=== PATIENT | male | born 1975 | race Caucasian/White ===

== ENCOUNTER 2020-05-08 15:05 | Outpatient (REF) | payer BC, SELFPAY ==
[2020-05-13 15:27] LABS: SARS-CoV-2 RNA Undetected (Undetected); SARS-CoV-2 Specimen Source Nasal
== END 2020-05-08 15:25 ==
LOC: NCHCN 15:05
PROVIDERS: PCP Nurse Practitioner Family; Visit Provider Nurse Practitioner Family
DX: Z20.828 Contact with and (suspected) exposure to other viral communicable diseases (principal)
CPT/HCPCS: U0003

== ENCOUNTER 2020-09-09 16:08 | Outpatient (REF) | payer BC, SELFPAY ==
[2020-09-10 19:39] LABS: COVID-19 RT-PCR UVMMC Result Negative (Negative)
== END 2020-09-09 16:09 | disposition home or self-care (01) ==
LOC: NCHCN 16:08
PROVIDERS: PCP Nurse Practitioner Family; Visit Provider Nurse Practitioner Family
DX: Z20.822 Contact with and (suspected) exposure to COVID-19 (principal)
CPT/HCPCS: U0003

== ENCOUNTER 2021-03-14 10:23 | Outpatient (REF) | payer BC, SELFPAY ==
[2021-03-15 12:46] LABS: COVID-19 RT-PCR UVMMC Result Negative (Negative)
== END 2021-03-14 10:24 | disposition home or self-care (01) ==
LOC: NCHCN 10:23
PROVIDERS: PCP Nurse Practitioner Family; Visit Provider Nurse Practitioner Family
DX: Z20.822 Contact with and (suspected) exposure to COVID-19 (principal)
CPT/HCPCS: U0003

== ENCOUNTER 2021-04-11 09:05 | Emergency (ER) | payer BC, SELFPAY ==
[2021-04-11] VITALS (19 sets, daily range): BP systolic 133–152; BP diastolic 73–103; PULSE 65–79; RESP 11–23; TEMP 36.6; O2SAT 94–99
--- NOTE | 2021-04-11 09:00 | RT.EKG_ITS ---
APPROVED REPORT Exam: Resting ECG Reason for Exam: chest pain Patient Location: E HR:71 bpm ECG Measurements Heart Rate 71 AXIS NH 161 P 53 QRSd 103 QRS 24 QT 388 T 13 QTc 422 Conclusion Sinus rhythm...normal P axis, V-rate 60- 99
--- NOTE | 2021-04-11 09:15 | DI.CT_ITS ---
Exam(s) CT CHEST PE CTA EXAM: CT CHEST PE CTA CLINICAL HISTORY: left upper back and chest pain, hx of PE. TECHNIQUE: Imaging Protocol: Axial CT angiography was performed with multi-slice acquisition and mu lti-planar and/or 3D reconstructions. CONTRAST MATERIAL: Intravenous: Omnipaque 350 Contrast volume:100 mL COMPARISON: No exams were available for comparison FINDINGS: Tracheobronchial tree: Patent where visualized. Pulmonary parenchyma: No consolidation or dominant measurable mass. No architectural distortion. Ther e are areas of air trapping. Pulmonary Arteries: Filling defects are seen in branches of the pulmonary artery to the left upper lo be and to the right lower lobe. There is no evidence of a saddle embolus. Mediastinum and Chasity: No dominant adenopathy or fluid collection. Visualized thyroid gland: Unremarkable. Pleura: No effusion or pneumothorax. Heart: The heart is not dilated. No evidence of right heart strain. No coronary artery calcificatio ns are seen. No pericardial effusion. Aorta: Thoracic aorta non-dilated. No evidence of dissection. Upper abdomen: Unremarkable. Soft tissues: Unremarkable. Bones: Within normal limits for the patient's age. IMPRESSION: 1. Findings of pulmonary emboli to the left upper and right lower lobes. 2. No evidence of right heart strain. 3. Results of this exam have been verbally communicated with provider. RADIATION DOSE DELIVERED: 671.53mGy.cm Total DLP DATA REPOSITORY: All CT scans at this facility are submitted to the National Radiology Data Registry (NRDR) Dose Index Registry (DIR) with the [employer] ([employer]). RADIATION OPTIMIZATION: All CT scans at this facility use at least one of these dose optimization te chniques: automated exposure control; mA and/or kV adjustment per patient size (includes targeted exa ms where dose is matched to clinical indication); or iterative reconstruction.
--- NOTE | 2021-04-11 09:15 | DI.US_ITS ---
Exam(s) US LOWER EXTREMITY VENOUS LT EXAM: US LOWER EXTREMITY VENOUS LT CLINICAL HISTORY: hx of dvt, pain in left calf TECHNIQUE: Left lower extremity venous ultrasound performed using grayscale, color-flow, and spectra l Doppler analysis. COMPARISON: No exams were available for comparison FINDINGS: The left common femoral, proximal femoral and mid femoral veins demonstrate normal compressibility, a ugmentation, and color Doppler. Hypoechoic thrombus is seen from the distal femoral veins extending inferiorly into the popliteal and the peroneal veins. It measures 18.8 cm in length. Thrombus is al so seen in a small saphenous vein measuring 8.4 cm in length. The posterior tibial veins are patent. The saphenofemoral junction is unremarkable. There is no evidence of a Smith cyst. The soft tissu es are unremarkable. IMPRESSION: 1. DVT in the left lower extremity from the distal femoral vein extending inferiorly to involve the p opliteal and the peroneal veins. 2. Left lower extremity superficial thrombophlebitis. 3. Results of this exam have been verbally communicated with provider. DATA REPOSITORY:
--- NOTE | 2021-04-11 09:19 | ED.GENADUL_ITS ---
Discharge Plan Disposition Patient Disposition: HOME Condition: Stable Discharge Details Clinical Impression: Pulmonary embolism, Left leg DVT Primary Care Provider: Lizy Perales ED Provider: Jon Espinoza Home Meds and New Rx's Prescriptions: New Eliquis DVT-PE Treat 30D Start 5 mg (74 tabs) tablets,dose pack See Rx Instructions .ROUTE .COMPLEX Qty: 74 RF: 0 Continued losartan 50 mg Tablet 50 mg PO BID RF: 0 metoprolol succinate 100 mg Tablet Extended Release 24 Hr 100 mg PO DAILY RF: 0 Discharge Instructions Additional Instructions: Your cat scan showed you have a pulmonary embolism and you had an ultrasound showing you have a DVT Follow up with your primary care provider this week take the eliquis as prescribed if you feel more ill, have worsening shortness of breath or pain return to the emergency department Medical Decision Making 45 yo male who has a hx of htn, and prior hx of dvt/pe in setting of travelling years ago no longer on anticoagulation comes in with chief complaint of left chest pain radiating to the back and worsens with deep breathing for 3 days. HE has also had discomfort in his left calf. Denies any recent travel or immobilization. Denies vomit, abdominal pain, or diaphoresis. He denies smoking, rarely drinks alcohol and denies drug use. HE is in no distress on exam. He has clear lungs, no rashes of the chest wall or back, does have tenderness to the upper left back. No abodminal tenderness. On the left calf there is no swelling but does have tenderness to the posterior calf and about 4cm of linear hard feeling structure under the skin that is not warm or erythematous, though it is tender. Could be superficial thrombophlebitis but given history will obtain u/s to evaluate for dvt. Will also obtain chest ct to evaluate for PE given his history and he is wells score moderate. He has a heart score of 2, symptoms seem atypical for acs but will obtain troponin, no acute findings on ekg. No tearing back pain and normal vascular exam so doubt dissection left leg u/s positive for dvt and also has PE on CT without evidence of heart strain. HE remains stable, not hypoxic and normal bp. PESI score is 53 points using mdcalc and is call I very low risk. Discussed with patient and offered admission for observation and starting eliquis. At this time given his stability he prefers outpatient treatment which I feel is reasonable given his low pesi score. Will start him on eliquis and have him f/u with his pcp this week. Return precautions given Differential Diagnosis Differential Diagnosis: dvt, pe, pneumothorax Imaging Data Radiologic Study: Attestation: I personally reviewed and interpreted this imaging study as follows: Imaging: CT Scan Radiologist's impression: IMPRESSION: 1. Findings of pulmonary emboli to the left upper and right lower lobes. 2. No evidence of right heart strain. 3. Results of this exam have been verbally communicated with provider Radiologic Study #2: Attestation: I personally reviewed and interpreted this imaging study as follows: Imaging: Ultrasound Radiologist's impression: IMPRESSION: 1. DVT in the left lower extremity from the distal femoral vein extending inferiorly to involve the popliteal and the peroneal veins. 2. Left lower extremity superficial thrombophlebitis. 3. Results of this exam have been verbally communicated with provider. Lab Data Lab results reviewed: Yes I reviewed the patient's lab results. ECG Data Attestation: I personally reviewed and interpreted this ECG (s) as follows: Prior ECG tracings: not available for review Interpretation: sinus rhythm, rate of 71, no acute st t wave ischemic findings HPI General Mode of arrival: ambulatory . Date/Time Provider Initiated Documentation: 04/11/21 09:07 . Limitations to Documentation: no limitations . Information obtained by: patient . History of Present Illness 45 year old M presents to the emergency department with the chief complaint of left chest and back pain, described as moderate, with intensity rated at 5. Quality is described as stabbing, and is localized to the chest. Patient reports radiation to back. Patient started experiencing this day(s) (2) and it has been constant. No relieving factors improve symptom(s), Other factors that worsen symptoms (deep breathing) . Patient notes other (left calf pain). Patient did receive the following treatments prior to arrival, none Related Data Home Medications Medication Instructions Recorded Confirmed apixaban [Eliquis DVT-PE Treat 30D See Rx Instructions .ROUTE 04/11/21 Start] .COMPLEX #74 dose pk losartan 50 mg PO BID 04/11/21 04/11/21 metoprolol succinate 100 mg PO DAILY 04/11/21 04/11/21 Previous Rx's Medication Instructions Recorded apixaban [Eliquis DVT-PE Treat 30D See Rx Instructions .ROUTE 04/11/21 Start] .COMPLEX #74 dose pk Allergies Allergy/AdvReac Type Severity Reaction Status Date / Time lisinopril Allergy Unverified 04/11/21 09:21 General Stated Complaint: Chest Pain QUEENIE: 2 Review of Systems All systems reviewed & are unremarkable except as noted in HPI and below Constitutional Constitutional: Denies chills, Denies fever(s) and Denies weakness Cardiovascular Cardiovascular: Denies dyspnea Respiratory Respiratory: Denies cough and Denies dyspnea Gastrointestinal Gastrointestinal: Denies abdominal pain, Denies nausea and Denies vomiting Musculoskeletal Musculoskeletal: Denies joint swelling Neurologic Neurologic: Denies weakness PFSH Social History Smoking/Tobacco Use Status: Never Smoking risk assessment performed?: Yes Alcohol Intake: current Alcohol Intake frequency: holidays/special occasions only Drug use: Never Substance use type: does not use Exam Const General: no acute distress Orientation: alert HENMT Head: normal to inspection Ears: external ears normal General nose exam: external nose normal Mouth: moist mucous membranes Eyes General: appearance normal, both eyes and all related structures Neck Neck: normal visual inspection Resp Effort & Inspection: normal respiratory effort and able to speak in complete sentences Cardio Rate: regular rate GI Palpation: soft and nontender Skin General skin exam: no rashes or lesions noted Neuro General: patient alert and patient oriented x3 Extrem General: normal to inspection Psych Mental Status: mental status grossly normal Course Vital Signs Vital signs: Vital Signs Temperature 36.6 C 04/11/21 09:12 Pulse 74 04/11/21 09:12 Respiratory Rate 20 04/11/21 09:12 Blood Pressure 152/103 H 04/11/21 09:12 Pulse Oximetry 95 04/11/21 09:12 Temperature 36.6 C 04/11/21 09:12 Temperature Source Skin 04/11/21 09:12 Pulse 74 04/11/21 09:12 Respiratory Rate 20 04/11/21 09:12 Respiratory Effort 04/11/21 09:16 Blood Pressure 152/103 H 04/11/21 09:12 Blood Pressure Position Supine 04/11/21 09:12 Pulse Oximetry 95 04/11/21 09:12 Oxygen Delivery Method Room Air 04/11/21 09:12 Oxygen Flow Rate 0 04/11/21 09:12 Pain Level 5 04/11/21 09:12 Comment 04/11/21 09:12
[2021-04-11 09:25] LABS: Abs Immature Grans 0.04 10^3/uL (0.0-0.06); Absolute Basophil Count 0.04 10^3/uL (0.0-0.2); Absolute Eosinophil Count 0.16 10^3/uL (0.0-0.7); Absolute Lymphocyte Count 2.13 10^3/uL (1.2-3.4); Absolute Monocyte Count 0.89 10^3/uL (0.1-0.8); Absolute Neutrophil Count 5.22 10^3/uL (1.2-6.7); Basophils % 0.5; Eosinophils % 1.9; HCT 50.7 % (40.0-50.0); HGB 17.2 g/dL (13.5-17.5); Immature Grans % 0.5; Lymphocytes % 25.1; MCH 31.3 pg (27.0-33.0); MCHC 33.9 % (32.0-36.0); MCV 92.2 fL (80-95); MPV 10.3 fL (8.0-11.0); Monocytes % 10.5; Neutrophils % 61.5; Nucleated RBC 0 %; Platelet Count 187 10^3/uL (130-400); RDW 12.3 % (11.8-14.1); RDW-SD 41.8 fL; WBC 8.48 10^3/uL (4.4-10.8)
[2021-04-11 09:41] LABS: Magnesium 2.4 mg/dL (1.8-2.4)
[2021-04-11 09:56] LABS: ALT 83 U/L (16-63); AST 43 U/L (15-37); Alkaline Phosphatase 82 U/L (46-116); Anion Gap 7.7 mmol/L (3-11); BUN 13 mg/dL (7-18); Bilirubin, Total 1.9 mg/dL (0.2-1.0); CO2 26.3 mmol/L (21.0-32.0); Calcium 8.7 mg/dL (8.5-10.1); Chloride 106 mmol/L (98-107); Glucose 113 mg/dL (74-106); Lipase 158 U/L (73-393); Potassium 4.3 mmol/L (3.5-5.1); Sodium 140 mmol/L (136-145); Total Protein 7.4 g/dL (6.4-8.2)
[2021-04-11 09:57] LABS: Troponin I < 0.05 ng/mL (<0.06)
[2021-04-11] MEDS: Omnipaque 350 MG/ML 100 ML BTL IJ (10:06)
--- NOTE | 2021-04-11 11:33 | NUR.NOTE ---
Nursing Note: Referral faxed to PCP, [facility], for next week, new PE. Ana Maria Coleman
[2021-04-11] MEDS: Apixaban 5 MG TAB 10 MG PO (11:56)
== END 2021-04-11 12:05 | disposition home or self-care (01) ==
PROVIDERS: Emergency Provider Emergency Medicine; PCP Nurse Practitioner Family
DX: I26.99 Other pulmonary embolism without acute cor pulmonale (principal); I82.492 Acute embolism and thrombosis of other specified deep vein of left lower extremity; Z86.718 Personal history of other venous thrombosis and embolism
CPT/HCPCS: 36415; 71275; 80053; 83690; 93005; 99285; 83735; 84484; 85025; 93010; 93971; J3490

== ENCOUNTER 2021-05-19 18:58 | Outpatient (REF) | payer BC, SELFPAY ==
[2021-05-19 22:07] LABS: Abs Immature Grans 0.04 10^3/uL (0.0-0.06); Absolute Basophil Count 0.05 10^3/uL (0.0-0.2); Absolute Eosinophil Count 0.12 10^3/uL (0.0-0.7); Absolute Lymphocyte Count 2.14 10^3/uL (1.2-3.4); Absolute Monocyte Count 0.71 10^3/uL (0.1-0.8); Absolute Neutrophil Count 4.58 10^3/uL (1.2-6.7); Basophils % 0.7; Eosinophils % 1.6; HCT 48.6 % (40.0-50.0); HGB 16.5 g/dL (13.5-17.5); Immature Grans % 0.5; MCH 31.1 pg (27.0-33.0); MCV 91.7 fL (80-95); MPV 10.8 fL (8.0-11.0); Monocytes % 9.3; Neutrophils % 59.9; Nucleated RBC 0 %; Platelet Count 235 10^3/uL (130-400); RDW 12.3 % (11.8-14.1); RDW-SD 41.4 fL; WBC 7.64 10^3/uL (4.4-10.8)
[2021-05-19 22:34] LABS: ALT 53 U/L (16-63); AST 26 U/L (15-37); Alkaline Phosphatase 87 U/L (46-116); BUN 12 mg/dL (7-18); Bilirubin, Total 0.9 mg/dL (0.2-1.0); CREATININE 0.9 mg/dL (0.70-1.30); Calcium 9.2 mg/dL (8.5-10.1); Chloride 108 mmol/L (98-107); Glucose 100 mg/dL (74-106); NT-proBNP 54 pg/mL (<300); Potassium 4.6 mmol/L (3.5-5.1); Sodium 145 mmol/L (136-145); Total Protein 6.9 g/dL (6.4-8.2)
== END 2021-05-19 18:59 | disposition home or self-care (01) ==
LOC: NCHCN 18:58
PROVIDERS: PCP Nurse Practitioner Family; Visit Provider Family Medicine
DX: R06.00 Dyspnea, unspecified (principal); R10.9 Unspecified abdominal pain; I26.99 Other pulmonary embolism without acute cor pulmonale
CPT/HCPCS: 80053; 83880; 85025

== ENCOUNTER 2021-05-28 11:18 | Outpatient (CLI) | payer BC, SELFPAY ==
--- NOTE | 2021-05-28 13:55 | DI.RAD_ITS ---
Exam(s) XR CHEST 2V PA LATERAL EXAM: XR CHEST 2V PA LATERAL CLINICAL HISTORY: 1 MONTH S/P COVID, DYSPNEA, R06.00. TECHNIQUE: 2D digital imaging was performed. COMPARISON: No exams were available for comparison FINDINGS: Heart size is normal. The mediastinum is not widened. Lungs are clear. No infiltrates nor pleural effusions. IMPRESSION: No acute pulmonary findings. DATA REPOSITORY: RADIATION DOSE DELIVERED:
== END 2021-05-28 11:38 ==
PROVIDERS: PCP Nurse Practitioner Family; Visit Provider Family Medicine
DX: R06.00 Dyspnea, unspecified (principal)
CPT/HCPCS: 71046

== ENCOUNTER 2021-08-01 16:36 | Outpatient (REF) | payer BC, SELFPAY ==
[2021-08-01 21:39] LABS: C-Reactive Protein 0.19 mg/dL (0.0-0.3); Creatine Kinase 791 U/L (39-308); LDH 260 U/L (85-227)
[2021-08-01 21:44] LABS: ESR 2 mm/hr (0-15)
[2021-08-05 10:09] LABS: Aldolase 15.4 U/L (<7.7)
== END 2021-08-01 16:37 | disposition home or self-care (01) ==
LOC: NCHCN 16:36
PROVIDERS: PCP Nurse Practitioner Family; Visit Provider Nurse Practitioner Family
DX: G72.9 Myopathy, unspecified (principal)
CPT/HCPCS: 82550; 85652; 82085; 83615; 86140

== ENCOUNTER 2022-04-08 20:24 | Emergency (ER) | payer BC, SELFPAY ==
[2022-04-08 20:42] VITALS: BP 145/95; PULSE 85; RESP 18; TEMP 37.6; O2SAT 98
--- NOTE | 2022-04-08 21:00 | DI.RAD_ITS ---
Exam(s) XR TIB/FIB RT EXAM: XR TIB/FIB RT CLINICAL HISTORY: anterior pain, swelling. TECHNIQUE: 2D digital imaging was performed of the right tibia and fibula. Three images were obtaine d. AP and lateral views were obtained. COMPARISON: No exams were available for comparison FINDINGS: BONES: No acute fracture is present. No bony destructive lesion is seen. Visualized portion of knee a nd ankle joints are unremarkable. SOFT TISSUE: Normal. IMPRESSION: Unremarkable radiographs of the right tibia and fibula. DATA REPOSITORY: RADIATION DOSE DELIVERED:
--- NOTE | 2022-04-08 21:03 | ED.GENADUL_ITS ---
Discharge Plan Disposition Patient Disposition: HOME Condition: Improving Discharge Details Clinical Impression: Hematoma of right lower leg Primary Care Provider: Lizy Perales ED Provider: Felix Finch Home Meds and New Rx's Prescriptions: New cephalexin 500 mg capsule 500 mg PO TID 7 Days Qty: 21 0RF Continued losartan 50 mg Tablet 50 mg PO BID metoprolol succinate 100 mg Tablet Extended Release 24 Hr 100 mg PO DAILY Eliquis DVT-PE Treat 30D Start 5 mg (74 tabs) tablets,dose pack See Rx Instructions .ROUTE .COMPLEX Qty: 74 0RF Rx Instructions: orally per package directions Discharge Instructions Instructions: Hematoma (ED) Additional Instructions: Please return tomorrow morning for decreased ultrasound to make sure you do not have a deep vein thrombosis. Your hematoma will slowly resolve over weeks time. He may have ongoing discoloration in a dependent pattern such as at the ankle. Moist/warm heat to area to help speed healing. Elevate the leg above the level of the heart to reduce discomfort. Please take Keflex as prescribed until finished. Medical Decision Making 46-year-old male with a history of DVT and PE for which he takes Eliquis daily. He was struck with a baseball in his right garrison on Wednesday. He says he developed pain, swelling, mild erythema and warmth and bruising of the ankle. Has not had chest pain or shortness of breath. On exam the patient has evidence of ecchymosis and swelling. No posterior cords or tenderness. Most consistent with anterior tibia hematoma. Patient was referred for x-ray to rule out underlying bony injury.. No evidence of underlying bony injury. Given the patient's history we will have her return for a lower extremity ultrasound to rule out DVT. Additionally, he may have a early developing cellulitis from the breakdown of skin at the point of impact and I will place him on a course of cephalosporin for early cellulitis. HPI General Mode of arrival: ambulatory . Date/Time Provider Initiated Documentation: 04/08/22 20:33 . Limitations to Documentation: no limitations . Information obtained by: patient and family . History of Present Illness 46 year old M presents to the emergency department with the chief complaint of Right garrison swelling and pain after injury, described as moderate, Quality is described as dull and constant, and is localized to the right and lower extremity. Patient reports no radiation. Patient started experiencing this hour(s) and it has been constant. No relieving factors improve symptom(s), No exacerbating factors reported . Patient notes denies chest pain, shortness of breath and syncope. Patient did receive the following treatments prior to arrival, none Related Data Home Medications Medication Instructions Recorded Confirmed apixaban 5 mg (74 tabs) tablets in See Rx Instructions PO .COMPLEX 04/11/21 a dose pack (Eliquis DVT-PE Treat #74 dose pk 30D Start) losartan 50 mg tablet 50 mg PO BID 04/11/21 04/11/21 metoprolol succinate 100 mg 100 mg PO DAILY 04/11/21 04/11/21 tablet,extended release 24 hr cephalexin 500 mg capsule 500 mg PO TID 7 days #21 caps 04/08/22 Previous Rx's Medication Instructions Recorded apixaban 5 mg (74 tabs) tablets in See Rx Instructions PO .COMPLEX 04/11/21 a dose pack (Eliquis DVT-PE Treat #74 dose pk 30D Start) cephalexin 500 mg capsule 500 mg PO TID 7 days #21 caps 04/08/22 Allergies Allergy/AdvReac Type Severity Reaction Status Date / Time lisinopril Allergy Unverified 04/11/21 09:21 General Stated Complaint: Orthopedic QUEENIE: 4 Review of Systems Narrative: 6 systems reviewed and otherwise negative PFSH All Active Problems (Updated 04/08/22 @ 21:46 by Felix Finch MD) Pulmonary embolism (Chronic) Left leg DVT (Acute) Hematoma of right lower leg (Acute) Social History Smoking/Tobacco Use Status: Never Smoking risk assessment performed?: Yes Alcohol Intake: current Alcohol Intake frequency: holidays/special occasions only Drug use: Never Substance use type: does not use Do you feel safe at home: Yes Do you feel safe in your relationship?: Yes Exam Narrative Exam Narrative: GEN: awake, alert, oriented 3. Pleasant, well groomed, interactive. HEAD: Normocephalic, atraumatic EYES: PERRL, EOMI NECK: Full ROM, no KJ, no menigismus CHEST/RESP: No respiratory distress ABDOMEN: Soft, nontender, no mass. +Bowel sounds EXT: Full ROM, right anterior garrison is edematous with an area of abrasion with mild surrounding erythema and warmth. There is ecchymosis at the medial ankle. No posterior tenderness or cords appreciated. Neuro: Grossly normal neurologic exam, conversant, interactive. Psych: Speech fluent, thoughts congruent, affect normal Course Vital Signs Vital signs: Vital Signs Temperature 37.6 C H 04/08/22 20:42 Pulse 85 04/08/22 20:42 Respiratory Rate 18 04/08/22 20:42 Blood Pressure 145/95 H 04/08/22 20:42 Pulse Oximetry 98 04/08/22 20:42 Temperature 37.6 C H 04/08/22 20:42 Temperature Source Tympanic 04/08/22 20:42 Pulse 85 04/08/22 20:42 Respiratory Rate 18 04/08/22 20:42 Respiratory Effort 04/08/22 20:46 Blood Pressure 145/95 H 04/08/22 20:42 Blood Pressure Position Sitting 04/08/22 20:42 Pulse Oximetry 98 04/08/22 20:42 Oxygen Delivery Method Room Air 04/08/22 20:42 Oxygen Flow Rate 0 04/08/22 20:42 Pain Level 5 04/08/22 20:46 Comment 04/08/22 20:42
--- NOTE | 2022-04-08 21:49 | NUR.NOTE ---
DI requisition faxed to have lower extremity ultra sound 04/08/22.Nursing Note:
--- NOTE | 2022-04-08 21:57 | DI.VRAD_ITS ---
PROCEDURE INFORMATION: Exam: XR Right Tibia and Fibula Exam date and time: 04/08/2022 9:41 PM Age: 46 years old Clinical indication: Other: Anterior pain, swelling TECHNIQUE: Imaging protocol: Radiologic exam of the Right tibia and fibula. Views: 2 views. COMPARISON: No relevant prior studies available. FINDINGS: Bones/joints: Normal. Soft tissues: Normal. IMPRESSION: No acute findings. Dictated and Authenticated by: Fabio Giordano MD. Ordering:MILAGROS [place] MD
[2022-04-08] MEDS: Cephalexin 500 MG CAP, 2 CAPS/BTL PO (22:00)
== END 2022-04-08 22:10 | disposition home or self-care (01) ==
PROVIDERS: Emergency Provider Emergency Medicine; PCP Nurse Practitioner Family
DX: S90.01XA Contusion of right ankle, initial encounter (principal); Z86.711 Personal history of pulmonary embolism; Z86.718 Personal history of other venous thrombosis and embolism; S80.811A Abrasion, right lower leg, initial encounter; W21.03XA Struck by baseball, initial encounter; Z79.01 Long term (current) use of anticoagulants
CPT/HCPCS: 99283; 73590; 99284

== ENCOUNTER 2022-04-09 15:12 | Emergency (ER) | payer BC, SELFPAY ==
[2022-04-09 15:17] VITALS: BP 156/92; PULSE 77; RESP 16; TEMP 36.8; O2SAT 95
[2022-04-09 15:23] VITALS: RESP 18
--- NOTE | 2022-04-09 15:45 | DI.RAD_ITS ---
Exam(s) XR ANKLE RT COMPLETE EXAM: XR ANKLE RT COMPLETE CLINICAL HISTORY: twisted R ankle, r/o fx. TECHNIQUE: 2D digital imaging was performed of the right ankle. Three images were obtained. AP, la teral and oblique views were obtained. COMPARISON: No exams were available for comparison FINDINGS: BONES: No acute fracture is present. No bony destructive lesion is seen. There is a plantar calcanea l spur. There is an enthesophyte at the Achilles insertion site. JOINTS: The ankle mortise is normally aligned. SOFT TISSUE: Vascular calcifications are seen. IMPRESSION: No acute fracture or dislocation. DATA REPOSITORY: RADIATION DOSE DELIVERED:
--- NOTE | 2022-04-09 15:45 | DI.RAD_ITS ---
Exam(s) XR FOOT RT COMPLETE EXAM: XR FOOT RT COMPLETE CLINICAL HISTORY: twisted R foot, r/o fx. TECHNIQUE: 2D digital imaging was performed of the right foot. Three images were obtained. AP, obl ique and lateral views were obtained. COMPARISON: No exams were available for comparison FINDINGS: BONES: No acute fracture is present. No bony destructive lesion is seen. JOINTS: No dislocation present. SOFT TISSUE: Normal. IMPRESSION: No acute fracture or dislocation. DATA REPOSITORY: RADIATION DOSE DELIVERED:
--- NOTE | 2022-04-09 15:51 | ED.GENADUL_ITS ---
Discharge Plan Disposition Patient Disposition: HOME Condition: Stable Discharge Details Clinical Impression: Abrasion of right leg, Contusion of right leg Primary Care Provider: Lizy Perales ED Provider: Puja Don Home Meds and New Rx's Prescriptions: Continued losartan 50 mg Tablet 50 mg PO BID metoprolol succinate 100 mg Tablet Extended Release 24 Hr 100 mg PO DAILY Eliquis DVT-PE Treat 30D Start 5 mg (74 tabs) tablets,dose pack See Rx Instructions .ROUTE .COMPLEX Qty: 74 0RF Rx Instructions: orally per package directions cephalexin 500 mg capsule 500 mg PO TID 7 Days Qty: 21 0RF Discharge Instructions Instructions: Contusion in Adults (ED), Abrasion (ED) Additional Instructions: Your ultrasound today showed no evidence of a blood clot. Your x-rays today showed no evidence of a fracture or dislocation. It is suspected that your right leg swelling is secondary to localized trauma. It is best to rest, ice and elevate your right leg is much as possible. You can apply Israel wrap to help with localized swelling. Take Tylenol as needed and directed for pain. Follow up with your primary care doctor in 1 week as needed. Return to the emergency department with any worsening or new concerning sy mptoms. 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 Ultrasound negative for DVT. Patient has a healing abrasion to his right anterior mid leg. He was also developed persistent swelling in his right ankle and foot. He is also endorsing pain in his distal right foot. Discussed with patient that his distal lower leg swelling and pain is likely secondary to dependent edema from his injury to his right lower leg. He is advised to rest and elevate this leg is much as possible. Patient expressed concern for possible avulsion fracture if he twisted his ankle with his injury. Will refer for right ankle and foot x-rays. Ultrasound negative for DVT. X-rays negative for fracture. Will place an Israel wrap to help with localized swelling. Patient advised on importance of rest, ice and elevation. Advised to follow up with the primary care doctor for re- evaluation. Usual and customary return precautions given prior to discharge. Medical Records Medical records reviewed: Yes I reviewed the patient's medical records. Imaging Data Radiologic Study: Radiologist's impression: ?XR ANKLE RT COMPLETE CLINICAL HISTORY: ? twisted R ankle, r/o fx. ? TECHNIQUE:? 2D digital imaging was performed of the right ankle.? Three images were obtained.? AP, lateral and oblique views were obtained. COMPARISON:? No exams were available for comparison FINDINGS: BONES: No acute fracture is present.? No bony destructive lesion is seen. There is a plantar calcaneal spur.? There is an enthesophyte at the Achilles insertion site. JOINTS: The ankle mortise is normally aligned. SOFT TISSUE: Vascular calcifications are seen.? IMPRESSION: No acute fracture or dislocation.? XR FOOT RT COMPLETE CLINICAL HISTORY: ? twisted R foot, r/o fx.? TECHNIQUE:? 2D digital imaging was performed of the right foot.? Three images were obtained.? AP, oblique and lateral views were obtained. COMPARISON:? No exams were available for comparison FINDINGS: BONES: No acute fracture is present. No bony destructive lesion is seen. JOINTS: No dislocation present. SOFT TISSUE: Normal. IMPRESSION: No acute fracture or dislocation.? US LOWER EXTREMITY VENOUS RT CLINICAL HISTORY:? RT LEG SWELLING, ? DVT,. H/O DVT? TECHNIQUE:? Right lower extremity venous ultrasound performed using grayscale, color-flow, and spectral Doppler analysis. COMPARISON:? No exams were available for comparison FINDINGS: The right common femoral, femoral and popliteal veins demonstrate normal comp ressibility, augmentation, and color Doppler. The posterior tibial veins are patent.? The saphenofemoral junction is unremarkable.? There is no evidence of a Smith cyst.? The soft tissues are unremarkable. IMPRESSION: 1. No evidence of a right lower extremity DVT. 2. Results of this exam have been verbally communicated with provider. HPI General Mode of arrival: ambulatory . Date/Time Provider Initiated Documentation: 04/09/22 15:32 . Limitations to Documentation: no limitations . Information obtained by: patient . HPI Narrative: Patient is a 46-year-old male with a history of DVT and pulmonary embolism on lifelong Eliquis who presents for results of an ultrasound of his right leg after seen here yesterday for hematoma in his right leg status post injury. Tod schmidt states over the weekend his son accidentally threw a baseball while playing which hit his right anterior leg. Patient states he instantly fell to the ground and had pain in his right anterior lower leg. He states he is unsure if he twisted his ankle but has had increasing swelling in his right ankle and foot. Patient did have an x-ray of his right tib-fib yesterday which was unremarkable. He was referred here as an outpatient today for an ultrasound of his right leg to rule out DVT. He denies any chest pain or difficulty breathing. Related Data Home Medications Medication Instructions Recorded Confirmed apixaban 5 mg (74 tabs) tablets in See Rx Instructions PO .COMPLEX 04/11/21 04/09/22 a dose pack (Eliquis DVT-PE Treat #74 dose pk 30D Start) losartan 50 mg tablet 50 mg PO BID 04/11/21 04/09/22 metoprolol succinate 100 mg 100 mg PO DAILY 04/11/21 04/09/22 tablet,extended release 24 hr cephalexin 500 mg capsule 500 mg PO TID 7 days #21 caps 04/08/22 04/09/22 Previous Rx's Medication Instructions Recorded apixaban 5 mg (74 tabs) tablets in See Rx Instructions PO .COMPLEX 04/11/21 a dose pack (Eliquis DVT-PE Treat #74 dose pk 30D Start) cephalexin 500 mg capsule 500 mg PO TID 7 days #21 caps 04/08/22 Allergies Allergy/AdvReac Type Severity Reaction Status Date / Time lisinopril Allergy Unverified 04/09/22 15:23 General Stated Complaint: Vascular QUEENIE: 3 Review of Systems All systems reviewed & are unremarkable except as noted in HPI and below Constitutional Constitutional: Reports as per HPI, Denies chills and Denies fever(s) Eyes Eyes: Denies blurry vision ENT Ears, Nose, Mouth, and Throat: Denies dizziness, Denies sore throat and Denies throat swelling Cardiovascular Cardiovascular: Denies chest pain and Denies dyspnea Respiratory Respiratory: Denies cough and Denies dyspnea Gastrointestinal Gastrointestinal: Denies abdominal pain, Denies diarrhea and Denies vomiting Genitourinary Genitourinary: Denies hematuria and Denies dysuria Musculoskeletal Musculoskeletal: Denies back pain and Denies numbness Comments: R leg/ankle/foot pain and swelling Integumentary/Breasts Skin/Breast: Denies lesions and Denies rash Neurologic Neurologic: Denies dizziness, Denies localized weakness and Denies numbness Allergic/Immunologic Allergic/Immunologic: Denies throat swelling PFSH All Active Problems (Updated 04/09/22 @ 16:42 by Puja Don DO) Abrasion of right leg (Acute) Contusion of right leg (Acute) Hematoma of right lower leg (Acute) Medical History (Updated 04/09/22 @ 16:42 by Puja Don DO) Left leg DVT Pulmonary embolism Surgical History (Updated 04/09/22 @ 15:49 by Puja Don DO) [place] Social History Smoking/Tobacco Use Status: Never Smoking risk assessment performed?: Yes Alcohol Intake: current Alcohol Intake frequency: holidays/special occasions only Drug use: Never Substance use type: does not use Do you feel safe at home: Yes Do you feel safe in your relationship?: Yes Exam Const General: cooperative, healthy appearing and no acute distress Orientation: alert, awake and oriented x3 HENMT Head: normal to inspection Mouth: oral mucosae normal Eyes General: appearance normal, both eyes and all related structures Neck Neck: normal visual inspection Resp Effort & Inspection: normal respiratory effort and able to speak in complete sentences Cardio Rate: regular rate Skin General skin exam: no rashes or lesions noted Neuro General: patient alert, patient awake and patient oriented x3 Motor: muscle tone normal throughout Extrem Ankle/foot/toe images: 1. 2x2cm erosion right anterior mid leg. There is edema of the entire right leg extending proximally down to the foot. There is ecchymosis noted of the fir st MTP joint. Other: R DP/PT pulses intact. R knee normal to inspection. Psych Appearance: grossly normal Affect: normal affect Course Vital Signs Vital signs: Vital Signs Temperature 98.2 F 04/09/22 15:17 Pulse 77 04/09/22 15:17 Respiratory Rate 16 04/09/22 15:17 Blood Pressure 156/92 H 04/09/22 15:17 Pulse Oximetry 95 04/09/22 15:17 Temperature 98.2 F 04/09/22 15:17 Temperature Source Temporal Artery Scan 04/09/22 15:17 Pulse 77 04/09/22 15:17 Respiratory Rate 18 04/09/22 15:23 Respiratory Effort Non-Labored 04/09/22 15:23 Respiratory Depth Normal 04/09/22 15:23 Respiratory Pattern Normal 04/09/22 15:23 Blood Pressure 156/92 H 04/09/22 15:17 Blood Pressure Position Sitting 04/09/22 15:17 Pulse Oximetry 95 04/09/22 15:17 Oxygen Delivery Method Room Air 04/09/22 15:17 Oxygen Flow Rate 0 04/09/22 15:17 Pain Level 8 04/09/22 15:17
== END 2022-04-09 17:06 | disposition home or self-care (01) ==
PROVIDERS: Emergency Provider Physician Assistant; PCP Nurse Practitioner Family
DX: S80.11XA Contusion of right lower leg, initial encounter (principal); S90.111A Contusion of right great toe without damage to nail, initial encounter; Z86.711 Personal history of pulmonary embolism; Z86.718 Personal history of other venous thrombosis and embolism; Z79.01 Long term (current) use of anticoagulants; W21.03XA Struck by baseball, initial encounter; W18.30XA Fall on same level, unspecified, initial encounter
CPT/HCPCS: 90471; 99284; 73610; 73630; 99282

== ENCOUNTER 2022-09-16 12:03 | Outpatient (REF) | payer BC, SELFPAY ==
[2022-09-16 16:11] LABS: ALT 57 U/L (16-63); AST 28 U/L (15-37); Alkaline Phosphatase 101 U/L (46-116); Anion Gap 10.9 mmol/L (3-11); BUN 9 mg/dL (7-18); Bilirubin, Total 0.7 mg/dL (0.2-1.0); CO2 23.1 mmol/L (21.0-32.0); CREATININE 0.8 mg/dL (0.70-1.30); Calcium 9.4 mg/dL (8.5-10.1); Chloride 107 mmol/L (98-107); Cholesterol 210 mg/dL (<200); Estimated GFR 111.22 (mL/min/1.73m2); Glucose 124 mg/dL (74-106); HDL Cholesterol 37 mg/dL (40-60); Potassium 4.6 mmol/L (3.5-5.1); Sodium 141 mmol/L (136-145); Triglyceride 402 mg/dL (<150)
[2022-09-16 16:26] LABS: C-Reactive Protein 0.13 mg/dL (0.0-0.3); Creatine Kinase 535 U/L (39-308); LDH 242 U/L (85-227)
== END 2022-09-16 12:04 | disposition home or self-care (01) ==
LOC: NCHCN 12:03
PROVIDERS: PCP Nurse Practitioner Family; Visit Provider Nurse Practitioner Family
DX: G72.89 Other specified myopathies (principal); I10 Essential (primary) hypertension; Z82.49 Family history of ischemic heart disease and other diseases of the circulatory system
CPT/HCPCS: 80053; 80061; 82550; 85027; 85652; 82085; 83615; 86140

== ENCOUNTER 2022-09-23 16:21 | Outpatient (REF) | payer BC, SELFPAY ==
[2022-09-23 14:42] LABS: HGB 17.4 g/dL (13.5-17.5); MCH 32.3 pg (27.0-33.0); MCHC 35.5 % (32.0-36.0); MCV 91 fL (80-95); MPV 10.9 fL (8.0-11.0); Platelet Count 219 10^3/uL (130-400); RBC 5.39 10^6/uL (4.36-5.78); RDW-SD 42.6 fL; WBC 8.15 10^3/uL (4.4-10.8)
[2022-09-23 15:00] LABS: ESR < 1 mm/hr (0-15)
== END 2022-09-23 16:22 | disposition home or self-care (01) ==
LOC: NCHCN 16:21
PROVIDERS: PCP Nurse Practitioner Family; Visit Provider Nurse Practitioner Family
DX: G72.89 Other specified myopathies (principal); I10 Essential (primary) hypertension; Z00.00 Encounter for general adult medical examination without abnormal findings
CPT/HCPCS: 85027; 85652

== ENCOUNTER 2023-04-15 19:13 | Outpatient (REF) | payer BC, SELFPAY ==
[2023-04-15 14:45] LABS: Bilirubin Negative (Negative); Blood Negative (Negative); Clarity Clear (Clear); Glucose Negative (Negative); Ketones Negative (Negative); Leukocyte Esterase Negative (Negative); Nitrite Negative (Negative); Urobilinogen 0.2 mg/dL (Up to 0.2); pH 6.5 (5-8)
== END 2023-04-15 19:14 | disposition home or self-care (01) ==
LOC: NCHCN 19:13
PROVIDERS: PCP Nurse Practitioner Family; Visit Provider Nurse Practitioner Family
DX: N40.0 Benign prostatic hyperplasia without lower urinary tract symptoms (principal)
CPT/HCPCS: 81003

== ENCOUNTER 2023-09-10 02:45 | Outpatient (CLI) | payer BC, SELFPAY ==
[2023-09-10 10:03] LABS: HCT 49.2 % (40.0-50.0); HGB 17.4 g/dL (13.5-17.5); MCH 31.7 pg (27.0-33.0); MCHC 35.4 % (32.0-36.0); MCV 90 fL (80-95); MPV 10.1 fL (8.0-11.0); Platelet Count 211 10^3/uL (130-400); RBC 5.49 10^6/uL (4.36-5.78); RDW 12.6 % (11.8-14.1); RDW-SD 41.1 fL; WBC 7.46 10^3/uL (4.4-10.8)
[2023-09-10 10:17] LABS: Bilirubin Negative (Negative); Blood Negative (Negative); Clarity Clear (Clear); Glucose Negative (Negative); Ketones Negative (Negative); Leukocyte Esterase Negative (Negative); Nitrite Negative (Negative); Urobilinogen 0.2 mg/dL (Up to 0.2)
[2023-09-10 10:33] LABS: ALT 61 U/L (16-63); AST 41 U/L (15-37); Albumin 4.3 g/dL (3.4-5.0); Alkaline Phosphatase 89 U/L (46-116); Anion Gap 9.5 mmol/L (3-11); BUN 8 mg/dL (7-18); Bilirubin, Total 1.3 mg/dL (0.2-1.0); CO2 28.5 mmol/L (21.0-32.0); CREATININE 0.9 mg/dL (0.70-1.30); Calcium 9.4 mg/dL (8.5-10.1); Calculated LDL 45 mg/dL (<100); Chloride 105 mmol/L (98-107); Cholesterol 114 mg/dL (<200); Estimated GFR 107.33 (mL/min/1.73m2); Glucose 119 mg/dL (74-106); HDL Cholesterol 41 mg/dL (40-60); Potassium 4.3 mmol/L (3.5-5.1); Sodium 143 mmol/L (136-145); TSH (W/Ref FT4) 3.67 uIU/mL (0.36-3.74); Total Protein 7.9 g/dL (6.4-8.2); Triglyceride 143 mg/dL (<150)
[2023-09-10 11:01] LABS: Hemoglobin A1C 5.6 % (<5.7)
== END 2023-09-10 02:46 | disposition home or self-care (01) ==
LOC: LBO 02:45
PROVIDERS: PCP Nurse Practitioner Family; Visit Provider Nurse Practitioner Family
DX: R53.83 Other fatigue (principal); Z00.00 Encounter for general adult medical examination without abnormal findings
CPT/HCPCS: 36415; 80053; 80061; 85027; 81003; 83036; 84443

== ENCOUNTER 2023-10-01 09:58 | Emergency (ER) | payer BC, SELFPAY ==
[2023-10-01 10:04] VITALS: BP 150/91; PULSE 79; RESP 18; TEMP 36.6; O2SAT 98
--- NOTE | 2023-10-01 10:30 | DI.RAD_ITS ---
Exam(s) XR FOOT RT COMPLETE EXAM: XR FOOT RT COMPLETE CLINICAL HISTORY: trauma right big toe. TECHNIQUE: 2D digital imaging was performed of the right foot. Three images were obtained. AP, obl ique and lateral views were obtained. COMPARISON: CR XR FOOT RT COMPLETE from 04/09/2022 FINDINGS: BONES: No acute fracture is present. There is a plantar calcaneal spur and an enthesophyte at the pos terior calcaneus. JOINTS: No dislocation present. SOFT TISSUE: Normal. IMPRESSION: No acute fracture or dislocation. DATA REPOSITORY: RADIATION DOSE DELIVERED:
--- NOTE | 2023-10-01 11:51 | W.ED.GENAD ---
Discharge Plan Disposition Patient Disposition: Home Condition: Good Discharge Details Clinical Impression: Gout, Great toe pain Primary Care Provider: Lizy Perales ED Provider: Jeannette Beard Home Meds and New Rx's Prescriptions: New prednisone 10 mg tablet 10 mg PO DIRECTED Qty: 40 0RF Rx Instructions: 40mg x 7 days 30mg x 2 days 20mg x 2 days 10mg x 2 days Continued Eliquis 5 mg tablet 5 mg PO BID metoprolol succinate 200 mg tablet extended release 24 hr 200 mg PO DAILY metoprolol succinate 50 mg tablet extended release 24 hr 50 mg PO DAILY losartan 50 mg tablet 50 mg PO DAILY rosuvastatin 20 mg tablet 20 mg PO DAILY losartan 50 mg Tablet 50 mg PO BID metoprolol succinate 100 mg Tablet Extended Release 24 Hr 100 mg PO DAILY Eliquis DVT-PE Treat 30D Start 5 mg (74 tabs) tablets,dose pack See Rx Instructions .ROUTE .COMPLEX Qty: 74 0RF Rx Instructions: orally per package directions Discharge Instructions Instructions: Gout (ED) Additional Instructions: X-rays reassuring here today. No evidence of fracture or dislocation. The onset of your symptoms is more consistent with gout then with redness from injury. Less likely to be an infection. As we discussed, please begin the steroid taper. Please take as directed on the packaging. This will be 40 mg of prednisone daily for the next 7 days and then taper as directed on the bottle. However, if the redness spreads, you develop increased pain, fever/chills or other new/worsening symptoms please seek care urgently once again. Follow-up with your primary care provider next week for reevaluation. Referrals: Lizy Perales [Primary Care Provider] - Discharge Data Discharge Date/Time-TO BE ENTERED AT DEPARTURE: 10/01/23 12:25 HPI General Date/Time Provider Initiated Documentation: 10/01/23 10:32. Limitations to Documentation: no limitations. Information obtained by: patient and RN notes reviewed. History of Present Illness 48 year old M presents to the emergency department with the chief complaint of right great toe pain, described as severe, Quality is described as burning and aching, and is localized to the right and lower extremity. Patient reports no radiation. Patient started experiencing this day(s) (3) and it has been constant. No relieving factors improve symptom(s), Movement worsens symptoms . Patient notes no other symptoms.. Patient did receive the following treatments prior to arrival, none Related Data Home Medications Medication Instructions Recorded Confirmed apixaban 5 mg (74 tabs) tablets in See Rx Instructions PO .COMPLEX 04/11/21 10/01/23 a dose pack (Eliquis DVT-PE Treat #74 dose pk 30D Start) losartan 50 mg tablet 50 mg PO BID 04/11/21 04/09/22 metoprolol succinate 100 mg 100 mg PO DAILY 04/11/21 10/01/23 tablet,extended release 24 hr apixaban 5 mg tablet (Eliquis) 5 mg PO BID 03/17/23 10/01/23 losartan 50 mg tablet 50 mg PO DAILY 03/17/23 10/01/23 metoprolol succinate 200 mg 200 mg PO DAILY 03/17/23 tablet,extended release 24 hr metoprolol succinate 50 mg 50 mg PO DAILY 03/17/23 tablet,extended release 24 hr rosuvastatin 20 mg tablet 20 mg PO DAILY 03/17/23 10/01/23 prednisone 10 mg tablet 10 mg PO DIRECTED #40 tabs 10/01/23 Previous Rx's Medication Instructions Recorded apixaban 5 mg (74 tabs) tablets in See Rx Instructions PO .COMPLEX 04/11/21 a dose pack (Eliquis DVT-PE Treat #74 dose pk 30D Start) prednisone 10 mg tablet 10 mg PO DIRECTED #40 tabs 10/01/23 Allergies Allergy/AdvReac Type Severity Reaction Status Date / Time amlodipine [From [facility]] Allergy unknown Verified 10/01/23 10:52 hydrochlorothiazide Allergy Other (See Verified 10/01/23 10:52 Comment) lisinopril Allergy Other (See Unverified 10/01/23 10:52 Comment) General Stated Complaint: Orthopedic QUEENIE: 3 Review of Systems Constitutional Constitutional: Reports as per HPI, Denies chills and Denies fever(s) Cardiovascular Cardiovascular: Reports as per HPI Respiratory Respiratory: Reports as per HPI Musculoskeletal Musculoskeletal: Reports as per HPI and Denies tingling Integumentary/Breasts Skin/Breast: Reports as per HPI and Denies wounds Neurologic Neurologic: Reports as per HPI, Denies tingling and Denies paresthesias Exam Const General: cooperative, healthy appearing, comfortable, no acute distress, well developed and well groomed Nutritional Appearance: well nourished and overweight Orientation: alert and awake Resp Effort & Inspection: normal respiratory effort, able to speak in complete sentences and no respiratory distress Cardio Rate: regular rate Rhythm: regular rhythm Skin General skin exam: erythema Trauma: no lacerations or abrasions Neuro General: patient alert and patient awake Cognition: normal cognition Speech: speech normal Gait: normal gait Motor: muscle tone normal throughout Sensory Exam: no sensory deficits noted Extrem Ankle/foot/toe images: 1. area of erythgema and pain. No break in the skin. Not hot. 2+ distal pulses. Intact capillary refill. Sensation is intact. Does not appear to extend onto the plantar surface of the toe. No break in the skin. Course Vital Signs Vital signs: Vital Signs Temperature 36.6 C 10/01/23 10:04 Pulse 79 10/01/23 10:04 Respiratory Rate 18 10/01/23 10:04 Blood Pressure 150/91 H 10/01/23 10:04 Pulse Oximetry 98 10/01/23 10:04 Temperature 36.6 C 10/01/23 10:04 Temperature Source Temporal Artery Scan 10/01/23 10:04 Pulse 79 10/01/23 10:04 Respiratory Rate 18 10/01/23 10:04 Respiratory Effort Normal, Non-Labored 10/01/23 11:19 Blood Pressure 150/91 H 10/01/23 10:04 Blood Pressure Position Sitting 10/01/23 10:04 Pulse Oximetry 98 10/01/23 10:04 Oxygen Delivery Method Room Air 10/01/23 10:04 Oxygen Flow Rate 0 10/01/23 10:04 Medical Decision Making Patient is a pleasant 48-year-old male presenting today with chief complaint of pain to the right great toe. He reports that about 8 days ago he accidentally kicked a bed when he was on vacation. Pain initially had subsided but 3 days ago came back and he noted the toe to be swollen and erythematous. This prompted him to be concern for potential fracture. Denies other injury since then. Did not break the skin at the time of the initial incident. He denies any sensory deficits. Has not had episode like this in the past but states that he has had people with concerns for gout in the past, unclear where this has been previously. Denies any fevers or chills. On exam, patient appears nontoxic. Hemodynamically stable. Afebrile. 2+ distal pulses. Intact capillary refill. The right great toe is erythematous along the dorsal side. This does not extend to the plantar surface. No break in the skin, no appreciable fluctuance although the toe is generally swollen. This does seem to be maximal over the joint space. No rash is noted. Patient discussed differential diagnoses. X-ray was obtained with no evidence of fracture or dislocation. I am primarily concerned for gout. Patient does have history of DVT, has been taking his apixaban as prescribed and has not had any missed doses. He reports that typically affects the contralateral side. Alternatively, we discussed this potentially being infection. However, as it came on after being on vacation when he was likely drinking less water, and having more alcohol intake, more. Rich food, more consistent with gout. We did discuss laboratory evaluation which he will prefer to hold off on. Instead, would prefer empiric treatment. As the patient is anticoagulated, will use steroids for treatment and avoid any NSAIDs. Encourage close follow-up with primary care. Strict return precautions were discussed. All of his questions and concerns were addressed and he is in agreement with this plan. Quality:SDOH Health Related Social Needs: No Data to Display PFSH All Active Problems (Updated 10/01/23 @ 12:11 by MOOK Gonzales) Great toe pain (Acute) Gout (Chronic) Obesity (Chronic) Dyshidrotic eczema (Acute) Edema (Acute) Fatigue (Acute) Hypertension (Chronic) ROSA MARIA (obstructive sleep apnea) (Chronic) Paresthesia of both hands (Acute) Shoulder pain, right (Acute) Protein C deficiency (Acute) Skin lesion of face (Acute) Actinic keratitis (Acute) Myopathy (Acute) Elevated TSH (Acute) Abrasion of right leg (Acute) Medical History (Updated 10/01/23 @ 12:11 by MOOK Gonzales) Left leg DVT Pulmonary embolism Surgical History (Updated 04/09/22 @ 15:49 by Puja Don DO) [place] Social History Smoking/Tobacco Use Status: Never Smoking risk assessment performed?: Yes Alcohol Intake: current Alcohol Intake frequency: holidays/special occasions only Drug use: Never Substance use type: does not use Do you feel safe at home: Yes Do you feel safe in your relationship?: Yes
== END 2023-10-01 12:25 | disposition home or self-care (01) ==
PROVIDERS: Emergency Provider Physician Assistant; PCP Nurse Practitioner Family
DX: M79.674 Pain in right toe(s) (principal); M10.9 Gout, unspecified; M77.31 Calcaneal spur, right foot; Z86.711 Personal history of pulmonary embolism; Z86.718 Personal history of other venous thrombosis and embolism; Z79.01 Long term (current) use of anticoagulants
CPT/HCPCS: 99283; 73630

== ENCOUNTER 2024-03-14 15:45 | Outpatient (CLI) | payer BC, SELFPAY ==
--- OUTSIDE RECORDS SUMMARY | 2024-03-14 15:49 | XMS_ITS | Encounter Summary ---
Author Organization [facility] Address [address] [place] [address] Care Team Providers Care Palm And Back Forger Name Role Phone Unavailable Primary Care Provider Unavailabl e Encounter Details Date Type Department Care Team (Late st Contact Info) Description 09/09/2020 Lab Requisition [facility] Pathology & Laboratory Medicine - [facility] [address] [place] [address] Outr Resulting Lab, Provider Social History Tobacco Use Types Packs/Day Years Used Date Smoking Tobacco: Never Assessed Interpersonal Safety Answer Date Record ed Physically Hurt Never 09/10/2020 Verbally Threaten Not on file 09/10/2020 Sex and Gender Information Value Date Recorded Sex Assigned at Not on file Gender Identity Not on file Sexual Orientation Not on file documented as of this encounter Plan of Treatment Upcoming Encounters Date Type Department Care Team (Late st Contact Info) Description 04/18/2024 12:30 EDT Procedure visit [facility] Neurology [facility] [address] [place], [place] [id number] Adonis Cool MD [address] [place] [id number] documented as of this encounter Procedures Procedure Name Priority Date/Time Associated Diagnosis Comments ZZCOVID-19 TEST [facility] PCR Today 09/09/2020 11:00 EST COVID-19 TESTING Routine 09/09/2020 11:0 0 EST documented in this encounter Results * COVID-19 TEST [facility] PCR (09/09/2020 11:00 EST) Swab ENTIRE NASOPHARYNX / Unknown 09/09/2020 11:00 EST 09/09/2020 20:51 EST Provider Outr Resulting Lab MICROBIOLOGY - GENERAL ORDERABLES Performing Organization Address City/[facility]/ZIP Co de Phone Number [facility] [address] [place] [address] * COVID-19 TESTING (09/09/2020 11:00 EST) COVID-19 rt-PCR Result Negative Negative 09/10/2020 19:32 EST [facility] Comment: This test was developed and its performance characteristics determined by [facility]. It has not been cleared or approved by the US Food and Drug Administration. FDA does not require this test to go through premarket FDA review. This test is used for clinical purposes. It should not be regarded as investigational or for research. This laboratory is certified under the Clinical Laboratory Improvement Amendments (CLIA) as qualified to perform high complexity clinical laboratory testing. This test is based on the [facility] COVID-19 Emergency Use Authorization (EUA) assay, with minor modification as defined by the FDA Performed on the [employer] RT-PCR System. This test has not been FDA cleared or approved. This test has been authorized by FDA under an EUA for use by authorized laboratories. This test has been authorized only for detection of nucleic acid from 2019-nCoV, not for any other viruses or pathogens. This test is only authorized for the duration of the declaration that circumstances exist justifying the authorization of emergency use of in vitro diagnostic tests for detection and/or diagnosis of 2019-nCoV under section 564(b)(1) of Act, 21 U.S.C ?? 360bbb-3(b) (1), unless the authorization is terminated or revoked sooner. Negative results do not preclude 2019-nCoV infection and should not be used as the sole basis for treatment or other patient management decisions. Negative results must be combined with clinical observations, patient history, and epidemiological information. Performing Lab [facility] Lab 09/10/2020 19:32 EST [facility] Swab 09/09/2020 11:0 0 EST 09/09/2020 20:51 EST Provider Outr Resulting Lab MICROBIOLOGY - GENERAL ORDERABLES [facility] [address] [place] [address] documented in this encounter Visit Diagnoses Not on filedocumented in this encounter
--- OUTSIDE RECORDS SUMMARY | 2024-03-14 15:49 | XMS_ITS | Referral Summary ---
Author Organization [facility] Address [address] [place] [address] Care Team Providers Care Corporate Development Analyst Name Role Phone Unavailable Primary Care Provider Unavailabl e Social History Tobacco Use Types Packs/Day Years Used Date Smoking Tobacco: Never Assessed Interpersonal Safety Answer Date Record ed Physically Hurt Never 09/10/2020 Verbally Threaten Not on file 09/10/2020 Sex and Gender Information Value Date Recorded Sex Assigned at Not on file Gender Identity Not on file Sexual Orientation Not on file Plan of Treatment Upcoming Encounters Date Type Department Care Team (Late st Contact Info) Description 04/18/2024 12:30 EDT Procedure visit [facility] Neurology [facility] [address] [place] [address] Adonis Cool MD [address] [place] [phone]
--- OUTSIDE RECORDS SUMMARY | 2024-03-14 15:49 | XMS_ITS | Data Portability ---
Author Organization [facility] Address [address] [place] [address] Assessment No assessment recorded. Plan of Treatment Reminders Order Date Submit Date Provider Last Modified By Organization Details Last Modified Time Details Appointments Follow Up 30 2023 03:30P M Not available Not available Not available Lab urinalysi s, microscop ic 2023 024 [email or web address] [facility] ([facility]), [address] [place] [address] [place], [address], 09/17/2023 08:40:24 TSH, serum, reflex free T4 2023 024 [email or web address] [facility] ([facility]), [address] [place] [address] [place], [address], 09/16/2023 08:12:07 CBC 2023 024 MANUEL [facility] ([facility]), [address] [place] [address] [place], [address], 09/10/2023 10:08:18 renin activity + aldostero ne, plasma 2023 024 [email or web address] [facility] ([facility]), [address] [place] [address] [place], [address], 03/10/2024 12:01:31 cortisol, am, serum 2023 024 [email or web address] [facility] ([facility]), [address] [place] [address] [place], [address], 03/10/2024 12:01:[address] referral 2023 [facility] (Neurology), [address] [place], [address], 03/10/2024 12:30:01 Procedures None recorded. Surgeries None recorded. Imaging None recorded. Medication Orders metoprolo l succinate ER 100 mg tablet,ex tended release 24 hr 2023 MANUEL [facility], [address] [place] [address], [id number], 09/09/2023 16:04:33 chlorthal idone 25 mg tablet 2023 024 MANUEL [facility], [address] [place] [address], [id number], 09/09/2023 16:04:34 losartan 50 mg tablet 2023 024 MANUEL [facility], [address] [place] [address], [id number], 09/09/2023 16:04:33 rosuvasta tin 20 mg tablet 2023 024 MANUEL [facility], [address] [place] [address], [id number], 09/09/2023 16:04:33 modafinil 100 mg tablet 2023 024 MANUEL [facility], [address] [place] [address], [id number], 10/21/2023 15:39:07 modafinil 100 mg tablet 2023 024 MANUELDUNCAN [facility], [address] [place] [address], [id number], 12/08/2023 15:25:30 Patient TargetsNo targets recorded. Patient InstructionsNo instructions recorded. Reason for Referral Neurologist Referral for Dis order of muscle Referring Physician: Gail Perales, Family Medicine, Encounter Date: 12/08/2023 Results Created Date Observation Date Name Description Value Unit Range Abnormal Flag LastModifiedBy Organization Detail LastModifiedTime 09/10/19 24 09/10/2023 COMPL ETE BLOOD COUNT NO DIFF WBC 7.46 10_3/ uL 4.4-10 .8 normal Not Available [address] [place], [address] 09/10/2023 10:08:17 09/10/19 24 09/10/2023 COMPL ETE BLOOD COUNT NO DIFF RBC 5.49 10_6/ uL 4.36-5 .78 normal Not Available [address] [place], [address] 09/10/2023 10:08:17 09/10/19 24 09/10/2023 COMPL ETE BLOOD COUNT NO DIFF HGB 17.4 g/dL 13.5-1 7.5 normal Not Available [address] [place], [address] 09/10/2023 10:08:17 09/10/19 24 09/10/2023 COMPL ETE BLOOD COUNT NO DIFF HCT 49.2 % 40.0-5 0.0 normal Not Available [address] [place], [address] 09/10/2023 10:08:17 09/10/19 24 09/10/2023 COMPL ETE BLOOD COUNT NO DIFF MCV 90 fL 80-95 normal Not Available [address] [place], [address] 09/10/2023 10:08:17 09/10/19 24 09/10/2023 COMPL ETE BLOOD COUNT NO DIFF MCH 31.7 pg 27.0-3 3.0 normal Not Available [address] [place], [address] 09/10/2023 10:08:17 09/10/19 24 09/10/2023 COMPL ETE BLOOD COUNT NO DIFF MCHC 35.4 % 32.0-3 6.0 normal Not Available [address] [place], [address] 09/10/2023 10:08:17 09/10/19 24 09/10/2023 COMPL ETE BLOOD COUNT NO DIFF RDW 12.6 % 11.8-1 4.1 normal Not Available [address] [place], [address] 09/10/2023 10:08:17 09/10/19 24 09/10/2023 COMPL ETE BLOOD COUNT NO DIFF platelet count 211 10_3/ uL 130-40 0 normal Not Available [address] [place], [address] 09/10/2023 10:08:17 09/10/19 24 09/10/2023 COMPL ETE BLOOD COUNT NO DIFF MPV 10.1 fL 8.0-11 .0 normal Not Available [address] [place], [address] 09/10/2023 10:08:17 09/10/19 24 09/10/2023 URINA LYSIS color Yellow yellow Not Available [address] [place], [address] 09/10/2023 10:22:19 09/10/19 24 09/10/2023 URINA LYSIS clarity Clear clear Not Available [address] [place] [place], [address] 09/10/2023 10:22:19 09/10/19 24 09/10/2023 URINA LYSIS specific gravity 1.010 1.005- 1.025 normal Not Available [address] [place], [address] 09/10/2023 10:22:19 09/10/19 24 09/10/2023 URINA LYSIS pH 7.0 5-8 normal Not Available [address] [place], [address] 09/10/2023 10:22:19 09/10/19 24 09/10/2023 URINA LYSIS leukocyte esterase Negati ve negati ve Not Available [address] [place], [address] 09/10/2023 10:22:19 09/10/19 24 09/10/2023 URINA LYSIS nitrite Negati ve negati ve Not Available [address], [address] 09/10/2023 10:22:19 09/10/19 24 09/10/2023 URINA LYSIS protein Negati ve mg/dL neg-tr win Not Available [address], [address] 09/10/2023 10:22:19 09/10/19 24 09/10/2023 URINA LYSIS glucose Negati ve mg/dL negati ve Not Available [address] [place], [address] 09/10/2023 10:22:19 09/10/19 24 09/10/2023 URINA LYSIS ketones Negati ve mg/dL negati ve Not Available [address] [place], [address] 09/10/2023 10:22:19 09/10/19 24 09/10/2023 URINA LYSIS urobilinogen 0.2 mg/dL up to 0.2 Not Available [address] [place], [address] 09/10/2023 10:22:19 09/10/19 24 09/10/2023 URINA LYSIS bilirubin Negati ve negati ve Not Available [address] [place], [address] 09/10/2023 10:22:19 09/10/19 24 09/10/2023 URINA LYSIS blood Negati ve negati ve Not Available [address] [place], [address] 09/10/2023 10:22:19 09/10/19 24 09/10/2023 COMPR EHENS BLAS METAB OLIC PANEL calcium 9.4 mg/dL 8.5-10 .1 normal Not Available [address] [place], [address] 09/10/2023 10:38:24 09/10/19 24 09/10/2023 COMPR EHENS BLAS METAB OLIC PANEL glucose 119 mg/dL 74-106 high Not Available [address], [address] 09/10/2023 10:38:24 09/10/19 24 09/10/2023 COMPR EHENS BLAS METAB OLIC PANEL BUN 8 mg/dL 7-18 normal Not Available [address] [place] [place], [address] 09/10/2023 10:38:24 09/10/19 24 09/10/2023 COMPR EHENS BLAS METAB OLIC PANEL creatinine 0.9 mg/dL 0.70-1 .30 normal Not Available [address] [place], [address] 09/10/2023 10:38:24 09/10/19 24 09/10/2023 COMPR EHENS BLAS METAB OLIC PANEL estimated GFR 107.33 mL/min /1.73m 2 Not Available [address] [place], [address] 09/10/2023 10:38:24 09/10/19 24 09/10/2023 COMPR EHENS BLAS METAB OLIC PANEL total protein 7.9 g/dL 6.4-8. 2 normal Not Available [address] [place], [address] 09/10/2023 10:38:24 09/10/19 24 09/10/2023 COMPR EHENS BLAS METAB OLIC PANEL albumin 4.3 g/dL 3.4-5. 0 normal Not Available [address] [place], [address] 09/10/2023 10:38:24 09/10/19 24 09/10/2023 COMPR EHENS BLAS METAB OLIC PANEL bilirubin, total 1.3 mg/dL 0.2-1. 0 high Not Available [address] [place], [address] 09/10/2023 10:38:24 09/10/19 24 09/10/2023 COMPR EHENS BLAS METAB OLIC PANEL alk phos 89 U/L 46-116 normal Not Available [address] [place], [address] 09/10/2023 10:38:24 09/10/19 24 09/10/2023 COMPR EHENS BLAS METAB OLIC PANEL sodium 143 mmol/ L 136-14 5 normal Not Available [address] [place], [address] 09/10/2023 10:38:24 09/10/19 24 09/10/2023 COMPR EHENS BLAS METAB OLIC PANEL potassium 4.3 mmol/ L 3.5-5. 1 normal Not Available [address] [place], [address] 09/10/2023 10:38:24 09/10/19 24 09/10/2023 COMPR EHENS BLAS METAB OLIC PANEL chloride 105 mmol/ L 98-107 normal Not Available [address] [place], [address] 09/10/2023 10:38:24 09/10/19 24 09/10/2023 COMPR EHENS BLAS METAB OLIC PANEL CO2 28.5 mmol/ L 21.0-3 2.0 normal Not Available [address] [place], [address] 09/10/2023 10:38:24 09/10/19 24 09/10/2023 COMPR EHENS BLAS METAB OLIC PANEL anion gap 9.5 mmol/ L 3-11 normal Not Available [address] [place], [address] 09/10/2023 10:38:24 09/10/19 24 09/10/2023 COMPR EHENS BLAS METAB OLIC PANEL AST 41 U/L 15-37 high Not Available [address] [place], [address] 09/10/2023 10:38:24 09/10/19 24 09/10/2023 COMPR EHENS BLAS METAB OLIC PANEL ALT 61 U/L 16-63 normal Not Available [address] [place], [address] 09/10/2023 10:38:24 09/10/19 24 09/10/2023 LIPID 2 cholesterol 114 mg/dL <200 Not Available [address] [facility] [place], [address] 09/10/2023 10:38:25 09/10/19 24 09/10/2023 LIPID 2 triglyceride 143 mg/dL <150 Not Available [address] [facility] [place], [address] 09/10/2023 10:38:25 09/10/19 24 09/10/2023 LIPID 2 HDL cholesterol 41 mg/dL 40-60 Not Available Donna vicente [address] [facility] [place], [address] 09/10/2023 10:38:25 09/10/19 24 09/10/2023 LIPID 2 calculated LDL 45 mg/dL <100 Not Available [address] [place], [address] 09/10/2023 10:38:25 09/10/19 24 09/10/2023 TSH (W/RE F FT4) TSH (w/ref FT4) 3.67 uIU/m L 0.36-3 .74 normal Not Available [address] [facility] [place], [address] 09/10/2023 10:38:26 09/10/19 24 09/10/2023 HEMOG LOBIN A1C hemoglobin A1C 5.6 % <5.7 Not Available [address] [place], [address] 09/10/2023 11:04:26 10/01/19 24 10/01/2023 x-ray imagi ng repor t Moses t Name: Kayla Grant Unit #: [id number] Loc: ER Orderi ng Provid er: Jeannette Beard Accoun t #: [id number] Status : REG ER Primar y Care Provid er: Gail Perales Date of Exam: Sex: M Admiss ion Date: : 1975 Age: 48 Exam(s ) XR FOOT RT COMPLE TE EXAM: XR FOOT RT COMPLE TE CLINIC AL HISTOR Y: trauma right big toe. TECHNI QUE: 2D digita l imagin g was perfor med of the right foot. Three images were obtain ed. AP, obliqu e and latera l views were obtain ed. COMPAR JOE: CR XR FOOT RT COMPLE TE from 2021 FINDIN GS: BONES: No acute fractu re is presen t. There is a planta r calcan eal spur and an enthes ophyte at the exterior door installer ior calcan eus. JOINTS : No disloc ation presen t. SOFT TISSUE : Normal . IMPRES DAMIAN: No acute fractu re or disloc ation. DATA REPOSI TORY: RADIAT ION DOSE DELIVE RED: Ordere d By: Jeannette Beard CC: ------ ------ ------ ------ ------ ------ ------ ------ ------ ------ ------ ------ - Dictat ed By: Taqueria Byrd M.D. 1149 1149 Transc ribed By: Taqueria Byrd 1149 This is privil eged, confid ential inform ation intend ed only for the provid er named. Any use or distri bution by any person other than this [facility] er is strict ly prohib ited. If you receiv e this report in error, please notify us immedi ately at and return the origin al report to us at the addres s above. Thank- you. [email or web address] [facility] [address] [place], [address] 10/01/2023 11:59:02 12/09/19 24 04/17/2019 MRI proce dure (PROC ) No observ ation record ed. Not Available 12/09/2023 12:46:19 Result Notes None recorded. Problems Name Status Onset Date Resolution Date Notes Provider Name and Address Organization Details Recorded Time Thromboemboli sm of vein Active 2019 TORRI Schwartz - [facility] 4 20:50:29 Vesicular eczema Active 2019 Solitario melgar [place] - [facility] 4 20:50:14 [facility] 4 20:47:14 Fatigue Active 2019 [facility] 4 20:48:15 Essential hypertension Active 2019 [facility] 4 20:47:25 Obesity Active 2019 [facility] 4 20:48:51 Obstructive sleep apnea syndrome Active 2019 [facility] 4 20:49:01 Paresthesia Active 2019 [facility] 4 20:49:10 Family history of Cardiovascula r disease Active 2019 Parental grandfather of [place] in 40's. Father had cardiovascula r procedures prior to age 50. [facility] 4 20:48:04 Pain of right shoulder joint Active 2019 [facility] 4 20:49:54 History of pulmonary embolus Active 2020 [facility] 4 20:50:36 Disorder of skin and/or subcutaneous tissue Active 2020 [facility] 4 20:50:45 Thrombophilia Active 2020 [place] [facility] 4 20:50:23 Photokeratiti s Active 2020 [facility] 4 20:49:35 Disorder of muscle Active 2021 [facility] 4 20:50:54 Adult health examination Active 2022 [facility] 4 20:46:49 Thyroid function tests abnormal Active 2022 [facility] 4 20:50:19 Screening for malignant neoplasm of colon Active 2022 [facility] 4 20:50:33 Benign prostatic hyperplasia Active 2022 [facility] 4 20:47:00 Hyperlipidemi a Active 2022 [facility] 4 20:48:45 Acute pharyngitis Completed 201907/09/2020 Problem Code: J02.9; Problem Code Type: ICD-10; Not Available [facility] 3 04:04:59 Exposure to communicable disease Completed 201904/16/2021 Problem Code: Z20.9; Problem Code Type: ICD-10; Not Available [facility] 3 04:05:00 Chest pain Completed 201907/10/2020 Problem Code: R07.9; Problem Code Type: ICD-10; Not Available [facility] 3 04:05:02 Abdominal pain Completed 202008/01/2021 Problem Code: R10.9; Problem Code Type: ICD-10; Not Available [facility] 3 04:05:02 Muscle pain Completed 201907/09/2020 Problem Code: M79.10; Problem Code Type: ICD-10; Not Available [facility] 3 04:05:03 Dyspnea Completed 202008/01/2021 Problem Code: R06.00; Problem Code Type: ICD-10; Not Available [facility] 3 04:05:05 Pulmonary embolism Completed 202004/21/2023 Problem Code: I26.99; Problem Code Type: ICD-10; Not Available [facility] 3 04:05:05 Counseling Completed 201904/16/2021 Problem Code: Z71.89; Problem Code Type: ICD-10; Not Available [facility] 3 04:05:05 Blood in urine Active 2023 DESIREE FISH [address] [place], [place], [address] , [facility] 4 16:03:37 Problem Notes None recorded. Procedures Surgical History None recorded. Imaging Results Imaging Date Name Status LastModified by Organiz ation Details LastModified Time 10/01/2023 x-ray imaging report completed [email or web address] [facility] [address] , [facility] [place], [address] 10/01/2023 11:59:02 04/17/2019 MRI procedure (PROC) completed Information not available 12/09/2023 12:46:19 Procedure Notes None recorded. Medical Equipment None Reported. Allergies Allergen ID Allergen Name Allergen Category Reaction Reaction Severity Criticality Documentation Date Start Date Code Code System Note Provider Name and Address Organization Details Recorded Time 90178 hydrochlo rothiazid e medicatio n arthralgi a (joint pain) moderate Not available 06/04/20232019 5487 RxNorm joint pain Aller gyRea ction : 'join t pain' ; Not Available [facility] 3 16:14:34 49570 Norvasc medicatio n swelling moderate Not available 06/04/20232019 74496 RxNorm leg swell ing Aller gyRea ction : 'leg swell ing'; Not Available [facility] 3 16:14:34 01444 lisinopri l medicatio n dizziness hallucina tions severe severe Not available 11/08/20232019 58746 RxNorm Solitario melgar, [facility] 4 20:51:34 Medications Name Sig Start Date Stop Date Status Note LastModified by Organization Details LastModified Time losartan 50 mg tablet TAKE ONE TABLET BY MOUTH EVERY DAY active Not Available Not Available No t Available prednisone 10 mg tablet TAKE 4 TABLETS FOR 7 DAYS 3 TABLETS FOR 2 DAYS 2 TABLETS FOR 2 DAYS THEN 1 TABLET FOR 2 DAYS 10/20 completed Not Available Not Available Not Available metoprolol succinate ER 50 mg tablet,exte nded release 24 hr TAKE ONE TABLET BY MOUTH EVERY DAY 10/20 completed Not Available Not Available Not Available metoprolol succinate ER 100 mg tablet,exte nded release 24 hr TAKE ONE TABLET BY MOUTH EVERY DAY active Not Available Not Available No t Available fluocinonid e 0.05 % topical ointment apply sparingly to affected area twice daily 07/09 completed Not Available Not Available Not Available chlorthalid one 25 mg tablet TAKE ONE TABLET BY MOUTH EVERY DAY active Not Available Not Available No t Available metoprolol succinate ER 25 mg tablet,exte nded release 24 hr Take 1 tablet by mouth once a day 09/16 completed Not Available Not Available Not Available modafinil 100 mg tablet TAKE ONE TABLET BY MOUTH EVERY DAY active Not Available Not Available No t Available rosuvastati n 20 mg tablet TAKE ONE TABLET BY MOUTH AT BEDTIME active Not Available Not Available No t Available Eliquis 5 mg tablet TAKE ONE TABLET BY MOUTH TWICE A DAY active Not Available Not Available No t Available Vitals Date Recorded Body height Body temperature Oxygen saturation Oxygen saturation in Arterial blood by Pulse oximetry Heart rate Body mass index (BMI) Body weight Systolic blood pressure Diastolic blood pressure Provider Name and Address Organization Details Last Updated DateTime 4 191.135 cm 97.2 [degF] 96 % 96 % 86 /min 38.6 kg/m2 508425. 79 g 134 mm[Hg] 86 mm[Hg] Josette John RN [facility] 4 13:02:17 Date Recorded Body height Body temperature Oxygen saturation Oxygen saturation in Arterial blood by Pulse oximetry Heart rate Body mass index (BMI) Body weight Systolic blood pressure Diastolic blood pressure Provider Name and Address Organization Details Last Updated DateTime 4 191.135 cm 97.2 [degF] 97 % 97 % 86 /min 38 kg/m2 217881. 7 g 132 mm[Hg] 100 mm[Hg] Josette John RN [facility] 4 14:01:31 Date Recorded Body height Body mass index (BMI) Body weight Body temperature Oxygen saturation Oxygen saturation in Arterial blood by Pulse oximetry Heart rate Systolic blood pressure Diastolic blood pressure Provider Name and Address Organization Details Last Updated DateTime 4 191.135 cm 38.6 kg/m2 224679. 23 g 96.7 [degF] 96 % 96 % 87 /min 144 mm[Hg] 90 mm[Hg] Josette John RN [facility] 4 08:47:36 Date Recorded Body height Body temperature Heart rate Oxygen saturation Oxygen saturation in Arterial blood by Pulse oximetry Systolic blood pressure Diastolic blood pressure Provider Name and Address Organization Details Last Updated DateTime 4 191.135 cm 97.1 [degF] 80 /min 98 % 98 % 144 mm[Hg] 100 mm[Hg] CHITRA HELMS CMA [facility] 4 15:21:39 Social History Question Answer Notes LastModified by Organizat ion Details LastModified Time Tobacco Smoking Status Never Smoker Josette John RN [facility], [facility] 09/09/2023 13:00:13 What Was The Date Of Your Most Recent Tobacco Screening? 03/14/2024 [email or web address] Information not available 03/14/2024 Has Tobacco Cessation Counseling Been Provided? Yes Information not available 09/09/2023 On What Date Was Tobacco Cessation Counseling Provided? 09/09/2023 Information not available 09/09/2023 Sex: Male Functional Status None recorded. Mental Status None recorded. Family History Relationship Description Onset Age of this Age Resolved Age Notes Father Family history of Hypercholesterolemia Had 2 DVT Father Family history of Hypertension Had 2 DVT Father Disorder of cellular component of blood Had 2 DVT Father Family history of he art failure Had 2 DVT Paternal Grandfather Family history of Hypertension of [place] in 40's Notes:*Problem: father- bloo d clots, heart problems, skin cancer, hyperlipidenia, hypertension pgf- heart attack Medical History No medical history recorded. Immunizations Vaccine Type Date Status Provider Name and Address Organization Details Recorded Time Tdap 02/03/2022 completed Not Available [facility] 06:08:57 Tdap 04/25/2012 completed Not Available [facility] 06:08:57 Influenza, split virus, quadrivalent, PF 06/17/2021 completed Not Available [facility] 06/04/2023 06:08:57 Influenza, split virus, quadrivalent, PF 06/23/2022 completed Not Available [facility] 06/04/2023 06:08:57 COVID-19, mRNA, LNP-S, PF, 100 mcg/0.5mL dose or 50 mcg/0.25mL dose 06/17/2021 completed Not Available [facility] 06/04/2023 06:08:57 COVID-19 vaccine, vector-nr, rS-Ad26, PF, 0.5 mL 10/24/2020 completed Not Available [facility] 06/04/2023 06:08:57 Influenza, split virus, quadrivalent, PF 06/29/2023 completed CELESTE GAN RN [facility] [place], [facility] 06/29/2023 16:52:52 Past Encounters Encounter ID Performer Location Encounter Start Date Encounter Closed Date Diagnosis/Indication Diagnosis SNOMED-CT Code [id number] GAIL PERALES [address] [address] 09/09/2023 12:51:31 09/09/2023 13:40:26 Fatigue 02053339 Essential hypertension 36896939 Hyperlipidemia 94472621 Blood in urine 59698666 [id number] GAIL PERALES [address] [address] 10/21/2023 13:49:02 10/21/2023 14:50:32 Fatigue 54584326 [id number] GAIL PERALES [address] [address] 12/08/2023 08:40:49 12/08/2023 09:19:53 Fatigue 53292363 Disorder of muscle 77458 5002 Health Concerns Section Related Observation LastModified by Organization Detai ls LastModified Time None Recorded Concern Status LastModified by Organization Details LastModified Time None Recorded Advance Directives Directive None Recorded Payers Encounter Date Sequence Insurance Name Policy Number Policy Rubio Covered Member ID Rubio Member ID Guarantor Name 09/09/2023 1 [place] [facility] [id number] Victorino Grant [id number] Victorino Grant 10/21/2023 1 [place] [facility] [id number] Victorino Grant [id number] Victorino Grant 12/08/2023 1 [place] [facility] [id number] Victorino Grant [id number] Victorino Grant Notes Date Note Type Note Provider Name and Address Organization Details Recorded Time 09/09/2023 text/html HPI Notes: Has made significant changes to his diet, eating mostly vegetables. Has not been able to get in for colonoscopy or into see urology. Urine is red tinged occasionally. Feeling fatigue, attributes it to work hours and stress. [address], [place], [address], [facility] 09/10/2023 09:37:35 10/21/2023 text/html HPI Notes: Victorino underwood s here today because he recently completed a steroid taper for gout and reports that he had such a drastic improvement in fatigue and mental health that he is here today to discuss whether there are alternative medications that may have this same effect. He reports that the changes improved his overall life at home and at work. [address], [place], [address], [facility]. 10/24/2023 13:02:39 12/08/2023 text/html HPI Notes: Victorino w as able to start modafinil at 100 mg daily. At this dose he states that his anxiety worsened, he had palpitations and he had a significant amount of energy, but not in a good way. He then tried taking 50 mg daily and has noticed mild improvement in energy but no positive improvements in his mood. He continues to be concerned and frustrated with neurologic symptoms. He states in recent years his coordination has worsened. His gait feels uncoordinated. He no longer can throw a baseball, has difficulty playing catch and can no longer shoot the basketball. He does not have new neurological symptoms such as vision change or headache. [address], [place], [address], [facility]. 12/08/2023 15:38:13
--- OUTSIDE RECORDS SUMMARY | 2024-03-14 15:49 | XMS_ITS | Encounter Summary ---
[place] [address] Care Team Providers Care Child Care Giver Name Role Phone Lizy Perales APRN Primary Care Provider [phone] Reason for Referral * Consultation (Routine) - Authorized Specialty Diagnoses / Procedures Referred By Adonay escalante Referred To Contact Gastroenterology Diagnoses Screening for colon cancer Lizy Perales APRN [address] [place] [address] [facility] [place] [address] Referral ID Status Reason Start Date Expiration Date Visits Requested Visits Authorized [id number] Authorized Surgical PCP Updated and/or Approved 04/20/2023 04/19/2024 1 1 Encounter Details Date Type Department Care Team (Latest Contact Info) Description 04/20/2023 Transcribe Orders eDH Incoming Referrals [phone] Lizy Perales APRN [address] [place] [address] Screening for colon cancer Social History Tobacco Use Types Packs/Day Years Used Date Smoking Tobacco: Never Smokeless Tobacco: Never Alcohol Use Standard Drinks/Week Comments Yes 4 (1 standard drink = 0.6 oz pur e alcohol) occasional wine Overall Financial Resource Strain (CARDIA) Answe r Date Recorded How hard is it for you to pa y for the very basics like food, housing, medical care, and heating? Not hard at all 05/20/2021 Hunger Vital Sign Answer Date Recorded Within the past 12 months, y ou worried that your food would run out before you got the money to buy more. Never true 05/20/20 21 Within the past 12 months, t he food you bought just didn't last and you didn't have money to get more. Never true 05/20/2021 PRAPARE - Transportation Answer Date Re corded In the past 12 months, has l ack of transportation kept you from medical appointments or from getting medications? No 04/26 In the past 12 months, has l ack of transportation kept you from meetings, work, or from getting things needed for daily living? No 05/20/2021 Housing Stability Vital Sign Answer Dez e Recorded In the last 12 months, was t here a time when you were not able to pay the mortgage or rent on time? No 05/20/2021 In the last 12 months, how many places have you lived? 1 05/20/2021 In the last 12 months, was t here a time when you did not have a steady place to sleep or slept in a mcc (including now)? No 05/20/2021 Sex and Gender Information Value Date Recorded Sex Assigned at Not on file Gender Identity Not on file Sexual Orientation Not on file documented as of this encounter Plan of Treatment Scheduled Referrals Name Type Priority Associated Diagnoses Order Schedule REFERRAL TO COLONOSCOPY PROCEDURE Outpatient Referral Routine Screening for colon cancer Ordered: 04/20/2023 documented as of this encounter Visit Diagnoses Diagnosis Screening for colon cancer Special screening for malignant neoplasms, colon documented in this encounter Care Teams Child Care Giver Relationship Specialty Start Date End Date Lizy Perales APRN [address] [place] [address] PCP - General Family Medicine 04/23/21 documented as of this encounter
--- OUTSIDE RECORDS SUMMARY | 2024-03-14 15:49 | XMS_ITS | Clinical Summary ---
Author Organization [facility] Address [facility] [place] [address] Care Team Providers Care Retention Manager Name Role Phone Diaz Lizy HAQUE Primary Care Provider [phone] Allergies Active Allergy Reactions Criticality Noted Date Comments Tree Nut Other (See Comments) 11/25/2012 Humbertoews- turns bright red Medications Medication Sig Dispensed Refills Start Date End Date Status losartan (Cozaar) 50 mg Tablet Take 50 mg by mouth 2 times daily. Active metoprolol succinate XL (Toprol-XL) 50 mg Tablet Sustained Release 24 hr Take 50 mg by mouth daily. Active metoprolol tartrate (Lopressor) 25 mg Tablet Take 25 mg by mouth daily. In the evening Active apixaban (Eliquis) 5 mg Tablet Take 5 mg by mouth 2 times daily. Active Active Problems Patient Care Coordination No te Formatting of this note migh t be different from the original. Problem Noted Date Diagnosed Date Hypertension 11/27/2012 Left leg DVT 10/20/2012 Resolved Problems Problem Noted Date Diagnosed Date Resolved Date Pulmonary embolism 04/14/2012 3 Other pulmonary embolism 04/13/201204/2012 Family History Medical History Relation Comments Early Paternal Grandfather Relation Status Comments Paternal Grandfather Social History Tobacco Use Types Packs/Day Years [...] place to sleep or slept in a penitentiary (including now)? No 05/20/2021 Sex and Gender Information Value Date Recorded Sex Assigned at Not on file Gender Identity Not on file Sexual Orientation Not on file Last Filed Vital Signs Vital Sign Reading Time Taken Comments Blood Pressure 181/104 05/20/2021 10:19 AM EDT didn't take bp med Pulse 76 05/20/2021 10:19 AM EDT Temperature 36.4 ??C (97.5 ??F) 05/20/2021 1 0:19 AM EDT Respiratory Rate 19 05/20/2021 10:1 9 AM EDT Oxygen Saturation 95% 05/20/2021 10: 19 AM EDT Inhaled Oxygen Concentration - - Weight 137.9 kg (304 lb) 05/20/2021 10: 19 AM EDT Height 193.6 cm (6' 4.22) 05/20/2021 1 0:19 AM EDT Body Mass Index 36.79 05/20/2021 10:19 AM EDT Plan of Treatment Health Maintenance Due Date Last Done Comments CT Colonography 1977 Colonoscopy 1977 Colorectal Cancer Screening 1977 FIT DNA 1977 FIT 1977 Sigmoidoscopy (10 year) with FIT yearly 1977 Sigmoidoscopy 1977 HIV screen 1995 Hepatitis C Screening 1995 Hepatitis B vaccine (0-59 yrs) (1) 1996 Tdap adult 1996 Tetanus vaccine 1996 Lipid Screening 10/20/2017 10/20/2012 Covid-19 Vaccine (1 - 2022-2 4 season) 2023 Influenza (Flu) vaccine (1 o f 1 - Influenza standard series) 03/26/2024 Diabetes Screening (HgbA1C o r Glucose) 09/16/2024 09/16/2021, 10/20/2012, 10/20/2012, Additional history exists Procedures Procedure Name Priority Date/Time Associated Diagnosis Comments COMPREHENSIVE METABOLIC PANEL Routine 09/16/2021 11:04 AM EST Myopathy LIPID PANEL (REFLEX DIRECT LDL) Routine 10/20/2012 1:43 PM EDT Healthcare maintenance from Last 3 Months or Most Recently Relevant to Health Maintenance Results * (ABNORMAL) Comprehensive metabolic panel (non-fasting) (09/16/2021 11:04 AM EST) Glucose 102 65 - 199 mg/dL [facility] Comment:Diabetes: >=200 mg/d L plus symptoms Blood Urea Nitrogen 9(L) 10 - 20 mg/dL [facility] Creatinine 0.93 0.80 - 1.50 mg/dL [facility] Sodium 140 135 - 145 mmol/L [facility] Potassium 4.6 3.5 - 5.0 mmol/L [facility] Comment: Please note: ??Patients with WBC >100,000 may have falsely elevated Potassium levels. ??For accurate Potassium quantification in these patients send serum separator tube (gold top) for subsequent determinations. ??Contact the Clinical Chemistry Laboratory if there are any questions. Chloride 106 98 - 107 mmol/L [facility] Carbon Dioxide 17(L) 22 - 31 mmol/L [facility] Anion Gap 17(H) 5 - 15 mmol/L [facility] Calcium 9.2 8.5 - 10.5 mg/dL [facility] Protein, Total 6.8 6.1 - 8.0 g/dL [facility] Albumin 4.5 3.2 - 5.2 g/dL [facility] Aspartate Aminotransferase 33 0 - 39 unit/L [facility] Alanine Aminotransferase 46 0 - 55 unit/L [facility] Alkaline Phosphatase 95 40 - 130 unit/L [facility] Bilirubin, Total 0.8 0.2 - 1.3 mg/dL [facility] Est Glomerular Filtration Rate 99 >=60 mL/min/1. 73 m?? [facility] Comment: This patient? s estimated glomerular filtration rate (eGFR) is between 99 mL/min/1.73 m2 (patients with less muscle mass per kg body weight) and 115 mL/min/1.73 m2 (patients with more muscle mass per kg body weight) as determined by the CKD-EPI equation. Assessment of eGFR is not appropriate when creatinine concentrations are rapidly changing. For clinical decisions where creatinine clearance will affect therapy, a 24-hour urine creatinine clearance may be advised. Assignment of CKD stage 1 - 5 for patients with an eGFR near the transition point between stages may be based on clinical assessment of muscle mass and symptoms in addition to eGFR. Blood 09/16/2021 11:0 4 AM EST 09/16/2021 11:44 AM EST Narrative Resulting Agency Comment Spec In Lab Joey Coleman MD CHEMISTRY ORDERABLES [facility] [place] [address] * (ABNORMAL) Lipid panel (fasting) (10/20/2012 1:43 PM EDT) Pathologist [facility] Cholesterol, Total 227(H) <=199 mg/dL [facility] Comment: Recommendations of the NCEP Adult Treatment Panel for the following risk cutoff thresholds for the [place] Citizen [place] population: Desirable: <200 mg/dL Borderline High: 200-239 mg/dL High: > or = 240 mg/dL Triglyceride 443(H) <=149 mg/dL [facility] Comment: Reference Range: Normal triglycerides: ??<150 mg/dL Borderline high: ??150-199 mg/dL High: ??200-499 mg/dL Very high: ??>yl=609 mg/dL MOIRA 2001; 285(19):1664-2870 HDL Cholesterol 35(L) >=40 mg/dL [facility] Comment: Reference range: ??Low HDL: ?? < 40 mg/dL ??Normal: ?40-60 mg/dL ??Desirable: > 60 mg/dL MOIRA 2001; 285(19):2701-9722 LDL Cholesterol Not Perf <=99 mg/dL [facility] Comment: Since a calculated LDL value is not valid for triglycerides greater than 400 mg/dl, a direct LDL determination is performed instead. Reference range: ?? Optimal: ?<100 mg/dL ?? Near Optimal/Above Optimal: ?? 100-129 mg/dL ?? Borderline high: ?130-159 mg/dL ?? High: ? 160-189 mg/dL ?? Very high: ?>bh=898 mg/dL MOIRA 2001: 285(19):1961-6805 Cholesterol/HDL Ratio 6.5 ratio [facility] Comment: A Cholesterol to HDL ratio below 4:1 is desirable. ??Studies suggest that increased CAD risk occurs at ratios above 5 for females and above 6 for men. ? Citizen Of [place] Heart Association ??(http://www.americanheart.org) ? Glory Int Med, 1994; 121:641 ? AM J Med, 1998; 105(1A):48S Blood specimen (specimen) 10/20/2012 1:43 PM EDT 10/20/2012 1:51 PM EDT Narrative Resulting Agency Comment Spec In Lab Tali Ballard MD CHEMISTRY ORDERABLES [facility] from Last 3 Months or Most Recently Relevant to Health Maintenance Advance Directives Documents on File Type Date Recorded Patient Barrel Dedenting Machine Operator Expl anation Personal Barrel Dedenting Machine Operator 05/21/2021 1:35 PM Gina Carlsonod - Spouse * Full Code (Latest Code Status on File) Date Activated Date Inactivated Comments 04/14/2012 12:03 AM 04/14/2012 7:36 PM Question Answer Comments Order Status: Initial Order Does patient have decision m aking capacity? Yes, Order is based on Patients wishes. Care Teams Retention Manager Relationship Specialty Start Date End Date Lizy Perales APRN [address] [place] [address] PCP - General Family Medicine 04/23/21
--- OUTSIDE RECORDS SUMMARY | 2024-03-14 15:49 | XMS_ITS | Encounter Summary ---
Author Organization [facility] Address [facility] [place] [address] Care Team Providers Care Short Range [employer] Name Role Phone Lizy Perales APRN Primary Care Provider [phone] Encounter Details Date Type Department Care Team (Late st Contact Info) Description 09/25/2021 12:30 PM EST Office Visit Neurology at [facility] [phone] Joey Coleman MD [facility] [place] [address] Myopathy Social History Tobacco Use Types Packs/Day Years [...] place to sleep or slept in a detention (including now)? No 05/20/2021 Sex and Gender Information Value Date Recorded Sex Assigned at Not on file Gender Identity Not on file Sexual Orientation Not on file documented as of this encounter Progress Notes * Joey Coleman MD - 09/25/2021 12:30 PM EST Appointment made in error. Patient was supposed to follow up in 2 months. Joey Coleman MD Department of Neurology Pager # [phone] documented in this encounter Plan of Treatment Not on file documented as of this encounter Visit Diagnoses Diagnosis Myopathy Myopathy, unspecified documented in this encounter Care Teams [employer] Relationship Specialty Start Date End Date Lizy Perales APRN [address] [place] [address] PCP - General Family Medicine 04/23/21 documented as of this encounter
--- OUTSIDE RECORDS SUMMARY | 2024-03-14 15:49 | XMS_ITS | Clinical Summary ---
Author Organization [facility] Address [address] [place] [address] Care Team Providers Care Planning Manager Name Role Phone Unavailable Primary Care Provider [...] Info) Description 04/18/2024 12:30 EDT Procedure visit [facility] Neurology [facility] [address] [place] [address] Adonis Cool MD [address] [place] [id number] Health Maintenance Due Date Last Done Comments Hepatitis C Screen 1977 Hepatitis B Vaccine (1 of 3 - 19+ 3-dose series) 09/15 COVID-19 Vaccine ( season) 2023
--- OUTSIDE RECORDS SUMMARY | 2024-03-14 15:49 | XMS_ITS | Encounter Summary ---
Author Organization [facility] Address [address] [place] [address] Care Team Providers Care Sales And Service Advisor Name Role Phone Unavailable Primary Care Provider Unavailabl e Encounter Details Date Type Department Care Team (Late st Contact Info) Description 03/14/2021 Lab Requisition [facility] Pathology & Laboratory Medicine - [facility] [address] [place] [address] Outr Resulting Lab, Provider Social History Tobacco [...] Info) Description 04/18/2024 12:30 EDT Procedure visit [facility] Neurology [facility] [address] [place], [place] [id number] Adonis Cool MD [address] [place] [address] documented as of this encounter Procedures Procedure Name Priority Date/Time Associated Diagnosis Comments ZZCOVID-19 TEST [facility] PCR Today 03/14/2021 9:55 EDT COVID-19 TESTING Routine 03/14/2021 9:55 EDT documented in this encounter Results * COVID-19 TEST [facility] PCR (03/14/2021 9:55 EDT) Swab ENTIRE NASOPHARYNX / Unknown 03/14/2021 9:55 EDT 03/14/2021 20:51 EDT Provider Outr Resulting Lab MICROBIOLOGY - GENERAL ORDERABLES [facility] [address] [place] [address] * COVID-19 TESTING (03/14/2021 9:55 EDT) COVID-19 rt-PCR Result Negative Negative 03/15/2021 12:39 EDT [facility] Comment: This test has not been FDA cleared [...] clinical observations, patient history, and epidemiological information. Testing was performed using the kota SARS-CoV-2 assay ([employer] on the Kota 6800 System Performing Lab Kota 6800 [facility] 03/15/2021 12:39 EDT [facility] Swab 03/14/2021 9:55 EDT 03/14/2021 20:51 EDT Provider Outr Resulting Lab MICROBIOLOGY - GENERAL ORDERABLES [facility] [address] [place] [address] documented in this encounter Visit Diagnoses Not on filedocumented in this encounter
--- OUTSIDE RECORDS SUMMARY | 2024-03-14 15:50 | XMS_ITS | Encounter Summary ---
Author Organization [facility] Address [facility] [place] [address] Care Team Providers Care Tower Erector Helper Name Role Phone Alex Mosqueda MD Primary Care Provider [phone] Reason for Visit * Reason Onset Date Comments Medication Refill 08/24/2012 Encounter Details Date Type Department Care Team (Late st Contact Info) Description 08/24/2012 Refill Internal Medicine at [facility] [address] [place] [address] Inge Byrd RN DVT (deep venous thrombosis) (Primary Dx) Social History Tobacco Use Types Packs/Day Years Used Date Smoking Tobacco: Never Alcohol Use Standard Drinks/Week Comments Yes 4 (1 standard drink = 0.6 oz pur e alcohol) occasional wine Sex and Gender Information Value Date Recorded Sex Assigned at Not on file Gender Identity Not on file Sexual Orientation Not on file documented as of this encounter Plan of Treatment Not on file documented as of this encounter Visit Diagnoses Diagnosis DVT (deep venous thrombosis)- Primary Acute venous embolism and thrombosis of unspecified deep vessels of lower extremity documented in this encounter Care Teams Tower Erector Helper Relationship Specialty Start Date End Date Alex Mosqueda MD [facility] [place] [address] PCP - General 04/14/12 01/30/14 documented as of this encounter
--- OUTSIDE RECORDS SUMMARY | 2024-03-14 15:50 | XMS_ITS | Encounter Summary ---
Author Organization [facility] Address [facility] [address] [facility] [place] [address] Care Team Providers Care Grey Goods Tester Name Role Phone Alex Mosqueda MD Primary Care Provider [phone] Reason for Visit * Reason Onset Date Comments Anticoagulation 07/28/2012 Encounter Details Date Type Department Care Team (Late st Contact Info) Description 07/28/2012 Telephone [place] [phone] Alex Mosqueda MD [facility] [place] [address] Anticoagulation Social History Tobacco Use Types Packs/Day Years Used Date Smoking Tobacco: Never Alcohol Use Standard Drinks/Week Comments Yes 4 (1 standard drink = 0.6 oz pur e alcohol) occasional wine Sex and Gender Information Value Date Recorded Sex Assigned at Not on file Gender Identity Not on file Sexual Orientation Not on file documented as of this encounter Miscellaneous Notes * Telephone Encounter - Jacque Ackerman - 07/28/2012 4:39 PM EST No INR today. Message left reminding him that he was due for an INR check. I will add him to 07/29/12phone log. Thanks-Jacque documented in this encounter Plan of Treatment Not on file documented as of this encounter Visit Diagnoses Not on filedocumented in this encounter Care Teams Grey Goods Tester Relationship Specialty Start Date End Date Alex Mosqueda MD [facility] [place] [address] PCP - General 04/14/12 01/30/14 documented as of this encounter
--- OUTSIDE RECORDS SUMMARY | 2024-03-14 15:50 | XMS_ITS | Encounter Summary ---
Author Organization [facility] Address [facility] [place] [address] Care Team Providers Care Occ Ther Name Role Phone Alex Mosqueda MD Primary Care Provider [phone] Reason for Visit * Reason Comments Follow-up Encounter Details Date Type Department Care Team (Late st Contact Info) Description 12/16/2012 1:00 PM EDT Follow-Up Hematology [place] [id number] Bebe Rosenberg MD [facility] [address] [place] [address] VTE (venous thromboembolism) (Primary Dx) Discharge Disposition: Home Social History Tobacco Use Types Packs/Day Years Used Date Smoking Tobacco: Never Smokeless Tobacco: Never Alcohol Use Standard Drinks/Week Comments Yes 4 (1 standard drink = 0.6 oz pur e alcohol) occasional wine Sex and Gender Information Value Date Recorded Sex Assigned at Not on file Gender Identity Not on file Sexual Orientation Not on file documented as of this encounter Last Filed Vital Signs Vital Sign Reading Time Taken Comments Blood Pressure 130/90 12/16/2012 12:54 PM EDT Pulse 86 12/16/2012 12:54 PM EDT Temperature 37.3 ??C (99.1 ??F) 12/16/2012 1 2:54 PM EDT Respiratory Rate 20 12/16/2012 12:5 4 PM EDT Oxygen Saturation 99% 12/16/2012 12: 54 PM EDT Inhaled Oxygen Concentration - - Weight 125.5 kg (276 lb 10.8 oz) 2012 12:54 PM EDT Height 194 cm (6' 4.38) 12/16/2012 12: 54 PM EDT Body Mass Index 33.35 12/16/2012 12:54 PM EDT documented in this encounter Progress Notes * Bebe Castillo MD - 12/16/2012 1:11 PM EDT [facility] [address] Department of Medicine [place] [address] [facility] THROMBOSIS FOLLOW-UP DATE OF VISIT 12/16/2012 Patient Yury Grant 1975 REFERRING PHYSICIAN Santiago Lord MD PRIMARY CARE PHYSICIAN ALEX MOSQUEDA MD THROMBOSIS PROBLEM LIST: Travel-associated DVT of the left leg -> lovenox -> warfarin for 8-9 months now INTERVAL HISTORY: Yury Grant is a 37 year-old man with travel associated DVT who is seen in follow-up to discussthrombophilia testing. Yury has been doing better since last visit. His leg swelling has significantly improved with compression stockings. However, he continues to have pain in his thigh downwards, especially when he spends the whole day on his feet. He has not had a chance to get new pairs of compression stockings. The current one is a bit too long that he has to fold it. He denies any bleeding complication while on warfarin. He has no chest pain or shortness of breath. He is planning to move back to [place] given that his current job is too stressful for him. They plan to move in 2 weeks. His will be the one who drives. They wonder if it would be safe for him to travel by car. PAST MEDICAL HISTORY Hypertension DVT/PE MEDICATIONS Current Outpatient Prescriptions on File Prior to Visit Medication Sig Dispense Refill ??? warfarin (COUMADIN) 5 mg tablet Take 5 mg by mouth daily. 7.5 mg Fr, 5 mg Gresham ??? traZODone (DESYREL) 50 mg tablet Take 1 tablet by mouth nightly. 90 tablet 3 ??? chlorthalidone (HYGROTEN) 25 mg tablet Take 1 tablet by mouth daily. 30 tablet 12 ADVERSE DRUG REACTIONS Allergies as of 12/16/2012 - Review Complete 12/16/2012 Allergen Reaction Noted ??? Tree nut Other (See Comments) 11/25/2012 FAMILY HISTORY Father -postop DVT, PE and travel-associated DVT, thrombophilia work up negative. 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 No tobacco Alcohol 3 x 6 pack/week REVIEW OF SYSTEMS Fevers/chills/sweats No Recent infections No Unexplained weight loss No Headache/lightheadedness/syncope No Sinus pain/pressure No Oral sores/lesions/bleeding No Sore throat/dysphagia No Nosebleeds No Cough/SOB/chest pain/heart racing No Nausea/vomiting/dyspepsia No Abdominal pain No Diarrhea/constipation No Urinary pain, burning, incontinence No Hematuria No Penile discharge/bleeding No Skin rashes/ulcers No Back/joint pain/swelling No Leg swelling/pain/redness Leg pain and swelling Bruising/petechiae/bleeding/melena No Sensory/motor No Polydipsia/polyuria/heat/cold intol No Lumps/bumps/swollen glands No Other Negative except as above PHYSICAL EXAMINATION BP 130/90 Pulse 86 Temp 37.3 ??C (99.1 ??F) Resp 20 Ht 194 cm (6' 4.38) Wt 125.5 kg (276lb 10.8 oz) BMI 33.35 kg/m2 SpO2 99% GENERAL: Well-appearing, articulate white male. HEENT: Oropharynx clear; no mucosal lesions, petechiae, bleeding, thrush or ulcers. NECK: Supple; no cervical, supraclavicular or submental adenopathy. CHEST: Clear to auscultation/percussion. No rales, rhonchi, wheezes. HEART: Regular rate and rhythm; no murmur, rub, gallop ABDOMEN: Soft, non-tender, no hepatosplenomegaly. GENITOURINARY: Exam deferred. EXTREMITIES: No clubbing, cyanosis. Mild pitting edema of the leg (significantly improved from lastvisit) No erythema, tenderness or palpable cords. No venous varicosities. No skin discoloration or hemosiderin deposits. Peripheral pulses palpable. MUSCULOSKELETAL: Spine nontender. Full ROM all joints. No acutely inflamed joints. SKIN: No ecchymoses, petechiae, ulcers or rashes. LYMPH: No palpable lymph nodes. NEUROLOGIC: Alert, oriented. Speech clear, coherent. No focal deficits noted. PSYCHIATRIC: Appropriate affect, no apparent distress. LABORATORY STUDIES Results for YURY GRANT ( ) as of 12/18/2012 08:28 Ref. Range 10/20/2012 13:43 11/25/2012 14:11 11/25/2012 14:11 WBC Latest Range: 4.0-10.0 x10(3)/mcL 9.5 8.1 RBC Latest Range: 4.63-6.08 x10(6)/mcL 5.58 5.46 Hemoglobin Latest Range: 13.7-17.5 gm/dL 18.0 (H) 17.3 Hematocrit Latest Range: 40.0-51.0 % 49.9 49.0 MCV Latest Range: 79.0-92.0 fL 89.4 89.7 MCH Latest Range: 25.6-32.2 pg 32.3 (H) 31.7 MCHC Latest Range: 32.0-36.5 gm/dL 36.1 35.3 RDWSD Latest Range: 35.0-46.0 fL 41.8 41.7 RDWCV Latest Range: 10.9-14.4 % 12.9 13.0 Platelets Latest Range: 145-370 x10(3)/mcL 217 185 185 Results for YURY GRANT ( ) as of 12/17/2012 23:52 Ref. Range 11/25/2012 14:11 PT Latest Range: 12.0-15.0 sec 20.4 (H) INR Latest Range: 0.9-1.1 1.7 (H) PTT Latest Range: 25-35 sec 34 Fibrinogen Latest Range: 175-450 mg/dL 288 Thrombin Time Latest Range: 15-20 sec 18 Lupus Anticoag Latest Range: Neg Neg APC Resistance Latest Range: >=2.00 2.87 Antithrombin Latest Range: 80-120 % 104 Homocyst Tot Latest Range: 5-12 mcmol/L 12 B2GPI IgG Latest Range: <=20 unit(s) <21 B2GPI IgM Latest Range: <=20 unit(s) <21 Cardiolipin IgG Latest Range: <=22 GPL unit(s) <23 Cardiolipin IgM Latest Range: <=10 MPL unit(s) <11 Prothrombin Mutation No range found Negative Results: Negative test results for thrombotic risk factors commonly associated with thromboembolic disease. ---Comment--- 1) Because the patient is on warfarin, tests for protein C and protein S could not be performed. 2) The screening test for resistance to activated protein C (APC) is normal, DNA assay for Factor VLeiden mutation is not indicated. RADIOGRAPHIC STUDIES None IMPRESSION Yury Grant is a 37 y.o. 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 His thrombophilia testing did not show any evidence of inherited or acquired thrombophilia.His previous hemoglobin was elevated. Polycythemia vera is associated with increased risk of thrombosis. Therepeat testing showed normal hemoglobin. I explained to him that protein C and S level were not drawn because he is still currently on warfarin which can affect the levels. He can consider to have them tested in the future after discontinuation of warfarin for 4-6 weeks. Regardless of his protein Cand protein S levels, my recommendation of duration of anticoagulation (short course of anticoagulation) would not alter. Again we reviewed that his VTE was travel-associated. He Has been treated adequately with anticoagulation for more than 3 months ( almost 9 months ). Therefore, I would recommend to discontinue his anticoagulation and use pharmacologic thromboprophylaxis during high risk period especially during tra victor hugo, surgery, period of immobility. Given that he is going to have a long car ride in 2 weeks, I recommend him to stay on warfarin until after his trip. Should he travel far again in the future ( long car ride longer than 4 hours or long haul flight), I would recommend to use the new generation of oral anticoagulation rivaroxoban 10 mg PO on the day of travel and the day after for secondary prevention. If the car trip is longer than a day, he should continue rivaroxaban throughout the trip. He should wear compression stockings during his travel. He should stop every 2 hours for a 10-15 minutes walk. He should stay well hydrated throughout the trip. Victorino has been wearing his compression stockings regularly, but he has not had a chance to get a new pair which has been measured. I encourage him to get the new pair before his trip back to [place]. Last visit I recommended him to not have repeat serial ultrasounds for his leg swelling but rather use the last ultrasound as a new baseline. Given that he is going to move to [place], it might be a good idea to repeat another one there in [place] at the time of discontinuation of warfarin to havea new baseline in his medical record there. I explained to him that 1/3 of the veins fail to recanalize after a diagnosis of DVT and the presence of residual vein occlusion is not an indication for ongoing anticoagulation given that it is generally not at risk of progression after an adequate treatment of anticoagulation. We then discussed about his other clinical risk factor of VTE which is obesity. I recommend him to loose weight and I hope that he will be able to start doing exercises and physical activities once he wears his compression stockings and his post thrombotic syndrome improves. We then discussed other preventative strategies for VTE. I reminded her to maintain a good activityand avoid dehydration. We then discussed the role of aspirin in secondary prevention of VTE. I explained to him that aspirin has shown to reduce the risk of recurrence in individuals with idiopathic VTE when compared to placebo. The role of aspirin in secondary prevention of VTE in patients with provoked VTE like him remain unclear. However, the benefit of primary and secondary prevention of cardiovascular event has been established. I would leave the decision to start aspirin to him and his primary care physician. PLAN/RECOMMENDATIONS 1. Continue warfarin with therapeutic goal of INR between 2-3 until after his long car ride to [place]. 2. No ongoing anticoagulation thereafter 3. During next long car ride or long haul flight, I would recommend to use rivaroxaban 10 mg PO once on the day of the long car ride/long haul flight (longer than 4 hours) and the day after the trip.He should wear the compression stocking during entire trip. He should stop every 2 hours for every 10 minutes walk. 4. Consider repeating another ultrasound doppler there in [place] to establish a new baseline at the time of discontinuation of warfarin. 5. Can consider performing protein C and protein S level to rule out deficiencies after discontinuation of warfarin for at least 4-6 weeks 6. Encourage weight loss All of his questions were answered at his satisfaction. While I won't schedule him for a routine follow-up, he knows that he can call my office anytime, should he or his new primary care physician have any questions. Bebe Castillo MD Instructor of Medicine, [facility] documented in this encounter Plan of Treatment Not on file documented as of this encounter Visit Diagnoses Diagnosis VTE (venous thromboembolism)- Primary Embolism and thrombosis of unspecified site documented in this encounter Care Teams Occ Ther Relationship Specialty Start Date End Date Alex Mosqueda MD [facility] [place] [address] PCP - General 04/14/12 01/30/14 documented as of this encounter
--- OUTSIDE RECORDS SUMMARY | 2024-03-14 15:50 | XMS_ITS | Encounter Summary ---
Author Organization [place] [address] Care Team Providers Care Instrument Lens Inspector Name Role Phone Alex Mosqueda MD Primary Care Provider [phone] Encounter Details Date Type Department Care Team (Latest Contact Info) Description 05/31/2012 Anti-Coag Telephone [place] [phone] Inge Byrd RN Pulmonary embolism Social History Tobacco Use Types Packs/Day Years Used Date Smoking Tobacco: Never Alcohol Use Standard Drinks/Week Comments Yes 4 (1 standard drink = 0.6 oz pur e alcohol) occasional wine Sex and Gender Information Value Date Recorded Sex Assigned at Not on file Gender Identity Not on file Sexual Orientation Not on file documented as of this encounter Patient Instructions * Patient Instructions* Inge Byrd, RN - 05/31/2012 2:39 PM EST Your INR result today is: 2.8 Range: 2.0-3.0 Please take your Warfarin, (Coumadin ??), dose each evening as instructed. If you should miss a dose, it is OK to take it as soon as you remember provided it is within the same day, do not double up on the following day but call your anticoag provider for instructions. Please call to report any unusual signs or symptoms of abnormal bleeding or bruising noted or seek medical attention if necessary. It is also important to call and report any changes in your routine or medication regime including those over the counter drugs or supplements as this could have an effect on your warfarin dosing needs. Please follow the dosing instructions outlined below until your next scheduled INR visit. Pill size 5 mg DAY Sun Wed Fri Sat Mg total per day 5 mg 5 mg 5 mg 5 mg 5 mg 5 mg 5 mg Number of Pills 1 1 1 1 1 1 1 Your next INR is scheduled for: 06/14/12 If you are unable to keep this appointment, please call documented in this encounter Progress Notes * Inge Byrd RN - 05/31/2012 2:30 PM EST Anticoagulation Therapy Office Visit Indication: Provoked LLE DVT/PE in the setting of a long care ride, diagnosed 04/12/12 Duration of treatment: Undetermined, repeat doppler after 3 mos to establish a new baseline per Vianney Pavon APRN Range: 2.0-3.0 INR : 2.8 Drawn by: [facility] Monitored by: LEANDER Next INR Due: 2 wks; 06/14/12 Standing order @ [facility] expires 07/28/12 Patient Contact Preference: Message left on answering machine E-Mail/fax x Spoke with patient / family member: Comment: Warfarin dose : Increased Decreased x Maintained Comment Falls Risk Assessment: Have you had any falls in the last month? No How many times have you fallen? Conditions at time of fall? Refer to Charlene Pavon APRN for evaluation: Yes___ No___ Patient presents with no signs of bleeding or bruising or sx of thromboembolic events related to primary diagnosis above. Follow-up for re-evaluation and safety of continuing anticoagulation. Bleeding: Epistaxis Black tarry stools Gingival bleeding Increased bruising Hematuria Other: Hemoptysis x No bleeding / bruising noted Comment: Symptoms of recurring primary event: Chest Pain Dyspnea Palpitations Headache Dizziness Edema Confusion Slurred Speech Weakness Visual changes Tender / Red / Swollen Extremities x No symptoms reported Other: Comment: Recent medication changes: ( Include prescription /OTC/ herbal) Yes x No Comment: Have you missed any dose of Coumadin this past week? Yes x No Comment Any Illness/ Cold SX/ Diarrhea/Constipation > 48 hours: Yes x No Comment Dietary Changes: Yes x No Comment: Have you increased or decreased alcohol consumption recently? Yes x No Comment: Have you significantly altered your level of activity over the past few weeks? Yes x No Comment Upcoming Invasive Procedures Planned? Yes x No Comment: Travel Plan: Yes, travel precautions reviewed. x No Comment: Patient understands and agrees with plan of care documented in this encounter Plan of Treatment Not on file documented as of this encounter Procedures Procedure Name Priority Date/Time Associated Diagnosis Comments EXTERNAL LAB RESULTS Routine 05/31/2012 documented in this encounter Results * (ABNORMAL) External Lab Results (05/31/2012) International Normalization Ratio 2.8(Exter nal Lab) 0.9 - 1.1 Comment:[facility] Historical Provider CHEMISTRY ORDERAB LES documented in this encounter Visit Diagnoses Diagnosis Pulmonary embolism Other pulmonary embolism and infarction documented in this encounter Care Teams Instrument Lens Inspector Relationship Specialty Start Date End Date Alex Mosqueda MD [facility] [place] [address] PCP - General 04/14/12 01/30/14 documented as of this encounter
--- OUTSIDE RECORDS SUMMARY | 2024-03-14 15:50 | XMS_ITS | Encounter Summary ---
Author Organization [facility] Address [facility] [place] [address] Care Team Providers Care Trust Accounts Supervisor Name Role Phone Lizy Perales APRN Primary Care Provider [phone] Encounter Details Date Type Department Care Team (Late st Contact Info) Description 09/16/2021 Telephone Neurology at [facility] [place] [phone] Joey Coleman MD [facility] [place] [address] Social History Tobacco Use Types Packs/Day Years [...] place to sleep or slept in a care home (including now)? No 05/20/2021 Sex and Gender Information Value Date Recorded Sex Assigned at Not on file Gender Identity Not on file Sexual Orientation Not on file documented as of this encounter Plan of Treatment Not on file documented as of this encounter Visit Diagnoses Not on filedocumented in this encounter Care Teams Trust Accounts Supervisor Relationship Specialty Start Date End Date Lizy Perales APRN [address] [place] [address] PCP - General Family Medicine 04/23/21 documented as of this encounter
--- OUTSIDE RECORDS SUMMARY | 2024-03-14 15:50 | XMS_ITS | Encounter Summary ---
Author Organization [facility] Address [facility] [place] [address] Care Team Providers Care Supervisor Shuttle Fitting Name Role Phone Alex Mosqueda MD Primary Care Provider [phone] Reason for Visit * Reason Comments Follow-up Encounter Details Date Type Department Care Team (Late st Contact Info) Description 10/12/2012 9:15 AM EDT Follow-[place] [id number] Alex Mosqueda MD [facility] [place] [address] Healthcare maintenance (Primary Dx); Hypertension; Insomnia Discharge Disposition: Home Social History Tobacco Use [...] Sign Reading Time Taken Comments Blood Pressure 157/94 10/12/2012 9:25 AM EDT Pulse 85 10/12/2012 9:25 AM EDT Temperature 36.5 ??C (97.7 ??F) 10/12/2012 9:25 AM ED T Respiratory Rate 18 10/12/2012 9:25 AM EDT Oxygen Saturation 97% 10/12/2012 9:25 AM EDT Inhaled Oxygen Concentration - - Weight 125.3 kg (276 lb 3.2 oz) 10/12/2012 9:25 AM EDT Height 194.3 cm (6' 4.5) 10/12/2012 9:25 AM EDT Body Mass Index 33.18 10/12/2012 9:25 AM EDT documented in this encounter Progress Notes * Tali Ballard MD - 10/12/2012 9:56 AM EDT The case was discussed at the time of the visit or immediately after the visit. The assessment and plan were formulated in discussion with me and I agree with them as documented. I have reviewed the history, physical exam, assessment and plan with the resident. Major issues discussed today: 37 y m pmh sig for bilat PE/DVT sept last y htn Lifestyle for weight F/u for anticoagulation (dad h/o of provoked DVTs-travel and surgery-neg work up--son has gotten insetting of long travel) INR check at [place] Doing well- No issues with SOB No tarry stool No bleeding No falls occ swelling end of day of legs--using stockings) Starting indoor biking Stressed about job - not sleeping well 2-3 night a week Does not feel depressed Appetite and concentration is fine No silver No cp Nonsmoker No etoh since started warfarin 1 son Was to check lipids and sugar however did not get done Flu shot Tetanus up to date PE BP 157/94 Pulse 85 Temp(Src) 36.5 ??C (97.7 ??F) (Oral) Resp 18 Ht 194.3 cm (6' 4.5) Wt 125.283 kg (276 lb 3.2 oz) BMI 33.18 kg/m2 SpO2 97% Per resident note--recheck bp about the same Plan: Follow up H/o of PE/DVT-past provoked-FH (h/o of provoked clot-neg work up) Stop warfarin due to 6m since his episode Sx to monitor for-if has another will require lifelong bp-chlorthalidone--recheck bp--watch k-(with fasting lipids and sugar)- 2 weeks bp check and labs Situational anxiety stress related to his work-d/w pt-trazadone in meantime Monitor sx Follow up with pt in 6 months * Alex Mosqueda MD - 10/12/2012 9:26 AM EDT Reason for visit/CC: follow up regarding anticoagulation HPI: 36 yo male, with pmhx significant for HTN (controlled by lifestyle changes), recently diagnosed bilateral PE, who presents for follow up. In March 2012, patient was diagnosed with bilateral PEs and left lower extremity DVT in setting of a 4 hour car ride. Patient has been on anticoagulation with coumadin since his diagnosis with INR checks at [facility]. Patient states that he has not had any issues with significant worsening of lower extremity swelling. Initially, he was using compression stockings but hasn't felt the need to use them the last couple months. Occasionally, if he is on his feet for a prolonged period of time, he does note worsening of the edema. Denies any bleeding issues. He has recently started biking again and biked 10 miles the other day. Overall, he seems to be quite stressed out regarding his current job. Not sleeping well. States his concentration is ok. His eating habits have not been good over the last few months. He has gained almost 45-50 lbs in the last year. Although initially, he had told me that he has not drank since starting his coumadin, when I further questioned him, he mentioned that he has been drinking quite heavily almost every day due to stressors at work. He has not checked his BP at work/home but states that he has been told in the past in his 20s thathe has hypertension. He has never been on any pharmacologic tx for his hypertension. Denies any chest pain/pressure, dyspnea at rest or with exertion, n/v/d/abdominal pain, hematochezia, melena, worsening bruising. Denies any lower extremity pain and is not taking any pain medications at this time. PMHx/Problem List: HTN Left leg DVT Bilateral pulmonary emboli Medications: Current Outpatient Prescriptions Medication Sig Dispense Refill ??? warfarin (COUMADIN) 5 mg tablet May take up to 2 tablets daily by mouth as directed. 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 Living Situation - , lives in [place], has a 2yr old son Hobbies/Activities/Exercise - enjoys hiking and playing basketball Tobacco - nonsmoker; tried in college EtOH - Drinks/week; red wine 3 times a week; none since starting coumadin Drugs/Injection/Inhalant - denies Sex/HIV/risks - monogamous with Family History: Grandfather: [place] at 48 Father: DVTs (one in setting of travel 2007 and another post op 2004); ?heart surgery, strokes x2 Mother: good health 4 siblings, 1 brother 3 sisters - in good health ROS: Constitutional - no fevers, chills, night sweats, change in appetite, change in weight, or extreme weakness + fatigue Eyes - no eye disease or vision impairment ENT - no nose, sinus, mouth or throat problems. No ear disease or difficulty hearing. Skin - no skin diseases or rashes Respiratory - see HPI Cardiovascular - see HPI Gastrointestinal - no nausea, vomiting, diarrhea, constipation, melena or abdominal pain Genitourinary - no dysuria, increased frequency of urination or urinary incontinence Musculoskeletal - +left leg pain Endocrine - no intolerance to hot or cold Psychiatric - no depression, insomnia or difficulty tolerating stress. Neurological - no seizure disorder, headaches, syncope, +LH/dizziness Heme/Lymph - no easy bruising or bleeding or enlarged lymph nodes Sexually active? no difficulties with sexual activity Health Maintenance: Seat belt: 100% Colonoscopy (age 50-75) : n/a Prostate (PSA) (age 50-74): n/a Fasting Cholesterol (age >35) : checked 5 months ago in [place] Fasting Glucose, HbA1c (age >45, obese or high BP) : not checked DM screening - (Hgb, A1C or FBS): TSH: checked 4 months ago Immunizations: Tetanus (Td): up to date Flu: yearly Physical Exam: Vitals: Filed Vitals: 10/12/12 0925 BP: 157/94 Pulse: 85 Temp: 36.5 ??C (97.7 ??F) Resp: 18 General: AAOX3 HEENT: PERRL, EOMI, sclerae anicteric. MMM. Neck: Supple, no cervical lymphadenopathy, no thyromegaly. CV: Normal rate, regular rhythm without murmurs, rubs, or gallops. No JVD. Vascular: 2+ radial, DP, and PT pulses bilaterally. No carotid or abdominal bruits. Pulm: Lungs clear to auscultation and percussion bilaterally Abd: Soft, nontender, nondistended, no masses. Normo-active bowel sounds. No hepatosplenomegaly. MS: No joint edema, warmth, or erythema. Left lower extremity with pretibial nonpitting edema with mild overlying erythema; nontender. ROM normal x 4 extremities. Skin: Warm and dry without rashes. Neuro: Awake, alert, and oriented. LE DTRs 2+ bilaterally. Strength 5/5 on the R and 5/5 on the left for dorsiflexion and plantar flexion of the foot and for hand learning coach. Otherwise nonfocal. CT Chest with contrast: 04/13 Findings Multiple filling defects in the distal left and right pulmonary arteries in addition to the bilateral interlobar and segmental branches are consistent with extensive bilateral pulmonary emboli. There is no evidence of cor pulmonale. Also seen is small focal area of left basilar atelectasis. The lung parenchyma and mediastinum are normal in appearance. Liver and gallbladder are unremarkable. The spleen and pancreas are within normal limits. The visualized small intestine is not dilated. The kidneys and adrenal glands are not seen in this examination. Impression 1. Extensive bilateral pulmonary emboli. U/S Left lower extremity: 04/13 Thrombosed common femoral vein below the saphenofemoral junction, thrombosed femoral vein throughout the thigh, popliteal vein, gastrocnemius veins, short saphenous vein and posterior tibial veins. Nearly occlusive thrombus in both peroneal veins. Patent CFV above the SFJ. Patent GSV. Interpretation: LEFT: Extensive deep vein thrombosis of the lower extremity. TTE: 04/13 1. Right ventricular chamber size, wall thickness, and systolic function are within normal limits. 2. Pulmonary artery hypertension could not be assessed due to inadequate tricuspid regurgitation jet. 3. Left ventricular chamber size, wall thickness, global and segmental systolic function are within normal limits. Ejection fraction is estimated to be 65%. 4. The cardiac valves appear structurally and functionally normal. Assessment/Plan: 36 yo male, with pmhx significant for HTN (controlled by lifestyle changes), recently diagnosed bilateral PE, who presents for follow up of his provoked PE and left lower extremity DVT. He is now had6 months of anticoagulation with coumadin. In the setting of his provoked PE, we will d/c his coumadin at this time. Advised patient to closely monitor his sx such has worsening lower extremity edemawith pain, worsening dyspnea or respirophasic chest pain.He likely does not have a malignancy or IBD. Seems possible that he could have a hereditary predisposition to this as his father had two DVTs.Will defer further work up for coagulopathy until he is 4-6 weeks out from anticoagulation. #B/L PE with DVT - discontinue coumadin - elastic support stockings to help with left lower ext edema - may consider hematology referral at some point #HCM: - lipid panel, fasting glucose, HbA1c #Hypertension: - start chlorthalidone 25mg daily - nurse BP check in 2 weeks - BMP check in 2 weeks with remaining healthcare maintenance labs. - encouraged patient to improve his exercise and lose weight #Insomnia: - trazodone prn Follow up: in about 4 months documented in this encounter Plan of Treatment Scheduled Orders Name Type Priority Associated Diagnoses Orde r Schedule Lipid panel (fasting) Lab Routine Healthcare maintenance Expected: 10/12/2012 (Approximate), Expires: 10/12/2013 documented as of this encounter Results * Hemoglobin A1c (10/20/2012 1:43 PM EDT) [facility] Hemoglobin A1c 5.1 4.3 - 6.1 % [facility] Comment: The [place] Diabetes Association (ADA) has stated that HbA1c values >or= 6.5% are consistent with the diagnosis of diabetes mellitus. In the absence of hyperglycemia (i.e. plasma glucose > 200 mg/dL) or classic symptoms of hyperglycemia a repeat measurement of HbA1c should be performed on a separate sample to confirm the diagnosis. The ADA also considers an HbA1c value between 5.7% and 6.4% to be consistent with an increased risk of diabetes (prediabetes). Patients with an HbA1c value in this range should be counseled about their increased risk of progressing to diabetes. Reference: Position Statement: Standards of Medical Care in Diabetes 2013. Diabetes Care 2013:36;suppl 1:S11-S66. Estimated Average Glucose 100 mg/dL [facility] Comment: eAG equivalents for HbA1c percentages: HbA1c(%) ?eAG(mg/dL) 6.0 ?126 6.5 ?140 7.0 ?154 7.5 ?169 8.0 ?183 8.5 ?197 9.0 ?212 9.5 ?226 10.0 ? 240 Limitations: The eAG calculation has not been validated on women, individuals below 18 years old and above 70 years old, and individuals with hemoglobinopathies. Additional resources are available on the ADA website: ??http://professional.diabetes.org/glucosecalculator.aspx Delio CARLOS, Shabana J, Kathleen R, et al. ??Translating the A1C assay into estimated average glucose values. ??Diabetes Care 2008:31(8):1004-8013. Blood specimen (specimen) 10/20/2012 1:43 PM EDT 10/20/2012 1:51 PM EDT Narrative Resulting Agency Comment Spec In Lab Tali Ballard MD CHEMISTRY ORDERABLES Performing Organization Address City/State/[facility] Co hi Phone Number [facility] documented in this encounter Visit Diagnoses Diagnosis Healthcare maintenance- Primary Routine general medical examination at a health care facility Hypertension Unspecified essential hypertension Insomnia Insomnia, unspecified documented in this encounter Care Teams Supervisor Shuttle Fitting Relationship Specialty Start Date End Date Alex Mosqueda MD [facility] [place] [address] PCP - General 04/14/12 01/30/14 documented as of this encounter
--- OUTSIDE RECORDS SUMMARY | 2024-03-14 15:50 | XMS_ITS | Encounter Summary ---
Author Organization [facility] Address [facility] [address] [facility] [place] [address] Care Team Providers Care Boom Tender Name Role Phone Alex Mosqueda MD Primary Care Provider [phone] Reason for Visit * Reason Comments Follow-up Encounter Details Date Type Department Care Team (Late st Contact Info) Description 06/07/2012 11:00 AM EST Follow-[place] [phone] Alex Mosqueda MD [facility] [place] [address] Pulmonary embolism (Primary Dx); Healthcare maintenance Discharge Disposition: Home Social History Tobacco Use [...] Sign Reading Time Taken Comments Blood Pressure 144/94 06/07/2012 11:08 AM EST Pulse 92 06/07/2012 11:08 AM EST Temperature - - Respiratory Rate - - Oxygen Saturation - - Inhaled Oxygen Concentration - - Weight 122.5 kg (270 lb) 06/07/2012 11:08 AM EST Height - - Body Mass Index 34.67 04/14/2012 3:59 AM EDT documented in this encounter Progress Notes * Gricelda Stock MD - 06/07/2012 11:47 AM EST The case was discussed at the time of the visit or immediately after the visit. The assessment and plan were formulated in discussion with me and I agree with them as documented. I have reviewed the history, physical exam, assessment and plan with the resident. Major issues discussed today: Here for follow up, s/p multiple PE's (provoked). recent left LE DVT.On coumadin. Leg swelling has improved with compression stockings, mild RICK with stairs. No cp. No bloody stools. Also has HTN, trying lifestyle changes. Awaiting records from [place] (fasting lipids). BP 144/94 Pulse 92 Wt 122.471 kg (270 lb) Lungs clear, CV normal, improved leg swelling Repeat 138/88 Plan: Doing well. Continue anti-coag with anticipated follow up in [facility] to address buttermaker risks. Check lipids (ext lab order), monitor BP at home. Continue TLC's. To follow up in [place]. * Alex Mosqueda MD - 06/07/2012 8:26 AM EST Reason for visit/CC: follow up HPI: 36 yo male, with pmhx significant for HTN (controlled by lifestyle changes), recently diagnosed bilateral PE, who presents for follow up. In March 2012, patient was diagnosed with bilateral PEs and left lower extremity DVT in setting of a 4 hour car ride. Patient has been on anticoagulation since his diagnosis. He gets his INRs checked at [facility] with his last INR 2.8. Since his last visit with me, patient was seen in clinic as a sda about 2 weeks ago with worsening lower extremity edema. A lower extremity duplex was repeated and showed persistent clot with slightly reduced clot burden. Patient was recommended to continue using stockings, and elevate his legs. Overall, patient states that he has been doing quite well. He states that his lower extremity edemahas decreased significantly and was likely increased in the setting of being on his feet longer than usual two days prior to the worsening of his swelling. He does state that he continues to experience dyspnea on exertion with walking up a flight of stairs. Denies any chest pain/pressure, n/v/d/abdominal pain, hematochezia, melena, worsening bruising Denies any lower extremity pain and is not taking any pain medications at this time. PMHx/Problem List: HTN Left leg DVT Bilateral pulmonary emboli Medications: Current outpatient prescriptions Medication Sig Dispense Refill ??? warfarin (COUMADIN) 5 mg tablet Take 1 tablet by mouth daily. 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 Living Situation - , lives in [place], has a 2yr old son Hobbies/Activities/Exercise - enjoys hiking and playing basketball Tobacco - nonsmoker; tried in college EtOH - Drinks/week; red wine 3 times a week; none since starting coumadin Drugs/Injection/Inhalant - denies Sex/HIV/risks - monogamous with Family History: Grandfather: [place] at 48 Father: DVTs (one in setting [...] >35) : checked 5 months ago in [place] Fasting Glucose, HbA1c (age >45, obese or high BP) : not checked DM screening - (Hgb, A1C or FBS): TSH: checked 4 months ago Immunizations: Tetanus (Td): up to date Flu: yearly Physical Exam: Vitals: Filed Vitals: 06/07/12 1108 BP: 144/94 Pulse: 92 General: AAOX3 HEENT: PERRL, EOMI, sclerae anicteric. [...] flexion of the foot and for hand net architect. Otherwise nonfocal. CT Chest with contrast: 04/13 [...] PE, who presents for follow up of her provoked PE and left lower extremity DVT. In light of his recent PE, patient will require anticoagulation for at least 6 months. He is being followed by the anticoagulation clinic. In terms of the the cause for his PE, it was likely provoked in the setting of long car ride from [place]. He likely does not have a malignancy or IBD. Seems possible that he could have a hereditary predisposition to this as his father had two DVTs. Will defer further workup for coagulopathy until he is 4-6 weeks out from anticoagulation. #B/L PE with DVT - continue anticoagulatin withcoumadin - monitor INRs goal 2-3 - elastic support stockings to help with left lower ext edema - may consider hematology referral at some point #HCM: - lipid panel, fasting glucose - to be drawn at [facility] on jun 14 with his next INR check Follow up: in 5months or earlier as needed documented in this encounter Plan of Treatment Not on file documented as of this encounter Visit Diagnoses Diagnosis Pulmonary embolism- Primary Other pulmonary embolism and infarction Healthcare maintenance Routine general medical examination at a health care facility documented in this encounter Care Teams Boom Tender Relationship Specialty Start Date End Date Alex Mosqueda MD [facility] [place] [address] PCP - General 04/14/12 01/30/14 documented as of this encounter
--- OUTSIDE RECORDS SUMMARY | 2024-03-14 15:50 | XMS_ITS | Encounter Summary ---
Author Organization [facility] Address [facility] [place] [address] Care Team Providers Care Beater Out Leveling Machine Name Role Phone Alex Mosqueda MD Primary Care Provider [phone] Reason for Visit * Reason Onset Date Comments Anticoagulation 11/11/2012 INR Encounter Details Date Type Department Care Team (Late st Contact Info) Description 11/11/2012 Telephone [place] [phone] Alex Mosqueda MD [facility] [place] [address] Anticoagulation (INR) Social History Tobacco Use Types Packs/Day Years [...] * Telephone Encounter - Jacque Ackerman - 11/11/2012 8:58 AM EDT INR 2.7 [facility] (POC)~11/10 documented in this encounter Plan of Treatment Not on file documented as of this encounter Visit Diagnoses Not on filedocumented in this encounter Care Teams Beater Out Leveling Machine Relationship Specialty Start Date End Date Alex Mosqueda MD [facility] [place] [address] PCP - General 04/14/12 01/30/14 documented as of this encounter
--- OUTSIDE RECORDS SUMMARY | 2024-03-14 15:50 | XMS_ITS | Encounter Summary ---
Author Organization [facility] Address [facility] [facility] [place] [address] Care Team Providers Care As400 Programmer Analyst Name Role Phone Alex Mosqueda MD Primary Care Provider [phone] Reason for Visit * Reason Onset Date Comments Anticoagulation 06/30/2012 overdue INR Encounter Details Date Type Department Care Team (Late st Contact Info) Description 06/30/2012 Telephone [place] [phone] Alex Mosqueda MD [facility] [place] [address] Anticoagulation (overdue INR) Social History Tobacco Use Types Packs/Day Years [...] encounter Miscellaneous Notes * Telephone Encounter - Jayne Bailey - 06/30/2012 2:53 PM EST I called and left a message for patient that INR is due today. documented in this encounter Plan of Treatment Not on file documented as of this encounter Visit Diagnoses Not on filedocumented in this encounter Care Teams As400 Programmer Analyst Relationship Specialty Start Date End Date Alex Mosqueda MD [facility] [place] [address] PCP - General 04/14/12 01/30/14 documented as of this encounter
--- OUTSIDE RECORDS SUMMARY | 2024-03-14 15:50 | XMS_ITS | Encounter Summary ---
Author Organization [facility] [address] Care Team Providers Care Park Interpretive Ranger Name Role Phone Alex Mosqueda MD Primary Care Provider [phone] Encounter Details Date Type Department Care Team (Latest Contact Info) Description 06/15/2012 Anti-Coag Telephone [place] [address] Inge Byrd, RN Pulmonary embolism Social History Tobacco Use [...] * Patient Instructions* Inge Byrd, RN - 06/15/2012 3:39 PM EST Your INR result today is: 2.4 Range: 2.0-3.0 Please take your Warfarin, (Coumadin [...] 1 Your next INR is scheduled for: 06/30/12 If you are unable to keep this appointment, please call documented in this encounter Progress Notes * Inge Byrd RN - 06/15/2012 3:36 PM EST Anticoagulation Therapy Office Visit Indication: Provoked LLE DVT/PE in the setting of a long care ride, diagnosed 04/12/12 Duration of treatment: Undetermined, repeat doppler after 3 mos to establish a new baseline per Vianney Pavon APRN Range: 2.0-3.0 INR : 2.8 Drawn by: [facility] Monitored by: LEANDER Next INR Due: 4 wks; 06/30/12 Standing order @ [facility] expires 07/28/12 Patient Contact Preference: x Message left on answering machine E-Mail/fax Spoke with patient / family member: Comment: Warfarin dose : Increased Decreased x Maintained Comment Falls Risk Assessment: Have you had any falls in the last month? How many times have you fallen? Conditions at time of fall? Refer to Charlene Pavon APRN for evaluation: Yes___ No___ Patient presents with no signs of bleeding or bruising or sx of thromboembolic events related to primary diagnosis above. Follow-up for re-evaluation and safety of continuing anticoagulation. Bleeding: Epistaxis Black tarry stools Gingival bleeding Increased bruising Hematuria Other: Hemoptysis No bleeding / bruising noted Comment: Symptoms of recurring primary event: Chest Pain Dyspnea Palpitations Headache Dizziness Edema Confusion Slurred Speech Weakness Visual changes Tender / Red / Swollen Extremities No symptoms reported Other: Comment: Recent medication changes: ( Include prescription /OTC/ herbal) Yes No Comment: Have you missed any dose of Coumadin this past week? Yes No Comment Any Illness/ Cold SX/ Diarrhea/Constipation > 48 hours: Yes No Comment Dietary Changes: Yes No Comment: Have you increased or decreased alcohol consumption recently? Yes No Comment: Have you significantly altered your level of activity over the past few weeks? Yes No Comment Upcoming Invasive Procedures Planned? Yes No Comment: Travel Plan: Yes, travel precautions reviewed. No Comment: Patient understands and agrees with plan of care documented in this encounter Plan of Treatment Not on file documented as of this encounter Procedures Procedure Name Priority Date/Time Associated Diagnosis Comments EXTERNAL LAB RESULTS Routine 06/15/2012 documented in this encounter Results * (ABNORMAL) External Lab Results (06/15/2012) International Normalization Ratio 2.4(Exter nal Lab) 0.9 - 1.1 Comment:[facility] Historical Provider CHEMISTRY ORDERAB LES documented in this encounter Visit Diagnoses Diagnosis Pulmonary embolism Other pulmonary embolism and infarction documented in this encounter Care Teams Park Interpretive Ranger Relationship Specialty Start Date End Date Alex Mosqueda MD [facility] [address] INTERNAL MEDICINE [place], [place] [id number] PCP - General 04/14/12 01/30/14 documented as of this encounter
--- OUTSIDE RECORDS SUMMARY | 2024-03-14 15:50 | XMS_ITS | Encounter Summary ---
[place] [address] Care Team Providers Care Meat Grinder Name Role Phone Alex Mosqueda MD Primary Care Provider [phone] Encounter Details Date Type Department Care Team (Late st Contact Info) Description 10/20/2012 1:00 PM EDT Office [place] [address] Candace Edward [place] Leg swelling Social History Tobacco Use Types Packs/Day Years [...] Procedure Name Priority Date/Time Associated Diagnosis Comments DUPLEX FOR DVT, LEG, UNILAT Routine 10/20/2012 1:02 PM EDT Leg swelling documented in this encounter Results * Duplex for DVT, Leg, Unilat (10/20/2012 1:02 PM EDT) VB Text Report Department: Vascular Surgery Lab Patient: [id number] (HEIKE GRANT) CPT Code: 45140 ICD-9: 451.19 Referring Physician: TALI BALLARD Indication: ?? History of extensive left lower extremity DVT ICD9 Diagnosis Code: 451.19 LEFT: One of the paired femoral veins through the thigh is thrombosed. Non occlusive thrombus in the popliteal vein. Patent common femoral vein and popliteal vein with spontaneous, respirophasic Doppler waveforms that respond normally to augmentation maneuvers. The common femoral vein, saphenofemoral junction, one of the paired femoral veins through the thigh are fully compressible. Patent posterior tibial veins with no evidence of thrombus. Unable to visualize the peroneal veins in the calf, cannot exclude thrombus. Interpretation: Deep vein thrombus in the LEFT lower extremity. Unable to visualize the peroneal veins in the calf, cannot exclude thrombus. Improvement compared to previous exam 05/24/12. Signed by LEIGHTON CLEMONS on 2012-10-20 04:42:33 PM VASCUBASE 10/20/2012 1:02 PM EDT Tali Ballard MD VASCULAR ORDERABLES [facility] documented in this encounter Visit Diagnoses Diagnosis Leg swelling Swelling of limb documented in this encounter Care Teams Meat Grinder Relationship Specialty Start Date End Date Alex Mosqueda MD [facility] [place] [address] PCP - General 04/14/12 01/30/14 documented as of this encounter
--- OUTSIDE RECORDS SUMMARY | 2024-03-14 15:50 | XMS_ITS | Encounter Summary ---
Author Organization [facility] Address [facility] [place] [address] Care Team Providers Care Rotary Adjuster Name Role Phone Alex Mosqueda MD Primary Care Provider [phone] Encounter Details Date Type Department Care Team (Late st Contact Info) Description 11/25/2012 2:15 PM EDT Office Visit [place] [phone] Alex Mosqueda MD [facility] GENERAL [place] [address] Bebe Rosenberg MD [facility] HEMATOLOGY [place] [address] Jayla Katz, PT [facility] PHYSICAL MEDICINE & [place] [address] Leg swelling (Primary Dx); DVT (deep venous thrombosis) Discharge Disposition: Home Social History Tobacco Use [...] as of this encounter Progress Notes * Jayla Katz, PT - 11/25/2012 5:14 PM EDT PHYSICAL THERAPY INITIAL EXAMINATION Date of Exam/First Treatment: 11/25/2012 Date of onset: Mar 2012 Referring Provider: Bebe Castillo MD Diagnosis: 1. Leg swelling 2. DVT (deep venous thrombosis) History of current problem: Angel Grant is a 37 y.o. male referred to physical therapy for education about compression garments and prevention of additonal DVT/PE Medical/Surgical History, medications: refer to electronic medical record Prior Level of Function: No risks for DVT or PE Functional Limitations: now at risk for DVT/PE Painful to walk or exercise in wt bearing position, legs swell, has gained 35 lbs due to inactivity Pain: at best: 0/10; at worst: 8/10 OBJECTIVE: Large man of 67' With swollen L ankle and lower leg. Both legs clean with no open wounds. L 27.0 WC 46 R A 26 WC 46.0 Pt to fit into size Large Tall [employer] for [employer] casual/ or Active Wear. Pt given education about need to wear compression garments daily. Pt given exercise for LE with legs rasised through out the day. Pt instructed in need to begin general ex program daily for wt loss to help prevent additonal DVT Pt given information on how to order garemtns if he chooses or to order from [facility] near his home. ASSESSMENT: These findings are consistent with pt needing compression for prevention of DVT. Physical therapy is indicated to: fit for garments, give home ex program and educate pt Goals: Short term goals (1 week) 1. Patient to be indep with home exercise program. 2. Pt to wear compression garments daily 3. Pt able to get new garments as needed Goals: termite helper goals (2 weeks) 1. Pt able good undersstanding of need for garments. Interventions completed today: initial evaluation Physical therapy plan: x per week x weeks, tapering to as indicated. Treatment Plan: Pt to wear garments call if any questions or concerns. The plan has been discussed with the patient and they have agreed with the planned treatment. Total Treatment time: 30 minutes Total Timed Code Treatment: 30 minutes 1 betty KATZ PT documented in this encounter Plan of Treatment Not on file documented as of this encounter Visit Diagnoses Diagnosis Leg swelling- Primary Swelling of limb DVT (deep venous thrombosis) Acute venous embolism and thrombosis of unspecified deep vessels of lower extremity documented in this encounter Care Teams Rotary Adjuster Relationship Specialty Start Date End Date Alex Mosqueda MD [facility] GENER[facility] [place] [address] PCP - General 04/14/12 01/30/14 documented as of this encounter
--- OUTSIDE RECORDS SUMMARY | 2024-03-14 15:50 | XMS_ITS | Encounter Summary ---
Author Organization [facility] [place] [address] Care Team Providers Care Government Affairs Fellow Name Role Phone Alex Mosqueda MD Primary Care Provider [phone] Encounter Details Date Type Department Care Team (Latest Contact Info) Description 09/13/2012 Anti-Coag Telephone Visit Internal Medicine at [address] [address] Inge Byrd, RN Pulmonary embolism Social History [...] * Patient Instructions* Inge Byrd, RN - 09/13/2012 11:35 AM EST Your INR result today is: 2.4 [...] day 5 mg 5 mg 5 mg 7.5 mg 5 mg 5 mg 5 mg Number of Pills 1 1 1 1 1/2 1 1 Your next INR is scheduled for: 4 weeks If you are unable to keep this appointment, please call documented in this encounter Progress Notes * Inge Byrd RN - 09/13/2012 11:28 AM EST Anticoagulation Therapy Indication: Provoked LLE DVT/PE in the setting of a long care ride, diagnosed 04/12/12 Duration of treatment: Undetermined, repeat doppler after 3 mos to establish a new baseline per Vianney Pavon APRN Range: 2.0-3.0 INR : 2.4 Drawn by: [facility] (09/12/12) Monitored by: LEANDER Next INR Due: 4 weeks Standing order @ [facility] 08/12/12 Patient Contact Preference: Message left on answering machine E-Mail/fax x Spoke with patient / family member: Comment: - instructed pt to call for appt in September - needs to renew standing order Warfarin dose : Increased Decreased x Maintained Comment Falls Risk Assessment: Have you had any falls in the last month? no How many times have you fallen? Conditions [...] Associated Diagnosis Comments EXTERNAL LAB RESULTS Routine 09/13/2012 documented in this encounter Results * (ABNORMAL) External Lab Results (09/13/2012) International Normalization Ratio 2.4(Exter nal Lab) 0.9 - 1.1 Comment:[facility] Historical Provider CHEMISTRY ORDERAB LES documented in this encounter Visit Diagnoses Diagnosis Pulmonary embolism Other pulmonary embolism and infarction documented in this encounter Care Teams Government Affairs Fellow Relationship Specialty Start Date End Date Alex Mosqueda MD [facility] GENER[place] [address] PCP - General 04/14/12 01/30/14 documented as of this encounter
--- OUTSIDE RECORDS SUMMARY | 2024-03-14 15:50 | XMS_ITS | Encounter Summary ---
Author Organization [facility] [place] [address] Care Team Providers Care Boat Washer Name Role Phone Alex Mosqueda MD Primary Care Provider [phone] Reason for Visit * Reason Onset Date Comments Anticoagulation 06/30/2012 Encounter Details Date Type Department Care Team (Late st Contact Info) Description 06/30/2012 Telephone Internal Medicine at [facility] [address] [place] [address] Gloria Amezcua, RN Anticoagulation Social History Tobacco Use Types Packs/Day [...] encounter Miscellaneous Notes * Telephone Encounter - Gloria Amezcua RN - 06/30/2012 3:38 PM EST RADHA LUDWIG 06/30/2012 2:53 PM Signed I called and left a message for patient that INR is due today Per nurse: last INR was 06/15/12 2.8 with re check 2 weeks Pt was called as above If no INR tomorrow generate NOS letter #1 documented in this encounter Plan of Treatment Not on file documented as of this encounter Visit Diagnoses Not on filedocumented in this encounter Care Teams Boat Washer Relationship Specialty Start Date End Date Alex Mosqueda MD [facility] GENERAL [place] [address] PCP - General 04/14/12 01/30/14 documented as of this encounter
--- OUTSIDE RECORDS SUMMARY | 2024-03-14 15:50 | XMS_ITS | Encounter Summary ---
Author Organization [facility] [place] [address] Care Team Providers Care Contract Manager Name Role Phone Alex Mosqueda MD Primary Care Provider [phone] Encounter Details Date Type Department Care Team (Latest Contact Info) Description 10/20/2012 Anti-Coag Telephone Visit Internal Medicine at [address] [address] Inge Byrd RN Pulmonary embolism (Primary Dx) Social History Tobacco Use Types [...] encounter Patient Instructions * Patient Instructions* Inge Byrd RN - 10/20/2012 4:18 PM EDT Your INR result today is: 1.4 Range: 2.0-3.0 Please take your Warfarin, (Coumadin [...] Wed Fri Sat Mg total per day 7.5 mg 5 mg 5 mg 5 mg 7.5 mg 7.5 mg 7.5 mg Number of Pills 1 07/27 1 07/27 1 07/27 1 07/27 Your next INR is scheduled for: 4 days; 10/24/12 If you are unable to keep this appointment, please call documented in this encounter Progress Notes * Inge Byrd RN - 10/20/2012 4:14 PM EDT Anticoagulation Therapy Indication: Provoked LLE DVT/PE in the setting of a long care ride, diagnosed 04/12/12 Duration of treatment: Undetermined, repeat doppler after 3 mos to establish a new baseline per Vianney Pavon APRN Range: 2.0-3.0 INR : 1.4 Drawn by: [facility] Monitored by: LEANDER Next INR Due: 4 days; 10/24/12 @ [facility] Rec'd call from MOOK Rosales who is seeing pt in office. Reports INR 1.4. Pt states he was toldto stop warfarin last wk, but did not stop it. I cannot find any note instructing pt to dc Coumadin. Standing order @ [facility] expires 11/10/12 Patient Contact Preference: Message left on answering [...] embolism- Primary Other pulmonary embolism and infarction documented in this encounter Care Teams Contract Manager Relationship Specialty Start Date End Date Alex Mosqueda MD [facility] [address] [address] PCP - General 04/14/12 01/30/14 documented as of this encounter
--- OUTSIDE RECORDS SUMMARY | 2024-03-14 15:50 | XMS_ITS | Encounter Summary ---
Author Organization [facility] Address [facility] [place] [address] Care Team Providers Care First Grade Teacher Name Role Phone Alex Mosqueda MD Primary Care Provider [phone] Reason for Visit * Reason Onset Date Comments Anticoagulation 10/25/2012 INR Encounter Details Date Type Department Care Team (Late st Contact Info) Description 10/25/2012 Telephone [place] [id number] Alex Mosqueda MD [facility] GENERAL [place] [address] Anticoagulation (INR) Social History Tobacco Use Types [...] * Telephone Encounter - Jacque Ackerman - 10/25/2012 11:23 AM EDT INR 2.2 [facility] lab (POC test) *Pt's cell #[phone]* documented in this encounter Plan of Treatment Not on file documented as of this encounter Visit Diagnoses Not on filedocumented in this encounter Care Teams First Grade Teacher Relationship Specialty Start Date End Date Alex Mosqueda MD [facility] GENER[place] [address] PCP - General 04/14/12 01/30/14 documented as of this encounter
--- OUTSIDE RECORDS SUMMARY | 2024-03-14 15:50 | XMS_ITS | Encounter Summary ---
Author Organization [facility] Address [facility] [place] [address] Care Team Providers Care Segmental Paving Supervisor Name Role Phone Lizy Perales APRN Primary Care Provider [phone] Reason for Visit * Reason Comments Skin Lesion * Consultation (Routine) - Closed Specialty Diagnoses / Procedures Referred By Adonay escalante Referred To Contact Dermatology Diagnoses Disorder of the skin and subcutaneous tissue, unspecified SKIN LESION OF FACE Lizy Perales APRN [address] [place] [address] [facility] Dermatology [address] [place] [address] Referral ID Status Reason Start Date Expiration Date V isits Requested Visits Authorized [id number] Closed Consult, Test & [facility] PCP Updated and/or Approved 04/16/2021 07/09/2021 12 12 Encounter Details Date Type Department Care Team (Late st Contact Info) Description 06/03/2021 1:20 PM EST Office Visit Dermatology at [facility] [address] [place] [address] Roni Bell MD [facility] [address] [address] [place] (actinic keratosis) Social History Tobacco Use Types Packs/Day Years [...] place to sleep or slept in a senior care (including now)? No 05/20/2021 Sex and Gender Information Value Date Recorded Sex Assigned at Not on file Gender Identity Not on file Sexual Orientation Not on file documented as of this encounter Progress Notes * Roni Bell MD - 06/03/2021 1:20 PM EST Images from the original note were not included. DEPARTMENT OF DERMATOLOGY Medical Dermatology Clinic Note Provider: Roni Bell MD Patient's preferred name Victorino Preferred contact method for results [x]Phone []myD-H []Letter Detailed phone message OK? yes Are there any other people with whom we may discuss your care? Past Medical History Date, location, treatment Melanoma no Dysplastic nevi no SCC no BCC no AKs no UV Exposure & Protection + history of blistering sunburn Other relevant past medical history blod clots pulmonary embolisms eczema Family History Details Melanoma unsure NMSC Father had skin ca removed. 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 Patient is referred to the clinic at the request of Lizy Perales for a lesions on nose that are sore, and darker in color. Review of Systems: General: Feeling well. Skin: No other skin concerns. Medications: Reviewed in eD-H Allergies: Reviewed in eD-H Skin Examination: Focused skin examination of the face was normal with the exception of the findings below. Assessment/Plan # Actinic Keratosis - 0.2-0.3cm scaly irregular pink papule on the nose x 2 - Discussed the natural history and etiology of actinic keratoses including the premalignant potential of these lesions. -Discussed treatment options. Procedure Note: Procedure: Destruction of lesion(s) with cryotherapy. Number: 2 Location: as above Discussed procedure and expectations including risks (including risk of hypopigmentation) and benefits. Verbal consent obtained. Frozen with LN2, 15-30 second thaw time, TWICE. There were no complications; the patient tolerated the procedure well. Post-procedure expectations and wound care were reviewed. Other: ??? N/A RTC: PRN Scribe attestation: ABDULLAHI HERNANDEZ LPN has performed the documentation for this encounter in the presence of and acting as a scribe for Roni Bell MD. I performed the above scribed service and agree with the accuracy of the documentation in this encounter. Reviewed and signed by: Roni Bell MD Dermatology [facility] Patient seen and evaluated with staff elementary school social worker: Alexandra Oconnor MD Department of Dermatology [facility] * Alexandra Oconnor MD - 06/03/2021 1:20 PM EST I directly supervised Dr. Bell during this office visit. Dr. Bell presented the history and physical exam to me. I, then, saw and examined this patient with Dr. Bell . We reviewed the history and pertinent details and I confirmed the physical findings. I agree with the details of the history andphysical exam as documented in Dr. Bell's note. ALEXANDRA OCONNOR MD Staff Physician documented in this encounter Plan of Treatment Not on file documented as of this encounter Visit Diagnoses Diagnosis AK (actinic keratosis) Actinic keratosis documented in this encounter Care Teams Segmental Paving Supervisor Relationship Specialty Start Date End Date Lizy Perales APRN [address] [place] [address] PCP - General Family Medicine 04/23/21 documented as of this encounter
--- OUTSIDE RECORDS SUMMARY | 2024-03-14 15:50 | XMS_ITS | Encounter Summary ---
Author Organization [facility] [place] [address] Care Team Providers Care Foil Spinner Name Role Phone Alex Mosqueda MD Primary Care Provider [phone] Reason for Visit * Reason Comments Anticoagulation Encounter Details Date Type Department Care Team (Latest Contact Info) Description 11/25/2012 11:40 AM EDT Clinical Support Internal Medicine at [place] [address] [place] [address] Amber Mckinney RN Encounter for long-term (current) use of anticoagulants (Primary Dx); Pulmonary embolism Discharge Disposition: Home Social History Tobacco Use [...] this encounter Patient Instructions * Patient Instructions* Amber Mckinney RN - 11/25/2012 11:40 AM EDT Your INR result today is: 2.1 Range: 2.0-3.0 Please take your Warfarin, (Coumadin [...] Pill size 5 mg DAY Sun Wed Sat Mg total per day 5 mg 7.5 mg 5 mg 7.5 mg 5 mg 7.5 mg 5 mg Number of Pills 1 07/27 1 07/27 1 07/27 1 Your next INR is scheduled for: 4 weeks; 12/22 If you are unable to keep this appointment, please call documented in this encounter Progress Notes * Amber Mckinney RN - 11/25/2012 11:46 AM EDT Anticoagulation Therapy Indication: Provoked LLE DVT/PE in the setting of a long care ride, diagnosed 04/12/12 Duration of treatment: Undetermined, repeat doppler after 3 mos to establish a new baseline per Vianney Pavon APRN Range: 2.0-3.0 INR : 2.1 Drawn by: [facility] Monitored by: LEANDER Next INR Due: 4 wks; 12/22/12 Standing order @ [facility] expires 11/25/13 Pt in for visit and renewal of SO Patient Contact Preference: Message left on answering machine E-Mail/fax Spoke [...] understands and agrees with plan of care * Amber Mckinney RN - 11/25/2012 11:43 AM EDT Error documented in this encounter Plan of Treatment Not on file documented as of this encounter Procedures Procedure Name Priority Date/Time Associated Diagnosis Comments POCT INR Routine 11/25/2012 documented in this encounter Results * (ABNORMAL) POCT INR (11/25/2012) INR, POC 2.1(A) 0.9 - 1.1 Historical Provider POINT OF CARE NATALYA T ORDERABLES documented in this encounter Visit Diagnoses Diagnosis extermination inspector (current) use of anticoagulants- Primary Long-term (current) use of anticoagulants Pulmonary embolism Other pulmonary embolism and infarction documented in this encounter Care Teams Foil Spinner Relationship Specialty Start Date End Date Alex Mosqueda MD [facility] [place] [address] PCP - General 04/14/12 01/30/14 documented as of this encounter
--- OUTSIDE RECORDS SUMMARY | 2024-03-14 15:50 | XMS_ITS | Encounter Summary ---
Author Organization Formerly [facility] Address [facility] [place] [address] Care Team Providers Care Group Manager Name Role Phone Lizy Perales APRN Primary Care Provider [phone] Reason for Visit * Consultation (Urgent) - Closed Specialty Diagnoses / Procedures Referred By Adonay escalante Referred To Contact Neurology Diagnoses Myopathy, unspecified MYOPATHY - weakness hands and arms Lizy Perales APRN [address] [place] [address] [facility] [address] [place] [address] Referral ID Status Reason Start Date Expiration Date V isits Requested Visits Authorized [id number] Closed Consult, [facility] PCP Updated and/or Approved 08/01/2021 10/24/2021 12 12 Encounter Details Date Type Department Care Team (Late st Contact Info) Description 09/16/2021 9:00 AM EST [place] [address] Joey Coleman MD [facility] [place] [address] Myopathy Social History Tobacco Use Types Packs/Day [...] place to sleep or slept in a intermediate (including now)? No 05/20/2021 Sex and Gender Information Value Date Recorded Sex Assigned at Not on file Gender Identity Not on file Sexual Orientation Not on file documented as of this encounter Progress Notes * Joey Coleman MD - 09/16/2021 9:00 AM EST NEUROLOGY CLINIC Formerly [facility] [place] [address] 09/16/2021 Patient name: Angel Grant Date of : 1975 Referring provider: Lizy Perales APRN [address] [place] [id number] HISTORY REASON FOR REFERRAL/CHIEF COMPLAINT: Mypoathy HISTORY OF PRESENTING COMPLAINTS: Referred for evaluation of ? Myopathy. 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 He saw a Neurologist at [facility] at that time. Some blood tests were ordered at the time followed by a MRI and muscle biopsy. He says muscle biopsy was inconclusive as was the MRI. He was never tried on any steroids. His symptoms improved spontaneously until recently he had some worsening with weakness of his hand. He had difficulty grasping, he had forearm tingling and crawling sensation. He had shoulder pains and twitching in his muscles. Saw his PCP who ordered CK levels, aldolase, LDH etc which were all elevated. Symptoms have since improved spontaneously. He has history of HTN, DVT and is on eliquis and antihypertensive. No history of muscle disease in his family. His father has history of blood clots. 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 Lives in [place] with and 2 children. Non smoker. Occasional alcohol use. PMHx: Past Medical History: Diagnosis Date ??? DVT (deep venous thrombosis) ??? Pulmonary emboli No past surgical history on file. Family History: Family History Problem Relation Age of Onset ??? Early Paternal Grandfather Social History: reports that he has never smoked. He has never used smokeless tobacco. He reports current alcohol use of about 4.0 standard drinks of alcohol per week. He reports that he does not use drugs. No flowsheet data found. Review of systems: [x] Review of systems otherwise negative Medications: Current Outpatient Medications on File Prior to Visit Medication Sig Dispense Refill ??? losartan (Cozaar) 50 mg Tablet Take 50 mg by mouth 2 times daily. ??? metoprolol succinate XL (Toprol-XL) 50 mg Tablet Sustained Release 24 hr Take 50 mg by mouth daily. ??? metoprolol tartrate (Lopressor) 25 mg Tablet Take 25 mg by mouth daily. In the evening ??? apixaban (Eliquis) 5 mg Tablet Take 5 mg by mouth 2 times daily. No current facility-administered medications on file prior to visit. Allergies: Allergies Allergen Reactions ??? Tree Nut Other (See Comments) Cashews- turns bright red EXAMINATION Vitals: There were no vitals taken for this visit. General Examination: Appearance: alert, no distress. High BMI muscular build. Facial puffiness + Cardiovascular: Rate regular, S1S2 normal, no murmur Respiratory: Symmetric expansion, lungs clear to auscultation Extremity: Flat foot, left > right leg edema +. Scarring of R shoulder at prior biopsy site. Skin: No rashes noted Neurological Examination o Higher functions: - Speech: fluent, no aphasia/dysarthria or dysphonia - Alert and oriented. o Cranial Nerves - II-XII: Pupils bilaterally equal and symmetric conjugate gaze, reacting to light. No ptosis/nystagmus. Vision normal. No field deficits. EOMI. No facial droop. - Hearing reduced R o Reflexes - +1 Bilaterally biceps, BR , knee and ankles. o Motor and Coordination - Normal tone, bulk strength and coordination of right and left sided muscles o Sensory - Normal sensations bilaterally. o Skull and Spine/ Gait - Normal - Ale LABS AND IMAGING Labs GENERAL THYROID: Lab Results Component Value Date TSH 4.52 (H) 05/04/2012 FolateNo results found for: SFOLATE ESRNo results found for: SEDRATE CRPNo results found for: CRP B12No results found for: [id number] CKNo results found for: CK Angiotensin ConvertaseNo results found for: JUNG INFECTIONS HIVNo results found for: HIV12 HEPATITIS PANELNo results found for: HAV, HEPBSAB, HBEAG, HEPBSAG, HEPCAB AUTOIMMUNE PANEL ANANo results found for: GERA DSDNANo results found for: DNAABDS Kvng results found for: DUNCAN C3,C4, COMPLEMENTSNo results found for: C3, C4 CARDIOLIPIN, LUPUSNo components found for: CARDIOLIPINANTIBODY, LUPUS, ANTICOAGULANT CELIAC: TTG, GLIADIN, ENDOMYSIALNo components found for: TTRANSGLUTAMINASEANTIBODY ANTIGLIADINANTIBODY VASCULITIS: C,P,ANCA, MPONo results found for: PANCA, CANCA, MYELOP, PR3AB NMONo components found for: NEUROMYELITISOPTICAANTIBODY MG: ACHRAB, Anit MuSK, LEMSNo components found for: ACETYLCHOLINERECEPTORABBINDING, LEMSANTIBODY, ANTISKELETALMUSCLEANTIBODY CRYOGLOBULINSNo components found for: CRYOGLOBULINS METABOLIC CERULOPLASMINNo components found for: CERULOPLASMIN BETA 2 MICROGLOBULINNo results found for: B2MG No results found for: TPROTEINPEP, ALBELECT, ALPHA1, ALPHA2, GAMMAGLOB, APB1 CORTISOLNo results found for: CORTISOL LDH No results found for: LDH NUTRITIONAL VITAMIN DNo results found for: 25OHVITD PRE ALBUMINNo results found for: PREALBUMIN FERRITINNo results found for: IRON COPPERNo results found for: COPPER PERIPHERAL NEUROPATHY HEMOGLOBIN A1C Lab Results Component Value Date HA1C 5.1 10/20/2012 LIPID PROFILE Lab Results Component Value Date CHLPL 227 (H) 10/20/2012 HDL 35 (L) 10/20/2012 CHOLHDL 6.5 10/20/2012 TRIG 443 (H) 10/20/2012 LDLCHOL Not Perf 10/20/2012 LDLDIRECT 155 (H) 10/20/2012 KATTY 65No results found for: HII71SD ANTI GM1,ANTI SGPG, MAG@RESUFAST (MAGAUTOAB,SGPG,MAGWB,GM1AB)@ HEAVY METAL SCREENNo results found for: LEAD, ARSENIC METHYLMLONIC ACIDNo results found for: METHYLMAL IgA, IGG No results found for: IGA, IGG CSF PANEL No results found for: NUCCELMANCSF, RBCCSFCT, SEGSCSF, LYMPHSCSF, NUMCELLCTCSF, CSFGLUC, CSFPROTEIN, XANTHOCHROM, MCSBFTYPE, MCS, CSFIGGINDEX, LYMEAB, VDRLSCRNCSF, OLIGOCSF, HSVDNA, ARBOWNILECSF, ENTVPCR, VZVPCR PARANEOPLASTIC PANEL No results found for: PARANEOINTRP, ANNA1, ANNA2, ANNA3, AGNA1, PCA1, PCA2, PCATYPETR, AMPHIPHYSIN,LLME9TWD, STRIATMSCLAB, CACHABPQTYPE, CACHABNTYPE, ACHRBINDAB, NEUROKCHAB, NMDARECEPTOR, [id number] THROMBOSIS HOMEOCYSTEINE Lab Results Component Value Date HOMOCYSTEINE 12 11/25/2012 THROMBOSIS PANEL Lab Results Component Value Date ACAIGM <11 11/25/2012 [id number] 11/25/2012 See Thrombosis Screen Report in eDH under Coagulation Reports FACTOR V LEIDEN No components found for: FACTORVLEIDEN PROTEIN C,SNo components found for: PROTEINC, PROTEINS ANTITHROMBIN IIINo components found for: ANTITHROMBINIII Miscellaneous Send outsNo results found for: MISCSENDOUT, MISCMAYO ASSESSMENT, PLAN & RECOMMENDATIONS ASSESSMENT: 46 Y M with h/o Hypertension, DVT, unspecified Myopathy referred for evaluation of recent worsening of weakness, forearm and hand pains. On evaluation, he has a muscular build. No significant weakness or sensory deficits at this time. Slightly reduced reflexes. EMG/NCS shows evidence ofmild CTS bilaterally with no obvious myopathic features. Lab workup so far suggestive of a myopathic process. IMPRESSION: Unspecified Myopathy. Mild CTS bilaterally. PLAN/RECOMMENDATIONS: ??? There is possibility of a myopathic process with intermittent flare ups. Hand symptoms could berelated to mild CTS. ??? Will obtain prior neurology records. ??? Lab tests for myopathy. Genetic panel. ??? Wrist splints if hand symptoms worsens. Overall symptoms are improved at this time. Will not start any additional medications till workup completed . ??? Will arrange follow up in 2 months. Joey Coleman MD Department of Neurology [facility] documented in this encounter Miscellaneous Notes * Addendum Note - Fabienne Coleman - 09/16/2021 9:00 AM ESTAddended by: FABIENNE COLEMAN on: 09/16/2021 10:48 AM Modules accepted: Orders documented in this encounter Plan of Treatment Not on file documented as of this encounter Procedures Procedure Name Priority Date/Time Associated Diagnosis Comments RED TUBE HOLD Routine 09/16/2021 1:06 PM EST HC THYROID STIMULATING HORMONE, SERUM Routine 09/16/2021 11:04 AM EST Myopathy HC C-REACTIVE PROTEIN Routine 09/16/2021 11:04 AM EST Myopathy RED TUBE HOLD Routine 09/16/2021 11:04 AM EST HC PCH MYOSITIS ANTIBODY PANEL PLUS Routine 09/16/2021 11:04 AM EST Myopathy HEMOGRAM Routine 09/16/2021 11:04 AM EST Myopathy DIFFERENTIAL, AUTOMATED Routine 09/16/2021 11:04 AM EST Myopathy HC PCH ALDOLASE Routine 09/16/2021 11:04 AM EST Myopathy HC ESR-SEDIMENTATION RATE, BLOOD Routine 09/16/2021 11:04 AM EST Myopathy HC CBC,PLT & AUTO DIFF Routine 11:04 AM EST Myopathy T4, FREE Routine 09/16/2021 11:04 AM EST HC CREATINE PHOSPHOKINASE, SERUM Routine 09/16/2021 11:04 AM EST Myopathy COMPREHENSIVE METABOLIC PANEL Routine 09/16/2021 11:04 AM EST Myopathy EMG WITH F-WAVE Routine 09/16/2021 EMG WITH F-WAVE Routine 09/16/2021 documented in this encounter Results * Red Tube Hold (09/16/2021 1:06 PM EST) Red Hold Sample in lab. [facility] Blood No Charge / Unknown 09/16/2021 1:06 PM EST 09/16/2021 1:06 PM EST Joey Coleman MD CHEMISTRY ORDERABLES Performing Organization Address City/State/[facility] Co de Phone Number [facility] [place] [address] * T4, free (09/16/2021 11:04 AM EST) Free T4 1.26 0.93 - 1.70 ng/dL [facility] Comment: Reference Interval (ng/dL): Females: ??First Trimester: 0.97-1.68 ??Second Trimester: 0.77-1.51 ??Third Trimester: 0.77-1.49 Blood 09/16/2021 11:0 4 AM EST 09/16/2021 12:42 PM EST Narrative Resulting Agency Comment Spec In Lab Joey Coleman MD CHEMISTRY ORDERABLES Performing Organization Address City/[facility] Co de Phone Number [facility] [place] [address] * Red Tube Hold (09/16/2021 11:04 AM EST) Pathologist [facility] Red Hold Sample in lab. [facility] Blood Venous Draw / Unknown 09/16/2021 11:04 AM EST 09/16/2021 11:45 AM EST Joey Coleman MD CHEMISTRY ORDERABLES Performing Organization Address [facility] Co de Phone Number [facility] [place] [address] * Differential, Automated (09/16/2021 11:04 AM EST) [facility] Neutrophil % 58.0 % [facility] Neutrophil Absolute 4.22 1.70 - 6.10 x10(3)/[facility] Lymph % 28.7 % [facility] Lymphocytes Abs 2.1 0.9 - 3.2 x10(3)/[facility] Monocyte % 9.9 % [facility] Monocyte Abs 0.7 0.3 - 0.9 x10(3)/[facility] Eos % 2.1 % [facility] Eosinophils Abs 0.2 0.0 - 0.4 x10(3)/[facility] Basophil % 0.7 % [facility] Baso Absolute 0.0 0.0 - 0.1 x10(3)/[facility] Immature Gran % 0.60 % [facility] Comment: Immature granulocytes(IG's)percentage and absolute count will include metamyelocytes, myelocytes, and promyelocytes. Blood smears from CBCs yielding IG's will be scanned manually for concordance. If this scan disagrees with the automated IG or if promyelocytes are noted, a manual differential will be performed. Immature Gran Absolute 0.04 0.00 - 0.04 x10(3)/mcL [facility] Blood 09/16/2021 11:0 4 AM EST 09/16/2021 11:45 AM EST Narrative Resulting Agency Comment Spec In Lab Joey Coleman MD HEMATOLOGY ORDERABLE S [facility] [place] [address] * (ABNORMAL) Hemogram (09/16/2021 11:04 AM EST) White Blood Cell 7.3 4.0 - 9.5 x10(3)/mc L [facility] Red Blood Cell 5.54 4.58 - 5.54 x10(6)/[facility] Hemoglobin 17.7(H) 13.7 - 16.5 g/dL [facility] Hematocrit 50.6(H) 40.5 - 48.5 % [facility] Mean Cell Volume 91.3 82.9 - 93.1 fL [facility] Mean Cell Hemoglobin 31.9 27.5 - 32.1 pg [facility] Mean Cell Hemoglobin Concentration 35.0 32.0 - 35.7 g/dL [facility] Platelet 175 145 - 357 x10(3)/[facility]ORATORY RDW Standard Deviation 42.6 36.0 - 45.0 [facility] RDW coefficient of variation 12.7 11.4 - 13.8 % [facility] Mean Platelet Volume 10.5 7.6 - 12.9 fL [facility] NRBC% auto 0.0 % [facility] NRBC Absolute 0.000 0.000 - 0.000 x10(3)/ L [facility] Blood 09/16/2021 11:0 4 AM EST 09/16/2021 11:45 AM EST Narrative Resulting Agency Comment Spec In Lab Joey Coleman MD HEMATOLOGY ORDERABLE S Performing Organization Address [facility] de Phone Number [facility] [place] [address] * (ABNORMAL) TSH [place] (09/16/2021 11:04 AM EST) Thyroid Stimulating Hormone 4.22(H) 0.27 - 4.20 mcIU/mL [facility] Comment: Reference Interval (mcIU/mL): Females: ??First Trimester: 0.23-3.88 ??Second Trimester: 0.22-3.90 ??Third Trimester: 0.44-4.66 Blood 09/16/2021 11:0 4 AM EST 09/16/2021 11:44 AM EST Narrative Resulting Agency Comment Spec In Lab Joey Coleman MD CHEMISTRY ORDERABLES Performing Organization Address [facility] de Phone Number [facility] [place] [address] * Myositis Antibody Panel Plus (09/16/2021 11:04 AM EST) Myositis Ab Panel Test ? Result ? Flag ??Unit ?? RefValue ------- MyoMarker 3 Plus Profile ??Anti-Kymberly-1 Ab ? <20 ?Units ??<20 ??Anti-PL-7 Ab ? Negative ?Negative ?This test was developed and its performance characteristics ?determined by [facility]. It has not been cleared or ?approved by the Food and Drug Administration. ??Anti-PL-12 Ab ?Negative ?Negative ?This test was developed and its performance characteristics ?determined by [facility]. It has not been cleared or ?approved by the Food and Drug Administration. ??Anti-EJ Ab ? Negative ?Negative ?This test was developed and its performance characteristics ?determined by [facility]. It has not been cleared or ?approved by the Food and Drug Administration. ??Anti-OJ Ab ? Negative ?Negative ?This test was developed and its performance characteristics ?determined by [facility]. It has not been cleared or ?approved by the Food and Drug Administration. ??Anti-SRP Ab ?Negative ?Negative ?This test was developed and its performance characteristics ?determined by [facility]. It has not been cleared or ?approved by the Food and Drug Administration. ??Rpjs-Ks-8-Ab ? Negative ?Negative ?This test was developed and its performance characteristics ?determined by [facility]. It has not been cleared or ?approved by the Food and Drug Administration. ??Binl-QIA-1pqlpx Ab ? <20 ?Units ??<20 ?This test was developed and its performance characteristics ?determined by [facility]. It has not been cleared or ?approved by the Food and Drug Administration. ??Anti-MDA-5 Ab (CADM-140) ? <20 ?Units ??<20 ?This test was developed and its performance characteristics ?determined by [facility]. It has not been cleared or ?approved by the Food and Drug Administration. ??Anti-NXP-2 (P140) Ab ? <20 ?Units ??<20 ?This test was developed and its performance characteristics ?determined by [facility]. It has not been cleared or ?approved by the Food and Drug Administration. ??Anti-SAE1 Ab, IgG ?<20 ?Units ??<20 ?This test was developed and its performance characteristics ?determined by [facility]. It has not been cleared or ?approved by the Food and Drug Administration. ??Anti-PM/Scl-100 Ab ? <20 ?Units ??<20 ?This test was developed and its performance characteristics ?determined by [facility]. It has not been cleared or ?approved by the Food and Drug Administration. ??Anti-Ku Ab ? Negative ?Negative ?This test was developed and its performance characteristics ?determined by [facility]. It has not been cleared or ?approved by the Food and Drug Administration. ??Anti-SS-A 52kD Ab, IgG ? <20 ?Units ??<20 ?This test was developed and its performance characteristics ?determined by [facility]. It has not been cleared or ?approved by the Food and Drug Administration. ??Anti-U1 ROAD TRAIN DRIVER Ab ? <20 ?Units ??<20 ??Anti-U2 ROAD TRAIN DRIVER Ab ? Negative ?Negative ?This test was developed and its performance characteristics ?determined by [facility]. It has not been cleared or ?approved by the Food and Drug Administration. ??Anti-U3 ROAD TRAIN DRIVER (Fibrillarin) ?Negative ?Negative ?This test was developed and its performance characteristics ?determined by [facility]. It has not been cleared or ?approved by the Food and Drug Administration. ?Interpretation for Anti-Kymberly-1, [id number], ?Anti-MDA-5, Anti-NXP-2, Anti-SAE1, Anti-PM/Scl-100, ?Anti-SS-A 52 kD, Anti-U1 RO[address] TRAIN DRIVER: ?Negative: ?<20 ?Weak Positive: ? 20 - 39 ?Moderate Positive: ? 40 - 80 ?Strong Positive: ? >80 ?. ?Test Performed by: ?[facility] ?[address] [facility] ?[place] [address] [facility] Blood 09/16/2021 11:0 4 AM EST 09/16/2021 2:41 PM EST Narrative Resulting Agency Comment Spec In Lab Joey Coleman MD LAB SEND OUT ORDERAB LES [facility] [place] [address] * (ABNORMAL) Aldolase (09/16/2021 11:04 AM EST) Aldolase (MAY) 11.6(H) <7.7 unit/L [facility] Comment: Test Performed by: [facility] [place] - [address] [address] [facility] Teacher: Mynor Burk M.D. Ph.D.; CLIA# [id number] Blood 09/16/2021 11:0 4 AM EST 09/16/2021 2:41 PM EST Narrative Resulting Agency Comment Spec In Lab Joey Coleman MD LAB SEND OUT ORDERAB LES Performing Organization Address City/[facility] Co de Phone Number [facility] [place] [address] * Sedimentation rate (09/16/2021 11:04 AM EST) [facility] Sedimentation Rate Automated <3 2 - 28 mm/hr [facility] Comment: Effective July 05, 2019 new capillary photometric technology has resulted in a change in reference ranges. It is recommended that each ESR result be reviewed with its own age appropriate reference range. Blood 09/16/2021 11:0 4 AM EST 09/16/2021 11:45 AM EST Narrative Resulting Agency Comment Spec In Lab Joey Coleman MD HEMATOLOGY ORDERABLE S Performing Organization Address [facility] Co de Phone Number [facility] [place] [address] * CRP, acute inflammation (09/16/2021 11:04 AM EST) Pathologist [facility] C-Reactive Protein <3.0 <=4.9 mg/L [facility] Blood 09/16/2021 11:0 4 AM EST 09/16/2021 11:44 AM EST Narrative Resulting Agency Comment Spec In Lab Joey Coleman MD CHEMISTRY ORDERABLES Performing Organization Address [facility]/ZIP Co de Phone Number [facility] [place] [address] * (ABNORMAL) Comprehensive metabolic panel (non-fasting) (09/16/2021 11:04 AM EST) Glucose 102 65 - 199 mg/dL [facility] Comment:Diabetes: >=200 mg/d L plus symptoms Blood Urea Nitrogen 9(L) 10 - 20 mg/dL [facility] Creatinine 0.93 0.80 - 1.50 mg/dL [facility] Sodium 140 135 - 145 mmol/L [facility] Potassium 4.6 3.5 - 5.0 mmol/L [facility] Comment: Please note: ??Patients with WBC >100,000 may have falsely elevated Potassium levels. ??For accurate Potassium quantification in these patients send serum separator tube (gold top) for subsequent determinations. ??Contact the Clinical Chemistry Laboratory if there are any questions. Chloride 106 98 - 107 mmol/L [facility] Carbon Dioxide 17(L) 22 - 31 mmol/L [facility] Anion Gap 17(H) 5 - 15 mmol/L [facility] Calcium 9.2 8.5 - 10.5 mg/dL [facility] Protein, Total 6.8 6.1 - 8.0 g/dL [facility] Albumin 4.5 3.2 - 5.2 g/dL [facility] Aspartate Aminotransferase 33 0 - 39 unit/L [facility] Alanine Aminotransferase 46 0 - 55 unit/L [facility] Alkaline Phosphatase 95 40 - 130 unit/L [facility] Bilirubin, Total 0.8 0.2 - 1.3 mg/dL [facility] Est Glomerular Filtration Rate 99 >=60 mL/min/1. 73 m?? [facility] Comment: This patient? s [...] In Lab Joey Coleman MD CHEMISTRY ORDERABLES Performing Organization Address City/[facility]/ZIP Co de Phone Number [facility] [place] [address] * (ABNORMAL) CK (09/16/2021 11:04 AM EST) Creatine Kinase 494(H) 0 - 200 unit/L [facility] Blood 09/16/2021 11:0 4 AM EST 09/16/2021 11:44 AM EST Narrative Resulting Agency Comment Spec In Lab Joey Coleman MD CHEMISTRY ORDERABLES Performing Organization Address City/[facility] Co de Phone Number [facility] [place] [address] * EMG WITH F-WAVE (09/16/2021) Historical Provider NEUROLOGY ORDERAB LES * EMG WITH F-WAVE (09/16/2021) Historical Provider NEUROLOGY ORDERAB LES documented in this encounter Visit Diagnoses Diagnosis Myopathy Myopathy, unspecified documented in this encounter Care Teams Group Manager Relationship Specialty Start Date End Date Lizy Perales APRN [address] [place] [address] PCP - General Family Medicine 04/23/21 documented as of this encounter
--- OUTSIDE RECORDS SUMMARY | 2024-03-14 15:50 | XMS_ITS | Encounter Summary ---
Author Organization [facility] Address [facility] [place] [address] Care Team Providers Care Financial Compliance Manager Name Role Phone Lizy Perales APRN Primary Care Provider [phone] Reason for Visit * Reason Comments Advice Only * Consultation (Routine) - Closed Specialty Diagnoses / Procedures Referred By Contac t Referred To Contact Hematology and Oncology Diagnoses Other pulmonary embolism without acute cor pulmonale Lizy Perales APRN [address] [place] [address] [facility] [address] [place] [address] Referral ID Status Reason Start Date Expiration Date V isits Requested Visits Authorized [id number] Closed Consult, Test & Treat Connection Center PCP Updated and/or Approved 04/16/2021 04/16/2022 1 1 Encounter Details Date Type Department Care Team (Late st Contact Info) Description 05/20/2021 10:30 AM EDT Office Visit H[place]ology [place] [address] Bebe Rosebnerg MD [facility] [address] HEMATOLOGY [place] [address] Recurrent pulmonary embolism (Primary Dx); Right upper quadrant abdominal pain; Protein C deficiency; Recurrent deep vein thrombosis (DVT) Social History Tobacco Use Types Packs/Day Years [...] Mass Index 36.79 05/20/2021 10:19 AM EDT documented in this encounter Progress Notes * Bebe Rosenberg MD - 05/20/2021 10:30 AM EDT [facility] [address] Department of Medicine [place] [address] [facility]romb[facility] THROMBOSIS CONSULTATION DATE OF VISIT 05/20/2021 Patient Yury Grant 1975 REFERRING PHYSICIAN Lizy Perales APRN PRIMARY CARE PHYSICIAN Lizy Perales APRN REASON FOR CONSULTATION Evaluation of recurrent pulmonary embolism & duration of anticoagulation THROMBOSIS PROBLEM LIST: 1. January 2012 Travel-associated DVT of the left leg & PE (Long car ride from [place] to [place] over 3 days - with minimal stop) Doppler :Extensive DVT involving femoral vein, popliteal, gastrocnemius veins, short saphenous vein, posterior tibial veins, peroneal veins. CTA: Multiple filling defects in the distal left and right pulmonary arteries in addition to the bilateral interlobar and segmental branches are consistent with extensive bilateral pulmonary emboli. Tx: lovenox -> warfarin for 8-9 months Thrombophilia testing; possible protein C deficiency - will need to repeat testing in the future 2. 04/11/21 acute unprovoked pulmonary embolism in the left upper lobe and right lower lobe and acute left leg DVT involving distal femoral vein, popliteal vein, peroneal vein + superficial thrombophlebitis involving small saphenous vein. Tx apixaban to current date Clinical risk factors: obesity Body mass index is 36.79 kg/m??. HISTORY OF PRESENT ILLNESS Yury Grant is a 37 year-old man with remote history of travel associated DVT/PE who was referred back to our Thrombosis after a recurrent pulmonary embolism. He is here to discuss cause of his PE and duration of anticoagulation. I saw Victorino last time in 2012 after his first VTE event and decided to stop his anticoagulation because his event was clearly provoked. I have recommended him to complete protein C and S testing after he completed his anticoagulation course, but this has not been done. 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 In Mar 2021 he presented with acute onset of a palpable lump behind his knee. Shortly after he developed acute left sided chest pain and difficulty breathing. CT on 04/11/21 showed acute bilateral pulmonary embolism. No evidence of saddle pulmonary embolism. He was started on apixaban and has remained on it to current date. He stated that he feels overall better, but his symptom has not resolved. He still has dyspnea with little exertion and chest discomfort. His PCP has done a repeat EKG and blood work yesterday. He has not heard back about his work up. Previously he has had a stress test done a few years ago which was normal. He has history of hypertension, and admitted that he did not take his morning antihypertensive med. He will pick his med today and will resume his med. He denies any COVID-19 infection and received J & J vaccine in October 2020. He stated that sincethen he feels that he experiences more vertigo/dizziness. He denies any trauma, injury to the leg, surgery, hospitalization or long haul travel. He [place] 10[place]20 [place] Overall he has gained about 50-60 lbs since I last met him in 2012. He also reports right upper quadrant pain that has been bothering him for a few months. No prior history of gallbladder stone or liver disease that he is aware of. PAST MEDICAL HISTORY Hypertension DVT/PE MEDICATIONS Outpatient Medications Marked as Taking for the 05/20/21 encounter (Office Visit) with Bebe Rosenberg MD Medication Sig Dispense Refill ??? losartan (Cozaar) [...] 5 mg by mouth 2 times daily. ??? [DISCONTINUED] warfarin (COUMADIN) 5 mg tablet Take 5 mg by mouth daily. 7.5 mg , 5 mg ??? [DISCONTINUED] traZODone (DESYREL) 50 mg tablet Take 1 tablet by mouth nightly. 90 tablet 3 ??? [DISCONTINUED] chlorthalidone (HYGROTEN) 25 mg tablet Take 1 tablet by mouth daily. 30 tablet 12 ADVERSE DRUG REACTIONS Allergies as of 05/20/2021 - Review Complete 12/17/2012 Allergen Reaction Noted ??? Tree nut Other (See Comments) 11/25/2012 FAMILY HISTORY Father -postop DVT, PE and travel-associated DVT, thrombophilia work up negative. 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 [place] 2 children, 1 daughter and 1 son No tobacco Alcohol occasionally REVIEW OF SYSTEMS Fevers/chills/sweats No Recent infections No Unexplained weight loss No Headache/lightheadedness/syncope No Sinus pain/pressure No Oral sores/lesions/bleeding No Sore throat/dysphagia No Nosebleeds No Cough/SOB/chest pain/heart racing Chest pain, shortness of breath on exertion Nausea/vomiting/dyspepsia No Abdominal pain RUQ pain Diarrhea/constipation Constipation Urinary pain, burning, incontinence No Hematuria No Penile discharge/bleeding No Skin rashes/ulcers No Back/joint pain/swelling No Leg swelling/pain/redness Left leg pain improved Bruising/petechiae/bleeding/melena No Sensory/motor No Polydipsia/polyuria/heat/cold intol No Lumps/bumps/swollen glands No Other Negative except as above PHYSICAL EXAMINATION BP (S) (!) 181/104 (Patient Position: Sitting) Comment: didn't take bp med Pulse 76 Temp 36.4 ??C (97.5 ??F) (Temporal) Resp 19 Ht 193.6 cm (6' 4.22) Wt (!) 137.9 kg (304 lb) SpO2 95% BMI 36.79 kg/m?? GENERAL: Well-appearing, articulate white male. HEENT: Wearing mask NECK: Supple; no cervical, supraclavicular or submental adenopathy. CHEST: Clear to auscultation/percussion. No rales, rhonchi, wheezes. HEART: Regular rate and rhythm; no murmur, rub, gallop ABDOMEN: Soft, RUQ tenderness on palpation, no rebound GENITOURINARY: Exam deferred. EXTREMITIES: No edema, erythema. Palpable cord behind the left knee area. MUSCULOSKELETAL: Spine nontender. Full ROM all joints. No acutely inflamed joints. SKIN: No ecchymoses, petechiae, ulcers or rashes. LYMPH: No palpable lymph nodes. NEUROLOGIC: Alert, oriented. Speech clear, coherent. No focal deficits noted. PSYCHIATRIC: Appropriate affect, no apparent distress. LABORATORY STUDIES Previous thrombophilia testing Ref. Range 11/25/2012 14:11 PT Latest Range: [...] for Factor VLeiden mutation is not indicated. Outside lab 05/19/21 WBC 7.64, Hg 16.5, platelet 235 Trop neg, pro BNP normal 54 pg/mL LFTs normal, BUN/creat normal Lipase normal RADIOGRAPHIC STUDIES None IMPRESSION Yury Grant is a 45 y.o. man with travel-associated pulmonary emboli and DVT who was referred back to our Thrombosis Clinic for evaluation of recurrent pulmonary embolism & duration of anticoagulation. In brief, Victorino developed his initial acute pulmonary embolism and DVT in 2011 after long car ride over 3 day course. He was treated with a finite course of anticoagulation. There is a family history of VTE (father with postoperative VTE). Thrombophilia testing in the past did not show any evidence of inherited or acquired thrombophilia. However, protein C and S activity cannot be done at that timebecause he was on warfarin. He has never completed those testing after discontinuation of warfarin because he moved away. Now he developed another recurrent pulmonary embolism & DVT/phlebitis which appeared to be unprovoked. His other clinical risk factor for his VTE is his obesity (he has gained 50-60 lbs over the 10 year course). We checked his protein C and S activity today and his protein C activity was low at 61%. This was done on apixaban. Apixaban can usually slightly increase the level of protein C activity. The fact that the level is low despite being on apixaban made me think that he likely has an underlying congenital protein C deficiency. We will plan to repeat to repeat his protein C activity in 3-6 months. Now that he has had a recurrent pulmonary embolism and the last event was unprovoked, he is a candidate for long-term anticoagulation. The estimate risk for VTE recurrence is as high as 10-15%/year after an idiopathic PE and long- term anticoagulation can reduce this risk down to ~1%/year and the life- threatening bleeding risk on apixaban is <1%/year. I think that the risk/benefit favors to keep him on long-term anticoagulation. He has complained of persistent RUQ pain which is new. He thinks that the pain gets worse when he eats. I reviewed his outside lab that was done yesterday. His liver function, lipase level was normal. Will order RUQ ultrasound to rule out any liver/gallbladder pathology. His recent CBC is normal which makes underlying myeloproliferative disorder less likely. In regarding persistent chest discomfort and also dyspnea on exertion, I told him that this is likely due to his pulmonary embolism and it makes take a few more weeks until his symptom resolve. His troponin from yesterday is negative. If his symptom does not resolve in a few months, then we can consider a referral to pulmonary for consideration of pulmonary rehab. PLAN/RECOMMENDATIONS 1. Recommend long-term anticoagulation - continue apixaban 5 mg PO twice daily for now 2. Will need to repeat protein C activity in the future once he is further out from his acute eventand I will plan to repeat doppler of the leg at that time. I prefer to do this when he is closer to6 months out and when his symptom totally resolves. We can hold his apixaban 3 days prior to lab testing. 3. Will order RUQ ultrasound for RUQ pain 4. Encourage to increase physical activity and loose weight 5 Resume antihypertensive med as soon as possible. He is picking up his med after this visit All of his questions were answered at his satisfaction. We will call him with result of RUQ ultrasound and we will schedule him to see us back in our Thrombosis Clinic in a few months. Bebe Rosenberg MD [facility] Addendum I called Mr. Grant and reviewed negative RUQ ultrasound which revealed fatty liver disease which does not explain his RUQ pain. No gallbladder stone.. If his RUQ pain persists, he should follow-up with PCP and maybe consider GI referral. I suggest that he can try PPI such as prilosec OTC for 1-2 weeks and see if his symptom improves. His lab is notable for protein C deficiency. We will need to repeat his lab in future. Will see himback in 3 months with repeat lab. Need to be off apixaban for 3 days. Bebe Rosenberg MD documented in this encounter Plan of Treatment Not on file documented as of this encounter Results * US Abdomen Limited (06/03/2021 11:48 AM EST) Anatomical Region Laterality Modality Abdomen Ultrasound 06/03/2021 11:4 6 AM EST Impressions 06/03/2021 11:59 AM EST ?? There are no prior studies available for comparison. 1. ??The liver is normal in size but demonstrates diffuse increased echogenicity and minimal heterogeneity consistent with steatosis. No discrete liver lesion is seen. No ascites. 2. ??The gallbladder appears normal. Thank you for letting us participate in the care of this patient. If you are a health care provider and have any questions regarding this report, please contact the number above. For patients who have questions, please contact the health field care advocate that requested your imaging first. ?Cynthia Goode, Staff Physician Electronically Signed Final Report ?? 06/03/2021 11:58 am Narrative 06/03/2021 11:59 AM EST Abdominal ? (Signed Final 06/03/2021 11:58 am) PATIENT INFO: ID #: ? [id number] ?: ??[birth year] (45 yrs)(M) Name: ? YURY GRANT ?Visit Date: 06/03/2021 11:46 am PERFORMED BY: Performed By: ? Neha Jain RDMS Attending: ?Alvaro MOON, Cynthia Quinonez Referred By: ?BEBE ROSENBERG Location: ? [place] SERVICE(S) PROVIDED: UABDLIM - Abdominal Limited Survey Single ? [id number] Organ or Quadrant - [id number] INDICATIONS: persistent RUQ pain - recent normal LFTs, lipase ------ LIVER: ------ Right Lobe Length: ?? 16.9 ?? cm Echogenicity/Echotexture: ?? Increased echogenicity GALLBLADDER: Cholelithiasis: ?No stones visualized Wall Thickness: ?2. mm Focal Tenderness: ?Negative sonographic Pennington's sign BILIARY TRACT: Intrahepatic Ducts: ?? Normal Extrahepatic Ducts: ?? Normal Common Duct Size: ? 3.0 ? mm --------- PANCREAS: --------- Head: ?Normal ?Size: Tail: ?Poorly visualized due to ?Size: ?overlying bowel Body: ?Normal ?Size: RIGHT KIDNEY: Size (cm) ?L: ??12.1 Cortical Thickness: ?Normal Cortical Echogenicity: ?? Normal Hydronephrosis: ?No sonographic evidence ------ AORTA: ------ Measurements (cm): Proximal ? AP: ?? 2.8 ---- IVC: ---- Normal in caliber where visualized. Procedure Note Cynthia Meek MD - 06/03/2021 Abdominal (Signed Final 06/03/2021 11:58 am) PATIENT INFO: ID #: [id number] : [birth year] (45 yrs)(M) Name: YURY GRANT Visit Date: 06/03/2021 11:46 am PERFORMED BY: Performed By: Neha Jain RDMS Attending: Cynthia John MD Referred By: BEBE ROSENBERG Location: [place] SERVICE(S) PROVIDED: UABDLIM - Abdominal Limited Survey Single [id number] Organ or Quadrant - [id number] INDICATIONS: persistent RUQ pain - recent normal LFTs, lipase ------ LIVER: ------ Right Lobe Length: 16.9 cm Echogenicity/Echotexture: Increased echogenicity GALLBLADDER: Cholelithiasis: No stones visualized Wall Thickness: 2. mm Focal Tenderness: Negative sonographic Pennington's sign BILIARY TRACT: Intrahepatic Ducts: Normal Extrahepatic Ducts: Normal Common Duct Size: 3.0 mm --------- PANCREAS: --------- Head: Normal Size: Tail: Poorly visualized due to Size: overlying bowel Body: Normal Size: RIGHT KIDNEY: Size (cm) L: 12.1 Cortical Thickness: Normal Cortical Echogenicity: Normal Hydronephrosis: No sonographic evidence ------ AORTA: ------ Measurements (cm): Proximal AP: 2.8 ---- IVC: ---- Normal in caliber where visualized. IMPRESSION There are no prior studies available for comparison. 1. The liver is normal in size but demonstrates diffuse increased echogenicity and minimal heterogeneity consistent with steatosis. No discrete liver lesion is seen. No ascites. 2. The gallbladder appears normal. Thank you for letting us participate in the care of this patient. If you are a health care provider and have any questions regarding this report, please contact the number above. For patients who have questions, please contact the health field care advocate that requested your imaging first. Cynthia MoultonChirag, Staff Physician Electronically Signed Final Report 06/03/2021 11:58 am [facility] Rosen[facility] ORDERABLE S * (ABNORMAL) Protein S Activity (05/20/2021 11:47 AM EDT) Protein S Act >150(H) 64 - 149 % activity [facility] Blood 05/20/2021 11:4 7 AM EDT 05/20/2021 11:52 AM EDT Narrative Resulting Agency Comment Spec In Lab Bebe Rosenberg MD HEMATOLOGY ORDERABLE S [facility] [place] [address] * (ABNORMAL) Protein C activity (05/20/2021 11:47 AM EDT) Protein C Activity 61(L) 70 - 140 % [facility] Comment: Vitamin K deficiency and oral anticoagulant therapy (Warfarin, Coumadin) decrease Protein C activity compromising the ability to differentiate hereditary from acquired deficiency of Protein C. Blood 05/20/2021 11:4 7 AM EDT 05/20/2021 11:52 AM EDT Narrative Resulting Agency Comment Spec In Lab Bebe Rosenberg MD HEMATOLOGY ORDERABLE S [facility] [place] [address] documented in this encounter Visit Diagnoses Diagnosis Recurrent pulmonary embolism- Primary Other pulmonary embolism and infarction Right upper quadrant abdominal pain Abdominal pain, right upper quadrant Protein C deficiency Primary hypercoagulable state Recurrent deep vein thrombosis (DVT) Recurrent pulmonary embolism Other pulmonary embolism and infarction Right upper quadrant abdominal pain Abdominal pain, right upper quadrant documented in this encounter Care Teams Financial Compliance Manager Relationship Specialty Start Date End Date Lizy Perales APRN [address] [place] [address] PCP - General Family Medicine 04/23/21 documented as of this encounter
--- OUTSIDE RECORDS SUMMARY | 2024-03-14 15:50 | XMS_ITS | Encounter Summary ---
Author Organization [facility] [place] [address] Care Team Providers Care Terrazzo Helper Name Role Phone Alex Mosqueda MD Primary Care Provider Reason for Referral * Physical Therapy (Routine) - Closed Specialty Diagnoses / Procedures Referred By Adonay escalante Referred To Contact Physical Therapy Diagnoses Post-thrombotic syndrome Bebe Rosenberg MD [facility] [address] [place] [address] [facility] [place] [address] Referral ID Status Reason Start Date Expiration Date V isits Requested Visits Authorized [id number] Closed Evaluate and Treat 11/25/2012 05/24/2013 1 1 Reason for Visit * Reason Comments Advice Only Encounter Details Date Type Department Care Team (Late st Contact Info) Description 11/25/2012 1:00 PM EDT Office Visit Hematology [place] [id number] Bebe Rosenberg MD [facility] [address] [place] [address] (work) Post-thrombotic syndrome (Primary Dx); Pulmonary embolism Discharge Disposition: Home [...] Sign Reading Time Taken Comments Blood Pressure 151/89 11/25/2012 12:46 PM EDT Pulse 90 11/25/2012 12:46 PM EDT Temperature 37.1 ??C (98.8 ??F) 11/25/2012 12:46 PM E DT Respiratory Rate 18 11/25/2012 12:46 PM EDT Oxygen Saturation 99% 11/25/2012 12:46 PM EDT Inhaled Oxygen Concentration - - Weight 124 kg (273 lb 5.9 oz) 11/25/2012 12:46 P M EDT Height 193 cm (6' 3.98) 11/25/2012 12:46 PM EDT Body Mass Index 33.29 11/25/2012 12:46 PM EDT documented in this encounter Progress Notes * Bebe Castillo MD - 11/25/2012 1:08 PM EDT [facility] Department of Medicine [place] [address] [facility] THROMBOSIS CONSULTATION DATE OF VISIT 11/25/2012 Patient Yury Grant 1975 REFERRING PHYSICIAN Santiago Lord MD PRIMARY CARE PHYSICIAN ALEX MOSQUEDA MD REASON FOR CONSULTATION Recommendation of duration of anticoagulation HISTORY OF THE PRESENT ILLNESS Yury Grant is a 37 y.o. man with history of pulmonary emboli and deep venous thrombosis, who is seen in consultation at the request of Dr. Lord for recommendation of duration of anticoagulation.. The history is obtained from the patient, and I have reviewed extensive medical records provided by the referring physician and located in the electronic medical record to fill in gaps in thepatient's recollection of events, treatments and outcomes. In January 2012 he drove from [place] to [place] over 3 days. 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 He stated that he stopped only once or twice per dayto go the bathroom. He did not walk around much during each stop. About a week after the trip he developed swelling in his left calf. He initially thought that he overextended his knee. The symptom resolved on its own initially and came back again with pain. He also noticed increased shortness of breath with minimal exertion. He is an avid hiker and felt out of breath during the hiking trip. His leg swelling and pain got significantly worse to the point that he can barely walk. He presented to the [facility] on 04/09/12. He was diagnosed with a deep venous thrombosis in the left leg and pulmonary emboli. He was hospitalized for 3 days. He was treated with lovenox and transitioned towarfarin. He was discharged against medical advice and came to [facility] for reevaluation. A repeat ultrasound doppler at [facility] on 04/14/2012 showed LEFT: Thrombosed common femoral vein below the saphenofemoral junction, thrombosed femoral vein throughout the thigh, popliteal vein, gastrocnemius veins, short saphenous vein and posterior tibial veins. Nearly occlusive thrombus in both peroneal veins. Patent CFV above the SFJ. Patent GSV. Interpretation: LEFT: Extensive deep vein thrombosis of the lower extremity. CTA from [facility] showed following: Multiple filling defects in the distal left and right pulmonary arteries in addition to the bilateral interlobar and segmental branches are consistent with extensive bilateral pulmonary emboli. He had a repeat ultrasound doppler about a month after the diagnosis to follow up the DVT. (in April 2012). The ultrasound showed minimal improvement. After 6 month course of anticoagulation, his PCP recommended him to discontinue anticoagulation. He admitted that he did not stop the warfarin dueto anxiety. About a week later he developed acute on chronic swelling of the left leg within hours after spending time on his feet for a while. Another repeat ultrasound doppler was performed on 10/20/12 which showed deep venous thrombosis in the left lower extremity. Overall improvement compared tothe previous exam in April 2012. He was then recommended to continue anticoagulation. Victorino is frustrated about his chronic leg swelling and pain. He could not do physical activities likebefore he had the diagnosis of DVT. The pain limited his activity. He has gained about 40 lbs. He does not wear compression stockings because he does not like them. THROMBOSIS RISK FACTORS Risk Factor Comment Obesity (BMI >30 kg/m2) V/A Y Body mass index is 33.29 kg/(m^2). Diabetes V/A Current smoker V/A Estrogen or estrogen/progestin V/A V/A Inflammatory disease V/A Recent surgery (<3 months) V Recent hospitalization (<3 mo) V Recent travel (<3 mo) V Y Prior the diagnosis of DVT Period of immobility V Documented thrombophilia V Accident/Trauma V/A Cancer or treatment for cancer V/A Blood transfusion V/A Central venous catheter V Family history (1st degree) V/A Y Father with provoked PE, DVT Varicose veins/venous insuff. V Hypertension A Y Hyperlipidemia A Vascular disease A V: Risk factor for venous thrombosis; A: Risk factor for arterial thrombosis PAST MEDICAL HISTORY Hypertension MEDICATIONS Current Outpatient Prescriptions on File Prior to Visit Medication Sig Dispense Refill ??? traZODone (DESYREL) 50 mg tablet Take 1 tablet by mouth nightly. 90 tablet 3 ??? chlorthalidone (HYGROTEN) 25 mg tablet Take 1 tablet by mouth daily. 30 tablet 12 ADVERSE DRUG REACTIONS Allergies as of 11/25/2012 - Review Complete 11/25/2012 Allergen Reaction Noted ??? Tree nut Other (See Comments) 11/25/2012 FAMILY HISTORY Father -postop DVT, PE and travel-associated DVT, thrombophilia work up negative. 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 HEENT: Oropharynx clear; no mucosal lesions, petechiae, bleeding, thrush or ulcers. NECK: Supple; no cervical, supraclavicular or submental adenopathy. CHEST/LUNGS: Clear to auscultation/percussion. No rales, rhonchi, wheezes. HEART: Regular rate and rhythm; no murmur, rub, gallop GASTROINTESTINAL: Abdomen soft, non-tender, no hepatosplenomegaly. GENITOURINARY: Exam deferred. EXTREMITIES: No clubbing, cyanosis. 1+ pitting edema of the left calf/ankle. No erythema, tenderness or palpable cords. No venous varicosities. No skin discoloration or hemosiderin deposits. Peripheral pulses palpable. MUSCULOSKELETAL: Spine nontender. Full ROM all joints. No acutely inflamed joints. SKIN: No ecchymoses, petechiae, ulcers or rashes. LYMPH: No palpable lymph nodes. NEUROLOGIC: Alert, oriented. Speech clear, coherent. No focal deficits noted. PSYCHIATRIC: Appropriate affect, no apparent distress. LABORATORY STUDIES Pending RADIOGRAPHIC STUDIES See above IMPRESSION Yury Grant is a 37 y.o. man with history of pulmonary emboli and deep venous thrombosis in theleft leg who is here for recommendation of duration of anticoagulation. First we reviewed the difference between an idiopathic VTE event and one that may have been precipitated by temporary risk factors (e.g., surgery, trauma, travel, hospitalization, immobilization) anddiscussed the additive nature of factors such as hereditary or acquired thrombophilia (e.g., factorV Leiden, PT [id number]), ABO blood type (non-O > O), dehydration, obesity, smoking, varicose veins, diabetes, cancer, hormone use. I explained that the risk for developing a recurrent VTE is higher when the original event was idiopathic than when it was associated with identifiable risk factors that have subsequently been eliminated. I explained that current ACCP recommendations (59765) for indiv iduals with a provoked VTE such as his are for 3 months of anticoagulation, as long as the triggering factor has been removed or has abated. Indefinite anticoagulation would only be considered in theevent of a recurrent VTE episode, and then, generally only for an idiopathic one. In his case, his pulmonary emboli and DVT was precipitated by the temporary risk factor which was the long car ride. He was treated adequately with anticoagulation for more than 3 months ( total of 7-8 months ). I explained to him that 1/3 of the veins fail to recanalize after a diagnosis of DVT and the presence of residual vein occlusion is not an indication for ongoing anticoagulation given that it is generally not at risk of progression after an adequate treatment of anticoagulation. His last ultrasound should serve as a new baseline and I would not recommend serial ultrasound to follow upthe residual clot except in the case of worsening of his chronic swelling. His leg swelling and pain are clinical signs of post thrombotic syndrome. I encourage him to wear compression stockings on daily basis (below the knee, 20-30 mmHg) to prevent worsening of post thrombotic syndrome. Victorino does not have comfortable pair of stocking. I refer him to see our physical therapist for fitting. Readingmaterial about post thrombotic syndrome was given to the patient. Victorino is anxious about being off warfarin. I will plan to discontinue warfarin next visit after I review the thrombophilia testing withhim. We also discussed the clinical implication of thrombophilia testing. I explained to her that thrombophilia is one of the multiple risk factors of VTE and the result of the thrombophilia testing wouldnot alter my recommendation of duration of anticoagulation. However, I would recommend to perform the thrombophilia testing today due to his young age and family history. We then discussed about his other clinical [...] to maintain a good activityand avoid dehydration. While he has no indication for long-term anticoagulation, he should receive pharmacologic prophylaxis during high risk period such as long car ride/long haul flight, surgery, ho spitalization, period of immobility. Given that this is a travel associated VTE, I would recommend to use rivaroxaban, a new oral anticoagulant, 10 mg PO on the day of travel and the day after for secondary prevention. He should wear compression stockings during his travel. He should stop every 2 hours for a 10- 15 minutes walk. We then discussed the role of aspirin [...] and his primary care physician. PLAN/RECOMMENDATIONS 1. Thrombophlilia work up 2. Continue warfarin for now. I will plan to discontinue his warfarin next visit 3. Recommend wearing below the knee compression stockings during waking hours on daily basis to prevent worsening of post thrombotic syndrome. 4. Referral to physical therapist for compression stocking fitting 5. After discontinuation of warfarin, I would recommend to use rivaroxaban 10 mg PO once on the dayof the long car ride/long haul flight (longer than 4 hours) and the day after the trip. He should wear the compression stocking during entire trip. He should stop every 2 hours for every 10 minutes walk. Yury Montano Rudy had the opportunity to ask questions and indicated that all his questions were answered to his satisfaction. He will follow up with me in approximately three weeks to discuss the results of the thrombosis testing, and I will finalize my recommendations at that time. Bebe Castillo MD Instructor of Medicine, [facility] documented in this encounter Plan of Treatment Scheduled Referrals Name Type Priority Associated Diagnoses Orde r Schedule Referral to Physical Therapy Outpatient Referral Routine Post-thrombotic syndrome Ordered: 11/25/2012 documented as of this encounter Procedures Procedure Name Priority Date/Time Associated Diagnosis Comments THROMBOSIS SCREEN REPORT Routine 11/25/2012 2:31 PM EDT PROTHROMBIN MUT Routine 11/25/2012 2:11 PM EDT TT Routine 11/25/2012 2:11 PM EDT Pulmonary embolism PTT Routine 11/25/2012 2:11 PM EDT Pulmonary embolism PT Routine 11/25/2012 2:11 PM EDT Pulmonary embolism PLAT Routine 11/25/2012 2:11 PM EDT Pulmonary embolism LANT Routine 11/25/2012 2:11 PM EDT Pulmonary embolism FIBR Routine 11/25/2012 2:11 PM EDT Pulmonary embolism THROMBOSIS SCREEN Routine 11/25/2012 2:1 1 PM EDT Pulmonary embolism THS REPORT Routine 11/25/2012 2:11 PM EDT Pulmonary embolism DIFFERENTIAL, AUTOMATED Routine 11/25/2012 2:11 PM EDT APC RESISTANCE Routine 11/25/2012 2:11 PM EDT BETA-2 GLYCOPROTEIN ANTIBODIES Routine 11/25/2012 2:11 PM EDT Pulmonary embolism CARDIOLIPIN ANTIBODY SCREEN Routine 11/25/2012 2:11 PM EDT Pulmonary embolism ANTITHROMBIN Routine 11/25/2012 2:11 PM EDT CBC (WITH DIFF) Routine 11/25/2012 2:11 PM EDT Pulmonary embolism HOMOCYSTEINE TOTAL, PLASMA Routine 11/25/2012 2:11 PM EDT Pulmonary embolism documented in this encounter Results * Thrombosis Screen Report (11/25/2012 2:31 PM EDT) [facility] Thrombosis Screen Report ? [facility] ? Provider: ?? ROENGVORAPHOJ, ?Pt. Name: ?? YURY GRANT ?BEBE ? Acc #: ?[id number] ? Pt. ? Col Date: ?? 11/25/2012 ?/Sex: ?1975,(37 years),Male ? Rec Date: ?? 11/25/2012 ?LOC: ?3K ? THROMBOSIS SCREEN REPORT ? ---Clinical Information--- ? Pulmonary Embolism ? On Warafin ? ---Result--- ? TEST ?(REFERENCE RANGE) ?RESULT ? Platelet count ?(145,000-370,000/u L) ?185,000/cumm ? PT ?(12-15) ? 20.4sec ? PTT ? (25-35) ? 34 sec ? Fibrinogen ?(220-480) ? 288 mg/dl ? Thrombin time ? (15-21) ? 18 sec ? APC resistance, ratio ? (>2.00) ? 2.87 ? Antithrombin ?(80-120%) ? 104% ? Protein C* ?(67-156%) ? not done ? Protein S* ?(M:66-139%)(F:65-1 23%) ??not done ? Lupus anticoagulant ? (negative) ?negative ? Anticardiolipin antibodies ?(IgG <23 GPL) ? <23 GPL ? Anticardiolipin antibodies ?(IgM <11 MPL) ? <11 MPL ? Qblo-2-geqynlcujjum- 1 antibodies ??(IgG <21 units) ? IgG <21 units ? Lgxe-4-dznpumjodahf- 1 antibodies ??(IgM <21 units) ? IgM <21 units ? Homocysteine, random, plasma ?(<12 umol/L) ?12 umol/L ? Factor V Leiden Mutation ?(normal) ?not done ? Prothrombin (90472 G->A) mutation (normal) ?negative ? * Functional assay for free Protein S and Protein C ? ---Interpretation--- ? 1) Negative test results for thrombotic risk factors commonly associated ? with thromboembolic disease. (See COMMENT) ? 12/07/12 ? DFF ? 12/09/12 Verified by: ? Jose Luis Mosqueda MD ? Hematopathologist ? (Electronic Signature) ? The attending pathologist whose signature appears on this report has ? reviewed all diagnostic slides and has edited the gross and/or ? microscopic portion of the report in rendering the final pathologic ? diagnosis. ? [facility] ? Provider: ?? ZHENKEILA, ?Pt. Name: ?? YURY GRANT ?BEBE ? Acc #: ?[id number] ? Pt. ? Col Date: ?? 11/25/2012 ?/Sex: ?1975,(37 years),Male ? Rec Date: ?? 11/25/2012 ?LOC: ?3K ? THROMBOSIS SCREEN REPORT ? ---Comment--- ? 1) Because the patient is on warfarin, tests for protein C and protein S ? could not be performed. ? 2) The screening test for resistance to activated protein C (APC) is ? normal, DNA assay for Factor V Leiden mutation is not indicated. [facility] 11/25/2012 2:31 PM EDT Bebe Rosenberg MD PATHOLOGY/CYTOLOGY O RDERABLES Performing Organization Address [facility] [address] [facility] Co de Phone Number JEIMY JIANG * PT Mut (11/25/2012 2:11 PM EDT) Prothrombin Mutation Negative [facility] Prothrombin Mutation Interp RESULT: NEGATIVE FOR THE 03244K>A [place] IN THE 3' UNTRANSLATED REGION OF THE PROTHROMBIN GENE (([id number]) [id number] 3G>A). METHODS: The region of interest in the Prothrombin gene (61777H->A) is interrogated using a TaqMan allelic discrimination assay. Genomic DNA was isolated from the submitted peripheral blood specimen. Real-time PCR was performed to amplify a short region spanning the mutation site, and genotyping was performed by allelic discrimination using a mixture of fluorescently labeled probes, one of which is specific for the wild type gene, the other specific for the mutant gene. This assay was performed using analyte specific reagents which are regulated by the U.S. Food and Drug Administration. This test was developed and its performance characteristics determined by the Molecular Pathology Laboratory at [facility]. This test is used for clinical purposes and should not be considered as investigational or for research purposes. It has not been cleared or approved by the U.S. Food and Drug Administration. However, as a [place] licensed laboratory, our facility is approved for such high complexity clinical testing. [facility] Comment: [VERIFIED DATE]12.01.12 Verified By:Yokasta Hatfield MD Pathologist (Electronic Signature) Blood specimen (specimen) 11/25/2012 2:11 PM EDT 11/28/2012 2:33 PM EDT Narrative Resulting Agency Comment Spec In Lab Bebe Rosenberg MD HEMATOLOGY ORDERABLE S Performing Organization Address [facility] [address]/[facility] Co de Phone Number JEIMY JIANG * Antithrombin (11/25/2012 2:11 PM EDT) [facility] Antithrombin III Assay 104 80 - 120 % CERNER MILLENNIUM Blood specimen (specimen) 11/25/2012 2:11 PM EDT 11/25/2012 2:17 PM EDT Narrative Resulting Agency Comment Spec In Lab Bebe Rosenberg MD HEMATOLOGY ORDERABLE S Performing Organization Address [facility] [address]/[facility] Co de Phone Number CERNER SHEYLAENNIUM * APC resistance (11/25/2012 2:11 PM EDT) [facility] Activated Protein C Resistance 2.87 >=2.00 CERNER MILLENNIUM Blood specimen (specimen) 11/25/2012 2:11 PM EDT 11/25/2012 2:17 PM EDT Narrative Resulting Agency Comment Spec In Lab Bebe Rosenberg MD HEMATOLOGY ORDERABLE S Performing Organization Address [facility] [address]/[facility] de Phone Number CERNER SHEYLAENNIUM * Differential, Automated (11/25/2012 2:11 PM EDT) [facility] Neutrophil % 59.1 34.0 - 71.0 % CERNER MILLENNIUM Neutrophil Absolute 4.80 1.50 - 6.30 x10(3)/mcL CERNER MILLENNIUM Lymph % 30.5 19.0 - 53.0 % CERNER MILLENNIUM Lymphocytes Abs 2.5 1.0 - 3.6 x10(3)/mcL CERNER MILLENNIUM Monocyte % 8.4 4.0 - 13.0 % CERNER MILLENNIUM Monocyte Abs 0.7 0.2 - 1.0 x10(3)/mcL CERNER MILLENNIUM Eos % 1.2 0.0 - 7.0 % CERNER MILLENNIUM Eosinophils Abs 0.1 0.0 - 0.5 x10(3)/mcL CERNER MILLENNIUM Basophil % 0.4 0.0 - 2.0 % CERNER MILLENNIUM Baso Absolute 0.0 0.0 - 0.2 x10(3)/mcL CERNER MILLENNIUM Immature Gran % 0.40 0.00 - 0.66 % CERNER MILLENNIUM Comment: Immature granulocytes(IG's)percentage and absolute count will include metamyelocytes, myelocytes, and promyelocytes. Blood smears from CBCs yielding IG's will be scanned manually for concordance. If this scan disagrees with the automated IG or if promyelocytes are noted, a manual differential will be performed. Immature Gran Absolute 0.03 0.00 - 0.05 x10(3)/mcL [facility] Blood specimen (specimen) 11/25/2012 2:11 PM EDT 11/25/2012 2:17 PM EDT Bebe Rosenberg MD HEMATOLOGY ORDERABLE S [facility] * Beta-2 glycoprotein antibodies (11/25/2012 2:11 PM EDT) Beta 2 Glycoprotein, IgG <21 <=20 unit(s) [facility] Comment: Ranges ?Units ----- ? ----- Normal ? <21 Low Positive (+) ?21-50 Moderate Positive (+) ? 51-100 High Positive (+) ?>100 Beta 2 Glycoprotein, IgM <21 <=20 unit(s) [facility] Comment: Ranges ? Units ----- ?----- Normal ?<21 Low Positive (+) ? 21-50 Moderate Positive (+) ?51-100 High Positive (+) ? >100 B2GPI Interp See Thrombosis Screen Report in eDH under Coagulation Reports [facility] Blood specimen (specimen) 11/25/2012 2:11 PM EDT 11/28/2012 8:12 AM EDT Narrative Resulting Agency Comment Spec In Lab Bebe Rosenberg MD IMMUNOLOGY ORDERABLE S Performing Organization Address [facility] [address] [facility] de Phone Number [facility] * Homocysteine Total, Plasma (11/25/2012 2:11 PM EDT) Homocystine 12 5 - 12 mcmol/L [facility] Comment:Reference Range appl ies to fasting specimens only. Blood specimen (specimen) 11/25/2012 2:11 PM EDT 11/28/2012 8:09 AM EDT Narrative Resulting Agency Comment Spec In Lab Bebe Rosenberg MD CHEMISTRY ORDERABLES Performing Organization Address [facility] [address] [facility] de Phone Number [facility] * Cardiolipin Antibody Screen (11/25/2012 2:11 PM EDT) Cardiolipin Antibody IgG <23 <=22 GPL unit(s) [facility] Comment: Ranges ? GPL ------- ? ------ Normal ?<23 Low Positive ? 23-35 Moderate Positive ?36-50 High Positive ? >50 Cardiolipin Antibody IgM <11 <=10 MPL unit(s) [facility] Comment: Ranges ?MPL ----- ?----- Normal ?<11 Low Positive ? 11-20 Moderate Positive ?21-30 High Positive ? >30 Blood specimen (specimen) 11/25/2012 2:11 PM EDT 11/28/2012 8:12 AM EDT Narrative Resulting Agency Comment Spec In Lab Bebe Rosenberg MD IMMUNOLOGY ORDERABLE S Performing Organization Address [facility] [address] [facility] de Phone Number [facility] * THS Report (11/25/2012 2:11 PM EDT) THS Report See Comment [facility] Comment:See Thrombosis Scree n Report [id number] under Hematopathology Reports. Blood specimen (specimen) 11/25/2012 2:11 PM EDT 11/25/2012 2:11 PM EDT Narrative Resulting Agency Comment Spec In Lab Bebe Rosenberg MD HEMATOLOGY ORDERABLE S Performing Organization Address [facility] [address]/[facility] de Phone Number [facility] * Plat (11/25/2012 2:11 PM EDT) Platelet 185 145 - 370 x10(3)/mcL [facility] Blood specimen (specimen) 11/25/2012 2:11 PM EDT 11/25/2012 2:17 PM EDT Narrative Resulting Agency Comment Spec In Lab Bebe Rosenberg MD HEMATOLOGY ORDERABLE S Performing Organization Address City/[facility] [address]/ZIP Co de Phone Number [facility] * Lant (11/25/2012 2:11 PM EDT) Lupus Anticoagulant Neg Neg [facility] Blood specimen (specimen) 11/25/2012 2:11 PM EDT 11/25/2012 2:17 PM EDT Narrative Resulting Agency Comment Spec In Lab Bebe Rosenberg MD HEMATOLOGY ORDERABLE S Performing Organization Address City/[facility] [address]/ZIP Co de Phone Number [facility] * TT (11/25/2012 2:11 PM EDT) Thrombin Time 18 15 - 20 sec [facility] Blood specimen (specimen) 11/25/2012 2:11 PM EDT 11/25/2012 2:11 PM EDT Narrative Resulting Agency Comment Spec In Lab Bebe Rosenberg MD HEMATOLOGY ORDERABLE S Performing Organization Address [facility] [address]/ZIP Co de Phone Number [facility] * FIBR (11/25/2012 2:11 PM EDT) Fibrinogen 288 175 - 450 mg/dL [facility] Blood specimen (specimen) 11/25/2012 2:11 PM EDT 11/25/2012 2:11 PM EDT Narrative Resulting Agency Comment Spec In Lab Bebe Rosenberg MD HEMATOLOGY ORDERABLE S Performing Organization Address City/[facility] [address]/ZIP Co de Phone Number [facility] * PTT (11/25/2012 2:11 PM EDT) Partial Thromboplastin Time 34 25 - 35 sec [facility] Comment: Recommended therapeutic PTT range for full dose unfractionated heparin is 80-114 seconds. Blood specimen (specimen) 11/25/2012 2:11 PM EDT 11/25/2012 2:11 PM EDT Narrative Resulting Agency Comment Spec In Lab Bebe Rosenberg MD HEMATOLOGY ORDERABLE S JEIMY CRUZIUM * (ABNORMAL) PT (11/25/2012 2:11 PM EDT) Prothrombin Time 20.4(H) 12.0 - 15.0 sec CERNER MILLENNIUM Comment: [facility] Transfusion Committee Guidelines: INR less than 2.0, PTT less than OR equal to 43.5 seconds, or Fibrinogen greater than or equal to 100 mg/dl indicate adequate procoagulant activity for hemostasis in patients without underlying bleeding disorders. International Normalization Ratio 1.7(H) 0.9 - 1.1 CERNER MILLENNIUM Blood specimen (specimen) 11/25/2012 2:11 PM EDT 11/25/2012 2:11 PM EDT Narrative Resulting Agency Comment Spec In Lab Bebe Rosenberg MD HEMATOLOGY ORDERABLE S Performing Organization Address [facility] [address]/ZIP Co de Phone Number JEIMY CRUZIUM * CBC (with Diff) (11/25/2012 2:11 PM EDT) White Blood Cell 8.1 4.0 - 10.0 x10(3)/mcL CERNER MILLENNIUM Red Blood Cell 5.46 4.63 - 6.08 x10(6)/mcL CERNER MILLENNIUM Hemoglobin 17.3 13.7 - 17.5 gm/dL CERNER MILLENNIUM Hematocrit 49.0 40.0 - 51.0 % CERNER MILLENNIUM Mean Cell Volume 89.7 79.0 - 92.0 fL CERNER MILLENNIUM Mean Cell Hemoglobin 31.7 25.6 - 32.2 pg CERNER MILLENNIUM Mean Cell Hemoglobin Concentration 35.3 32.0 - 36.5 gm/dL CERNER MILLENNIUM Platelet 185 145 - 370 x10(3)/mcL CERNER MILLENNIUM RDW Standard Deviation 41.7 35.0 - 46.0 fL CERNER MILLENNIUM RDW coefficient of variation 13.0 10.9 - 14.4 % CERNER MILLENNIUM Mean Platelet Volume 10.8 9.0 - 12.0 fL CERNER MILLENNIUM Blood specimen (specimen) 11/25/2012 2:11 PM EDT 11/25/2012 2:17 PM EDT Narrative Resulting Agency Comment Spec In Lab Bebe Rosenberg MD HEMATOLOGY ORDERABLE S Performing Organization Address City/State/[facility] Co de Phone Number 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
--- OUTSIDE RECORDS SUMMARY | 2024-03-14 15:50 | XMS_ITS | Encounter Summary ---
Author Organization [facility] [place] [address] Care Team Providers Care Strategic Sourcing Manager Name Role Phone Lizy Perales APRN Primary Care Provider [phone] Encounter Details Date Type Department Care Team (Latest Contact Info) Description 05/20/2021 11:32 AM EDT - 05/20/2021 11:59 PM EDT Hospital Encounter [place] [phone] Recurrent pulmonary embolism Discharge Disposition: Home Social History Tobacco [...] place to sleep or slept in a nursing home (including now)? No 05/20/2021 Sex and Gender Information Value Date Recorded Sex Assigned at Not on file Gender Identity Not on file Sexual Orientation Not on file documented as of this encounter Medications at Time of Discharge Medication Sig Dispensed Refills Start Date End Date losartan (Cozaar) 50 mg Tablet Take 50 mg by mouth 2 times daily. metoprolol succinate XL (Toprol-XL) 50 mg Tablet Sustained Release 24 hr Take 50 mg by mouth daily. metoprolol tartrate (Lopressor) 25 mg Tablet Take 25 mg by mouth daily. In the evening apixaban (Eliquis) 5 mg Tablet Take 5 mg by mouth 2 times daily. documented as of this encounter Plan of Treatment Not on file documented as of this encounter Procedures Procedure Name Priority Date/Time Associated Diagnosis Comments HC VENIPUNCTURE Routine 05/20/2021 11:47 AM EDT Recurrent pulmonary embolism HC PROTEIN C,FUNCTIONAL Routine 05/20/2021 11:47 AM EDT Recurrent pulmonary embolism documented in this encounter Results * (ABNORMAL) Protein C activity (05/20/2021 11:47 AM EDT) Protein C Activity 61(L) 70 - 140 % [facility] Comment: Vitamin K deficiency and oral anticoagulant therapy (Warfarin, Coumadin) decrease Protein C activity compromising the ability to differentiate hereditary from acquired deficiency of Protein C. Blood 05/20/2021 11:4 7 AM EDT 05/20/2021 11:52 AM EDT Narrative Resulting Agency Comment Spec In Lab Bebe Rosenberg MD HEMATOLOGY ORDERABLE S Performing Organization Address City/[facility]/ZIP Co de Phone Number [facility] [place] [address] * (ABNORMAL) Protein S Activity (05/20/2021 11:47 AM EDT) Protein S Act >150(H) 64 - 149 % activity [facility] Blood 05/20/2021 11:4 7 AM EDT 05/20/2021 11:52 AM EDT Narrative Resulting Agency Comment Spec In Lab Bebe Rosenberg MD HEMATOLOGY ORDERABLE S Performing Organization Address City/[facility] Co de Phone Number [facility] [place] [address] documented in this encounter Visit Diagnoses Diagnosis Recurrent pulmonary embolism Other pulmonary embolism and infarction documented in this encounter Care Teams Strategic Sourcing Manager Relationship Specialty Start Date End Date Lizy Perales APRN [address] [place] [address] PCP - General Family Medicine 04/23/21 documented as of this encounter
--- OUTSIDE RECORDS SUMMARY | 2024-03-14 15:50 | XMS_ITS | Encounter Summary ---
Author Organization [facility] Address [facility] [place] [address] Care Team Providers Care Pig Lead Melter Helper Name Role Phone Alex Mosqueda MD Primary Care Provider [phone] Reason for Visit * Reason Onset Date Comments Anticoagulation 06/14/2012 Encounter Details Date Type Department Care Team (Late st Contact Info) Description 06/14/2012 Telephone [place] [phone] Alex Mosqueda MD [facility] [address] Anticoagulation Social History Tobacco Use Types Packs/Day [...] * Telephone Encounter - Jacque Ackerman - 06/14/2012 4:20 PM EST No INR today. I spoke w/pt and he will try his best to get to the lab tomorrow. Please add pt to 06/15 phone log. Thanks-Jacque documented in this encounter Plan of Treatment Not on file documented as of this encounter Visit Diagnoses Not on filedocumented in this encounter Care Teams Pig Lead Melter Helper Relationship Specialty Start Date End Date Alex Mosqueda MD [facility] [address] PCP - General 04/14/12 01/30/14 documented as of this encounter
--- OUTSIDE RECORDS SUMMARY | 2024-03-14 15:50 | XMS_ITS | Encounter Summary ---
Author Organization [facility] Address [facility] [place] [address] Care Team Providers Care Early Childhood Director Name Role Phone Alex Mosqueda MD Primary Care Provider [phone] Reason for Visit * Reason Onset Date Comments Medication Refill 08/24/2012 Encounter Details Date Type Department Care Team (Late st Contact Info) Description 08/24/2012 Refill Internal Medicine at [facility] [address] [place] [address] Alex Mosqueda MD [facility] [place] [address] PE (pulmonary embolism) (Primary Dx) Social History Tobacco Use Types [...] * Telephone Encounter - Jacque Ackerman - 08/24/2012 1:37 PM EST Pt is requesting a renewal of his warfarin to [facility] in [facility]. Thanks-Jacque documented in this encounter Plan of Treatment Not on file documented as of this encounter Visit Diagnoses Diagnosis PE (pulmonary embolism)- Primary Other pulmonary embolism and infarction documented in this encounter Care Teams Early Childhood Director Relationship Specialty Start Date End Date Alex Mosqueda MD [facility] [address] [place] [address] PCP - General 04/14/12 01/30/14 documented as of this encounter
--- OUTSIDE RECORDS SUMMARY | 2024-03-14 15:50 | XMS_ITS | Encounter Summary ---
Author Organization [facility] [place] [address] Care Team Providers Care Defensive Line Coach Name Role Phone Alex Mosqueda MD Primary Care Provider [phone] Reason for Visit * Reason Comments Anticoagulation - Assisted Encounter Details Date Type Department Care Team (Late st Contact Info) Description 08/24/2012 1:20 PM EST Clinical Support Internal Medicine at [facility] [address] [place] [address] NURSE, ANTICOAGULATION [facility] Pulmonary embolism Discharge Disposition: Home Social History [...] this encounter Patient Instructions * Patient Instructions* Glory Irene LPN - 08/24/2012 1:31 PM EST Your INR result today is: 2.0 Range: 2.0-3.0 Please take your Warfarin, (Coumadin [...] 1 1 1 1 1/2 1 1 1 Your next INR is scheduled for: two weeks If you are unable to keep this appointment, please call documented in this encounter Progress Notes * Glory Irene LPN - 08/24/2012 1:29 PM EST RADHA LUDWIG 06/30/2012 2:53 PM [...] Date/Time Associated Diagnosis Comments POCT INR Routine 08/24/2012 Pulmonary embolism documented in this encounter Results * (ABNORMAL) POCT INR (08/24/2012) INR, POC 2.0(A) 0.9 - 1.1 Mynor Almaguer MD POINT OF CARE TE ST ORDERABLES documented in this encounter Visit Diagnoses Diagnosis Pulmonary embolism Other pulmonary embolism and infarction documented in this encounter Care Teams Defensive Line Coach Relationship Specialty Start Date End Date Alex Mosqueda MD [facility] [place] [address] PCP - General 04/14/12 01/30/14 documented as of this encounter
--- OUTSIDE RECORDS SUMMARY | 2024-03-14 15:50 | XMS_ITS | Encounter Summary ---
Author Organization [facility] Address [facility] Archie [facility] [place] [address] Care Team Providers Care Operational Communication Chief Name Role Phone Alex Mosqueda MD Primary Care Provider [phone] Reason for Visit * Reason Onset Date Comments Anticoagulation 09/13/2012 INR Encounter Details Date Type Department Care Team (Late st Contact Info) Description 09/13/2012 Telephone [place] [phone] Alex Mosqueda MD [facility] [place] [address] Anticoagulation (INR) Social History Tobacco Use Types [...] * Telephone Encounter - Jacque Ackerman - 09/13/2012 10:45 AM EST INR 2.4 [facility]~09/12 documented in this encounter Plan of Treatment Not on file documented as of this encounter Visit Diagnoses Not on filedocumented in this encounter Care Teams Operational Communication Chief Relationship Specialty Start Date End Date Alex Mosqueda MD [facility] [place] [address] PCP - General 04/14/12 01/30/14 documented as of this encounter
--- OUTSIDE RECORDS SUMMARY | 2024-03-14 15:50 | XMS_ITS | Encounter Summary ---
Author Organization [facility] [place] [address] Care Team Providers Care Insurance Analyst Name Role Phone Alex Mosqueda MD Primary Care Provider [phone] Reason for Visit * Reason Onset Date Comments Anticoagulation 07/28/2012 Encounter Details Date Type Department Care Team (Late st Contact Info) Description 07/28/2012 Telephone [address] Medicine [facility] [address] [place] [address] Gloria Amezcua, RN Anticoagulation Social [...] Miscellaneous Notes * Telephone Encounter - Gloria Amezcua, RONNY - 07/28/2012 4:44 PM EST JACQUE MURDOCK 07/28/2012 4:42 PM Signed No INR today. Message left reminding him that he was due for an INR check. I will add him to 07/29/12phone log. Thanks-Jacque Per nurse: last INR 2.9 on 07/07 with recheck local lab scheduled for today Plan: as above documented in this encounter Plan of Treatment Not on file documented as of this encounter Visit Diagnoses Not on filedocumented in this encounter Care Teams Insurance Analyst Relationship Specialty Start Date End Date Alex Mosqueda MD [facility] [place] [address] PCP - General 04/14/12 01/30/14 documented as of this encounter
--- OUTSIDE RECORDS SUMMARY | 2024-03-14 15:50 | XMS_ITS | Encounter Summary ---
Author Organization [facility] [place] [address] Care Team Providers Care Grease Refining Supervisor Name Role Phone Alex Mosqueda MD Primary Care Provider [phone] Encounter Details Date Type Department Care Team (Latest Contact Info) Description 07/07/2012 Anti-Coag Telephone [place] [address] Inge Byrd, RN Pulmonary embolism [...] * Patient Instructions* Inge Byrd, RN - 07/07/2012 3:06 PM EST Your INR result today is: 2.9 Range: 2.0-3.0 Please take your Warfarin, (Coumadin [...] 1 Your next INR is scheduled for: 07/28/12 If you are unable to keep this appointment, please call documented in this encounter Progress Notes * Inge Byrd RN - 07/07/2012 3:01 PM EST Anticoagulation Therapy Office Visit Indication: Provoked LLE DVT/PE in the setting of a long care ride, diagnosed 04/12/12 Duration of treatment: Undetermined, repeat doppler after 3 mos to establish a new baseline per Vianney Pavon APRN Range: 2.0-3.0 INR : 2.9 Drawn by: [facility] Monitored by: LEANDER Next INR Due: 07/28/12 Standing order @ [facility] expires 07/28/12 Patient Contact Preference: Message [...] Associated Diagnosis Comments EXTERNAL LAB RESULTS Routine 07/07/2012 documented in this encounter Results * (ABNORMAL) External Lab Results (07/07/2012) International Normalization Ratio 2.9(Exter nal Lab) 0.9 - 1.1 Comment:[facility] Historical Provider CHEMISTRY ORDERAB LES documented in this encounter Visit Diagnoses Diagnosis Pulmonary embolism Other pulmonary embolism and infarction documented in this encounter Care Teams Grease Refining Supervisor Relationship Specialty Start Date End Date Alex Mosqueda MD [facility] [address] INTERNAL MEDICINE [place], [place] [id number] PCP - General 04/14/12 01/30/14 documented as of this encounter
--- OUTSIDE RECORDS SUMMARY | 2024-03-14 15:50 | XMS_ITS | Encounter Summary ---
Author Organization [facility] [place] [address] Care Team Providers Care Churner Name Role Phone Alex Mosqueda MD Primary Care Provider [phone] Encounter Details Date Type Department Care Team (Latest Contact Info) Description 12/23/2012 Anti-Coag Telephone Visit Internal Medicine at [address] [address] Sasha Lucero RN Pulmonary embolism (Primary Dx) Social History [...] as of this encounter Progress Notes * Sasha Lucero, RN - 12/23/2012 4:46 PM EDT Call from pt who is leaving for move to [place] tomorrow, arriving in approx 1 week. Pt is to continue coumadin until after arrival then off anticoagulation. He will send us the info on new PCP so we may send dosing hx and coag evalution from hematology. documented in this encounter Plan of Treatment Not on file documented as of this encounter Visit Diagnoses Diagnosis Pulmonary embolism- Primary Other pulmonary embolism and infarction documented in this encounter Care Teams Churner Relationship Specialty Start Date End Date Alex Mosqueda MD [facility] [place] [address] PCP - General 04/14/12 01/30/14 documented as of this encounter
--- OUTSIDE RECORDS SUMMARY | 2024-03-14 15:50 | XMS_ITS | Encounter Summary ---
Author Organization [facility] Address [facility] [place] [address] Care Team Providers Care Insurance Specialist Name Role Phone Unavailable Primary Care Provider Unavailabl e Encounter Details Date Type Department Care Team (Late st Contact Info) Description 07/11/2020 Orders Only [place] [address] Gunjan Veronica, TELEVISION [facility] [place] [address] Deep vein thrombosis (DVT) of distal vein of left lower extremity, unspecified chronicity Social History Tobacco Use Types Packs/Day Years [...] as of this encounter Visit Diagnoses Diagnosis Deep vein thrombosis (DVT) of distal vein of left lower extremity, unspecified chronicity documented in this encounter
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
--- OUTSIDE RECORDS SUMMARY | 2024-03-14 15:50 | XMS_ITS | Encounter Summary ---
Author Organization [facility] Address [facility] [place] [address] Care Team Providers Care Technology Integration Specialist Name Role Phone Alex Mosqueda MD Primary Care Provider Encounter Details Date Type Department Care Team (Latest Contact Info) Description 11/25/2012 2:03 PM EDT - 11/25/2012 11:59 PM EDT Hospital [place] [address] Bebe Rosenberg MD [facility] [place] [address] Discharge Disposition: Home Social History Tobacco Use [...] on filedocumented in this encounter Care Teams Technology Integration Specialist Relationship Specialty Start Date End Date Alex Mosqueda MD [facility] [place] [address] PCP - General 04/14/12 01/30/14 documented as of this encounter
--- OUTSIDE RECORDS SUMMARY | 2024-03-14 15:50 | XMS_ITS | Encounter Summary ---
[place] [address] Care Team Providers Care Tabulating Machine Mechanic Name Role Phone Alex Mosqueda MD Primary Care Provider [phone] Encounter Details Date Type Department Care Team (Late st Contact Info) Description 10/19/2012 Telephone [place] [phone] Gloria Amezcua RN Social History Tobacco Use Types Packs/Day Years [...] Telephone Encounter - Gloria Amezcua, RONNY - 10/19/2012 4:54 PM EDT Patient called. He has a history of blood clots. He was taken off coumadin last week and last nighthe had sharp in his thigh and his leg swelled immediately (foot to thigh) and it was painful. Todaythe swelling has mostly gone down. Please call [phone] Thank you, Christelle Called Victorino He said Left leg no longer has any swelling, no precipitating event for swelling prior .Notes document he was Taken off warfarin But he admits it made me nervous so he has continued butdid Not express concerns to his provider. Left leg is same leg he previously had DVT in. He also has Hx bilateral PE's both from April 2012. Pt denies any shortness of breath or chest pain Based on pt thrombosis history I have recommended he seek emergent care [facility] ( he said he is close by when I spoke with him) He was resistant to my recommendation but after speaking with him aboutpotential risk for > 10 minutes he is agreeable. Pt Still taking warfarin will isiah to be addressed based on what transpires at ER documented in this encounter Plan of Treatment Not on file documented as of this encounter Visit Diagnoses Not on filedocumented in this encounter Care Teams Tabulating Machine Mechanic Relationship Specialty Start Date End Date Alex Mosqueda MD [facility] [place] [address] PCP - General 04/14/12 01/30/14 documented as of this encounter
--- OUTSIDE RECORDS SUMMARY | 2024-03-14 15:50 | XMS_ITS | Encounter Summary ---
Author Organization [facility] Address [facility] [place] [address] Care Team Providers Care Wiping Cloth Cutter Name Role Phone Alex Mosqueda MD Primary Care Provider [phone] Reason for Visit * Reason Onset Date Comments Anticoagulation 06/15/2012 INR Encounter Details Date Type Department Care Team (Late st Contact Info) Description 06/15/2012 Telephone Internal Medicine at [facility] [address] [place] [address] Alex Mosqueda MD [facility] [place] [address] Anticoagulation (INR) Social History Tobacco Use Types [...] * Telephone Encounter - Jacque Ackerman - 06/15/2012 2:38 PM EST INR 2.4 [facility] lab documented in this encounter Plan of Treatment Not on file documented as of this encounter Visit Diagnoses Not on filedocumented in this encounter Care Teams Wiping Cloth Cutter Relationship Specialty Start Date End Date Alex Mosqueda MD [facility] [place] [address] PCP - General 04/14/12 01/30/14 documented as of this encounter
--- OUTSIDE RECORDS SUMMARY | 2024-03-14 15:50 | XMS_ITS | Encounter Summary ---
Author Organization [facility] Address [facility] [place] [address] Care Team Providers Care Sewing Machine Attachment Tester Name Role Phone Alex Mosqueda MD Primary Care Provider Reason for Visit * Reason Onset Date Comments Anticoagulation 11/08/2012 Encounter Details Date Type Department Care Team (Late st Contact Info) Description 11/08/2012 Telephone [place] [id number] Alex Mosqueda MD [facility] [place] [address] Anticoagulation Social History Tobacco Use Types Packs/Day [...] * Telephone Encounter - Jacque Ackerman - 11/08/2012 4:35 PM EDT No INR today. Message left on pt's cell voice mail reminding him that he's due for an INR draw at [facility]. I will add him to tomorrow's phone log~11/09/12 Kam documented in this encounter Plan of Treatment Not on file documented as of this encounter Visit Diagnoses Not on filedocumented in this encounter Care Teams Sewing Machine Attachment Tester Relationship Specialty Start Date End Date Alex Mosqueda MD [facility] [place] [address] PCP - General 04/14/12 01/30/14 documented as of this encounter
--- OUTSIDE RECORDS SUMMARY | 2024-03-14 15:50 | XMS_ITS | Encounter Summary ---
Author Organization [facility] Address [facility] [place] [address] Care Team Providers Care Crate Maker Name Role Phone Alex Mosqueda MD Primary Care Provider [phone] Reason for Referral * Consultation (Routine) - Closed Specialty Diagnoses / Procedures Referred By Contac t Referred To Contact Hematology and Oncology Diagnoses DVT (deep venous thrombosis) Leg swelling Santiago Lord PA [facility] [place] [address] Sun Wilburn MD [facility] DR [place] [address] Referral ID Status Reason Start Date Expiration Date V isits Requested Visits Authorized [id number] Closed Consult, Test & Treat 10/20/2012 04/18/2013 1 1 Reason for Visit * Reason Comments Leg Pain Encounter Details Date Type Department Care Team (Late st Contact Info) Description 10/20/2012 2:45 PM EDT Office [place] [address] Santiago Lord PA [facility] [place] [address] Leg swelling (Primary Dx); Encounter for monitoring coumadin therapy; DVT (deep vein thrombosis) in ; DVT (deep venous thrombosis); Healthcare maintenance Discharge Disposition: Home Social History [...] Reading Time Taken Comments Blood Pressure 130/90 10/20/2012 12:41 PM EDT Pulse 94 10/20/2012 12:41 PM EDT Temperature 36.5 ??C (97.7 ??F) 10/20/2012 1 2:41 PM EDT Respiratory Rate 18 10/20/2012 12:4 1 PM EDT Oxygen Saturation 99% 10/20/2012 12: 41 PM EDT room air Inhaled Oxygen Concentration - - Weight 123.7 kg (272 lb 9.6 oz) 10/20/2012 12:41 PM EDT without shoes Height 193 cm (6' 4) 10/20/2012 12:41 PM EDT Body Mass Index 33.18 10/20/2012 12:41 PM EDT documented in this encounter Progress Notes * Santiago Lord PA - 10/20/2012 12:43 PM EDT Subjective: Patient ID: Angel Grant is a 37 y.o. male. HPI Comments: Presents for swelling of he left leg from ankle to upper thigh this occurred on Wednesday evening at 9 pm. He had been taken off coumadin last week but continued to take 5 mg daily. The left leg swelling resolved by Wednesday morning with rest and elevation. He continues with mild discomfort left posterior calf and posterior thigh. 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 Eyes: Negative for visual disturbance. Respiratory: Negative for cough, chest tightness and shortness of breath. Cardiovascular: Positive for leg swelling (left leg on Wednesday has resolved). Negative for chest pain and palpitations. Gastrointestinal: Negative for nausea, abdominal pain and diarrhea. Neurological: Negative for dizziness, weakness, light-headedness and headaches. All other systems reviewed and are negative. Objective: Physical Exam Vitals reviewed. Constitutional: He is oriented to person, place, and time. He appears well- developed and well-nourished. HENT: Head: Normocephalic. Right Ear: External ear normal. Left Ear: External ear normal. Nose: Nose normal. Mouth/Throat: Oropharynx is clear and moist. Eyes: Conjunctivae and EOM are normal. Pupils are equal, round, and reactive to light. Neck: Normal range of motion. Neck supple. Cardiovascular: Normal rate, regular rhythm and normal heart sounds. Exam reveals no gallop and no friction rub. No murmur heard. Pulmonary/Chest: Effort normal and breath sounds normal. He has no wheezes. Abdominal: Soft. Bowel sounds are normal. He exhibits no distension. There is no tenderness. obese Musculoskeletal: Normal range of motion. The left leg is not swollen today. there is mild tenderness over the mid posterior left calf and mid posterior left Thigh. I measured down 7 from the inferior pole of the patella and each calf measures 18 circumference. Negative erythema Negative cords to palpation Lymphadenopathy: He has no cervical adenopathy. Neurological: He is alert and oriented to person, place, and time. Skin: Skin is warm and dry. No erythema. Psychiatric: He has a normal mood and affect. His behavior is normal. Judgment and thought content normal. Vascular studies shows minimal improvement when compared to the April 2012 vascular study of he left leg DVT. I discussed the pt with Dr Ballard who suggested having the pt referred to dr Wilburn in hem/onco to review the pts coumadin requirements and length of treatment. I also called the anticoag dept at [facility] and they will continue to follow the pts INR and develop the coumdin treatment plan with the pt. Assessment and Plan: Angel was seen today for leg pain. Diagnoses and associated orders for this visit h/o left leg DVT and PE. today's INR is 1.4 and he has been taking 5 mg coumadin daily. Per Anticoag the pt will take 7.5 mg daily today thru Wednesday and have a repeat INR drawn on Wednesday10-24-12. Leg swelling - Duplex for DVT, Leg, Unilat; Future - CBC (with Diff); Future - Basic Metabolic Panel (non-fasting); Future - Prothrombin Time; Future - CBC (with Diff) - Basic Metabolic Panel (non-fasting) - Prothrombin Time - Referral to Hematology and Oncology Encounter for monitoring coumadin therapy - Prothrombin Time; Future - Prothrombin Time Dvt (deep vein thrombosis) in Dvt (deep venous thrombosis) - Cancel: Prothrombin Time; Future - Referral to Hematology and Oncology Healthcare maintenance - Lipid panel (fasting) - Lipid panel (fasting) - Hemoglobin A1c Other Orders - Cancel: BMP w/fasting Glucose - Differential, Automated - LDL Cholesterol, Direct documented in this encounter Plan of Treatment Scheduled Referrals Name Type Priority Associated Diagnoses Order Schedule Referral to Hematology and Oncology Outpatient Referral Routine DVT (deep venous thrombosis) Leg swelling Ordered: 10/20/2012 documented as of this encounter Procedures Procedure Name Priority Date/Time Associated Diagnosis Comments DIFFERENTIAL, AUTOMATED STAT 10/20/2012 1:43 PM EDT PROTHROMBIN TIME STAT 10/20/2012 1:43 PM EDT Encounter for monitoring coumadin therapy Leg swelling CBC (WITH DIFF) STAT 10/20/2012 1:43 PM EDT Leg swelling LDL CHOLESTEROL, DIRECT Routine 10/20/2012 1:43 PM EDT HEMOGLOBIN A1C Routine 10/20/2012 1:43 PM EDT Healthcare maintenance LIPID PANEL (REFLEX DIRECT LDL) Routine 10/20/2012 1:43 PM EDT Healthcare maintenance BASIC METABOLIC PANEL STAT 10/20/2012 1:43 PM EDT Leg swelling documented in this encounter Results * (ABNORMAL) LDL Cholesterol, Direct (10/20/2012 1:43 PM EDT) [facility] LDL Cholesterol, Direct 155(H) <=99 mg/dL [facility] Comment: The National Cholesterol Education Program (NCEP) has set the following guidelines for LDL Cholesterol: Reference range: ?? Optimal: ?<100 mg/dL ?? Near Optimal/Above Optimal: ?? 100-129 mg/dL ?? Borderline high: ?130-159 mg/dL ?? High: ? 160-189 mg/dL ?? Very high: ?>fm=407 mg/dL [facility] 2001: 285(94):9647-4457 Blood specimen (specimen) 10/20/2012 1:43 PM EDT 10/20/2012 1:54 PM EDT Narrative Resulting Agency Comment Spec In Lab Rose Ballard MD CHEMISTRY ORDERABLES [facility] * Differential, Automated (10/20/2012 1:43 PM EDT) Neutrophil % 62.5 34.0 - 71.0 % [facility] Neutrophil Absolute 5.91 1.50 - 6.30 x10(3)/mcL [facility] Lymph % 26.2 19.0 - 53.0 % [facility] Lymphocytes Abs 2.5 1.0 - 3.6 x10(3)/mcL [facility] Monocyte % 9.8 4.0 - 13.0 % [facility] Monocyte Abs 0.9 0.2 - 1.0 x10(3)/mcL [facility] Eos % 1.0 0.0 - 7.0 % [facility] Eosinophils Abs 0.1 0.0 - 0.5 x10(3)/mcL [facility] Basophil % 0.3 0.0 - 2.0 % [facility] Baso Absolute 0.0 0.0 - 0.2 x10(3)/mcL [facility] Immature Gran % 0.20 0.00 - 0.66 % [facility] Comment: Immature granulocytes(IG's)percentage and absolute count will include metamyelocytes, myelocytes, and promyelocytes. Blood smears from CBCs yielding IG's will be scanned manually for concordance. If this scan disagrees with the automated IG or if promyelocytes are noted, a manual differential will be performed. Immature Gran Absolute 0.02 0.00 - 0.05 x10(3)/mcL [facility] Blood specimen (specimen) 10/20/2012 1:43 PM EDT 10/20/2012 1:51 PM EDT Rose Ballard MD HEMATOLOGY ORDERABLE S [facility] * Hemoglobin A1c (10/20/2012 1:43 PM EDT) Hemoglobin A1c 5.1 4.3 - 6.1 % [facility] Comment: The [place] Diabetes Association (ADA) has stated that HbA1c [...] 2013:36;suppl 1:S11-S66. Estimated Average Glucose 100 mg/dL [facility] Comment: eAG equivalents for HbA1c [...] into estimated average glucose values. ??Diabetes Care 2008:31(8):9931-1513. Blood specimen (specimen) 10/20/2012 1:43 PM EDT 10/20/2012 1:51 PM EDT Narrative Resulting Agency Comment Spec In Lab Rose Ballard MD CHEMISTRY ORDERABLES [facility] * (ABNORMAL) Lipid panel (fasting) (10/20/2012 1:43 PM EDT) [facility] Signature Cholesterol, Total 227(H) <=199 mg/dL [facility] Comment: Recommendations of the NCEP Adult Treatment Panel for the following risk cutoff thresholds for the [place] population: Desirable: <200 mg/dL Borderline High: 200-239 mg/dL High: > or = 240 mg/dL Triglyceride 443(H) <=149 mg/dL [facility] Comment: Reference Range: Normal triglycerides: ??<150 mg/dL Borderline high: ??150-199 mg/dL High: ??200-499 mg/dL Very high: ??>pc=575 mg/dL [facility] 2001; 285(19):9184-7740 HDL Cholesterol 35(L) >=40 mg/dL [facility] Comment: Reference range: ??Low HDL: ?? < 40 mg/dL ??Normal: ?40-60 mg/dL ??Desirable: > 60 mg/dL [facility] 2001; 285(19):0474-5980 LDL Cholesterol Not Perf <=99 mg/dL [facility] Comment: Since a calculated LDL value is not valid for triglycerides greater than 400 mg/dl, a direct LDL determination is performed instead. Reference range: ?? Optimal: ?<100 mg/dL ?? Near Optimal/Above Optimal: ?? 100-129 mg/dL ?? Borderline high: ?130-159 mg/dL ?? High: ? 160-189 mg/dL ?? Very high: ?>bb=613 mg/dL [facility] 2001: 285(19):4208-7333 Cholesterol/HDL Ratio 6.5 ratio [facility] Comment: A Cholesterol to HDL ratio below 4:1 is desirable. ??Studies suggest that increased CAD risk occurs at ratios above 5 for females and above 6 for men. ? [place] Heart Association ??(http://www.americanheart.org) ? Glory Int Med, 1994; 121:641 ? AM J Med, 1998; 105(1A):48S Blood specimen (specimen) 10/20/2012 1:43 PM EDT 10/20/2012 1:51 PM EDT Narrative Resulting Agency Comment Spec In Lab Rose Ballard MD CHEMISTRY ORDERABLES [facility] * (ABNORMAL) Prothrombin Time (10/20/2012 1:43 PM EDT) Prothrombin Time 18.0(H) 12.0 - 15.0 sec [facility] Comment: [facility] Transfusion Committee Guidelines: INR less than 2.0, PTT less than OR equal to 43.5 seconds, or Fibrinogen greater than or equal to 100 mg/dl indicate adequate procoagulant activity for hemostasis in patients without underlying bleeding disorders. International Normalization Ratio 1.4(H) 0.9 - 1.1 [facility] Blood specimen (specimen) 10/20/2012 1:43 PM EDT 10/20/2012 1:51 PM EDT Narrative Resulting Agency Comment Spec In Lab Rose Ballard MD HEMATOLOGY ORDERABLE S [facility] * Basic Metabolic Panel (non-fasting) (10/20/2012 1:43 PM EDT) Glucose 91 60 - 199 mg/dL [facility] Comment:Diabetes: >=200 mg/d L plus symptoms Blood Urea Nitrogen 12 10 - 20 mg/dL [facility] Creatinine 0.90 0.80 - 1.50 mg/dL [facility] Comment: Please note that the pediatric reference intervals supplied above were not validated at [facility]. Results from pediatric patients should be interpreted in conjunction to the patient's age, height and muscle mass. Sodium 138 135 - 145 mmol/L [facility] Potassium 3.6 3.5 - 5.0 mmol/L [facility] Comment: Please note: ??Patients with WBC >100,000 may have falsely elevated Potassium levels. ??For accurate Potassium quantification in these patients send serum separator tube (gold top) for subsequent determinations. ??Contact the Clinical Chemistry Laboratory if there are any questions. Chloride 99 98 - 107 mmol/L [facility] Carbon Dioxide 28 22 - 31 mmol/L [facility] Anion Gap 11 5 - 15 mmol/L [facility] Calcium 9.3 8.5 - 10.5 mg/dL [facility] Est Glomerular Filtration Rate >60 >=60 [facility] Comment: The National Kidney Disease Education Program (NKDEP) has recommended all laboratories report estimated GFR (eGFR) along with plasma creatinine measurements to assist you with recognition of early kidney disease. Caveats: ??Plasma creatinine should be at steady-state (unchanged within the past week). For patients multiply eGFR by 1.2. The MDRD equation was developed using patients between the ages of 18 and 70 years. ?? The MDRD equation has not been validated for patients < 18 years of age and should not be used to assess renal function in the pediatric population. ??The MDRD eGFR equation will also overestimate the true GFR of patients above the age of 70. ??This overestimation is variable but increases with age. At present, NKDEP does NOT recommend using the MDRD equation for drug dosing purposes and pharmacists should continue to use their current dosing methods. In addition, numerical eGFR values greater than 60 ml/min/1.73 square meters should be treated as > 60, and not an exact number due to greater inaccuracies at these higher values. Per NKDEP, they classify normal renal function as any GFR >60ml/min/1.73 square meters; chronic kidney disease when GFR <60, and renal failure when GFR <15. ??This calculation may not be valid for patients with atypical muscle mass (very lean or obese), acute renal failure, and in patients with diabetic kidney disease. References: http://nkdep.nih.gov/resources/NKDEP_Suggestn4Labs_0606_508.pdf http://www.kidney.org/professionals/kls/pdf/faq_gfr.pdf Humberto K, John NA, Aleyda AK, Rich TS, Chester AD, John JOSE. Relative performance of the MDRD and CKD-EPI equations for estimating glomerular filtration rate among patients with varied clinical presentations. Clin J Am Soc Nephrol;6:1963-72. Blood specimen (specimen) 10/20/2012 1:43 PM EDT 10/20/2012 1:51 PM EDT Narrative Resulting Agency Comment Spec In Lab Rose Ballard MD CHEMISTRY ORDERABLES [facility] * (ABNORMAL) CBC (with Diff) (10/20/2012 1:43 PM EDT) White Blood Cell 9.5 4.0 - 10.0 x10(3)/mc L [facility] Red Blood Cell 5.58 4.63 - 6.08 x10(6)/mc L [facility] Hemoglobin 18.0(H) 13.7 - 17.5 gm/dL [facility] Hematocrit 49.9 40.0 - 51.0 % [facility] Mean Cell Volume 89.4 79.0 - 92.0 fL [facility] Mean Cell Hemoglobin 32.3(H) 25.6 - 32.2 pg [facility] Mean Cell Hemoglobin Concentration 36.1 32.0 - 36.5 gm/dL [facility] Platelet 217 145 - 370 x10(3)/mc L [facility] RDW Standard Deviation 41.8 35.0 - 46.0 fL [facility] RDW coefficient of variation 12.9 10.9 - 14.4 % [facility] Mean Platelet Volume 11.2 9.0 - 12.0 fL [facility] Blood specimen (specimen) 10/20/2012 1:43 PM EDT 10/20/2012 1:51 PM EDT Narrative Resulting Agency Comment Spec In Lab Rose Ballard MD HEMATOLOGY ORDERABLE S [facility] * Duplex for DVT, Leg, Unilat (10/20/2012 1:02 PM EDT) VB Text Report Department: Vascular Surgery Lab Patient: [id number] (HEIKE GRANT) CPT Code: 52276 ICD-9: 451.19 Referring Physician: ROSE BALLARD Indication: ?? History of extensive left [...] 04:42:33 PM [facility] 10/20/2012 1:02 PM EDT Rose Ballard MD VASCULAR ORDERABLES [facility] documented in this encounter Visit Diagnoses Diagnosis Leg swelling- Primary Swelling of limb Encounter for monitoring Coumadin therapy Encounter for therapeutic drug monitoring DVT (deep vein thrombosis) in Deep phlebothrombosis, antepartum, unspecified as to episode of care DVT (deep venous thrombosis) Acute venous embolism and thrombosis of unspecified deep vessels of lower extremity Healthcare maintenance Routine general medical examination at a health care facility documented in this encounter Care Teams Crate Maker Relationship Specialty Start Date End Date Alex Mosqueda MD [facility] [address] [place] [address] PCP - General 04/14/12 01/30/14 documented as of this encounter
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
--- OUTSIDE RECORDS SUMMARY | 2024-03-14 15:50 | XMS_ITS | Encounter Summary ---
Author Organization [facility] Address [facility] [place] [address] Care Team Providers Care Food Safety Director Name Role Phone Lizy Perales APRN Primary Care Provider [phone] Reason for Visit * Reason Onset Date Comments Appointment 09/17/2021 Encounter Details Date Type Department Care Team (Late st Contact Info) Description 09/17/2021 Telephone Neurology at [facility] [place] [address] Joey Coleman [place] [address] Appointment Social History Tobacco Use Types Packs/Day Years [...] place to sleep or slept in a usp (including now)? No 05/20/2021 Sex and Gender Information Value Date Recorded Sex Assigned at Not on file Gender Identity Not on file Sexual Orientation Not on file documented as of this encounter Miscellaneous Notes * Telephone Encounter - Evan Pablo - 09/18/2021 12:05 PM EST Victorino called and scheduled a 09/25/21 appointment in-clinic with Dr Coleman. Victorino also provided the following information during the call. Please contact Victorino with any questions. Referring Provider with most of Victorino's records: Po Irene MD [facility] Neurologist that Victorino saw once: Rolan Olivas MD [facility] [address] [place] [id number] * Telephone Encounter - Amanda Brown - 09/17/2021 2:27 PM EST Scheduling Instructions Provider: Dr Coleman Visit Type (paste AIDEE Instructions or manually enter): Return in about 2 months (around 11/14/2021) for In Clinic or Telehealth If EMG Visit needed list diagnosis for the EMG to be used in Decision Tree: Appt Note: Myopathy Additional Info Needed:Please ask patient where he had prior Neurology records, MRI, EMG, muscle biopsy to obtain reports and arrange follow ups after that documented in this encounter Plan of Treatment Not on file documented as of this encounter Visit Diagnoses Not on filedocumented in this encounter Care Teams Food Safety Director Relationship Specialty Start Date End Date Lizy Perales APRN [address] [place] [address] PCP - General Family Medicine 04/23/21 documented as of this encounter
--- OUTSIDE RECORDS SUMMARY | 2024-03-14 15:50 | XMS_ITS | Encounter Summary ---
Author Organization [facility] Address [facility] [place] [address] Care Team Providers Care [employer] Maintenance Worker Name Role Phone Lizy Perales APRN Primary Care Provider [phone] Encounter Details Date Type Department Care Team (Latest Contact Info) Description 06/03/2021 11:15 AM EST - 06/03/2021 11:59 PM [facility] Hospital En[place] [phone] Bebe Rosenberg MD [facility] [address] HEMATOLOGY [place] [address] Recurrent pulmonary embolism; Right upper quadrant abdominal pain Discharge Disposition: Home Social History Tobacco Use Types Packs/Day Years Used Date Smoking Tobacco: Never Smokeless Tobacco: Never Alcohol Use Standard Drinks/Week Comments Yes 4 (1 standard drink = 0.6 oz pur e alcohol) occasional wine Overall Financial Resource Strain (CARDIA) Jorgee r Date Recorded How hard is it [...] place to sleep or slept in a mcfp (including now)? No 05/20/2021 Sex and Gender [...] Procedure Name Priority Date/Time Associated Diagnosis Comments US ABDOMEN LIMITED Routine 06/03/2021 11 :48 AM EST Recurrent pulmonary embolism Right upper quadrant abdominal pain documented in this encounter Results * US Abdomen Limited [...] No ascites. 2. ??The gallbladder appears normal. Electronically signed by: Cynthia John MD, [facility] ([phone]), at 06/03/2021 11:52 AM Thank you for letting us participate in the care of this patient. If you are a health care provider and have any questions regarding this report, please contact the number above. For patients who have questions, please contact the health hospice patient care secretary that requested your imaging first. ?Cynthia Goode, Staff Physician Electronically Signed Final Report ?? 06/03/2021 11:58 am Narrative 06/03/2021 11:59 AM EST Abdominal ? (Signed Final 06/03/2021 11:58 am) PATIENT INFO: ID #: ? [id number] ?: ??[birth year] (45 yrs)(M) Name: ? YURY GRANT ?Visit Date: 06/03/2021 11:46 am PERFORMED BY: Performed By: ? Neha Jain RDMS Attending: ?Alvaro MOON, Cynthia Quinonez Referred By: ?BEBE ROSENBERG Location: ? [place] SERVICE(S) PROVIDED: UABDLIM - Abdominal Limited Survey Single ? [id number] Organ or Quadrant - [id number] INDICATIONS: persistent RUQ pain - recent normal [...] 06/03/2021 11:58 am) PATIENT INFO: ID #: [id number] : [birth year] (45 yrs)(M) Name: YURY GRANT Visit Date: 06/03/2021 11:46 am PERFORMED BY: Performed By: Neha Jain RDMS Attending: Cynthia John MD Referred By: BEBE ROSENBERG Location: [place] SERVICE(S) PROVIDED: UABDLIM - Abdominal Limited Survey Single 28256 Organ or Quadrant - [id number] INDICATIONS: persistent RUQ pain - recent normal [...] No ascites. 2. The gallbladder appears normal. Electronically signed by: Cynthia John MD, [facility] ([phone]), at 06/03/2021 11:52 AM Thank you for letting us participate in the care of this patient. If you are a health care provider and have any questions regarding this report, please contact the number above. For patients who have questions, please contact the health hospice patient care secretary that requested your imaging first. Cynthia MoultonChirag, Staff Physician Electronically Signed Final Report 06/03/2021 11:58 am Bebe Rosenberg MD IMG US GEN ORDERABLE S documented in this encounter Visit Diagnoses Diagnosis Recurrent pulmonary embolism Other pulmonary embolism and infarction Right upper quadrant abdominal pain Abdominal pain, right upper quadrant documented in this encounter Care Teams [employer] Maintenance Worker Relationship Specialty Start Date End Date Lizy Perales APRN [address] [place] [address] PCP - General Family Medicine 04/23/21 documented as of this encounter
--- OUTSIDE RECORDS SUMMARY | 2024-03-14 15:50 | XMS_ITS | Encounter Summary ---
Author Organization [facility] [place] [address] Care Team Providers Care Women'S Soccer Coach Name Role Phone Alex Mosqueda MD Primary Care Provider [phone] Encounter Details Date Type Department Care Team (Latest Contact Info) Description 11/11/2012 Anti-Coag Telephone Visit Internal Medicine at [address] [phone] Sasha Lucero, RN Pulmonary embolism (Primary Dx) Social History [...] this encounter Patient Instructions * Patient Instructions* Sasha Lucero, RN - 11/11/2012 9:56 AM EDT Your INR result today is: 2.7 Range: 2.0-3.0 Please take your Warfarin, (Coumadin [...] next INR is scheduled for: 2 weeks; 11/25 If you are unable to keep this appointment, please call documented in this encounter Progress Notes * Sasha Lucero RN - 11/11/2012 9:53 AM EDT Anticoagulation Therapy Indication: Provoked LLE DVT/PE in the setting of a long care ride, diagnosed 04/12/12 Duration of treatment: Undetermined, repeat doppler after 3 mos to establish a new baseline per Vianney Pavon APRN Range: 2.0-3.0 INR : 2.7 Drawn by: [facility] Monitored by: LEANDER Next INR Due: 2 wks; 11/25/12 For SO renewal Standing order @ [facility] expires 11/10/12 Patient Contact Preference: Message [...] Associated Diagnosis Comments EXTERNAL LAB RESULTS Routine 11/10/2012 documented in this encounter Results * (ABNORMAL) External Lab Results (11/10/2012) INR, POC 2.7([facility] Drier Tender al Lab) 0.9 - 1.1 Comment:[place] 11/10/2012 Historical Provider CHEMISTRY ORDERAB LES documented in this encounter Visit Diagnoses Diagnosis Pulmonary embolism- Primary Other pulmonary embolism and infarction documented in this encounter Care Teams Women'S Soccer Coach Relationship Specialty Start Date End Date Alex Mosqueda MD [facility] [address] [facility] [place] [address] PCP - General 04/14/12 01/30/14 documented as of this encounter
--- OUTSIDE RECORDS SUMMARY | 2024-03-14 15:50 | XMS_ITS | Encounter Summary ---
Author Organization [facility] Address [facility] [place] [address] Care Team Providers Care Tube Depatcher Name Role Phone Alex Mosqueda MD Primary Care Provider Reason for Visit * Reason Onset Date Comments Anticoagulation 07/07/2012 INR Encounter Details Date Type Department Care Team (Late st Contact Info) Description 07/07/2012 Telephone [place] [phone] Alex Mosqueda MD [facility] [place] [address] Anticoagulation (INR) Social History Tobacco Use Types [...] * Telephone Encounter - Jacque Ackerman - 07/07/2012 2:50 PM EST INR 2.9 [facility] documented in this encounter Plan of Treatment Not on file documented as of this encounter Visit Diagnoses Not on filedocumented in this encounter Care Teams Tube Depatcher Relationship Specialty Start Date End Date Alex Mosqueda MD [facility] [place] [address] PCP - General 04/14/12 01/30/14 documented as of this encounter
--- OUTSIDE RECORDS SUMMARY | 2024-03-14 15:50 | XMS_ITS | Encounter Summary ---
[place] [address] Care Team Providers Care Posting Machine Operator Name Role Phone Lizy Perales APRN Primary Care Provider [phone] Encounter Details Date Type Department Care Team (Late st Contact Info) Description 09/16/2021 External [place] [address] Social History Tobacco Use Types Packs/Day Years [...] Procedure Name Priority Date/Time Associated Diagnosis Comments EMG WITH F-WAVE Routine 09/16/2021 documented in this encounter Results * EMG WITH F-WAVE (09/16/2021) Historical Provider NEUROLOGY ORDERAB LES documented in this encounter Visit Diagnoses Not on filedocumented in this encounter Care Teams Posting Machine Operator Relationship Specialty Start Date End Date Lizy Perales APRN [address] [place] [address] PCP - General Family Medicine 04/23/21 documented as of this encounter
--- OUTSIDE RECORDS SUMMARY | 2024-03-14 15:51 | XMS_ITS | Encounter Summary ---
Author Organization [facility] Address [facility] [place] [address] Care Team Providers Care Adjunct Professor Name Role Phone Alex Mosqueda MD Primary Care Provider [phone] Encounter Details Date Type Department Care Team (Late st Contact Info) Description 04/18/2012 Telephone [place] [phone] Daina Peña MD [facility] GENER[place] [address] Social History Tobacco Use Types Packs/Day Years [...] encounter Miscellaneous Notes * Telephone Encounter - Daina Peña MD - 04/18/2012 7:17 PM EDT Recent admission for pulmonary embolism. Seen by Charlene Pavon today Feeling woozy like a Piece of molasses. Took a nap this afternoon. Started while he was at [facility] today. He has not been eating well. Has not felt this ill since hospitalization. Clerical Coordinator new medications, no bleeding. He has not having any more sob. No fevers. I advised ER to be evaluated. He was not sure he would go - has appt with primary in the AM. He will try drinking a glass of juice and agrees to go to ER if sx do not resolve. documented in this encounter Plan of Treatment Not on file documented as of this encounter Visit Diagnoses Not on filedocumented in this encounter Care Teams Adjunct Professor Relationship Specialty Start Date End Date Alex Mosqueda MD [facility] [place] [address] PCP - General 04/14/12 01/30/14 documented as of this encounter
--- OUTSIDE RECORDS SUMMARY | 2024-03-14 15:51 | XMS_ITS | Encounter Summary ---
Author Organization [facility] Address [facility] [place] [address] Care Team Providers Care Gluing Crew Leader Name Role Phone Alex Mosqueda MD Primary Care Provider [phone] Reason for Visit * Reason Onset Date Comments Anticoagulation 04/28/2012 PT Encounter Details Date Type Department Care Team (Late st Contact Info) Description 04/28/2012 Telephone [place] [phone] Alex Mosqueda MD [facility] [place] [address] Anticoagulation (PT) Social History Tobacco Use Types Packs/Day Years [...] * Telephone Encounter - Jayne Bailey - 04/28/2012 9:32 AM EDT Please call Rowdy (curt team nurse) to discuss patient. He is questioning having physical therapy. documented in this encounter Plan of Treatment Not on file documented as of this encounter Visit Diagnoses Not on filedocumented in this encounter Care Teams Gluing Crew Leader Relationship Specialty Start Date End Date Alex Mosqueda MD [facility] [place] [address] PCP - General 04/14/12 01/30/14 documented as of this encounter
--- OUTSIDE RECORDS SUMMARY | 2024-03-14 15:51 | XMS_ITS | Encounter Summary ---
Author Organization [facility] [place] [address] Care Team Providers Care Shoe Repairman Name Role Phone Alxe Mosqueda MD Primary Care Provider [phone] Encounter Details Date Type Department Care Team (Late st Contact Info) Description 04/21/2012 Anti-Coag Telephone Visit [place] [phone] Gloria Amezcua RN Social History Tobacco Use [...] this encounter Patient Instructions * Patient Instructions* Gloria Amezcua, RONNY - 04/21/2012 2:02 PM EDT Your INR result today is: 2.4 [place] lab Range: 2.0-3.0 Please take your Warfarin, (Coumadin [...] needs. Please follow the dosing instructions outlined bellow until your next scheduled INR visit. Pill size 5 mg DAY Sun Wed Sat mg 5 mg 5 mg 10 mg 5 mg 7.5 mg 5 mg 5 mg Number of Pills 1 1 2 1 1 1/2 1 1 Your next INR is scheduled for: 04/22/12 @ [facility] Continue Lovenox If you are unable to keep this appointment, please call documented in this encounter Progress Notes * Gloria Amezcua RN - 04/21/2012 2:01 PM EDT Anticoagulation Therapy Nurse Visit Indication: Provoked LLE DVT/PE in the setting of a long care ride, diagnosed 04/12/12 Duration of treatment: Undetermined, repeat doppler after 3 mos to establish a new baseline per Vianney Pavon APRN Range: 2.0-3.0 INR : 2.4 Drawn by: [facility] Monitored by: LEANDER Next INR Due: 04/22 04/21 Had episode this am that last 5 minutes, While standing, he started to sweat profusely, some increased sob and felt like he was going to black out. Said EMT at his office checked VS, HR and BPslightly elevated. He currently feels there is more tightness in his chest, no CP Numbness or tingling. I told him I Would discuss with Charlene Pavon. Addendum: discussed with Charlene Pavon APRN, recommended pt go to ER for evaluation. Victorino did not want to go as he felt better. We discussed his symptoms could indicate another thrombotic event and it's danger. We discussed signs and symptoms To observe for Sob, increased hr, dizziness, chest pain or discomfort, numbness , tingling mental status changes. He stated he would go to ER if his currentsx worsened or experienced any of the symptoms we discussed. I will F/u with Phone call to him tomorrow. 04/12- started Lovenox and Coumadin @ [facility] Continue Lovenox 120 mg SQ twice daily for at least five days and until two consecutive INRs > 2.0 Standing order @ [facility] expires 07/28/12 Warfarin dose : x Increased Decreased Maintained Comment Falls Risk Assessment: Have you [...] Symptoms of recurring primary event: Chest Pain x Dyspnea Palpitations Headache x Dizziness Edema Confusion Slurred Speech Weakness Visual [...] Associated Diagnosis Comments EXTERNAL LAB RESULTS Routine 04/21/2012 documented in this encounter Results * (ABNORMAL) External Lab Results (04/21/2012) International Normalization Ratio 2.4(Exter nal Lab) 0.9 - 1.1 Comment:[place] lab 04/21/2012 Historical Provider CHEMISTRY ORDERAB LES documented in this encounter Visit Diagnoses Not on filedocumented in this encounter Care Teams Shoe Repairman Relationship Specialty Start Date End Date Alex Mosqueda MD [facility] GENER[facility] [place] [address] PCP - General 04/14/12 01/30/14 documented as of this encounter
--- OUTSIDE RECORDS SUMMARY | 2024-03-14 15:51 | XMS_ITS | Encounter Summary ---
[place] [address] Care Team Providers Care Unix Engineer Name Role Phone Alex Mosqueda MD Primary Care Provider [phone] Reason for Visit * Reason Comments Anticoagulation Encounter Details Date Type Department Care Team (Latest Contact Info) Description 04/19/2012 9:00 AM EDT Clinical Support [place] [phone] Inge Byrd RN Encounter for long-term (current) use of anticoagulants (Primary Dx); Pulmonary embolism Social History Tobacco Use Types [...] * Patient Instructions* Inge Byrd RN - 04/19/2012 9:13 AM EDT Your INR result today is: 1.9 Range: 2.0-3.0 Please take your Warfarin, (Coumadin [...] mg 5 mg 10 mg 5 mg 5 mg 5 mg 5 mg Number of Pills 1 1 2 1 1 1 1 Your next INR is scheduled for: 04/21/12 @ [facility] If you are unable to keep this appointment, please call documented in this encounter Progress Notes * Inge Byrd RN - 04/19/2012 8:59 AM EDT Anticoagulation Therapy Nurse Visit Indication: Provoked LLE DVT/PE in the setting of a long care ride, diagnosed 04/12/12 Duration of treatment: Undetermined, repeat doppler after 3 mos to establish a new baseline per Vianney Pavon APRN Range: 2.0-3.0 INR : 1.9 Drawn by: LEANDER POC Monitored by: LEANDER Next INR Due: 04/21/1204/12- started Lovenox and Coumadin @ [facility] Continue Lovenox 120 mg SQ twice daily for at least five days and until two consecutive INRs > 2.0 Standing order @ [facility] expires 07/28/12 Warfarin dose : Increased Decreased x Maintained Comment Falls Risk Asseessment: Have you had any falls in the [...] Date/Time Associated Diagnosis Comments POCT INR Routine 04/19/2012 documented in this encounter Results * (ABNORMAL) POCT INR (04/19/2012) INR, POC 1.9(A) 0.9 - 1.1 Historical Provider POINT OF CARE NATALYA T ORDERABLES documented in this encounter Visit Diagnoses Diagnosis 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
--- OUTSIDE RECORDS SUMMARY | 2024-03-14 15:51 | XMS_ITS | Encounter Summary ---
Author Organization [facility] Address [facility] [address] Care Team Providers Care Bandoleer Packer Name Role Phone Alex Mosqueda MD Primary Care Provider [phone] Reason for Visit * Reason Onset Date Comments Anticoagulation 05/31/2012 INR Encounter Details Date Type Department Care Team (Late st Contact Info) Description 05/31/2012 Telephone [place] [phone] Alex Mosqueda MD [facility] [place] [address] Anticoagulation (INR) Social History Tobacco Use Types [...] * Telephone Encounter - Jayne Bailey - 05/31/2012 2:09 PM EST INR 2.8 [place] [facility] documented in this encounter Plan of Treatment Not on file documented as of this encounter Visit Diagnoses Not on filedocumented in this encounter Care Teams Bandoleer Packer Relationship Specialty Start Date End Date Alex Mosqueda MD [facility] [place] [address] PCP - General 04/14/12 01/30/14 documented as of this encounter
--- OUTSIDE RECORDS SUMMARY | 2024-03-14 15:51 | XMS_ITS | Encounter Summary ---
Author Organization [facility] [place] [address] Care Team Providers Care Hydraulic Technician Name Role Phone Alex Mosqueda MD Primary Care Provider Reason for Referral * Consultation (Routine) - Closed Specialty Diagnoses / Procedures Referred By Contac t Referred To Contact Hematology and Oncology Diagnoses Pulmonary embol[place] [address] [facility] [address] [place] [phone] Referral ID Status Reason Start Date Expiration Date V isits Requested Visits Authorized [id number] Closed Consult & Test 04/14/2012 10/11/2012 1 1 * Consultation (Routine) - Closed Specialty Diagnoses / Procedures Referred By Contac t Referred To Contact Internal Medicine Diagnoses Pulmonary embol[place] [address] [facility] [address] [place] [phone] Referral ID Status Reason Start Date Expiration Date V isits Requested Visits Authorized [id number] Closed Assume Subset of Care 04/14/2012 10/11/2012 1 1 Reason for Visit * Reason Comments Deep Vein Thrombosis Encounter Details Date Type Department Care Team (Late st Contact Info) Description 04/13/2012 9:58 PM EDT - 04/14/2012 5:32 PM EDT Hospital Encounter [address] [place] [phone] Taqueria Riggs MD [facility] [place] [address] [place] [address] [place] [address] [place] [address] Pulmonary embolism Discharge Disposition: Home Social History [...] Reading Time Taken Comments Blood Pressure 157/94 04/14/2012 12:00 PM EDT Pulse 77 04/14/2012 12:00 PM EDT Temperature 37.2 ??C (98.9 ??F) 04/14/2012 1 2:00 PM EDT Respiratory Rate 20 04/14/2012 12:0 0 PM EDT Oxygen Saturation 94% 04/14/2012 12: 00 PM EDT Inhaled Oxygen Concentration - - Weight 119.6 kg (263 lb 10.7 oz) 2011 11:40 PM EDT Height 188 cm (6' 2) 04/14/2012 3:59 AM EDT Body Mass Index 33.85 04/13/2012 11:40 PM EDT documented in this encounter Discharge Instructions * Patient Instructions* Huma Gutierrez MD - 04/14/2012 2:23 PM EDT Instruction after leaving the hospital Why you were hospitalized: clot in your left calf and lungs Call your doctor or seek medical attention if you develop the following: worsened shortness of breath, fevers, chest pain Activity level: as you can tolerate Diet: regular Driving: ok to drive Home Oxygen therapy: none needed Specific instructions related to your condition: You have an extensive clot in your left clot. You may have calf pain for weeks. You may also feel slightly short of breath for weeks. If your breathing worsens or you develop chest pain or if you have swelling to your right leg, please come to the emergency department. You have been sent home with lovenox injections and coumadin. You have a follow up scheduled in coumadin clinic on Wednesday and they will tell you when to stop the lovenox or if you should change the coumadin dose Anticoagulation (???Blood Thinner?? ) Management upon Discharge: Reason for anticoagulation therapy: DVT/PE Your NEW Warfarin (Coumadin??) dosing instruction upon discharge is: (Follow this schedule below until your first INR check after discharge (usually in 2- 4 days): Day of discharge (day #1): 5 mg Day #2: 5 mg Day #3: 5 mg Day #4: 5 mg Follow up INR is scheduled on: WednesdayApril 18 INR Goal: 2-3 Expected duration of treatment: 3 months Provider/Team responsible for ongoing outpatient anticoagulation management: Provider/Team/Clinic: [facility] anticoagulation clinic Phone: [phone] If you have not received a call from your provider within 24hrs of having your INR drawn, please call your outpatient provider for further dose instructions. Warfarin (Coumadin??) should be taken at the same time every day, preferably after 5pm. If taking Enoxaparin (Lovenox??) injections, continue taking until instructed to stop. (You will betaking this medication until your INR is in the therapeutic range for 24 hours.) The following table shows your most recent INR results and Warfarin (Coumadin??) Doses Recent Labs Basename 04/14/12 0351 ??? INR 1.1 Hospital Date 04/13 Coumadin Dose (mg) 5 mg ?? Please review your Warfarin (Coumadin??) Pack upon discharge. ?? For your safety, it is very important to be aware of the following details related to taking ???blood thinning?? medications such as Coumadin. o Compliance: Take your medication exactly as directed. Missing a dose or taking more than you are scheduled to take could result in clotting or bleeding issues. o Signs and Symptoms to be reported include: increased pain, swelling or sudden shortness of breath severe headaches dizziness unusual bleeding or bruising changes in urine or bowel movement color coughing or spitting up of blood, or nosebleeds In the event that you should experience any of the above, seek medical attention. Your Inpatient Doctor(s) at [facility]: Huma Gutierrez MD documented in this encounter Medications at Time of Discharge Medication Sig Dispensed Refills Start Date End Date enoxaparin (LOVENOX) 120 mg/0.8 mL injection Inject 0.8 mLs subcutaneously every 12 hours for 6 days. 9.61 mL 0 04/14/2012 04/18/2012 OXYcodone (ROXICODONE) 5 mg immediate release tablet Take 1 tablet by mouth every 4 hours as needed for Pain (mild to moderate pain). 30 tablet 0 04/14/2012 05/04/2012 warfarin (COUMADIN) 5 mg tablet Take 1 tablet by mouth daily. 30 tablet 3 04/14/2012 08/24/2012 acetaminophen-codein e (TYLENOL WITH CODEINE) 120-12 mg/5 mL solution Take 5 mLs by mouth every 8 hours as needed. 05/04/2012 documented as of this encounter Progress Notes * Tejal Almaguer RN - 04/14/2012 5:09 PM EDT Patient discharged home with family. Reviewed AVS and Lovenox teaching kit with the patient who states understanding, reviewed coumadin teaching and packet as well. * Huma Gutierrez MD - 04/14/2012 4:26 PM EDT Hospital Medicine - Attending Day of Discharge Documentation Discharge diagnosis No resolved problems to display. Active Hospital Problems Diagnoses ??? Other pulmonary embolism Resolved Hospital Problems Diagnoses Date Resolved Secondary Issues Active Non-Hospital Problems Diagnoses ??? Pulmonary embolism I have personally seen and examined the patient and they are ready for discharge. I spent 36 minutes (Day of Discharge Code 57033) involved in the final examination of the patient, discussion of the hospital stay, instructions for continuing care to all relevant caregivers, and preparation of discharge records, prescriptions and referral forms. Plans Discharge to home Follow-up scheduled with New PCP appointment with [facility], hematology, coumadin clinic Please see the Discharge Summary for complete details of any medication changes and additional plans. * Karin Barton PT - 04/14/2012 3:39 PM EDT Physical Therapy Pt unavailable for PT today. Evaluation to follow. lj * Karmen Nicolas RN - 04/14/2012 1:59 PM EDT Office of Care Management (OCM) / Clinical Hide Examiner (CRC)/ Initial Assessment S:states that he is feeling all right but is unable to walk at all, hobble to the bathroom. Discussed patient with Provider Team and in multidisciplinary discharge-planning rounds. Reviewed record and interviewed patient and parents Neeta Grant. Introduced/reviewed CRC role and services accepted. Pt was seen at the [place] ED; family made decision to come to [facility]. 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 CURRENT FUNCTIONAL STATUS:resting in bed, parents at side SOCIAL / FAMILY SUPPORTS lives with his in [place], [place]. Pt's parents will be taking pt to their home after discharge. Very supportive parents. 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 REFERRAL:as needed PRIMARY CARE PHYSICIAN: ALEX MOSQUEDA MD [facility] GENERAL INTERNAL MEDICINE / [place] N* [phone] POTENTIAL DISCHARGE NEEDS: Anticoagulation clinic PATIENT/FAMILY EDUCATION NEEDS:Lovenox teaching ANTICIPATED BARRIERS TO DISCHARGE:none anticipated TRANSPORTATION @ D/C: parents Physical address: [address], [place] PLAN: CRC will continue to monitor progress, follow for continuity of care and assist with discharge planning while hospitalized INGRID ASHTON RN, pager [phone] documented in this encounter H&P Notes * Irene Vail, - 04/14/2012 12:10 AM EDT Inpatient - Admission Note Problem List: No resolved problems to display. Active Hospital Problems Diagnoses ??? Other pulmonary embolism Resolved Hospital Problems Diagnoses Date Resolved There are no active non-hospital problems to display for this patient. ID: 36 y.o. Male presents to [facility] with shortness of breath History of Present Illness: HPI 36-year-old male presents to the emergency department for evaluation of shortness of breath. Patient states that he drove from [place] to [place] about 1.5 months ago. He took a 40 [address]car ride driving about 18 hours per day. About a week ago, he developed pain and swelling in his left calf. Symptoms progressed and he developed shortness of breath on wednesday. He presented to an outside emergency department at that time, underwent CTA chest and was diagnosed with pulmonary embolism. He was admitted to [facility], started on Lovenox 115 mg SQ BID and Coumadin. He states that he had a lower extremity ultrasound performed the next day, demonstrating left lowerextremity DVT. He was discharged early this morning with Lovenox injections and coumadin. The patient reports ongoing shortness of breath and left lower extremity pain. He was prescribed Tylenol #3 for pain, which is not controlling his pain. Denies chest pain, diaphoresis, fever or chills. Review of Systems: Review of Systems Constitutional: Negative for fever and chills. HENT: Negative. Eyes: Negative. Respiratory: Positive for shortness of breath. Negative for chest tightness. Cardiovascular: Positive for leg swelling. Negative for chest pain. Gastrointestinal: Negative for nausea, vomiting and abdominal pain. Genitourinary: Negative for dysuria and hematuria. Skin: Negative for rash. Neurological: Negative. Negative for syncope, weakness and headaches. Hematological: Negative. Psychiatric/Behavioral: Negative. Past Medical and Surgical History: Past Medical History Diagnosis Date ??? Pulmonary emboli ??? DVT (deep venous thrombosis) History reviewed. No pertinent past surgical history. Prior To Admission Medications: Prescriptions prior to admission Medication Sig Dispense Refill ??? enoxaparin (LOVENOX) 120 mg/0.8 mL injection Inject subcutaneously every 12 hours. ??? warfarin (COUMADIN) 5 mg tablet Take 5 mg by mouth daily. ??? acetaminophen-codeine (TYLENOL WITH CODEINE) 120-12 mg/5 mL solution Take 5 mLs by mouth every 8 hours as needed. Allergies: No Known Allergies Family History: No family history on file. Social History and Habits: History Social History ??? Marital Status: Spouse Name: N/A Number of Children: N/A ??? Years of Education: N/A Occupational History ??? Not on file. Social History Main Topics ??? Smoking status: Never Smoker ??? Smokeless tobacco: Not on file ??? Alcohol Use: Yes ??? Drug Use: No ??? Sexually Active: Yes -- Female partner(s) Other Topics Concern ??? Do You Live Alone? No Social History Narrative ??? No narrative on file Immunizations: There is no immunization history on file for this patient. Physical Exam: Last Set of Vitals and range of vitals over past 24 hours: Last value Range last 24 hrs Temperature Temp: 37.6 ??C (99.7 ??F) Temp: [37.5 ??C (99.5 ??F)-37.6 ??C (99.7 ??F)] Heart Rate Heart Rate: 98 Heart Rate: [98-118] Blood Pressure BP: 158/92 mmHg BP: (143-164)/(55-104) Respiratory Rate Resp: 20 Resp: [12-25] SpO2 SpO2: 94 % SpO2: [92 %-97 %] Physical Exam Physical Exam Nursing note and vitals reviewed. Constitutional: He is oriented to person, place, and time. He appears well- developed and well-nourished. HENT: Head: Normocephalic and atraumatic. Right Ear: External ear normal. Left Ear: External ear normal. Nose: Nose normal. Mouth/Throat: Oropharynx is clear and moist. Eyes: Conjunctivae and EOM are normal. Pupils are equal, round, and reactive to light. Neck: Normal range of motion. Neck supple. Cardiovascular: Normal rate. Pulmonary/Chest: Effort normal and breath sounds normal. No respiratory distress. Abdominal: Soft. He exhibits no distension and no mass. No tenderness. Musculoskeletal: Normal range of motion. He exhibits edema and tenderness. Neurological: He is alert and oriented to person, place, and time. Skin: Skin is warm and dry. Psychiatric: He has a normal mood and affect. His behavior is normal. Laboratory (Last 24 Hours): Recent Results (from the past 24 hour(s)) CBC (WITH DIFF) Component Value Range ??? WBC 11.8 (*) 4.0 - 10.0 (x10(3)/mcL) ??? RBC 5.42 4.63 - 6.08 (x10(6)/mcL) ??? Hemoglobin 17.1 13.7 - 17.5 (gm/dL) ??? Hematocrit 48.4 40.0 - 51.0 (%) ??? MCV 89.3 79.0 - 92.0 (fL) ??? MCH 31.5 25.6 - 32.2 (pg) ??? MCHC 35.3 32.0 - 36.5 (gm/dL) ??? Platelets 172 145 - 370 (x10(3)/mcL) ??? RDWSD 39.8 35.0 - 46.0 (fL) ??? RDWCV 12.3 10.9 - 14.4 (%) ??? MPV 11.4 9.0 - 12.0 (fL) ELECTROLYTES PANEL Component Value Range ??? Sodium 138 135 - 145 (mmol/L) ??? Potassium 3.6 3.5 - 5.0 (mmol/L) ??? Chloride 101 98 - 107 (mmol/L) ??? CO2 27 22 - 31 (mmol/L) ??? Anion Gap 10 5 - 15 (mmol/L) BUN Component Value Range ??? BUN 9 (*) 10 - 20 (mg/dL) CREATININE, SERUM Component Value Range ??? Creatinine 0.91 0.80 - 1.50 (mg/dL) ? ? Estimated GFR >60 >=60 GLUCOSE, RANDOM Component Value Range ??? Glucose Lvl 93 60 - 199 (mg/dL) TROPONIN T Component Value Range ? ? Troponin-T <0.03 <=0.03 (ng/mL) PRO-BRAIN NATRIURETIC PEPTIDE Component Value Range ? ? ProBNP 20 <=125 (pg/mL) BLUE TUBE HOLD Component Value Range ??? Blue Hold Sample in lab. DIFFERENTIAL, AUTOMATED Component Value Range ??? Neutrophils % 67.3 34.0 - 71.0 (%) ??? Neutr Abs (ANC) 7.94 (*) 1.50 - 6.30 (x10(3)/mcL) ??? Lymphocytes % 19.0 19.0 - 53.0 (%) ??? Lymphocytes Abs 2.2 1.0 - 3.6 (x10(3)/mcL) ??? Monocytes % 12.0 4.0 - 13.0 (%) ??? Monocyte Abs 1.4 (*) 0.2 - 1.0 (x10(3)/mcL) ??? Eosinophils % 1.1 0.0 - 7.0 (%) ??? Eosinophils Abs 0.1 0.0 - 0.5 (x10(3)/mcL) ??? Basophils % 0.3 0.0 - 2.0 (%) ??? Basophils Abs 0.0 0.0 - 0.2 (x10(3)/mcL) ??? Immature Gran % 0.30 0.00 - 0.66 (%) ??? Mable Gran Abs 0.04 0.00 - 0.05 (x10(3)/mcL) URINALYSIS WITH MICROSCOPIC Component Value Range ??? Glucose UA Negative Negative (mg/dL) ??? Protein UA Trace (*) Neg (mg/dL) ??? Bilirubin UA Negative Negative (mg/dL) ??? Urobilinogen UA Normal (mg/dL) ??? pH UA 6.5 5.0 - 8.0 ??? Blood UA Negative (mg/dL) ??? Ketones UA Trace (*) Neg (mg/dL) ??? Nitrite UA Negative ??? Leukocytes UA Negative (mcL) ??? Appearance UA Clear Clear ??? Spec [place] UA 1.012 1.002 - 1.030 ??? Color UA Yellow Yellow ??? RBC UA 1 0 - 3 (/HPF) ??? WBC UA 1 0 - 3 (/HPF) ??? Bacteria UA Rare (*) None (/HPF) Microbiology: Blood Cultures: Urine Cultures: Radiology: CXR - CT - Ultrasound - MRI - Other Studies: EKG - Echocardiogram - Vascular Studies - Pulmonary Report - Endoscopy - Assessment: 36-year-old male with pmhx of borderline htn(not on any meds) presents to the emergency department for evaluation of shortness of breath in the setting of recent b/l PE after long car ride: Plan: Recent PE/LLE DVT - Was d/c'd from [facility] today with lovenox and coumadin. - Will check INR now - I explained to the pt that his INR will need to be therapeutic for 24-48 hrs after which lovenox could be d/c'd. At this time, pt has a lot of LE pain and unable to walk. - Will start on lovenox 120 mg SQ BID with coumdin - Had echo done in ER with no RV strain - Will need a formal 2 D Echo- unclear if he had it at [facility]. Will obtain his records from [facility] in AM, if no echo done, will order here - Admit to telemetry secondary to tachycardia Pain Will start with oxycodone and titrate up prn ?? Physical Therapy referral ?? DVT Prophylaxis- lovenox, coumadin ?? If currently a smoker - advised about smoking cessation and will provide smoking cessation material and support. ?? Pneumovax and Influenza Immunizations given as needed. ?? Discussed Advanced Directives and Code Status. The patient wishesto be Full code. A copy of this document will be sent to the patient's Primary Care Physician and/or Referring Physician. Irene Vail DO 04/14/2012 documented in this encounter ED Notes * Taqueria Riggs MD - 04/13/2012 9:34 PM EDT Chief Complaint Patient presents with ??? Deep Vein Thrombosis HPI Comments: 36-year-old male presents to the emergency department for evaluation of shortness of breath. Patient reports that he drove from [place] to [place] 3 weeks ago. It was a 40 hour car ride. He later developed pain and swelling in his left calf. Symptoms progressed and he develop shortness of breath. He presented to an outside emergency department several days ago, underwent CTA chest and was diagnosed with pulmonary embolism. He was admitted to the hospital, started on Lovenox and Coumadin. He had a lower extremity ultrasound performed the next day, demonstrating left lower extremity DVT. He was discharged early this morning With Lovenox injections and Coumadin. Since discharge, the patient reports ongoing shortness of breath and left lower extremity pain. He states that he is unable to walk due to pain. He was prescribed Tylenol #3 for pain, which he states has been in adequate in relieving his symptoms. Currently denies chest pain, diaphoresis, fever or chills. The history is provided by the patient, the spouse and a parent. No Known Allergies Review of Systems Constitutional: Negative for fever and chills. HENT: Negative. Eyes: Negative. Respiratory: Positive for shortness of breath. Negative for chest tightness. Cardiovascular: Positive for leg swelling. Negative for chest pain. Gastrointestinal: Negative for nausea, vomiting and abdominal pain. Genitourinary: Negative for dysuria and hematuria. Skin: Negative for rash. Neurological: Negative. Negative for syncope, weakness and headaches. Hematological: Negative. Psychiatric/Behavioral: Negative. Physical Exam Nursing note and vitals reviewed. Constitutional: He is oriented to person, place, and time. He appears well- developed and well-nourished. HENT: Head: Normocephalic and atraumatic. Right Ear: External ear normal. Left Ear: External ear normal. Nose: Nose normal. Mouth/Throat: Oropharynx is clear and moist. Eyes: Conjunctivae and EOM are normal. Pupils are equal, round, and reactive to light. Neck: Normal range of motion. Neck supple. Cardiovascular: Normal rate. Pulmonary/Chest: Effort normal and breath sounds normal. No respiratory distress. Abdominal: Soft. He exhibits no distension and no mass. No tenderness. Musculoskeletal: Normal range of motion. He exhibits edema and tenderness. Neurological: He is alert and oriented to person, place, and time. Skin: Skin is warm and dry. Psychiatric: He has a normal mood and affect. His behavior is normal. Procedures MDM ED Course: Twelve-lead electrocardiogram demonstrates sinus tachycardia 110 beats per minute. Normal intervals. Normal axis. No ST or T wave abnormality. No previous available for comparison. Bedside echo performed by myself demonstrates no evidence for pericardial effusion. No clot was visualized within the heart chambers. RV:LV ratio<1. IVC exhibits respiratory variation, less than 1.5 cm. No evidence for right-sided heart strain. Limited bedside compression ultrasonography for DVTwas performed by myself at the level of the left common femoral vein. The left femoral vein and common femoral vein were noncompressible, confirming outside imaging report. Impression: DVT Despite IV fluids and pain medication, the patient remains persistently tachycardic. After morphine, he has no further complaints of leg pain, unless he attempts to stimulate. I did ask the patient to stand up and walk around the exam room. While doing so, he became short of breath and had desaturation to 92% on room air. The imaging from the outside hospital was loaded into our system, results reviewed and interpreted,discussed with manager of radiology. Consistent with bilateral pulmonary emboli. Laboratory evaluation was reviewed and interpreted. Options for management discussed with the patient and his family. Given his tachycardia, dyspnea with exertion and clot burden, recommend inpatient admission for further evaluation and management. Patient is amenable with this plan. Hospital medicine notified and case discussed, reviewed. Taqueria Riggs MD 04/13/12 3715 documented in this encounter Miscellaneous Notes * Discharge Summary - Huma Gutierrez MD - 04/14/2012 2:06 PM EDT Inpatient Hospital Medicine - Discharge Summary Patient Name: Heike Grant Patient Age: 36 y.o. Birthdate: 1975 Admit date: 04/13/2012 Discharge date and time: 04/14/12 Attending Physician: Huma Gutierrez MD Discharge Diagnoses (Hospital Problems) and Secondary Diagnoses (Chronic Problems): Active Hospital Problems Diagnoses ??? Other pulmonary embolism Resolved Hospital Problems Diagnoses Date Resolved Active Non-Hospital Problems Diagnoses ??? Pulmonary embolism History of Presentation: 36-year-old male presents to the emergency department for evaluation of shortness of breath. Patient states that he drove from [place] to [place] about 1.5 months ago. He took a 40 [address] ride driving about 18 hours per day. About a week ago, he developed pain and swelling in his left calf. Symptoms progressed and he developed shortness of breath on wednesday. He presented to an outside emergency department at that time, underwent CTA chest and was diagnosed with pulmonary embolism. He was admitted to [facility], started on Lovenox and Coumadin. He states that he had a lower extremity ultrasound performed the next day, demonstrating left lowerextremity DVT. He was discharged early this morning with Lovenox injections but with a subtherapeutic dose and coumadin. The patient reports ongoing shortness of breath and left lower extremity pain.He was prescribed Tylenol #3 for pain, which is not controlling his pain. Denies chest pain, diaphoresis, fever or chills. Hospital Course: The pt was admitted for observation overnight. His tachycardia improved and was only on ambulation.He desatted in room air during ambulation to only to 92-93% and thus did not require o2. A LLE duplex was obtained and showed a thrombosed common femoral vein, femoral vein, short saphenous, and posterial tibial veins. Repeat read of his prior CT PE showed extensive bilateral pulmonary emboli. A cardiac echo was completed and showed no right heart strain. He continued to have LLE pain and was prescribed low dose oxycodone to help control his pain. I explained to him that he may have been for weeks to months because of the extent of his clot burden. Prior lovenox from the OSH was a subtherapeutic dose and he was d/c home with lovenox 120 mg bid aswell as coumadin. He has a follow arranged in our coumadin clinic on Wednesday and will also establishcare with GI. I will also make a referral to hematology to be seen as an outpt. He did have a provoked DVT/PE in the setting of a long care ride but because of his age and family history, likely should have a genetic workup as an outpt once his anticoagulation has been stopped. Important Studies and Lab Data: Labs: Results for HEIKE GRANT ( ) as of 04/14/2012 14:10 Ref. Range 04/14/2012 03:51 Sodium Latest Range: 135-145 mmol/L 136 Potassium Latest Range: 3.5-5.0 mmol/L 4.0 Chloride Latest Range: 98-107 mmol/L 102 CO2 Latest Range: 22-31 mmol/L 25 Anion Gap Latest Range: 5-15 mmol/L 9 BUN Latest Range: 10-20 mg/dL 10 Creatinine Latest Range: 0.80-1.50 mg/dL 0.87 Estimated GFR Latest Range: >=60 >60 Glucose Lvl Latest Range: 60-199 mg/dL 97 Calcium Latest Range: 8.5-10.5 mg/dL 8.7 Total Protein Latest Range: 6.4-8.3 gm/dL 6.9 Albumin Latest Range: 3.2-5.2 gm/dL 3.6 Total Bilirubin Latest Range: 0.2-1.3 mg/dL 1.2 Bili, Direct Latest Range: 0.0-0.3 mg/dL 0.3 Alk Phos Latest Range: 40-120 unit/L 62 AST Latest Range: 0-39 unit/L 27 ALT Latest Range: 0-55 unit/L 36 Results for HEIKE GRANT ( ) as of 04/14/2012 14:10 Ref. Range 04/14/2012 03:51 WBC Latest Range: 4.0-10.0 x10(3)/mcL 10.8 (H) RBC Latest Range: 4.63-6.08 x10(6)/mcL 5.15 Hemoglobin Latest Range: 13.7-17.5 gm/dL 16.7 Hematocrit Latest Range: 40.0-51.0 % 46.7 MCV Latest Range: 79.0-92.0 fL 90.7 MCH Latest Range: 25.6-32.2 pg 32.4 (H) MCHC Latest Range: 32.0-36.5 gm/dL 35.8 RDWSD Latest Range: 35.0-46.0 fL 40.5 RDWCV Latest Range: 10.9-14.4 % 12.3 Platelets Latest Range: 145-370 x10(3)/mcL 149 MPV Latest Range: 9.0-12.0 fL 10.8 Neutr Abs (ANC) Latest Range: 1.50-6.30 x10(3)/mcL 7.01 (H) Studies: CT PE 2nd read: Findings Multiple filling defects in the distal [...] examination. Impression 1. Extensive bilateral pulmonary emboli. Duplex LLE 04/14/12: Thrombosed common femoral vein below the saphenofemoral junction, thrombosed femoral vein throughout the thigh, popliteal vein, gastrocnemius veins, short saphenous vein and posterior tibial veins. Nearly occlusive thrombus in both peroneal veins. Patent CFV above the SFJ. Patent GSV. EKG 04/13/12: Sinus tachycardia, no RV strain 2D echo 04/14/12:1. Right ventricular chamber size, wall thickness, and systolic function are within normal limits. 2. Pulmonary artery hypertension could not be assessed due to inadequate tricuspid regurgitation jet. 3. Left ventricular chamber size, wall thickness, global and segmental systolic function are within normal limits. Ejection fraction is estimated to be 65%. 4. The cardiac valves appear structurally and functionally normal. Discharge Conditions/Prognosis: LLE DVT/PE currently being tx and clinically stable Discharge to: home Discharge Medications: Current Discharge Medication List New Meds Dose Details OXYcodone (ROXICODONE) 5 mg immediate release tablet 5 mg Take 1 tablet by mouth every 4 hours as needed for Pain (mild to moderate pain). Qty: 30 tablet Refills: 0 Continued medications with revised dosing Dose Details enoxaparin (LOVENOX) 120 mg/0.8 mL injection 120 mg Inject 0.8 mLs subcutaneously every 12 hours for 6 days. Qty: 9.61 mL Refills: 0 warfarin (COUMADIN) 5 mg tablet 5 mg Take 1 tablet by mouth daily. Qty: 30 tablet Refills: 3 Continued medications, unchanged Dose Details acetaminophen-codeine (TYLENOL WITH CODEINE) 120-12 mg/5 mL solution 5 mLs Take 5 mLs by mouth every 8 hours as needed. Qty: Refills: Updated Allergies/ADRs: No Known Allergies Follow-up Recommendations for Providers: He has an INR f/u on Wednesday. He should continue his lovenox until his INR has been therapeutic for 24 hours Instructions Given to Patient at Discharge: Provider Instructions None General Instructions Future Appointments and Orders Future Appointments: Provider: Department: Dept Phone: Center: 04/18/2012 11:00 AM Charlene Pavon APRN [address] [phone] [facility] 04/19/2012 10:00 AM Alex Mosqueda MD [address] [phone] [facility] 06/28/2012 2:50 PM MD Lesley Gage[address] [phone] [facility] Joint Appt Health Questionnaire Gim [address] [phone] [facility] Joint Appt Gen Int Med Health History [facility] [phone] [facility] Future Orders Please Complete By Expires REFERRAL TO ANTICOAGULATION MONITORING [[id number] Custom] Process Instructions: If no progress note charted, please enter Clinical details in comments. Scheduling Instructions: Comments: Questions: Responses: Responsible Group AD HOC POOL Reason for referral 36 yo with LLE DVT and bilat PE Risk Factors: Next due INR 04/18/2012 INR Goal Target End Date 07/14/2012 Discharge References/Attachments: Discharge References/Attachments None For questions regarding this document or issues relating to this hospitalization on the Medical Service, please contact your inpatient physician through the [facility] [employer]ist . Issues afterhours and on weekends will be handled by the Hospitalist staff on-call. Signed: HUMA GUTIERREZ MD 04/14/2012 * Plan of Care - Timoteo Lopez RN - 04/14/2012 7:03 AM EDT Problem: Pain, Acute (Adult, Obstetric) Goal: Acute Pain: Acceptable Pain Control/Comfort Level - Pain, Acute (Adult, Obstetric) Outcome: Present (see interventions, notes) Pt co pain in left leg upon arrival to the floor, medicated with 5mg oxycodone IR with good relief.PT slept through the night with no other complaints. * Miscellaneous - Provider, Scanning - 04/13/2012 11:29 PM EDT * Miscellaneous - Provider, Scanning - 04/13/2012 10:34 PM EDT * ED Triage - Shanti Gutiérrez RN - 04/13/2012 5:15 PM EDT Came in today complaining of pain in his left leg, recently discharge from [facility], and they were not happy. Complaining of pain, also said I have many blood clots in my lungs. Had a CT of his chest. Patient has been Lovenox for 2 days and warfarin. Started the warfarin yesterday. Pt. Brought his CT disk with him. Respiration regular and non-labored. documented in this encounter Plan of Treatment Scheduled Referrals Name Type Priority Associated Diagnoses Order Schedule REFERRAL TO ANTICOAGULATION MONITORING Outpatient Referral Routine Pulmonary embolism Ordered: 04/14/2012 REFERRAL TO HEMATOLOGY AND ONCOLOGY Outpatient Referral Routine Pulmonary embolism Ordered: 04/14/2012 documented as of this encounter Procedures Procedure Name Priority Date/Time Associated Diagnosis Comments ECHOCARDIOGRAM TRANSTHORACIC Routine 04/14/2012 3:37 PM EDT Pulmonary embolism DUPLEX FOR DVT, LEG, UNILAT Routine 04/14/2012 11:04 AM EDT DIFFERENTIAL, AUTOMATED Routine 04/14/20 12 3:51 AM EDT APTT STAT 04/14/2012 3:51 AM EDT PROTHROMBIN TIME STAT 04/14/2012 3:51 AM EDT CBC (WITH DIFF) Routine 04/14/2012 3:51 AM EDT HEPATIC FUNCTION PANEL Routine 2 3:51 AM EDT BASIC METABOLIC PANEL Routine 04/14/2012 3:51 AM EDT URINALYSIS WITH REFLEX CULTURE STAT 04/13/2012 11:22 PM EDT DIFFERENTIAL, AUTOMATED STAT 04/13/20 12 7:15 PM EDT BLUE TUBE HOLD STAT 04/13/2012 7:15 PM EDT CREATININE STAT 04/13/2012 7:15 PM EDT CBC (WITH DIFF) STAT 04/13/2012 7:15 PM EDT BUN STAT 04/13/2012 7:15 PM EDT TROPONIN STAT 04/13/2012 7:15 PM EDT PRO-BRAIN NATRIURETIC PEPTIDE STAT 04/13/2012 7:15 PM EDT GLUCOSE STAT 04/13/2012 7:15 PM EDT ELECTROLYTES PANEL STAT 04/13/2012 7: 15 PM EDT EKG 12-LEAD STAT 04/13/2012 6:59 PM EDT REQUEST FOR 2ND READ CT CHEST Routine 04/13/2012 6:05 PM EDT documented in this encounter Results * Echo Transthoracic (Complete) (04/14/2012 3:37 PM EDT) EF 65 HEARTLAB SYSTEM Anatomical Region Laterality Modality Other 04/14/2012 Narrative 04/14/2012 4:09 PM EDT Procedure: ? Transthoracic Echocardiogram Patient: ? RUDY HEIKE ?(Age): 1975(36) Med Rec#: ?[id number] ? Sex: ?M ? Site Loc: ?[facility] ? Ht / Wt: ??188(cm)/120(kg) Pt. Loc: ? Adult Floor ?BSA: ?2.5 Study Date: ?04/14/2012 ? Pt. Type: Inpatient Tape: ? Referring: Huma Gutierrez Referring: NONE Sql Server Dba: Fernando Monk RDCS Diagnosis:CPT Code(s): ??Spectral Doppler (16987), ??Echo Full (72208), Color Doppler (25161), Indication(s): ??Pulmonary embolus, R/O Rhythm: HR ?BP ?153/84 ?? SUMMARY: 1. Right ventricular chamber size, wall thickness, and systolic function are within normal limits. 2. Pulmonary artery hypertension could not be assessed due to inadequate tricuspid regurgitation jet. 3. Left ventricular chamber size, wall thickness, global and segmental systolic function are within normal limits. Ejection fraction is estimated to be 65%. 4. The cardiac valves appear structurally and functionally normal. 5. See remainder of report for additional findings. FINDINGS: Left Ventricle ?Left ventricular chamber size, wall thickness, global and segmental systolic function are within normal limits. Ejection fraction is estimated to be 65%. ?There are no left ventricular segmental wall motion abnormalities. ?Doppler assessment is consistent with normal left sided filling pressure. Left Atrium ?The left atrium is normal in size. Right Ventricle ?Right ventricular chamber size, wall thickness, and systolic function are within normal limits. ?Pulmonary artery hypertension could not be assessed due to inadequate tricuspid regurgitation jet. Right Atrium ?The right atrium is normal in size. Aortic Valve ?The aortic valve is trileaflet. The leaflets are thin with normal excursion. There is no aortic stenosis or regurgitation present. Mitral Valve ?The mitral valve appears normal in structure and function. ?There is trace mitral regurgitation present. Tricuspid Valve ?The tricuspid valve appears normal in structure and function. ?There is trace tricuspid regurgitation present. Pulmonic Valve ?The pulmonic valve is not well visualized. ?There is no evidence of pulmonic regurgitation. Pericardium ?The pericardium appears normal and there is no evidence of a pericardial effusion. Aorta ?The aortic root is normal in size. ?The ascending aorta is normal in size. Pulmonary Artery ?The main pulmonary artery appears normal. Venous ?The inferior vena cava appears normal in size. ?There is a greater than 50% respiratory change in the inferior vena cava dimension. Misc ?See remainder of report for additional findings. ?Two-dimensional echo, spectral Doppler and color Doppler performed. Wall Motion: Segment Name ?Rest ? Base-Anteroseptal ?? Normal ? Base-Anterior ? Normal ? Base-Anterolateral ??Normal ? Base-Posterolateral Normal ? Base-Inferior ? Normal ? Base-Inferoseptal ?? Normal ? Mid-Anteroseptal ?Normal ? Mid-Anterior ?Normal ? Mid-Anterolateral ?? Normal ? Mid-Posterolateral ??Normal ? Mid-Inferior ?Normal ? Mid-Inferoseptal ?Normal ? [place]-Septal ? Normal ? [place]-Anterior ? Normal ? [place]-Lateral ?Normal ? [place]-Inferior ? Normal ? [place]-Tip ?Normal ? Chambers ?Value ?Units (Range) ? LV EF Est ? 65 ? % (55 to 80) ? IVSd 2D ? 0.9 ?cm ? LVIDd 2D ?4.7 ?cm ? PWd 2D ?1 ?cm ? LVIDs 2D ?3 ?cm ? LVFS 2D ? 36 ? % ? LA area ? 19 ? cm2 (<21) ? RA area ? 15 ? cm2 (<18) ? Ao root ? 3.1 ?cm (2.1 to 3.6) ? Asc Ao ?3.3 ?cm (2 to 3.5) ? Mitral Valve ?Value ?Units (Range) ? E peak ?0.7 ?m/sec ? E/A ratio ? 1.4 ?ratio ? MVDT ?162 ?msec ? E1 ?0.13 ? m/sec ? E/E1 ?5.4 ?ratio ? Tricuspid/Pulmonic Valves ?Value ?Units (Range) ? RAP ? 3 ?mmHg ? This report has been electronically signed by: Shady Odonnell M.D. ? 04/14/2012 16:07:56 Images reviewed and interpretation verified [facility] Cardiac Ultrasound Laboratory Procedure Note Shady Odonnell MD - 04/14/2012 Procedure: Transthoracic Echocardiogram Patient: RUDY PABON(Age): 1975(36) Med Rec#: [id number] Sex: M Site Loc: [facility] Ht / Wt: 188(cm)/120(kg) Pt. Loc: Adult Floor BSA: 2.5 Study Date: 04/14/2012 Pt. Type: Inpatient Tape: Referring: Huma GutierrezStephie Referring: NONE [employer] Dba: Fernando Monk RDCS Diagnosis:CPT Code(s): Spectral Doppler (41197), Echo Full (62916), Color Doppler (98617), Indication(s): Pulmonary embolus, R/O Rhythm: HR BP 153/84 SUMMARY: 1. Right ventricular chamber size, wall thickness, and systolic function are within normal limits. 2. Pulmonary artery hypertension could not be assessed due to inadequate tricuspid regurgitation jet. 3. Left ventricular chamber size, wall thickness, global and segmental systolic function are within normal limits. Ejection fraction is estimated to be 65%. 4. The cardiac valves appear structurally and functionally normal. 5. See remainder of report for additional findings. FINDINGS: Left Ventricle Left ventricular chamber size, wall thickness, global and segmental systolic function are within normal limits. Ejection fraction is estimated to be 65%. There are no left ventricular segmental wall motion abnormalities. Doppler assessment is consistent with normal left sided filling pressure. Left Atrium The left atrium is normal in size. Right Ventricle Right ventricular chamber size, wall thickness, and systolic function are within normal limits. Pulmonary artery hypertension could not be assessed due to inadequate tricuspid regurgitation jet. Right Atrium The right atrium is normal in size. Aortic Valve The aortic valve is trileaflet. The leaflets are thin with normal excursion. There is no aortic stenosis or regurgitation present. Mitral Valve The mitral valve appears normal in structure and function. There is trace mitral regurgitation present. Tricuspid Valve The tricuspid valve appears normal in structure and function. There is trace tricuspid regurgitation present. Pulmonic Valve The pulmonic valve is not well visualized. There is no evidence of pulmonic regurgitation. Pericardium The pericardium appears normal and there is no evidence of a pericardial effusion. Aorta The aortic root is normal in size. The ascending aorta is normal in size. Pulmonary Artery The main pulmonary artery appears normal. Venous The inferior vena cava appears normal in size. There is a greater than 50% respiratory change in the inferior vena cava dimension. Misc See remainder of report for additional findings. Two-dimensional echo, spectral Doppler and color Doppler performed. Wall Motion: Segment Name Rest Base-Anteroseptal Normal Base-Anterior Normal Base-Anterolateral Normal Base-Posterolateral Normal Base-Inferior Normal Base-Inferoseptal Normal Mid-Anteroseptal Normal Mid-Anterior Normal Mid-Anterolateral Normal Mid-Posterolateral Normal Mid-Inferior Normal Mid-Inferoseptal Normal [place]-Septal Normal [place]-Anterior Normal [place]-Lateral Normal [place]-Inferior Normal [place]-Tip Normal Chambers Value Units (Range) LV EF Est 65 % (55 to 80) IVSd 2D 0.9 cm LVIDd 2D 4.7 cm PWd 2D 1 cm LVIDs 2D 3 cm LVFS 2D 36 % LA area 19 cm2 (<21) RA area 15 cm2 (<18) Ao root 3.1 cm (2.1 to 3.6) Asc Ao 3.3 cm (2 to 3.5) Mitral Valve Value Units (Range) E peak 0.7 m/sec E/A ratio 1.4 ratio MVDT 162 msec E1 0.13 m/sec E/E1 5.4 ratio Tricuspid/Pulmonic Valves Value Units (Range) RAP 3 mmHg This report has been electronically signed by: Shady Odonnell M.D. 04/14/2012 16:07:56 Images reviewed and interpretation verified [facility] Cardiac Ultrasound Laboratory Huma Kaufman MD ECHO ORDERABLES * Duplex for DVT, Leg, Unilat (04/14/2012 11:04 AM EDT) VB Text Report Department: Vascular Surgery Lab Patient: [id number] (HEIKE GRANT) CPT Code: 04505 ICD-9: 451.19 Referring Physician: HUMA GUTIERREZ Indication: ??left leg DVT by OSH ICD9 Diagnosis Code: 451.19 LEFT: Thrombosed common femoral vein below the saphenofemoral junction, thrombosed femoral vein throughout the thigh, popliteal vein, gastrocnemius veins, short saphenous vein and posterior tibial veins. Nearly occlusive thrombus in both peroneal veins. Patent CFV above the SFJ. Patent GSV. Interpretation: LEFT: Extensive deep vein thrombosis of the lower extremity. Dr Vianney Gutierrez notified of test results. Signed by LEIGHTON CLEMONS on 2012-04-15 03:42:36 PM VASCUBASE VB Text Report End of Report VASCUBASE 04/14/2012 11:0 4 AM EDT Huma Kaufman MD VASCULAR ORDERABL ES VASCUBASE * (ABNORMAL) DIFFERENTIAL, AUTOMATED (04/14/2012 3:51 AM EDT) Neutrophil % 64.7 34.0 - 71.0 % CERNER MILLENNIUM Neutrophil Absolute 7.01(H) 1.50 - 6.30 x10(3)/mc L CERNER MILLENNIUM Lymph % 20.2 19.0 - 53.0 % CERNER MILLENNIUM Lymphocytes Abs 2.2 1.0 - 3.6 x10(3)/mc L CERNER MILLENNIUM Monocyte % 12.9 4.0 - 13.0 % CERNER MILLENNIUM Monocyte Abs 1.4(H) 0.2 - 1.0 x10(3)/mc L CERNER MILLENNIUM Eos % 1.8 0.0 - 7.0 % CERNER MILLENNIUM Eosinophils Abs 0.2 0.0 - 0.5 x10(3)/mc L CERNER MILLENNIUM Basophil % 0.2 0.0 - 2.0 % CERNER MILLENNIUM Baso Absolute 0.0 0.0 - 0.2 x10(3)/mc L CERNER MILLENNIUM Immature Gran % 0.20 0.00 - 0.66 % CERNER MILLENNIUM Comment: Immature granulocytes(IG's)percentage and absolute count will include metamyelocytes, myelocytes, and promyelocytes. Blood smears from CBCs yielding IG's will be scanned manually for concordance. If this scan disagrees with the automated IG or if promyelocytes are noted, a manual differential will be performed. Immature Gran Absolute 0.02 0.00 - 0.05 x10(3)/mc L CERNER MILLENNIUM Blood specimen (specimen) 04/14/2012 3:51 AM EDT 04/14/2012 3:57 AM EDT Irene Vail DO HEMATOLOGY CLARIBELE CHAITANYA [facility] [employer]wiltENNIUM * Basic Metabolic Panel (non-fasting) (04/14/2012 3:51 AM EDT) Glucose 97 60 - 199 mg/dL CERNER MILLENNIUM Comment:Diabetes: >=200 mg/d L plus symptoms Blood Urea Nitrogen 10 10 - 20 mg/dL CERNER MILLENNIUM Creatinine 0.87 0.80 - 1.50 mg/dL CERNER MILLENNIUM Comment: Please note that the pediatric reference intervals supplied above were not validated at [facility]. Results from pediatric patients should be interpreted in conjunction to the patient's age, height and muscle mass. Sodium 136 135 - 145 mmol/L CERNER MILLENNIUM Potassium 4.0 3.5 - 5.0 mmol/L CERNER MILLENNIUM Comment: Please note: ??Patients with WBC >100,000 may have falsely elevated Potassium levels. ??For accurate Potassium quantification in these patients send serum separator tube (gold top) for subsequent determinations. ??Contact the Clinical Chemistry Laboratory if there are any questions. Chloride 102 98 - 107 mmol/L CERNER MILLENNIUM Carbon Dioxide 25 22 - 31 mmol/L CERNER MILLENNIUM Anion Gap 9 5 - 15 mmol/L CERNER MILLENNIUM Calcium 8.7 8.5 - 10.5 mg/dL CERNER MILLENNIUM Est [...] J Am Soc Nephrol;6:1963-72. Blood specimen (specimen) 04/14/2012 3:51 AM EDT 04/14/2012 3:57 AM EDT Narrative Resulting Agency Comment Spec In Lab Irene Vail DO CHEMISTRY ORDER RICHAR [facility] [employer] * (ABNORMAL) CBC (with Diff) (04/14/2012 3:51 AM EDT) White Blood Cell 10.8(H) 4.0 - 10.0 x10(3)/mc L CERNER MILLENNIUM Red Blood Cell 5.15 4.63 - 6.08 x10(6)/mc L CERNER MILLENNIUM Hemoglobin 16.7 13.7 - 17.5 gm/dL CERNER MILLENNIUM Hematocrit 46.7 40.0 - 51.0 % CERNER MILLENNIUM Mean Cell Volume 90.7 79.0 - 92.0 fL CERNER MILLENNIUM Mean Cell Hemoglobin 32.4(H) 25.6 - 32.2 pg CERNER MILLENNIUM Mean Cell Hemoglobin Concentration 35.8 32.0 - 36.5 gm/dL [facility] Platelet 149 145 - 370 x10(3)/mc L [facility] MILLENNIUM RDW Standard Deviation 40.5 35.0 - 46.0 fL [facility] MILLENNIUM RDW coefficient of variation 12.3 10.9 - 14.4 % [facility] MILLENNIUM Mean Platelet Volume 10.8 9.0 - 12.0 fL [facility] Blood specimen (specimen) 04/14/2012 3:51 AM EDT 04/14/2012 3:57 AM EDT Narrative Resulting Agency Comment Spec In Lab [facility] Performing Organization Address [facility] Co de Phone Number [facility] * APTT (04/14/2012 3:51 AM EDT) Partial Thromboplastin Time 30 25 - 35 sec [facility] Comment: Recommended therapeutic PTT range for full dose unfractionated heparin is 80-114 seconds. Blood specimen (specimen) 04/14/2012 3:51 AM EDT 04/14/2012 3:57 AM EDT Narrative Resulting Agency Comment Spec In Lab Irene Vail DO [facility] Performing Organization Address [facility] Co de Phone Number [facility] * Prothrombin Time (04/14/2012 3:51 AM EDT) Prothrombin Time 14.6 11.9 - 14.7 sec [facility] Comment: [facility] Transfusion Committee Guidelines: INR less than 2.0, PTT less than OR equal to 43.5 seconds, or Fibrinogen greater than or equal to 100 mg/dl indicate adequate procoagulant activity for hemostasis in patients without underlying bleeding disorders. International Normalization Ratio 1.1 0.9 - 1.1 [facility] Blood specimen (specimen) 04/14/2012 3:51 AM EDT 04/14/2012 3:57 AM EDT Narrative Resulting Agency Comment Spec In Lab [facility] HEMATOLOGY ORDE RABLES CERNER MILLENNIUM * Hepatic Function Panel (04/14/2012 3:51 AM EDT) [facility] Protein, Total 6.9 6.4 - 8.3 gm/dL CERNER MILLENNIUM Albumin 3.6 3.2 - 5.2 gm/dL CERNER MILLENNIUM Aspartate Aminotransferase 27 0 - 39 unit/L CERNER MILLENNIUM Alanine Aminotransferase 36 0 - 55 unit/L CERNER MILLENNIUM Alkaline Phosphatase 62 40 - 120 unit/L CERNER MILLENNIUM Bilirubin, Total 1.2 0.2 - 1.3 mg/dL CERNER MILLENNIUM Bilirubin, Direct 0.3 0.0 - 0.3 mg/dL CERNER MILLENNIUM Blood specimen (specimen) 04/14/2012 3:51 AM EDT 04/14/2012 3:57 AM EDT Narrative Resulting Agency Comment Spec In Lab [facility] CHEMISTRY ORDER RICHAR Performing Organization Address [facility]/ZIP Co de Phone Number CERNER MILLENNIUM * (ABNORMAL) Urinalysis with microscopic (04/13/2012 11:22 PM EDT) [facility] Glucose, Urine Dipstick Negative Negative mg/dL CERNER MILLENNIUM Protein, Urine Dipstick Trace(A) Neg mg/dL CERNER MILLENNIUM Bilirubin, Urine Dipstick Negative Negative mg/dL CERNER MILLENNIUM Urobilinogen, Urine Dipstick Normal mg/dL CERNER MILLENNIUM pH, Urn (dipstick) 6.5 5.0 - 8.0 CERNER MILLENNIUM Blood, Urine Dipstick Negative mg/dL CERNER MILLENNIUM Ketone, Urine Dipstick Trace(A) Neg mg/dL CERNER MILLENNIUM Nitrite, Urine Dipstick Negative CERNER MILLENNIUM Leukocytes, Urine Dipstick Negative mcL CERNER MILLENNIUM Appearance, Urine Dipstick Clear Clear CERNER MILLENNIUM Specific [place] Urine Automated 1.012 1.002 - 1.030 CERNER MILLENNIUM Color, Urine Dipstick Yellow Yellow CERNER MILLENNIUM RBC, Urine 1 0 - 3 /HPF CERNER MILLENNIUM WBC, Urine 1 0 - 3 /HPF CERNER MILLENNIUM Bacteria, Urine Rare(A) None /HPF CERNER MILLENNIUM Urine specimen (specimen) 04/13/2012 11:22 PM EDT 04/13/2012 11:36 PM EDT Narrative Resulting Agency Comment Spec In Lab Taqueria Riggs MD URINE ORDERABLES CERNER MILLENNIUM * (ABNORMAL) DIFFERENTIAL, AUTOMATED (04/13/2012 7:15 PM EDT) Neutrophil % 67.3 34.0 - 71.0 % CERNER MILLENNIUM Neutrophil Absolute 7.94(H) 1.50 - 6.30 x10(3)/mc L CERNER MILLENNIUM Lymph % 19.0 19.0 - 53.0 % CERNER MILLENNIUM Lymphocytes Abs 2.2 1.0 - 3.6 x10(3)/mc L CERNER MILLENNIUM Monocyte % 12.0 4.0 - 13.0 % CERNER MILLENNIUM Monocyte Abs 1.4(H) 0.2 - 1.0 x10(3)/mc L CERNER MILLENNIUM Eos % 1.1 0.0 - 7.0 % CERNER MILLENNIUM Eosinophils Abs 0.1 0.0 - 0.5 x10(3)/mc L CERNER MILLENNIUM Basophil % 0.3 0.0 - 2.0 % CERNER MILLENNIUM Baso Absolute 0.0 0.0 - 0.2 x10(3)/mc L CERNER MILLENNIUM Immature Gran % 0.30 0.00 - 0.66 % CERNER MILLENNIUM Comment: Immature granulocytes(IG's)percentage and absolute count will include metamyelocytes, myelocytes, and promyelocytes. Blood smears from CBCs yielding IG's will be scanned manually for concordance. If this scan disagrees with the automated IG or if promyelocytes are noted, a manual differential will be performed. Immature Gran Absolute 0.04 0.00 - 0.05 x10(3)/mc L CERNER MILLENNIUM Blood specimen (specimen) 04/13/2012 7:15 PM EDT 04/13/2012 7:26 PM EDT Taqueria Riggs MD HEMATOLOGY ORDERABLE S Performing Organization Address [facility] de Phone Number JEIMY JIANG * BLUE TUBE HOLD (04/13/2012 7:15 PM EDT) Blue Hold Sample in lab. JEIMY JIANG Blood specimen (specimen) 04/13/2012 7:15 PM EDT 04/13/2012 7:26 PM EDT Taqueria Riggs MD HEMATOLOGY ORDERABLE S Performing Organization Address [facility] Co de Phone Number JEIMY JIANG * pro-Brain Natriuretic Peptide (04/13/2012 7:15 PM EDT) Pathologist [facility] [place] NT-proBNP 20 <=125 pg/mL JEIMY JIANG Blood specimen (specimen) 04/13/2012 7:15 PM EDT 04/13/2012 7:26 PM EDT Narrative Resulting Agency Comment Spec In Lab Taqueria Riggs MD CHEMISTRY ORDERABLES Performing Organization Address [facility] de Phone Number JEIMY JIANG * Troponin T (04/13/2012 7:15 PM EDT) Pathologist [facility] [place] Troponin-T <0.03 <=0.03 ng/mL [facility] Comment: 0.03 ng/mL: Represents the 99th percentile upper reference limit for normals. >0.03 ng/mL: Elevated cardiac troponin T level indicative of myocardial damage. Diagnosis of acute, evolving or recent OK requires a typical rise and gradual fall of cTnT with at least ONE of the following: a) Ischemic symptoms b) Development of pathologic Q waves on the ECG c) ECG changes indicative of eschemia (S-T segment elevation/depression) d) Coronary artery intervention Serial bloods should be obtained for testing on admission, at 6 to 9 hrs and again at 12 to 24 hrs if earlier samples are negative and the clinical index of suspicion is high. Reference: [Myocardial infarction redefined a consensus document of the Joint Society of Cardiology/[place] [employer] Committee for the redefinition of myocardial infarction. Journal of the [place] [employer] 2000; 36: 959-969] Blood specimen (specimen) 04/13/2012 7:15 PM EDT 04/13/2012 7:26 PM EDT Narrative Resulting Agency Comment Spec In Lab Taqueria Riggs MD CHEMISTRY ORDERABLES Performing Organization Address City/[facility]/ZIP Co de Phone Number JEIMY prollieIUM * Glucose, random (04/13/2012 7:15 PM EDT) Glucose 93 60 - 199 mg/dL [facility] prollieIUM Comment:Diabetes: >=200 mg/d L plus symptoms Blood specimen (specimen) 04/13/2012 7:15 PM EDT 04/13/2012 7:26 PM EDT Narrative Resulting Agency Comment Spec In Lab Taqueria Riggs MD CHEMISTRY ORDERABLES Performing Organization Address [facility] Co de Phone Number JEIMY QwiltENNIUM * Creatinine, serum (04/13/2012 7:15 PM EDT) Creatinine 0.91 0.80 - 1.50 mg/dL [facility] proll[facility] Comment: Please note that the pediatric reference intervals supplied above were not validated at [facility]. Results from pediatric patients should be interpreted in conjunction to the patient's age, height and muscle mass. Est Glomerular Filtration Rate >60 >=60 CERNER QwiltENNIUM Comment: The National Kidney Disease Education Program [...] J Am Soc Nephrol;6:1963-72. Blood specimen (specimen) 04/13/2012 7:15 PM EDT 04/13/2012 7:26 PM EDT Narrative Resulting Agency Comment Spec In Lab Taqueria Riggs MD CHEMISTRY ORDERABLES Performing Organization Address [facility] Co de Phone Number JEIMY QwiltSADA * (ABNORMAL) BUN (04/13/2012 7:15 PM EDT) Blood Urea Nitrogen 9(L) 10 - 20 mg/dL JEIMY JIANG Blood specimen (specimen) 04/13/2012 7:15 PM EDT 04/13/2012 7:26 PM EDT Narrative Resulting Agency Comment Spec In Lab Taqueria Riggs MD CHEMISTRY ORDERABLES JEIMY SHEYLASADA * Electrolytes panel (04/13/2012 7:15 PM EDT) Pathologist [facility] [place] Sodium 138 135 - 145 mmol/L CERNER MILLENNIUM Potassium 3.6 3.5 - 5.0 mmol/L CERNER MILLENNIUM Comment: Please note: ??Patients with WBC >100,000 may have falsely elevated Potassium levels. ??For accurate Potassium quantification in these patients send serum separator tube (gold top) for subsequent determinations. ??Contact the Clinical Chemistry Laboratory if there are any questions. Chloride 101 98 - 107 mmol/L CERNER MILLENNIUM Carbon Dioxide 27 22 - 31 mmol/L CERNER MILLENNIUM Anion Gap 10 5 - 15 mmol/L CERNER MILLENNIUM Blood specimen (specimen) 04/13/2012 7:15 PM EDT 04/13/2012 7:26 PM EDT Narrative Resulting Agency Comment Spec In Lab Taqueria Riggs MD CHEMISTRY ORDERABLES CERNER MILLENNIUM * (ABNORMAL) CBC (with Diff) (04/13/2012 7:15 PM EDT) Pathologist [facility] [place] White Blood Cell 11.8(H) 4.0 - 10.0 x10(3)/mc L CERNER MILLENNIUM Red Blood Cell 5.42 4.63 - 6.08 x10(6)/mc L CERNER MILLENNIUM Hemoglobin 17.1 13.7 - 17.5 gm/dL CERNER MILLENNIUM Hematocrit 48.4 40.0 - 51.0 % CERNER MILLENNIUM Mean Cell Volume 89.3 79.0 - 92.0 fL CERNER MILLENNIUM Mean Cell Hemoglobin 31.5 25.6 - 32.2 pg CERNER MILLENNIUM Mean Cell Hemoglobin Concentration 35.3 32.0 - 36.5 gm/dL CERNER MILLENNIUM Platelet 172 145 - 370 x10(3)/mc L CERNER MILLENNIUM RDW Standard Deviation 39.8 35.0 - 46.0 fL CERNER MILLENNIUM RDW coefficient of variation 12.3 10.9 - 14.4 % CERNER MILLENNIUM Mean Platelet Volume 11.4 9.0 - 12.0 fL CERNER MILLENNIUM Blood specimen (specimen) 04/13/2012 7:15 PM EDT 04/13/2012 7:26 PM EDT Narrative Resulting Agency Comment Spec In Lab Taqueria Riggs MD HEMATOLOGY ORDERABLE S Performing Organization Address [facility] Co de Phone Number JEIMY JIANG * EKG 12 Lead (04/13/2012 6:59 PM EDT) Ventricular rate 110 BPM MUSE SYSTEM Atrial Rate 110 BPM MUSE SYSTEM P-R Interval 130 ms MUSE SYSTEM QRS Duration 84 ms MUSE SYSTEM Q-T Interval 352 ms MUSE SYSTEM QTC Calculated (Bezet) 476 ms MUSE SYSTEM Calculated P [place] 33 degrees MUSE SYSTEM Calculated R [place] 37 degrees MUSE SYSTEM Calculated T [place] 44 degrees MUSE SYSTEM INTERPRETATION Sinus tachycardia Otherwise normal ECG No previous ECGs available Confirmed by MD Vahe, Taqueria ([id number]) on 04/13/2012 10:07:40 PM MUSE SYSTEM 04/13/2012 6:59 PM EDT 04/13/2012 10:07 PM EDT Taqueria Riggs MD ECG ORDERABLES Performing Organization Address [facility] Co de Phone Number MUSE SYSTEM * REQUEST FOR 2ND READ CT CHEST (04/13/2012 6:05 PM EDT) Anatomical Region Laterality Modality Chest Other 04/13/2012 6:05 PM EDT Narrative 04/14/2012 1:11 PM EDT Examination OUTSIDE CT CHEST Clinical History I believe a reinterpretation of this exam may alter care of Patient. Yes; What Modality is the exam? CT Scan; Body Part (please add comments as necessary): chest; report of numerous pulm. embolism Comparison None technique: Technique Helical axial images of the chest were performed after administration of 50 ccs of isovolume with coronal re-formatted views ?? Findings Multiple filling defects in the distal left and right pulmonary arteries in addition to the bilateral interlobar and segmental branches are consistent with extensive bilateral pulmonary emboli. There is no evidence of cor pulmonale. Also seen is small focal area of left basilar atelectasis. The lung parenchyma and mediastinum are normal in appearance. ?? Liver and gallbladder are unremarkable. The spleen and pancreas are within normal limits. The visualized small intestine is not dilated. The kidneys and adrenal glands are not seen in this examination. ?? Impression 1. ??Extensive bilateral pulmonary emboli. Film and interpretation reviewed by the attending Procedure Note Althea Junior MD - 04/14/[address] CHEST Clinical History I believe a reinterpretation of this exam may alter care of Patient. Yes;What Modality is the exam? CT Scan; Body Part (please add comments asnecessary): chest; report of numerous pulm. embolism Comparison None technique: Technique Helical axial images of the chest were performed after administration of50 ccs of isovolume with coronal re-formatted views Findings Multiple filling defects in the distal left and right pulmonary arteriesin addition to the bilateral interlobar and segmental branches are consistentwith extensive bilateral pulmonary emboli. There is no evidence of corpulmonale. Also seen is small focal area of left basilar atelectasis. The lungparenchyma and mediastinum are normal in appearance. Liver and gallbladder are unremarkable. The spleen and pancreas are within normal limits. The visualized small intestine is not dilated. The kidneysand adrenal glands are not seen in this examination. Impression 1. Extensive bilateral pulmonary emboli. Film and interpretation reviewed by the attending Taqueria Riggs MD IMG OUTSIDE INTERPRE TATION ORDERABLES documented in this encounter Visit Diagnoses Diagnosis Pulmonary embolism Other pulmonary embolism and infarction Other pulmonary embolism Other pulmonary embolism and infarction documented in this encounter Administered Medications Inactive Administered Medications - up to 3 most recent administrations Medication Order MAR Action Action Date Dose Rate Site enoxaparin (LOVENOX) injection 120 mg 120 mg (1 mg/kg/dose ? 119.8 kg), Subcutaneous, EVERY 12 HOURS SCHEDULED (2 times per day), First dose on Amber 04/14/12 at 0900, Until Discontinued, Routine Given 04/14/2012 8:32 AM EDT 120 mg morphine injection 5 mg 5 mg, Intravenous, ONCE, On Wed04/13/12 at 1845, 1 dose Given 04/13/2012 7:20 PM EDT 5 mg ondansetron (ZOFRAN-ODT) oral disintegrating tablet 4 mg 4 mg, Oral, ONCE, 1 dose, On Wed04/13/12 at 1845, STAT Given 04/13/2012 7:00 PM EDT 4 mg OXYcodone (ROXICODONE) immediate release tablet 5 mg 5 mg, Oral, EVERY 4 HOURS PRN, Starting on Wed04/13/12 at 2310, Until Wed04/14/12 at 1936, Pain, mild to moderate pain, May give additional 5 mg in 30 minutes times 1 if pain not relieved. , Routine Given 04/14/2012 3:24 PM EDT 5 mg Given 04/14/2012 8:13 AM EDT 5 mg Given 04/14/2012 12:52 AM EDT 5 mg sodium chloride 0.9 % flush 5 mL 5 mL, Intravenous, EVERY 12 HOURS, First dose on Amber 04/14/12 at 0030, Until Discontinued Given 04/14/2012 11:34 AM EDT 5 mLs Given 04/14/2012 12:52 AM EDT 5 mLs sodium chloride 0.9% infusion 100 mL/hr, Intravenous, CONTINUOUS, Starting on Wed04/14/12 at 0030, Until Wed04/14/12 at 1936 New Bag 04/14/2012 10:10 AM EDT 100 mL/hr 100 mL/hr New Bag 04/14/2012 12:52 AM EDT 100 mL/hr 100 mL/hr warfarin (COUMADIN) tablet 5 mg 5 mg, Oral, EVERY EVENING, First dose on Wed04/14/12 at 1700, Until Discontinued, Routine Given 04/14/2012 4:55 PM EDT 5 mg documented in this encounter Active and Recently Administered Medications Times are shown in EDT. Scheduled Medication Order 04/12/2012 04/13/2012 04/14/2012 enoxaparin (LOVENOX) injection 120 mg (CANCELED) 120 mg (1 mg/kg/dose ? 119.8 kg), Subcutaneous, EVERY 12 HOURS SCHEDULED (2 times per day), First dose on Amber 04/14/12 at 0900, Until Discontinued, Routine 0832 (Given - Provid er: Tejal Almaguer RN) morphine injection 5 mg (COMPLETED) 5 mg, Intravenous, ONCE, On Wed04/13/12 at 1845, 1 dose 1920 (Given - Provider: Jayne Ramos RN) ondansetron (ZOFRAN-ODT) oral disintegrating tablet 4 mg (COMPLETED) 4 mg, Oral, ONCE, 1 dose, On Wed04/13/12 at 1845, STAT 1900 (Given - Provider: Jayne Ramos RN) sodium chloride 0.9 % flush 5 mL (CANCELED) 5 mL, Intravenous, EVERY 12 HOURS, First dose on Amber 04/14/12 at 0030, Until Discontinued 005 (Given - Provid er: Timoteo Lopez RN)1134 (Given - Provider: Tejal Almaguer RN) warfarin (COUMADIN) tablet 5 mg (CANCELED) 5 mg, Oral, EVERY EVENING, First dose on Amber 04/14/12 at 1700, Until Discontinued, Routine 1655 (Given - Provid er: Tejal Almaguer RN) Continuous Medication Order 04/12/2012 04/13/2012 04/14/2012 sodium chloride 0.9% infusion (CANCELED) 100 mL/hr, Intravenous, CONTINUOUS, Starting on Amber 04/14/12 at 0030, Until Amber 04/14/12 at 1936 0052 (New Bag - Prov ider: Timoteo Lopez RN)1010 (New Bag - Provider: Tejal Almaguer RN)1108 (Stopped - Provider: Tejal Almaguer RN - Comment: d/giovanni) PRN Medication Order 04/12/2012 04/13/2012 04/14/2012 OXYcodone (ROXICODONE) immediate release tablet 5 mg(Linked Group 1) 5 mg, Oral, EVERY 4 HOURS PRN, Starting on Wed04/13/12 at 2310, Until Amber 04/14/12 at 1936, Pain, mild to moderate pain, May give additional 5 mg in 30 minutes times 1 if pain not relieved. , Routine 51 (Given - Provid er: Timoteo Lopez RN)0813 (Given - Provider: Tejal Almaguer RN)1524 (Given - Provider: Tejal Almaguer RN) Linked Groups Order Group 1: OXYcodone (ROXICODONE) immediate release tablet 5 mgJump to med 5 mg, Oral, EVERY 4 HOURS PRN, Starting on Wed04/13/12 at 2310, Until Amber 04/14/12 at 1936, Pain, mild to moderate pain, May give additional 5 mg in 30 minutes times 1 if pain not relieved. , Routine Or OXYcodone (ROXICODONE) immediate release tablet 10 mg (CANCELED) 10 mg, Oral, EVERY 4 HOURS PRN, Starting on Wed04/13/12 at 2310, Until Amber 04/14/12 at 1936, Pain, severe pain, May give additional 5 mg in 30 minutes times 1 if pain not relieved., Routine documented in this encounter Care Teams Hydraulic Technician Relationship Specialty Start Date End Date Alex Mosqueda MD [facility] [place] [address] PCP - General 04/14/12 01/30/14 documented as of this encounter
--- OUTSIDE RECORDS SUMMARY | 2024-03-14 15:51 | XMS_ITS | Encounter Summary ---
Author Organization [facility] Address [facility] [place] [address] Care Team Providers Care Drapery Maker Name Role Phone Alex Mosqueda MD Primary Care Provider [phone] Reason for Visit * Reason Comments Follow-up hosp ck Encounter Details Date Type Department Care Team (Late st Contact Info) Description 05/04/2012 3:30 PM EDT Office [place] [id number] Ana Maria Gallagher, [facility] [place] [address] Dizziness (Primary Dx); DVT (deep venous thrombosis) Discharge [...] Sign Reading Time Taken Comments Blood Pressure 142/92 05/04/2012 4:06 PM EDT sta nd Pulse 98 05/04/2012 4:06 PM EDT Temperature - - Respiratory Rate - - Oxygen Saturation - - Inhaled Oxygen Concentration - - Weight 117 kg (258 lb) 05/04/2012 3:43 PM EDT Height - - Body Mass Index 33.13 04/14/2012 3:59 AM EDT documented in this encounter Patient Instructions * Patient Instructions* Ana Maria Gallagher Beena, SHABNAM - 05/04/2012 5:28 PM EDT [facility] Lightheadedness or Faintness: After Your Visit Your Care Instructions Lightheadedness is a feeling that you are about to faint or pass out. You do not feel as if you or your surroundings are moving. It is different from vertigo, which is the feeling that you or things around you are spinning or tilting. Lightheadedness usually goes away or gets better when you lie down. If lightheadedness gets worse, it can lead to a fainting spell. It is common to feel lightheaded from time to time. Lightheadedness usually is not caused by a serious problem. It often is caused by a short-lasting drop in blood pressure and blood flow to your head that occurs when you get up too quickly from a seated or lying position. Follow-up care is a morillo part of your treatment and safety. Be sure to make and go to all appointments, and call your doctor if you are having problems. It???s also a good idea to know your test results and keep a list of the medicines you take. How can you care for yourself at home? ?? Lie down for 1 or 2 minutes when you feel lightheaded. After lying down, sit up slowly and remain sitting for 1 to 2 minutes before slowly standing up. ?? Avoid movements, positions, or activities that have made you lightheaded in the past. ?? Get plenty of rest, especially if you have a cold or flu, which can cause lightheadedness. ?? Make sure you drink plenty of fluids, especially if you have a fever or have been sweating. ?? Do not drive or put yourself and others in danger while you feel lightheaded. When should you call for help? Call 911 anytime you think you may need emergency care. For example, call if: ?? You have signs of a stroke. These may include: ?? Sudden numbness, paralysis, or weakness in your face, arm, or leg, especially on only one side of your body. ?? New problems with walking or balance. ?? Sudden vision changes. ?? New problems speaking or understanding simple statements, or feeling confused. ?? A sudden, severe headache that is different from past headaches. ?? You have symptoms of a heart attack. These may include: ?? Chest pain or pressure, or a strange feeling in the chest. ?? Sweating. ?? Shortness of breath. ?? Nausea or vomiting. ?? Pain, pressure, or a strange feeling in the back, neck, jaw, or upper belly or in one or both shoulders or arms. ?? Lightheadedness or sudden weakness. ?? A fast or irregular heartbeat. After you call 911, the discharging machine operator may tell you to chew 1 adult-strength or 2 to 4 low-dose aspirin. Wait for an ambulance. Do not try to drive yourself. Watch closely for changes in your health, and be sure to contact your doctor if: ?? Your lightheadedness gets worse or does not get better with home care. Where can you learn more? Visit our health information library at [email or web address]. You can alsoview health information on [employer], your personal patient account. Log in or sign up today. Enter X578 in the search box to learn more about Lightheadedness or Faintness: After Your Visit. ?? [id number] [employer]. Care instructions adapted under license by [employer] [facility]. This care instruction is for use with your licensed healthcare professional. If you have questions about a medical condition or this instruction, always ask your healthcare professional. [employer] disclaims any warranty or liability for your use of this information. Content Version: 9.1.252115; Last Revised: August 28, 2010 Compression stocking, elevate legs and rest documented in this encounter Progress Notes * Ana Mraia Gallagher APRN - 05/04/2012 4:05 PM EDT Subjective: Patient ID: Amanuel Grant is a 36 y.o. male. HPI Amanuel Grant is new to me here for increased tingling in the left leg and groin with dizziness. Dizziness is worse with standing. Yesterday the leg was swollen, cold and tingling so he called. He was recently admitted to [facility] from 04/13-04/14 after being diagnosed with bilateral PE at [facility]. About 1.5 months ago, patient moved to [place] from [place]. He states that he did about a 40 hour car ride in 2 days. Subsequently after about a week, he noted that his left leg was more swollen including the knee joint. This had occurred shortly after he had been hiking. He seen at work and was told that it was musculoskeletal strain from hiking. Patient states that subsequently he notedthat the swelling resolved for the most part. Then, prior to his presentation to the [place] ED, patient had sudden onset of respirophasic chest tightness 4-5/10 on both sides of his chest associated with diaphoresis. He noted himself to be severely dyspneic occasionally at rest and with minimal exertion. Upon admission to [facility] was noted that he had bilateral PE's and DVT in left leg. He was transferred to [facility] then discharge on 04/14/2012. He was discharged on lovenox, oxycodone and couma din. He is now just on Coumadin. 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 He also has a 2 year old son. Review of Systems Constitutional: Negative for fever, chills, diaphoresis, activity change (still trying to elevated the leg and not hike), appetite change and fatigue. Respiratory: Negative for cough and shortness of breath. Cardiovascular: Negative for chest pain and palpitations. Musculoskeletal: Left leg swelling, tingling and cool to touch Neurological: Positive for light-headedness (with dizziness on standing). Objective: Physical Exam Vitals reviewed. Constitutional: He is oriented to person, place, and time. He appears well- developed and well-nourished. HENT: Head: Normocephalic and atraumatic. Right Ear: External ear normal. Left Ear: External ear normal. Mouth/Throat: Oropharynx is clear and moist. No oropharyngeal exudate. Eyes: Conjunctivae and EOM are normal. Pupils are equal, round, and reactive to light. Neck: Neck supple. Cardiovascular: Normal rate and regular rhythm. Pulmonary/Chest: Effort normal and breath sounds normal. Abdominal: Soft. Musculoskeletal: Left ankle: He exhibits decreased range of motion and swelling. He exhibits normal pulse. no tenderness. Left upper leg: He exhibits edema. He exhibits no swelling. Left lower leg: He exhibits swelling and edema. He exhibits no tenderness. Lymphadenopathy: He has no cervical adenopathy. Neurological: He is alert and oriented to person, place, and time. No cranial nerve deficit. Coordination normal. Skin: Skin is warm and dry. Psychiatric: He has a normal mood and affect. Assessment and Plan: Amanuel was seen today for follow-up of DVT with tingling and edema. See encounter summary for patient instructions. 30mm compression stockings Diagnoses and associated orders for this visit: Dizziness - CBC (with Diff); Future - Basic Metabolic Panel (non-fasting); Future - TSH; Future - CBC (with Diff) - Basic Metabolic Panel (non-fasting) - TSH - Ferritin; Future Other Orders - DIFFERENTIAL, AUTOMATED documented in this encounter Plan of Treatment Not on file documented as of this encounter Procedures Procedure Name Priority Date/Time Associated Diagnosis Comments FERRITIN Routine 05/04/2012 5:57 PM EDT Dizziness DIFFERENTIAL, AUTOMATED Routine 05/04/2012 4:26 PM EDT CBC (WITH DIFF) Routine 05/04/2012 4:26 PM EDT Dizziness TSH Routine 05/04/2012 4:26 PM EDT Dizziness BASIC METABOLIC PANEL Routine 05/04/2012 4:26 PM EDT Dizziness documented in this encounter Results * (ABNORMAL) Ferritin (05/04/2012 5:57 PM EDT) [facility] Ferritin 473(H) 30 - 400 ng/mL [facility] Comment: Pediatric reference ranges not verified at [facility], interpret with caution. Reference ranges for females greater than 50 years of age approach values for men, i.e., 30-400 ng/mL. Blood specimen (specimen) 05/04/2012 5:57 PM EDT 05/04/2012 6:00 PM EDT Narrative Resulting Agency Comment Spec In Lab Yvonne Major MD CHEMISTRY ORDERABLE S Performing Organization Address City/[facility] Co de Phone Number CERNER MILLENNIUM * DIFFERENTIAL, AUTOMATED (05/04/2012 4:26 PM EDT) Neutrophil % 59.2 34.0 - 71.0 % CERNER MILLENNIUM Neutrophil Absolute 5.55 1.50 - 6.30 x10(3)/mcL CERNER MILLENNIUM Lymph % 30.5 19.0 - 53.0 % CERNER MILLENNIUM Lymphocytes Abs 2.9 1.0 - 3.6 x10(3)/mcL CERNER MILLENNIUM Monocyte % 8.1 4.0 - 13.0 % CERNER MILLENNIUM Monocyte Abs 0.8 0.2 - 1.0 x10(3)/mcL CERNER MILLENNIUM Eos % 1.6 0.0 - 7.0 % CERNER MILLENNIUM Eosinophils Abs 0.2 0.0 - 0.5 x10(3)/mcL CERNER MILLENNIUM Basophil % 0.2 0.0 - [...] Immature Gran Absolute 0.04 0.00 - 0.05 x10(3)/mcL CERNER MILLENNIUM Blood specimen (specimen) 05/04/2012 4:26 PM EDT 05/04/2012 4:31 PM EDT Yvonne Major MD HEMATOLOGY ORDERABL ES CERNER MILLENNIUM * (ABNORMAL) TSH (05/04/2012 4:26 PM EDT) Thyroid Stimulating Hormone 4.52(H) 0.27 - 4.20 mcIU/mL CERNER MILLENNIUM Blood specimen (specimen) 05/04/2012 4:26 PM EDT 05/04/2012 4:31 PM EDT Narrative Resulting Agency Comment Spec In Lab Yvonne Major MD CHEMISTRY ORDERABLE S Performing Organization Address City/[facility]/ZIP Co de Phone Number CERNER MILLENNIUM * Basic Metabolic Panel (non-fasting) (05/04/2012 4:26 PM EDT) Glucose 95 60 - 199 mg/dL CERNER MILLENNIUM Comment:Diabetes: >=200 mg/d L plus symptoms Blood Urea Nitrogen 13 10 - 20 mg/dL CERNER MILLENNIUM Creatinine 1.00 0.80 - 1.50 mg/dL CERNER MILLENNIUM Comment: Please note that the pediatric reference intervals supplied above were not validated at [facility]. Results from pediatric patients should be interpreted in conjunction to the patient's age, height and muscle mass. Sodium 140 135 - 145 mmol/L CERNER MILLENNIUM Potassium 4.0 3.5 - 5.0 mmol/L CERNER MILLENNIUM Comment: Please note: ??Patients with WBC >100,000 may have falsely elevated Potassium levels. ??For accurate Potassium quantification in these patients send serum separator tube (gold top) for subsequent determinations. ??Contact the Clinical Chemistry Laboratory if there are any questions. Chloride 106 98 - 107 mmol/L CERNER MILLENNIUM Carbon Dioxide 23 22 - 31 mmol/L CERNER MILLENNIUM Anion Gap 11 5 - 15 mmol/L CERNER MILLENNIUM Calcium 9.1 8.5 - 10.5 mg/dL CERNER MILLENNIUM Est [...] J Am Soc Nephrol;6:1963-72. Blood specimen (specimen) 05/04/2012 4:26 PM EDT 05/04/2012 4:31 PM EDT Narrative Resulting Agency Comment Spec In Lab Yvonne Major MD CHEMISTRY ORDERABLE S JEIMY JIANG * CBC (with Diff) (05/04/2012 4:26 PM EDT) White Blood Cell 9.4 4.0 - 10.0 x10(3)/mcL JEIMY JIANG Red Blood Cell 5.42 4.63 - 6.08 x10(6)/mcL CERNER MILLENNIUM Hemoglobin 16.7 13.7 - 17.5 gm/dL CERNER MILLENNIUM Hematocrit 48.1 40.0 - 51.0 % CERNER MILLENNIUM Mean Cell Volume 88.7 79.0 - 92.0 fL CERNER MILLENNIUM Mean Cell Hemoglobin 30.8 25.6 - 32.2 pg CERNER MILLENNIUM Mean Cell Hemoglobin Concentration 34.7 32.0 - 36.5 gm/dL CERNER MILLENNIUM Platelet 260 145 - 370 x10(3)/mcL CERNER MILLENNIUM RDW Standard Deviation 39.6 35.0 - 46.0 fL CERNER MILLENNIUM RDW coefficient of variation 12.5 10.9 - 14.4 % CERNER MILLENNIUM Mean Platelet Volume 11.0 9.0 - 12.0 fL CERNER MILLENNIUM Blood specimen (specimen) 05/04/2012 4:26 PM EDT 05/04/2012 4:31 PM EDT Narrative Resulting Agency Comment Spec In Lab Yvonne Major MD HEMATOLOGY ORDERABL ES JEIMY JIANG documented in this encounter Visit Diagnoses Diagnosis Dizziness- Primary Dizziness and giddiness DVT (deep venous thrombosis) Acute venous embolism and thrombosis of unspecified deep vessels of lower extremity documented in this encounter Care Teams Drapery Maker Relationship Specialty Start Date End Date Alex Mosqueda MD [facility] [address] [place] [address] PCP - General 04/14/12 01/30/14 documented as of this encounter
--- OUTSIDE RECORDS SUMMARY | 2024-03-14 15:51 | XMS_ITS | Encounter Summary ---
Author Organization [facility] Address [facility] [place] [address] Care Team Providers Care Pin Machine Operator Name Role Phone None Primary Care Provider Unavailabl e Encounter Details Date Type Department Care Team (Late st Contact Info) Description 04/10/2012 Orders [place] [address] Taqueria Riggs MD [facility] [place] [address] Social History Tobacco Use Types Packs/Day Years Used Date Smoking Tobacco: Never Assessed Sex and Gender Information Value Date Recorded Sex Assigned at Not on file Gender Identity Not on file Sexual Orientation Not on file documented as of this encounter Plan of Treatment Not on file documented as of this encounter Procedures Procedure Name Priority Date/Time Associated Diagnosis Comments FILM LIBRARY STORAGE ONLY DX CHEST Routine 04/10/2012 6:04 PM EDT documented in this encounter Results * FILM LIBRARY- STORAGE ONLY DX CHEST (04/10/2012 6:04 PM EDT) 04/10/2012 6:04 PM EDT Narrative RAD - 02/06/2014 10:38 AM EDT This is a non-reportable exam. Procedure Note Rafael Pope - 02/06/2014 This is a non-reportable exam. Taqueria Riggs MD IMG FILM LIBRARY ORD ERABLES RAD [address] [place] [address] documented in this encounter Visit Diagnoses Not on filedocumented in this encounter Care Teams Pin Machine Operator Relationship Specialty Start Date End Date None None PCP - General 04/13/12 04/13/12 documented as of this encounter
--- OUTSIDE RECORDS SUMMARY | 2024-03-14 15:51 | XMS_ITS | Encounter Summary ---
Author Organization [facility] Address [facility] [place] [address] Care Team Providers Care Assistant Superintendent For Curriculum Name Role Phone Alex Mosqueda MD Primary Care Provider [phone] Reason for Visit * Reason Onset Date Comments Anticoagulation 04/27/2012 INR Encounter Details Date Type Department Care Team (Late st Contact Info) Description 04/27/2012 Telephone [place] [phone] Alex Mosqueda MD [facility] [place] [address] Anticoagulation (INR) Social History Tobacco Use Types [...] * Telephone Encounter - Jacque Ackerman - 04/27/2012 10:48 AM EDT INR 2.4 [facility] documented in this encounter Plan of Treatment Not on file documented as of this encounter Visit Diagnoses Not on filedocumented in this encounter Care Teams Assistant Superintendent For Curriculum Relationship Specialty Start Date End Date Alex Mosqueda MD [facility] [place] [address] PCP - General 04/14/12 01/30/14 documented as of this encounter
--- OUTSIDE RECORDS SUMMARY | 2024-03-14 15:51 | XMS_ITS | Encounter Summary ---
Author Organization [facility] Address [facility] [place] [address] Care Team Providers Care Ski Binding Fitter And Repairer Name Role Phone Alex Mosqueda MD Primary Care Provider [phone] Reason for Visit * Reason Comments Pain Encounter Details Date Type Department Care Team (Late st Contact Info) Description 05/24/2012 3:10 PM EDT Office [place] [phone] Shirley Torrez MD [facility] [place] [address] DVT (deep venous thrombosis) (Primary Dx); Leg swelling; Pain of right heel Discharge Disposition: Home Social History Tobacco Use [...] Sign Reading Time Taken Comments Blood Pressure 140/96 05/24/2012 3:25 PM EDT Pulse 93 05/24/2012 3:25 PM EDT Temperature - - Respiratory Rate - - Oxygen Saturation - - Inhaled Oxygen Concentration - - Weight - - Height - - Body Mass Index - - documented in this encounter Patient Instructions * Patient Instructions* Shirley Torrez - 05/24/2012 3:50 PM EDT Right heel - recommend rest and ice Left leg - Duplex today - continue using edda hose - recommend staying off feet documented in this encounter Progress Notes * Corky Peña MD - 05/24/2012 4:44 PM EDT I have seen the patient and reviewed the resident's above history and I agree with the details as written. The assessment and plan were formulated in discussion with me and I agree with them as documented. Pertinent History: 36 year old male with h/o lower ext DVT, PE late March. Today noted 2x2 cm painful area posterior to malleolus. He also noted increased swelling and pain in left leg. Pertinent Exam: Edema left leg Major issues addressed: Leg pain Plan: Duplex - no progression Rest and leg elevation * Shirley Torrez - 05/24/2012 3:16 PM EDT Subjective: Patient ID: Angel Grant is a 36 y.o. male. HPI Mr. Grant is a 36 yo man with remarkable PMH for recent provoked Left LE DVT and PE after 40 hr car ride and HTN - lifestyle control - patient relates right lateral heal pain radiating to the mid right calf since this morning, and now has pain in both legs. Patient has increased over the past few days and he feels b/l legs increase swelling. Last 2 days - running around on feet. 16 hours per dayon feet in this time period. Correlates with swelling. Had difficulty with walking related to pain, and increasing swelling in the left left. Has been wearing compression hose daily. Feels the last few days swelling worse. Has been working a lot lately. Has been on his feet more. Has not been able to keep his feet up as recommended.Does report intermittent numbness and tingling like before. Was supra-therapeutic (>3) coumadin last week, now 1.9 today. Review of Systems Endorses dizziness and cold(rhinorrhea and congestion) sx that he c/o a few days ago have resolved. No PND/Orthopnea. No CP, no SOB. Objective: Physical Exam GEN: well appearing man, in NAD CV: pulse 93, normal S1S2, no MRG Pulm: CTAB Ext: 2+ edema in the LLE, trace in RLE, R heel with 2x2 area of faint erythema and tenderness Sensation intact bilateral to light touch, Negative homans sign on right, positive on left Right plantar surface w/o pathology, no hematoma or skin changes Pulses DP 2+ B/L Recent Results (from the past 24 hour(s)) POCT INR Component Value Range ??? POC INR 1.9 (*) 0.9 - 1.1 Assessment and Plan: Mr. Grant is a 36 yo man with recent PE and LLE DVT - who presets with right heel pain and increase left leg pain and swelling. Right heel likely focal irritation from local trauma vs. Strain. Left leg symptoms also likely benign and related to increased time on his feet - however given his history of extensive clot burden and severity of symptoms will obtain duplex to assess for possible clot extension whereas this would warrant a change in his INR thresholds or to his anticoagulation medications. Right heel - likely local injury from clogs vs. strain - recommend rest and ice Left leg pain and swelling - Duplex today - demonstrated interval clot improvement - continue using edda hose - Avidly recommended staying off feet with elevation to treat swelling and venous insufficiency related to clot documented in this encounter Plan of Treatment Not on file documented as of this encounter Results * Duplex for DVT, Leg, Unilat (05/24/2012 4:07 PM EDT) VB Text Report Department: Vascular Surgery Lab Patient: [id number] (HEIKE GRANT) CPT Code: 71536 ICD-9: 451.19 Referring Physician: CORKY PEÑA Indication: ??history of extensive left leg DVT, ? improvement vs. progression of clot ICD9 Diagnosis Code: 451.19 LEFT: The femoral vein through the thigh is thrombosed. Nearly thrombosed popliteal vein with minimal flow identified. One of the paired peroneal veins is thrombosed. Patent common femoral vein with spontaneous, respirophasic Doppler waveforms that respond normally to augmentation maneuvers. The common femoral vein and saphenofemoral junction are fully compressible. Patent posterior tibial and one of the paired peroneal veins with no evidence of thrombus. Interpretation: Deep vein thrombus. Mild improvement compared to previous exam 04/14/12. Signed by NELIDA HOPSON on 2012-05-26 02:34:43 PM VASCU[facility] VB Text Report End of Report [facility] 05/24/2012 4:07 PM EDT Corky Peña MD VASCULAR ORDERABLES [facility] documented in this encounter Visit Diagnoses Diagnosis DVT (deep venous thrombosis)- Primary Acute venous embolism and thrombosis of unspecified deep vessels of lower extremity Leg swelling Swelling of limb Pain of right heel Pain in limb documented in this encounter Care Teams Ski Binding Fitter And Repairer Relationship Specialty Start Date End Date Alex Mosqueda MD [facility] [address] [place] [address] PCP - General 04/14/12 01/30/14 documented as of this encounter
--- OUTSIDE RECORDS SUMMARY | 2024-03-14 15:51 | XMS_ITS | Encounter Summary ---
Author Organization [facility] [place] [address] Care Team Providers Care Tank Car Inspector Name Role Phone Alex Mosqueda MD Primary Care Provider [phone] Encounter Details Date Type Department Care Team (Late st Contact Info) Description 04/27/2012 Anti-Coag Telephone [place] [phone] Gloria Amezcua RN Social History Tobacco Use [...] Patient Instructions * Patient Instructions* Gloria Amezcua, RN - 04/27/2012 11:41 AM EDT Your INR result today is: 2.4 [place] lab Range: 2.0-3.0 Please take your Warfarin, [...] 5 mg DAY Sun Wed Fri Sat mg 7.5 mg 5 mg 7.5 mg 5 mg 5 mg 7.5 mg 5 mg Number of Pills 1 07/27 1 1 07/27 1 1 1 07/27 1 Your next INR is scheduled for: 2 weeks 05/11 @ [facility] If you are unable to keep this appointment, please call documented in this encounter Progress Notes * Gloria Amezcua RN - 04/27/2012 11:40 AM EDT Anticoagulation Therapy Telephone Visit Indication: Provoked LLE DVT/PE in the setting of a long care ride, diagnosed 04/12/12 Duration of treatment: Undetermined, repeat doppler after 3 mos to establish a new baseline per Vianney Pavon APRN Range: 2.0-3.0 INR : 2.4 Drawn by: [facility] Monitored by: LEANDER Next INR Due: 2 weeks 05/11 04/27: no further episodes SOB or dizziness Standing order @ [facility] expires 07/28/12 Patient Contact Preference: Message left on answering machine E-Mail/fax x Spoke with patient / family member: Comment: Warfarin dose : Increased Decreased x Maintained Comment Falls Risk Assessment: Have you had any falls in the last month?No How many times have you fallen? Conditions [...] Associated Diagnosis Comments EXTERNAL LAB RESULTS Routine 04/27/2012 documented in this encounter Results * (ABNORMAL) External Lab Results (04/27/2012) International Normalization Ratio 2.4(Exter nal Lab) 0.9 - 1.1 Comment:[place] [facility] 04/27/2012 Historical Provider CHEMISTRY ORDERAB LES documented in this encounter Visit Diagnoses Not on filedocumented in this encounter Care Teams Tank Car Inspector Relationship Specialty Start Date End Date Alex Mosqueda MD [facility] [place] [address] PCP - General 04/14/12 01/30/14 documented as of this encounter
--- OUTSIDE RECORDS SUMMARY | 2024-03-14 15:51 | XMS_ITS | Encounter Summary ---
Author Organization [facility] [place] [address] Care Team Providers Care Comb Capper Name Role Phone Alex Mosqueda MD Primary Care Provider [phone] Encounter Details Date Type Department Care Team (Latest Contact Info) Description 04/22/2012 Anti-Coag Telephone [place] [phone] Inge Byrd, RN Pulmonary embolism Social History [...] * Patient Instructions* Inge Byrd, RN - 04/22/2012 2:43 PM EDT Your INR result today is: 2.2 [place] lab Range: 2.0-3.0 Please take your Warfarin, [...] of Pills 1 07/27 1 07/27 1 1 1 07/27 1 Your next INR is scheduled for: 04/27/12 @ [facility] Discontinue Lovenox If you are unable to keep this appointment, please call documented in this encounter Progress Notes * Inge Byrd RN - 04/22/2012 2:31 PM EDT Anticoagulation Therapy Nurse Visit Indication: Provoked LLE DVT/PE in the setting of a long care ride, diagnosed 04/12/12 Duration of treatment: Undetermined, repeat doppler after 3 mos to establish a new baseline per Vianney Pavon APRN Range: 2.0-3.0 INR : 2.2 Drawn by: [facility] Monitored by: LEANDER Next INR Due: 5 days; 04/27/12 Discontinue Lovenox today (04/22/12) Pt denies any further episodes of SOB, CP or dizziness. He did have profuse sweating yesterday, butis much improved today. 04/12- started Lovenox and Coumadin @ [facility] Standing order @ [facility] expires 07/28/12 Warfarin dose : Increased Decreased [...] Swollen Extremities No symptoms reported Other: Comment: still somewhat sweaty Recent medication changes: ( Include prescription /OTC/ [...] Associated Diagnosis Comments EXTERNAL LAB RESULTS Routine 04/22/2012 documented in this encounter Results * (ABNORMAL) External Lab Results (04/22/2012) International Normalization Ratio 2.2(Exter nal Lab) 0.9 - 1.1 Comment:[facility] Historical Provider CHEMISTRY ORDERAB LES documented in this encounter Visit Diagnoses Diagnosis Pulmonary embolism Other pulmonary embolism and infarction documented in this encounter Care Teams Comb Capper Relationship Specialty Start Date End Date Alex Mosqueda MD [facility] [place] [address] PCP - General 04/14/12 01/30/14 documented as of this encounter
--- OUTSIDE RECORDS SUMMARY | 2024-03-14 15:51 | XMS_ITS | Encounter Summary ---
Author Organization [facility] Address [facility] [place] [address] Care Team Providers Care Deputy Sheriff K9 Handler Name Role Phone Alex Mosqueda MD Primary Care Provider [phone] Reason for Visit * Reason Comments Post Hospital Discharge Establish Care Encounter Details Date Type Department Care Team (Late st Contact Info) Description 04/19/2012 10:00 AM EDT Office [place] [phone] Alex Mosqueda MD [facility] [place] [address] Inge Byrd, RN Healthcare maintenance (Primary Dx) Discharge Disposition: Home Social History [...] Sign Reading Time Taken Comments Blood Pressure 128/87 04/19/2012 10:11 AM EDT Pulse 83 04/19/2012 10:11 AM EDT Temperature 36.7 ??C (98 ??F) 04/19/2012 10:11 AM EDT Respiratory Rate 18 04/19/2012 10:11 AM EDT Oxygen Saturation - - Inhaled Oxygen Concentration - - Weight 124.3 kg (274 lb) 04/19/2012 10:11 AM EDT Height - - Body Mass Index 35.18 04/14/2012 3:59 AM EDT documented in this encounter Progress Notes * Tali Ballard MD - 04/19/2012 11:10 AM EDT The case was discussed at the time of the visit or immediately after the visit. The assessment and plan were formulated in discussion with me and I agree with them as documented. I have reviewed the history, physical exam, assessment and plan with the resident. Major issues discussed today: 36 y m est care After long drive from [place]--had L leg edema Checked then went away Then 1 week later had severe sob and leg swelling throughout again Was seen in [place] Was started on lovenox and warfarin Was d/c and came to [facility] ED Was monitored overnight Hr monitored--echo done bilat PE And DVT in L D/c next day with lovenox and warfarin--inr 2.1 yesterday Then 1.9 today--cont lovenox now Yesterday called MD personal shopper and did not feel well after nap--lightheaded and forgetful Was recommended fluids and better (did have some L cp 5-6/10 with breathing, dizziness, slight sob,poor sleep however better now) Today dizziness and forgetfulness better Leg pain better No other neuro cx No vision changes No bleeding issues No abd cx-no changes in bowels Nonsmoker Wine 3x/week only none since this dx BP 128/87 Pulse 83 Temp(Src) 36.7 ??C (98 ??F) (Oral) Resp 18 Wt 124.286 kg (274 lb) Nothing on heart and lung exam today Neuro nf Edema L leg ankle area and pretibial Plan: New DVT/PE-provoked (managed by [facility]) (will reconsider if will do testing once done with this course planned about 6m) If sx recur notify us Cont lovenox and warfarin till inr's therapeutic FH provoked DVT in father (after surgery) and long car ride--no testing that pt knows of Paternal GF with [place] Mom and sibs in good health (some thyroid dz) Lipids 5m ago in [place]-- tsh check 4m ago Vaccines up to date TDAP--flu shot yearly * Alex Mosqueda MD - 04/19/2012 9:36 AM EDT New Patient Office Note- (Male) Reason for visit/CC: establish care HPI: 36 yo male, with pmhx significant for HTN (controlled by lifestyle changes), recently diagnosed bilateral PE, who presents to [facility] with or. Patient was recently admitted to [facility] from 04/13-04/14 after being diagnosed with bilateral PE at [facility]. About 1.5 months ago, patient moved to [place] from [place]. He states that he did about a 40 hour car ride in 2 days. Subsequently afterabout a week, he noted that his left leg was more swollen including the knee joint. This had occurred shortly after he had been hiking. He showed his leg to a nurse at work and was told that it was merely musculoskeletal strain from hiking. Patient states that subsequently he noted that the swelling resolved for the most part. Then, prior to his presentation to the [place] ED, patient had sudden onset of respirophasic chest tightness 4- 5/10 on both sides of his chest associated with diaphoresis. He noted himself to be severely dyspneic occasionally at rest and with minimal exertion. Upon adm ission to [facility], he was noted to have evidence of bilateral PEs and a left lower extremity DVT. He was started on lovenox and coumadin. He was discharged after one day of observation. Due to persistence of his symptoms and concern regarding his medication instructions, he subsequently presented to [facility] ED and was admitted overnight for observation. During wy hospitalization, CT was repeated and showed evidence of bilateral PE and TTE was performed that showed no evidence of right heart strain. Patient was discharged on 04/14 with clear instruction regarding his medications with anticoagulation clinic followup. On the day prior to his visit with or, patient came for his anticoagulation clinic appt. After his appt, he went home and states that he began feeling a bit different. He felt lethargic with generalized malaise and describes his feeling as [place] [facility] [place] He slept most of the afternoon and when he woke up around 5:30, he states that he felt disoriented, lightheaded and dizzy. Denies any worsening of chest pain, pressure, dyspnea, changes in vision, hearing, speech, n/v, abdominal discomfort. His states that he seemed to be forgetting conversations. This lasted for about 8 hours. Then, his called in to the [facility] physician and was advised to feed the patient orally and report to the ED if the sx do not improve. Patient states that he had a glass of orange juice and his sx subsequently resolved. He felt well when he woke up this morning. Overall, he states that he has had poor appetite since being discharged last week. He feels that his dyspnea has improved. He is now able to walk to the parking garage without having to stop to catchhis breath. His left leg pain has also improved. He is only taking 1-2 oxycodone tablets to relievehis pain. Otherwise, pt denies any fevers, chills, weight loss, n/v/d/abd pain, dysuria/hematuria, melena or hematochezia. PMHx/Problem List: HTN Left leg DVT Bilateral pulmonary emboli Medications: Current outpatient prescriptions Medication Sig Dispense Refill ??? enoxaparin (LOVENOX) 120 mg/0.8 mL injection Inject 0.8 mLs subcutaneously every 12 hours. 10 mL 1 ??? OXYcodone (ROXICODONE) 5 mg immediate release tablet Take 1 tablet by mouth every 4 hours as needed for Pain (mild to moderate pain). 30 tablet 0 ??? warfarin (COUMADIN) 5 mg tablet Take 1 tablet by mouth daily. 30 tablet 3 ??? acetaminophen-codeine (TYLENOL WITH CODEINE) 120-12 mg/5 mL solution Take 5 mLs by mouth every 8 hours as needed. 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 Living Situation - , lives in [place], has a 2yr old son Hobbies/Activities/Exercise - enjoys hiking and playing basketball Tobacco - nonsmoker; tried in college EtOH - Drinks/week; red wine 3 times a week; none since starting coumadin Drugs/Injection/Inhalant - denies Sex/HIV/risks - monogamous with Family History: Grandfather: [place] at 48 Father: DVTs (one in setting [...] Health Maintenance: Seat belt: 100% Colonoscopy (age 50-75): n/a Prostate (PSA) (age 50-74): n/a Fasting Cholesterol (age >35): checked 5 months ago in [place] Fasting Glucose, HbA1c (age >45, obese or high BP): not checked DM screening - (Hgb, A1C or FBS): TSH: checked 4 months ago Immunizations: Tetanus (Td): up to date Flu: yearly Physical Exam: Vitals: Filed Vitals: 04/19/12 1011 BP: 128/87 Pulse: 83 Temp: 36.7 ??C (98 ??F) Resp: 18 General: AAOX3 HEENT: PERRL, [...] flexion of the foot and for hand cad operator. Otherwise nonfocal. CT Chest with contrast: 04/13 [...] changes), recently diagnosed bilateral PE, who presents to establish care with or. In light of his recent PE, patient will require anticoagulation for at least 6 months. He will be set up with anticoagulation clinic here to monitor his INR. Will d/c lovenox once INR is between 2-3 range for 2 consecutive checks. Appreciate anticoag clinic involvement. In terms of the the cause for his PE, it was likely provoked in the setting oflong car ride from [place]. He likely does not have a malignancy or IBD. Seems possible that he could have a hereditary predisposition to this as his father had two DVTs. Will defer further work up f or coagulopathy until he is 4-6 weeks out from anticoagulation. Will check lipids today and follow up with patient in about 2-3 months to ensure resolution of sx. His episode on day prior to this visit was likely secondary to hypoglycemia vs transient viral illness. Does not seem likely that it wasdue to a TIA, [place] etc. Advised patient to report to the ED if his sx reoccur and are worsened #B/L PE with DVT - continue anticoagulatin with lovenox and coumadin - monitor INRs goal 2-3 - elastic support stockings to help with left lower ext edema - may consider hematology referral at some point #HCM: - lipid panel Follow up: in 2-3 months or earlier as needed documented in this encounter Plan of Treatment Not on file documented as of this encounter Results * (ABNORMAL) Lipid panel (fasting) (10/20/2012 1:43 PM EDT) [facility] Cholesterol, Total 227(H) <=199 mg/dL [facility] [employer] Comment: Recommendations of the NCEP Adult Treatment Panel for the following risk cutoff thresholds for the [place] population: Desirable: <200 mg/dL Borderline High: 200-239 mg/dL High: > or = 240 mg/dL Triglyceride 443(H) <=149 mg/dL [facility] Comment: Reference Range: Normal triglycerides: ??<150 mg/dL Borderline high: ??150-199 mg/dL High: ??200-499 mg/dL Very high: ??>vm=647 mg/dL MOIRA 2001; 285(19):3073-8899 HDL Cholesterol 35(L) >=40 mg/dL [facility] [employer] Comment: Reference range: ??Low HDL: ?? < 40 mg/dL ??Normal: ?40-60 mg/dL ??Desirable: > 60 mg/dL MOIRA 2001; 285(19):7401-2772 LDL Cholesterol Not Perf <=99 mg/dL [facility] Comment: Since a calculated LDL value is not valid for triglycerides greater than 400 mg/dl, a direct LDL determination is performed instead. Reference range: ?? Optimal: ?<100 mg/dL ?? Near Optimal/Above Optimal: ?? 100-129 mg/dL ?? Borderline high: ?130-159 mg/dL ?? High: ? 160-189 mg/dL ?? Very high: ?>rk=060 mg/dL MOIRA 2001: 285(19):6818-0579 Cholesterol/HDL Ratio 6.5 ratio [facility] Comment: A Cholesterol to HDL ratio below 4:1 is desirable. ??Studies suggest that increased CAD risk occurs at ratios above 5 for females and above 6 for men. ? [place] Heart Association ??(http://www.americanheart.org) ? Glory Int Med, 1994; 121:641 ? AM J Med, 1998; 105(1A):48S Blood specimen (specimen) 10/20/2012 1:43 PM EDT 10/20/2012 1:51 PM EDT Narrative Resulting Agency Comment Spec In Lab Tali Ballard MD CHEMISTRY ORDERABLES [facility] documented in this encounter Visit Diagnoses Diagnosis Healthcare maintenance- Primary Routine general medical examination at a health care facility documented in this encounter Care Teams Deputy Sheriff K9 Handler Relationship Specialty Start Date End Date Alex Mosuqeda MD [facility] [address] [place] [address] PCP - General 04/14/12 01/30/14 documented as of this encounter
--- OUTSIDE RECORDS SUMMARY | 2024-03-14 15:51 | XMS_ITS | Encounter Summary ---
Author Organization [facility] Address [facility] [facility] [place] [address] Care Team Providers Care Tunnel Heading Inspector Name Role Phone Alex Mosqueda MD Primary Care Provider [phone] Reason for Visit * Reason Onset Date Comments Anticoagulation 05/19/2012 INR Encounter Details Date Type Department Care Team (Late st Contact Info) Description 05/19/2012 Telephone [place] [phone] Alex Mosqeuda MD [facility] [place] [address] Anticoagulation (INR) Social History Tobacco Use Types [...] * Telephone Encounter - Jayne Bailey - 05/19/2012 2:51 PM EDT INR 3.6 [facility] documented in this encounter Plan of Treatment Not on file documented as of this encounter Visit Diagnoses Not on filedocumented in this encounter Care Teams Tunnel Heading Inspector Relationship Specialty Start Date End Date Alex Mosqueda MD [facility] [place] [address] PCP - General 04/14/12 01/30/14 documented as of this encounter
--- OUTSIDE RECORDS SUMMARY | 2024-03-14 15:51 | XMS_ITS | Encounter Summary ---
[place] [address] Care Team Providers Care Database Marketing Manager Name Role Phone Alex Mosqueda MD Primary Care Provider [phone] Reason for Visit * Reason Onset Date Comments Numbness 05/03/2012 Encounter Details Date Type Department Care Team (Late st Contact Info) Description 05/03/2012 Telephone [place] [address] Nithya Butler, RN Numbness Social History Tobacco Use Types Packs/Day Years [...] encounter Miscellaneous Notes * Telephone Encounter - Nithya Butler RN - 05/03/2012 4:34 PM EDT Discussed with Ana Maria Gallagher and if no fever or SOB he should elevate the leg and stay off it and itwould be safe to wait until tomorrow. He said he has no fever or SOB If these develop will go to ED otherwise will come to [facility] tomorrow * Telephone Encounter - Nithya Butler RN - 05/03/2012 4:19 PM EDT Patient calling and reports he was hospitalized for DVT of left leg. His left leg has continued to be swollen and today mid morning his leg started with tingling and numbness and peaked about 2pm andhe still has these symptoms. His foot is cold but is pink. He is on coumadin. Safest to go to ED for eval as this is a sudden change. He agrees to this plan documented in this encounter Plan of Treatment Not on file documented as of this encounter Visit Diagnoses Not on filedocumented in this encounter Care Teams Database Marketing Manager Relationship Specialty Start Date End Date Alex Mosqueda MD [facility] [place] [address] PCP - General 04/14/12 01/30/14 documented as of this encounter
--- OUTSIDE RECORDS SUMMARY | 2024-03-14 15:51 | XMS_ITS | Encounter Summary ---
[place] [address] Care Team Providers Care Kier Operator Name Role Phone Alex Mosqueda MD Primary Care Provider Encounter Details Date Type Department Care Team (Late st Contact Info) Description 04/14/2012 12:30 PM EDT Office Visit [place] [phone] Cherri Guajardo, RVT Social History Tobacco Use Types Packs/Day Years Used Date Smoking Tobacco: Never Alcohol Use Standard Drinks/Week Comments Yes 4 (1 standard drink = 0.6 oz pur e alcohol) occasional wine Sex and Gender Information Value Date Recorded Sex Assigned at Not on file Gender Identity Not on file Sexual Orientation Not on file documented as of this encounter Procedure Notes * Provider, Scanning - 04/15/2012 9:30 AM EDTAssociated Order(s): SCAN DOC: MEDICAID COLLECTION SPECIALIST documented in this encounter Plan of Treatment Not on file documented as of this encounter Procedures Procedure Name Priority Date/Time Associated Diagnosis Comments MEDICAID COLLECTION SPECIALIST SCAN 04/15/2012 9:30 AM EDT documented in this encounter Results * SCAN DOC: MEDICAID COLLECTION SPECIALIST (04/15/2012 9:30 AM EDT) Anatomical Region Laterality Modality Other Narrative 04/15/2012 1:51 PM EDT Procedure Note Provider, Scanning - 04/15/2012 9:30 AM EDT Scanning Provider MEDIA MGR SCAN EXT O RDR/RSLT documented in this encounter Visit Diagnoses Not on filedocumented in this encounter Care Teams Kier Operator Relationship Specialty Start Date End Date Alex Mosqueda MD [facility] [place] [address] PCP - General 04/14/12 01/30/14 documented as of this encounter
--- OUTSIDE RECORDS SUMMARY | 2024-03-14 15:51 | XMS_ITS | Encounter Summary ---
Author Organization [facility] [place] [address] Care Team Providers Care Art Manager Name Role Phone Alex Mosqueda MD Primary Care Provider [phone] Encounter Details Date Type Department Care Team (Late st Contact Info) Description 05/19/2012 Anti-Coag Telephone [place] [phone] Gloria Amezcua RN Social History Tobacco Use [...] * Patient Instructions* Gloria Amezcua, RN - 05/19/2012 5:22 PM EDT Your INR result today is: 3.6 [facility] Range: 2.0-3.0 Please take your Warfarin, (Coumadin [...] Sun Wed Sat Mg total per day 7.5 mg 5 mg 7.5 mg 5 mg 2.5 mg 5 mg 5 mg Number of Pills 1 07/27 1 07/27 1 07/27 1 Your next INR is scheduled for: Wednesday 05/23 @ [facility] Bleeding precautions discussed Hydrate!!! If you are unable to keep this appointment, please call documented in this encounter Progress Notes * Gloria Amezcua RN - 05/19/2012 5:21 PM EDT Anticoagulation Therapy Office Visit Indication: Provoked LLE DVT/PE in the setting of a long care ride, diagnosed 04/12/12 Duration of treatment: Undetermined, repeat doppler after 3 mos to establish a new baseline per Vianney Pavon APRN Range: 2.0-3.0 INR : 3.6 Discussed bleeding precautions Drawn by: [facility] Monitored by: LEANDER Next INR Due: Wednesday 05/23 Has had cold sx x 1 1/2 weeks and diarrhea sx x 2 days, feels dizzy. Working 12 hour days so NOT drinking fluids. I have explained he may be dehydrated and may contribute to dizziness, he also has dry mouth. Askedhim to push fluids. Diarrhea sx may have elevated INR by depleting natural formed Vit K in gut. Standing order @ [facility] expires 07/28/12 Patient Contact Preference: Message left on answering machine E-Mail/fax x Spoke with patient / family member: Comment: Warfarin dose : Increased x Decreased Maintained Comment Falls Risk Assessment: Have [...] primary event: Chest Pain Dyspnea Palpitations Headache x Dizziness Edema Confusion Slurred Speech Weakness Visual changes Tender / Red / Swollen Extremities No symptoms reported Other: Comment: ? dehydration Recent medication changes: ( Include prescription /OTC/ herbal) Yes x No Comment: Have you missed any dose of Coumadin this past week? Yes x No Comment Any Illness/ Cold SX/ Diarrhea/Constipation > 48 hours: x Yes No Comment Cold sx X 10 days And diarrhea x 2 days Dietary Changes: x Yes No Comment: Poor appetite Have you increased or decreased alcohol consumption [...] Associated Diagnosis Comments EXTERNAL LAB RESULTS Routine 05/19/2012 documented in this encounter Results * (ABNORMAL) External Lab Results (05/19/2012) International Normalization Ratio 3.6(A) 0.9 - 1.1 Comment:[facility] 05/19/2012 Historical Provider CHEMISTRY ORDERAB LES documented in this encounter Visit Diagnoses Not on filedocumented in this encounter Care Teams Art Manager Relationship Specialty Start Date End Date Alex Mosqueda MD [facility] [place] [address] PCP - General 04/14/12 01/30/14 documented as of this encounter
--- OUTSIDE RECORDS SUMMARY | 2024-03-14 15:51 | XMS_ITS | Encounter Summary ---
Author Organization [facility] Address [facility] [place] [place] [address] Care Team Providers Care Education Manager Name Role Phone Alex Mosqueda MD Primary Care Provider [phone] Reason for Visit * Reason Onset Date Comments Anticoagulation 05/18/2012 Add to log 05/19 Encounter Details Date Type Department Care Team (Late st Contact Info) Description 05/18/2012 Telephone [place] [phone] Alex Mosqueda MD [facility] [place] [address] Anticoagulation (Add to log 05/19) Social History Tobacco Use Types Packs/Day Years [...] * Telephone Encounter - Jayne Bailey - 05/18/2012 2:18 PM EDT Patient can't make it to the lab today. He will go tomorrow, 05/19 documented in this encounter Plan of Treatment Not on file documented as of this encounter Visit Diagnoses Not on filedocumented in this encounter Care Teams Education Manager Relationship Specialty Start Date End Date Alex Mosqueda MD [facility] [place] [address] PCP - General 04/14/12 01/30/14 documented as of this encounter
--- OUTSIDE RECORDS SUMMARY | 2024-03-14 15:51 | XMS_ITS | Encounter Summary ---
Author Organization [facility] Address [facility] [place] [address] Care Team Providers Care Patient Consumer Marketer Name Role Phone Alex Mosqueda MD Primary Care Provider [phone] Reason for Visit * Reason Onset Date Comments Anticoagulation 04/22/2012 INR Encounter Details Date Type Department Care Team (Late st Contact Info) Description 04/22/2012 Telephone [place] [phone] Alex Mosqueda MD [facility] GENERAL [place] [address] Anticoagulation (INR) Social History Tobacco Use Types [...] * Telephone Encounter - Jacque Ackerman - 04/22/2012 2:18 PM EDT INR 2.2 [facility] documented in this encounter Plan of Treatment Not on file documented as of this encounter Visit Diagnoses Not on filedocumented in this encounter Care Teams Patient Consumer Marketer Relationship Specialty Start Date End Date Alex Mosqueda MD [facility] GENERAL [place] [address] PCP - General 04/14/12 01/30/14 documented as of this encounter
--- OUTSIDE RECORDS SUMMARY | 2024-03-14 15:51 | XMS_ITS | Encounter Summary ---
[place] [address] Care Team Providers Care Energy Analyst Name Role Phone Alex Mosqueda MD Primary Care Provider [phone] Reason for Visit * Reason Comments Anticoagulation Encounter Details Date Type Department Care Team (Latest Contact Info) Description 05/04/2012 5:15 PM EDT Clinical Support [place] [phone] CLINIC, Gloria Taylor, RN Encounter for long-term (current) use of [...] * Patient Instructions* Gloria Amezcua, RN - 05/06/2012 9:46 AM EDT Your INR result today is: 2.8 POC Range: 2.0-3.0 Please take your Warfarin, (Coumadin [...] 5 mg DAY Sun Wed Sat mg 7.5 mg 5 mg 7.5 mg 5 mg 5 mg 7.5 mg 5 mg Number of Pills 1 07/27 1 1 07/27 1 1 1 07/27 1 Your next INR is scheduled for: 2 weeks 05/18 @ [facility] If you are unable to keep this appointment, please call documented in this encounter Progress Notes * Gloria Amezcua RN - 05/06/2012 9:45 AM EDT Anticoagulation Therapy Office Visit Indication: Provoked LLE DVT/PE in the setting of a long care ride, diagnosed 04/12/12 Duration of treatment: Undetermined, repeat doppler after 3 mos to establish a new baseline per Vianney Pavon APRN Range: 2.0-3.0 INR : 2.8 Drawn by: PO TABOR Monitored by: LEANDER Next INR Due: 2 weeks 05/18 Seeing provider today for numbness tingling left leg Standing order @ [facility] expires 07/28/12 Patient Contact Preference: Message left on answering machine E-Mail/fax Spoke with patient / family member: Comment: Pt seen in clinic Warfarin dose : Increased Decreased x Maintained [...] Red / Swollen Extremities No symptoms reported x Other: Comment: Recent medication changes: ( Include [...] Date/Time Associated Diagnosis Comments POCT INR Routine 05/04/2012 Pulmonary embolism documented in this encounter Results * POCT INR (05/04/2012) INR, POC 2.8 0.9 - 1.1 05/04/2012 Mynor Almaguer MD POINT OF CARE TE ST ORDERABLES documented in this encounter Visit Diagnoses Diagnosis longterm (current) use of anticoagulants- Primary Long-term (current) use of anticoagulants Pulmonary embolism Other pulmonary embolism and infarction documented in this encounter Care Teams Energy Analyst Relationship Specialty Start Date End Date Alex Mosqueda MD [facility] [address] [place] [address] PCP - General 04/14/12 01/30/14 documented as of this encounter
--- OUTSIDE RECORDS SUMMARY | 2024-03-14 15:51 | XMS_ITS | Encounter Summary ---
Author Organization [facility] Address [facility] [place] [address] Care Team Providers Care Pumper Brewery Name Role Phone Alex Mosqueda MD Primary Care Provider [phone] Reason for Visit * Reason Onset Date Comments Anticoagulation 04/21/2012 INR Encounter Details Date Type Department Care Team (Late st Contact Info) Description 04/21/2012 Telephone [place] [phone] Alex Mosqueda MD [facility] GENERAL [place] [address] Anticoagulation (INR) Social History Tobacco Use Types [...] * Telephone Encounter - Jacque Ackerman - 04/21/2012 1:23 PM EDT INR 2.4 [facility] documented in this encounter Plan of Treatment Not on file documented as of this encounter Visit Diagnoses Not on filedocumented in this encounter Care Teams Pumper Brewery Relationship Specialty Start Date End Date Alex Moqsueda MD [facility] GENERAL [place] [address] PCP - General 04/14/12 01/30/14 documented as of this encounter
--- OUTSIDE RECORDS SUMMARY | 2024-03-14 15:51 | XMS_ITS | Encounter Summary ---
Author Organization [facility] Address [facility] [place] [address] Care Team Providers Care General Production Laborer Name Role Phone None Primary Care Provider Unavailabl e Encounter Details Date Type Department Care Team (Late st Contact Info) Description 04/11/2012 Orders [place] [address] Taqueria Riggs MD [facility] [place] [address] Social History Tobacco Use Types Packs/Day Years [...] Associated Diagnosis Comments FILM LIBRARY STORAGE ONLY ULTRASOUND STUDY Routine 04/11/2012 6:03 PM EDT documented in this encounter Results * FILM LIBRARY- STORAGE ONLY ULTRASOUND STUDY (04/11/2012 6:03 PM EDT) 04/11/2012 6:03 PM EDT Narrative RAD - 02/06/2014 10:38 AM EDT This is a non-reportable exam. Procedure Note Rafael Pope - 02/06/2014 This is a non-reportable exam. Taqueria Riggs MD IMG FILM LIBRARY ORD ERABLES RAD [address] [place] [address] documented in this encounter Visit Diagnoses Not on filedocumented in this encounter Care Teams General Production Laborer Relationship Specialty Start Date End Date None None PCP - General 04/13/12 04/13/12 documented as of this encounter
--- OUTSIDE RECORDS SUMMARY | 2024-03-14 15:51 | XMS_ITS | Encounter Summary ---
[place] [address] Care Team Providers Care Highway Research Engineer Name Role Phone Alex Mosqueda MD Primary Care Provider [phone] Reason for Visit * Reason Comments Anticoagulation Encounter Details Date Type Department Care Team (Latest Contact Info) Description 05/24/2012 1:20 PM EDT Clinical [place] [phone] Inge Byrd RN Encounter for long-term (current) [...] * Patient Instructions* Inge Byrd RN - 05/24/2012 1:38 PM EDT Your INR result today is: 1.9 [...] 1 Your next INR is scheduled for: 1 week If you are unable to keep this appointment, please call documented in this encounter Progress Notes * Inge Byrd RN - 05/24/2012 1:36 PM EDT Anticoagulation Therapy Office Visit Indication: Provoked LLE DVT/PE in the setting of a long care ride, diagnosed 04/12/12 Duration of treatment: Undetermined, repeat doppler after 3 mos to establish a new baseline per Vianney Pavon APRN Range: 2.0-3.0 INR : 1.9 (was 3.6 four days ago) Drawn by: [facility] Monitored by: LEANDER Next INR Due: 1 wk Took incorrect dose C/o R lateral heal pain traveling up mid calf since this morning. States was unable to walk this am. C/o R leg pain increasing over past couple days. States LLE is more swollen than usual. States dizziness and cold sx that he c/o a few days ago have resolved. Standing order @ [facility] expires 07/28/12 Patient Contact Preference: Message left on answering machine E-Mail/fax Spoke with patient / family member: Comment: Seen in clinic Warfarin dose : x Increased Decreased Maintained [...] Edema Confusion Slurred Speech Weakness Visual changes x Tender / Red / Swollen Extremities No symptoms reported Other: Comment: Recent medication changes: ( Include prescription /OTC/ herbal) Yes x No Comment: Have you missed any dose of Coumadin this past week? Yes x No Comment Any Illness/ Cold SX/ Diarrhea/Constipation > 48 hours: Yes No Comment Dietary Changes: x Yes No Comment: Poor [...] Date/Time Associated Diagnosis Comments POCT INR Routine 05/24/2012 documented in this encounter Results * (ABNORMAL) POCT INR (05/24/2012) INR, POC 1.9(A) 0.9 - 1.1 Historical Provider POINT OF CARE NATALYA T ORDERABLES documented in this encounter Visit Diagnoses Diagnosis residential (current) use of anticoagulants- Primary Long-term (current) use of anticoagulants Pulmonary embolism Other pulmonary embolism and infarction documented in this encounter Care Teams Highway Research Engineer Relationship Specialty Start Date End Date Alex Mosqueda MD [facility] [address] [place] [address] PCP - General 04/14/12 01/30/14 documented as of this encounter
--- OUTSIDE RECORDS SUMMARY | 2024-03-14 15:51 | XMS_ITS | Encounter Summary ---
[place] [address] Care Team Providers Care Information Writer Name Role Phone Alex Mosqueda MD Primary Care Provider [phone] Reason for Visit * Reason Onset Date Comments Anticoagulation 05/03/2012 Encounter Details Date Type Department Care Team (Late st Contact Info) Description 05/03/2012 Telephone [place] [address] Inge Byrd RN Anticoagulation Social History Tobacco Use Types [...] encounter Miscellaneous Notes * Telephone Encounter - Inge Byrd RN - 05/03/2012 3:48 PM EDT ESTEVAN MURDOCK 05/03/12 03:25 PM Signed Message from Hansa (3PM) re: she states her just called her from work and he is experiencing numbness though out his entire left leg and dizziness. She would like us to call him. His cell #[phone]. Messages left on pt's cell phone and home phone re: Instructed pt to report to local ED. documented in this encounter Plan of Treatment Not on file documented as of this encounter Visit Diagnoses Not on filedocumented in this encounter Care Teams Information Writer Relationship Specialty Start Date End Date Alex Mosqueda MD [facility] GENERAL [place] [address] PCP - General 04/14/12 01/30/14 documented as of this encounter
--- OUTSIDE RECORDS SUMMARY | 2024-03-14 15:51 | XMS_ITS | Encounter Summary ---
Author Organization [facility] Address [facility] [place] [address] Care Team Providers Care Automatic Toe Laster Name Role Phone Alex Mosqueda MD Primary Care Provider [phone] Reason for Visit * Reason Onset Date Comments Medication Refill 05/03/2012 Encounter Details Date Type Department Care Team (Late st Contact Info) Description 05/03/2012 Refill [place] [address] Madison Fang RN Social History Tobacco Use Types Packs/Day [...] on filedocumented in this encounter Care Teams Automatic Toe Laster Relationship Specialty Start Date End Date Alex Mosqueda MD [facility] [place] [address] PCP - General 04/14/12 01/30/14 documented as of this encounter
--- OUTSIDE RECORDS SUMMARY | 2024-03-14 15:51 | XMS_ITS | Encounter Summary ---
Author Organization [facility] Address [facility] [place] [address] Care Team Providers Care Mender Hand Name Role Phone Alex Mosqueda MD Primary Care Provider [phone] Reason for Visit * Reason Onset Date Comments Anticoagulation 05/03/2012 Encounter Details Date Type Department Care Team (Late st Contact Info) Description 05/03/2012 Telephone [place] [phone] Alex Mosqueda MD [facility] [place] [address] Anticoagulation Social History Tobacco Use Types Packs/Day [...] * Telephone Encounter - Jacque Ackerman - 05/03/2012 3:25 PM EDT Message from Hansa (3PM) re: she states her just called her from work and he is experiencing numbness though out his entire left leg and dizziness. She would like us to call him. His cell #[phone]. Kam documented in this encounter Plan of Treatment Not on file documented as of this encounter Visit Diagnoses Not on filedocumented in this encounter Care Teams Mender Hand Relationship Specialty Start Date End Date Alex Mosqueda MD [facility] [place] [address] PCP - General 04/14/12 01/30/14 documented as of this encounter
--- OUTSIDE RECORDS SUMMARY | 2024-03-14 15:51 | XMS_ITS | Encounter Summary ---
[place] [address] Care Team Providers Care Solid Waste Facility Supervisor Name Role Phone Alex Mosqueda MD Primary Care Provider [phone] Encounter Details Date Type Department Care Team (Late st Contact Info) Description 05/24/2012 4:00 PM EDT Office Visit [place] [address] Candace Edward [place] DVT (deep venous thrombosis) Social History Tobacco Use Types Packs/Day Years [...] Comments DUPLEX FOR DVT, LEG, UNILAT Routine 05/24/2012 4:07 PM EDT DVT (deep venous thrombosis) documented in this encounter Results * Duplex for DVT, Leg, Unilat (05/24/2012 4:07 PM EDT) VB Text Report Department: Vascular Surgery Lab Patient: [id number] (HEIKE GRANT) CPT Code: 27218 ICD-9: 451.19 Referring Physician: CORKY PEÑA Indication: [...] encounter Visit Diagnoses Diagnosis DVT (deep venous thrombosis) Acute venous embolism and thrombosis of unspecified deep vessels of lower extremity documented in this encounter Care Teams Solid Waste Facility Supervisor Relationship Specialty Start Date End Date Alex Mosqueda MD [facility] [address] [address] PCP - General 04/14/12 01/30/14 documented as of this encounter
--- OUTSIDE RECORDS SUMMARY | 2024-03-14 15:51 | XMS_ITS | Encounter Summary ---
Author Organization [facility] [place] [address] Care Team Providers Care Career Placement Services Counselor Name Role Phone Alex Mosqueda MD Primary Care Provider Reason for Referral * Physical Therapy (Routine) - Closed Specialty Diagnoses / Procedures Referred By Adonay escalante Referred To Contact Physical Therapy Diagnoses Pulmonary embolism Charlene White APRN [facility] [place] [address] [facility] [place] [address] Referral ID Status Reason Start Date Expiration Date V isits Requested Visits Authorized [id number] Closed Evaluate and Treat 04/18/2012 10/15/2012 1 1 Reason for Visit * Reason Comments Anticoagulation Encounter Details Date Type Department Care Team (Late st Contact Info) Description 04/18/2012 11:00 AM EDT Office [place] [phone] Charlene White APRN [facility] [place] [address] (work) Pulmonary embolism (Primary Dx) Discharge Disposition: Home Social History [...] Sign Reading Time Taken Comments Blood Pressure 141/92 04/18/2012 11:04 AM EDT Pulse 84 04/18/2012 11:04 AM EDT Temperature - - Respiratory Rate - - Oxygen Saturation - - Inhaled Oxygen Concentration - - Weight 117.9 kg (260 lb) 04/18/2012 11:04 AM EDT Height - - Body Mass Index 33.38 04/14/2012 3:59 AM EDT documented in this encounter Patient Instructions * Patient Instructions* Charlene Pavon, SHABNAM - 04/18/2012 11:03 AM EDT Welcome to [employer], your secure online access to your electronic medical record at [facility]. Using Pro[employer]ly you will be able to send messages to your providers, view your test results, renew prescriptions, schedule appointments, and much more. Follow these instructions to enter your personal Proxly account for the first time: 1. Start your internet browser and type [email or web address] into the address bar. 2. In the New User box on the right-hand side of the Welcome page click the link that states, ???I have an activation code.?? 3. On the Identification page, follow these steps: a) Enter your Proxly activation code: [email or web address] b) Expires: 06/02/12 11:01 AM IMPORTANT: This Activation Code will on the above mentioned date. If you do not sign up for Proxly by this date, you will need to request another activation code. c) Enter your date of , using the calendar tool provided. d) Enter your Zip code. e) Select ???submit?? to go to the next page. 4. On the Create Account page, follow these steps: a) Create a Proxly username. This can???t be changed, so choose one you won???t forget. b) Create a password that???s at least six characters long, and that contains at least two numbers.Your password can be changed at any time. Confirm your password by entering it once more. c) Enter your email address. This will be used to alert you to new information. Confirm your email address by entering it once more. d) Enter your security question. This will be used if you forget your password. e) Enter your security answer. Confirm your security answer by entering it once more. f) Select ???submit?? to view your electronic medical record. If you have any questions about myD-H or your Access Code, please call for [place], for [place] or for [place]. If you need technical support, please e-mail [email or web address]. Remember, myD-H is NOT for urgent needs! Always dial 911 for medical emergencies. Your INR result today is: 2.1 Please take your Warfarin, (Coumadin ??), dose at or about 5:30 pm each day as instructed. If you should miss a [...] bellow until your next scheduled INR visit. 5 mg tablets DAY Wed Dose in mg 5 mg 5 mg 5mg 5mg 5mg 5mg 5mg Number of Pills 1 1 1 1 1 1 1 Continue enoxaparin 120 mg every 12 hrs until 2 INRs 2.0 or greater x 2 Your next INR is scheduled for: Wednesday04/19/12 If you are unable to keep this appointment, please call ahead to reschedule. [phone] documented in this encounter Progress Notes * Charlene Pavon APRN - 04/18/2012 11:07 AM EDT Subjective: Anticoagulation Therapy New Patient This 36 y/o patient initiated anticoagulation therapy on: 04/10/12 Indication for anticoagulation: DVT/PE with an INR goal of: 2.0-3.0 Duration of therapy: Previous DVT: no IVC Filter? no PCP: About 2 mos ago he started having leg pain and swelling. It went away after about a week then returned 1 week later. 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 H HTN yes A Abnormal Renal and Liver Function (1pt each) no S Stroke no B Bleeding - Had surgery at age 21 for pilonidal cyst - skin is this there he has occasional Bleeding when he has hard stools - takes fiber supplements L Labile INRs - unknown E Elderly (Age >65) 36 D Drugs or Alcohol (NSAIDs Antiplatlets) no THROMBOSIS RISK FACTORS Risk Factor Comment Obesity (BMI >30 kg/m2) V/A y BMI 33 Diabetes V/A n Current smoker V/A n Estrogen or estrogen/progestin V/A n V/A n Inflammatory disease V/A n Recent surgery (<3 months) V n Recent hospitalization (<3 mo) V n Recent travel (<3 mo) V y 40 hrs over 3 days in car Period of immobility V n Documented thrombophilia V n Accident/Trauma V/A n Cancer or treatment for cancer V/A n Blood transfusion V/A n Central venous catheter V n Family history (1st degree) V/A y Father post op clot 2004 second clot 2007 after long car ride Varicose veins V n Hypertension A Hyperlipidemia A Vascular disease A V: Risk factor for venous thrombosis; A: Risk factor for arterial thrombosis HPI Review of Systems Constitutional: Negative for unexpected weight change. Respiratory: Negative for chest tightness and shortness of breath. RICK+ Cardiovascular: Negative for chest pain and leg swelling. Gastrointestinal: Negative for blood in stool. Genitourinary: Negative for hematuria. Skin: Negative for pallor. Neurological: Negative for headaches. Hematological: Bruises/bleeds easily. Objective: Physical Exam Constitutional: He is oriented to person, place, and time. He appears well- developed and well-nourished. No distress. Cardiovascular: Normal rate and regular rhythm. Pulmonary/Chest: Effort normal and breath sounds normal. Musculoskeletal: He exhibits no edema and no tenderness. Neurological: He is alert and oriented to person, place, and time. Skin: Skin is warm and dry. BP 141/92 Pulse 84 Wt 117.935 kg (260 lb) Recent Results (from the past 24 hour(s)) POCT INR Component Value Range ??? POC INR 2.1 0.9 - 1.1 Assessment and Plan: Clearly provoked DVT/PE, although he is young and has +FH his fathers VTE were also clearly provoked. We discussed the risk and provoking factors for blood clots. We discussed reduction Of risk factors including weight loss and increasing activity and avoiding dehydration. Recommend repeat doppler after 3 mos to establish a new baseline. Coumadin and Lovenox teaching initiated, Coumadin paket and Lovenox pack provided and reviewed. Pt vocalized understanding of need for anticoagulation therapy, importance of compliance of dosing and monitoring, diet and safety precautions and when to report or seek emergent medical attention. Reported ability to safely perform self injections. Coumadin- 5 mg tonight, INR tomorrow Lovenox 1 mg/kg SQ twice daily for at least five days and until two consecutive INRs > 2.0. Monitor for signs and symptoms of bleeding. Compression stockings daily to both lower extremities, min 2 yrs and during times of increased risk. Contract with anticoagulation services signed. 45 minutes of this 60 minute visit was spent in direct counseling and coordination of care for above issues documented in this encounter Plan of Treatment Scheduled Referrals Name Type Priority Associated Diagnoses Orde r Schedule REFERRAL TO PHYSICAL THERAPY Outpatient Referral Routine Pulmonary embolism Ordered: 04/18/2012 documented as of this encounter Procedures Procedure Name Priority Date/Time Associated Diagnosis Comments POCT INR Routine 04/18/2012 11:56 AM EDT Pulmonary embolism documented in this encounter Results * POCT INR (04/18/2012 11:56 AM EDT) INR, POC 2.1 0.9 - 1.1 04/18/2012 11:5 6 AM EDT Mynor Almaguer MD POINT OF CARE TE ST ORDERABLES documented in this encounter Visit Diagnoses Diagnosis Pulmonary embolism- Primary Other pulmonary embolism and infarction documented in this encounter Care Teams Career Placement Services Counselor Relationship Specialty Start Date End Date Alex Mosqueda MD [facility] [place] [address] PCP - General 04/14/12 01/30/14 documented as of this encounter
--- OUTSIDE RECORDS SUMMARY | 2024-03-14 15:51 | XMS_ITS | Encounter Summary ---
Author Organization [facility] Address [facility] [place] [address] Care Team Providers Care Corrugator Machine Operator Name Role Phone Alex Mosqueda MD Primary Care Provider [phone] Reason for Visit * Reason Onset Date Comments Anticoagulation 05/24/2012 Patient concerns Encounter Details Date Type Department Care Team (Late st Contact Info) Description 05/24/2012 Telephone [place] [phone] Alex Mosqueda MD [facility] [place] [address] Anticoagulation (Patient concerns) Social History Tobacco Use Types Packs/Day Years [...] * Telephone Encounter - Jayne Bailey - 05/24/2012 11:03 AM EDT Patient called to say he has pain in both legs today. He is very worried about it, but didn't want to go to ER until he spoke with someone. He is also overdue for INR so he made an appt to be seen today at 1:20pm. If possible, please call patient back before he comes for appt to let him know if he should be seen sooner. documented in this encounter Plan of Treatment Not on file documented as of this encounter Visit Diagnoses Not on filedocumented in this encounter Care Teams Corrugator Machine Operator Relationship Specialty Start Date End Date Alex Mosqueda MD [facility] [place] [address] PCP - General 04/14/12 01/30/14 documented as of this encounter
[2024-03-20 17:56] LABS: Renin Activity, Plasma 33 ng/mL/h
== END 2024-03-14 15:46 | disposition home or self-care (01) ==
LOC: LBO 15:47
PROVIDERS: PCP Nurse Practitioner Family; Visit Provider Nurse Practitioner Family
DX: R53.83 Other fatigue (principal)
CPT/HCPCS: 36415; 82088; 82533; 84244

== ENCOUNTER 2025-05-09 15:11 | Outpatient (REF) | payer BC, SELFPAY ==
[2025-05-09 21:28] LABS: Abs Immature Grans 0.09 10^3/uL (0.0-0.06); HCT 46.2 % (40.0-50.0); HGB 16.4 g/dL (13.5-17.5); Immature Grans % 0.9 %; MCH 31.2 pg (27.0-33.0); MCHC 35.5 % (32.0-36.0); MCV 88 fL (80-95); MPV 10.6 fL (8.0-11.0); Platelet Count 204 10^3/uL (130-400); RBC 5.25 10^6/uL (4.36-5.78); RDW 12.7 % (11.8-14.1); RDW-SD 41.1 fL; WBC 9.90 10^3/uL (4.4-10.8)
[2025-05-09 21:46] LABS: Hemoglobin A1C 5.9 % (<5.7)
[2025-05-09 21:50] LABS: ALT 59 U/L (16-63); AST 33 U/L (15-37); Albumin 3.7 g/dL (3.4-5.0); Alkaline Phosphatase 84 U/L (46-116); Anion Gap 9.9 mmol/L (3-11); BUN 7 mg/dL (7-18); Bilirubin, Total 1.0 mg/dL (0.2-1.0); CO2 27.1 mmol/L (21.0-32.0); Calcium 9.2 mg/dL (8.5-10.1); Chloride 105 mmol/L (98-107); Estimated GFR 109.85 (mL/min/1.73m2); Glucose 99 mg/dL (74-106); Potassium 3.7 mmol/L (3.5-5.1); Sodium 142 mmol/L (136-145); Total Protein 6.7 g/dL (6.4-8.2)
[2025-05-10 17:39] LABS: PSA, Screening 0.6 ng/mL (<=2.5)
== END 2025-05-09 15:12 | disposition home or self-care (01) ==
LOC: NCHCN 15:11
PROVIDERS: PCP Nurse Practitioner Family; Visit Provider Nurse Practitioner Family
DX: R10.11 Right upper quadrant pain (principal); Z68.41 Body mass index [BMI] 40.0-44.9, adult
CPT/HCPCS: 80053; 84153; 83036; 85025

== ENCOUNTER 2025-06-12 14:55 | Outpatient (REF) | payer BC, SELFPAY ==
[2025-06-12 21:03] LABS: Vitamin B12 233 pg/mL (211-911)
== END 2025-06-12 14:56 | disposition home or self-care (01) ==
LOC: NCHCN 14:55
PROVIDERS: PCP Nurse Practitioner Family; Visit Provider Nurse Practitioner Family
DX: R53.82 Chronic fatigue, unspecified (principal)
CPT/HCPCS: 84403; 82607